=== PATIENT | female | born 1955 | race Caucasian/White ===

== ENCOUNTER 2016-07-14 13:00 | Outpatient (RCR) | payer MEDICARE, OTHER ==
[~2016-07-14 13:00] MED LIST: ALPRAZOLAM; BPR75T PO; BUPR300T PO; CLIN-62 PO; CLON0.25; CLON0.5T3 PO; CLON0.5T60 PO; DOXY100C2 PO; ENAL10TA; HCT25T; OMEP-10 PO; PRX25T PO
== END 2016-07-15 | disposition home or self-care (01) ==
LOC: PULM 13:00
PROVIDERS: ATTEND Internal Medicine Critical Care Medicine
DX: J43.8 Other emphysema (principal); R09.02 Hypoxemia; J84.9 Interstitial pulmonary disease, unspecified; K21.9 Gastro-esophageal reflux disease without esophagitis

== ENCOUNTER 2016-07-23 13:35 | Outpatient (RCR) | payer MEDICARE, OTHER ==
[2016-08-23] MEDS ORDERED: AMOX-358 PO (14:38)
[2016-08-23] MEDS ORDERED: PRD20T PO (14:38)
[2016-08-23] MEDS ORDERED: AZIT250T5 PO (14:38)
== END 2016-10-21 | disposition home or self-care (01) ==
LOC: PULM 13:35
PROVIDERS: ATTEND Internal Medicine Critical Care Medicine
DX: J43.8 Other emphysema (principal); R09.02 Hypoxemia; J84.9 Interstitial pulmonary disease, unspecified; K21.9 Gastro-esophageal reflux disease without esophagitis

== ENCOUNTER 2016-08-23 13:11 | Emergency (ER) | payer MEDICARE, OTHER ==
[~2016-08-23] VITALS: Ht 162.6 cm; Wt 74.8 kg
[2016-08-23] MEDS ORDERED: RT-ALBUTEROL/IPRATROPIUM 3 ML (DUONEB) VIAL ONE (13:21)
[2016-08-23] MEDS ORDERED: RT-ALBUTEROL/IPRATROPIUM 3 ML (DUONEB) VIAL INH ONE (13:30)
[2016-08-23] MEDS ORDERED: methylPREDNISolone 125 MG (Solu-MEDROL) VIAL IVP ONE (13:30)
--- NOTE | 2016-08-23 13:33 | ED Cough/URI ---
General Chief Complaint: Respiratory Problems Stated Complaint: SOB Source: patient Exam Limitations: no limitations History of Present Illness Time seen by provider: 13:30 Initial Comments To ER with shortness of breath and central chest pain. The pain is rated at 2 out of 10 described as heavy and worsens with breathing. She has a history of COPD and wears oxygen at 4 L [id number]. She presented to [facility] but they found her oxygen saturation being 81 percent as she did not wear her portable CO2 with her and they referred her here. She is febrile at 100 on arrival. She has had a cough. Timing/Duration: just prior to arrival Severity/Quality: moderate Prior Episodes/Possible Cause: occasional episodes Associated Symptoms: cough, fever/chills, shortness of breath Allergies and Home Medications Allergies Coded Allergies: No Known Drug Allergies (Verified , 07/15/09) Home Medications Amoxicillin/Potassium Clav 1 Each Tablet #14 1 EACH PO BID Prescribed by: ESTRELLA CHOI on 08/23/16 1438 Azithromycin 250 Mg Tablet #4 250 MG PO DAILY Prescribed by: ESTRELLA CHOI on 08/23/16 1438 Bupropion Hcl 300 Mg Tab.sr.24h 1 TAB PO DAILY (Reported) Clindamycin Hcl 150 Mg Cap 300 MG PO TID (Reported) Clonazepam 0.5 Mg Tablet 0.5 MG PO TID (Reported) Doxycycline Hyclate 100 Mg Capsule 100 MG PO BID (Reported) Omeprazole 20 Mg Capsule.dr 20 MG PO DAILY (Reported) Paroxetine Hcl 25 Mg Tab.sr.24h 25 MG PO DAILY (Reported) Prednisone 20 Mg Tab #8 40 MG PO DAILY Prescribed by: ESTRELLA CHOI on 08/23/16 1438 Constitutional: see HPI chills EENTM: nose congestion see HPI Respiratory: see HPI cough Cardiovascular: see HPI chest pain Genitourinary: no symptoms reported Musculoskeletal: no symptoms reported Skin: no symptoms reported Psychiatric/Neurological: No Symptoms Reported Hematologic/Lymphatic: No Symptoms Reported Past Xwseaur-Qqddja-Cdaifh Hx Patient Social History Recent Foreign Travel: No Contact w/Someone Who Travel: No Immunizations Up To Date Date of Influenza Vaccine: Mar 16, 2012 Respiratory Hx Respiratory Disorders: Yes Cardiovascular Hx Cardiac Disorders: No Neurological Hx Neurological Disorders: No Reproductive System Hx Reproductive Disorders: No Genitourinary Hx Genitourinary Disorders: No Gastrointestinal Hx Gastrointestinal Disorders: No Musculoskeletal Hx Musculoskeletal Disorders: No Endocrine Hx Endocrine Disorders: No HEENT HX ENT Disorders: No Psychosocial Hx Psychiatric Problems: Yes Blood Transfusions Hx Blood Disorders: No Physical Exam Vital Signs Vital Sign - Last 12Hours 08/23/16 08/23/16 13:19 13:37 Temp 100.3 Pulse 103 Resp 18 B/P 150/77 Pulse Ox 99 O2 Delivery Nasal Cannula O2 Flow Rate 2 Capillary Refill : General Appearance: WD/WN no apparent distress other (97 percent on her baseline 4 L) Eyes: Bilateral Eye EOMI, Bilateral Eye Normal Inspection, Bilateral Eye PERRL HEENT: PERRL/EOMI normal ENT inspection Neck: non-tender full range of motion Respiratory: no respiratory distress no accessory muscle use crackles ( throughout) Cardiovascular: regular rate, rhythm no murmur Gastrointestinal: non tender soft Extremities: normal range of motion non-tender Neurologic/Psychiatric: alert normal mood/affect oriented x 3 Skin: normal color warm/dry Progress/Results/Core Measures Results/Orders Lab Results Laboratory Tests Test 08/23/16 13:30 Range/Units Alanine Aminotransferase (ALT/SGPT) 10 0-55 U/L Albumin 3.5 3.2-4.5 G/DL Alkaline Phosphatase 68 40-136 U/L Anion Gap 9 5-14 MMOL/L Aspartate Amino Transf (AST/SGOT) 17 5-34 U/L B-Type Natriuretic Peptide 38.9 <100.0 PG/ML BUN/Creatinine Ratio 15 Basophils # (Auto) 0.1 0.0-0.1 10^3/uL Basophils (%) (Auto) 1 0-10 % Blood Urea Nitrogen 11 7-18 MG/DL Calcium Level 8.9 8.5-10.1 MG/DL Carbon Dioxide Level 28 21-32 MMOL/L Chloride Level 105 98-107 MMOL/L Creatinine 0.72 0.60-1.30 MG/DL Eosinophils # (Auto) 0.2 0.0-0.3 10^3/uL Eosinophils (%) (Auto) 2 0-10 % Estimat Glomerular Filtration Rate > 60 Glucose Level 103 70-105 MG/DL Hematocrit 33 L 35-52 % Hemoglobin 10.4 L 11.5-16.0 G/DL Lymphocytes # (Auto) 1.1 1.0-4.0 X 10^3 Lymphocytes (%) (Auto) 11 L 12-44 % Mean Corpuscular Hemoglobin 25 25-34 PG Mean Corpuscular Hemoglobin Concent 31 L 32-36 G/DL Mean Corpuscular Volume 81 80-99 FL Mean Platelet Volume 11.3 H 7.4-10.4 FL Monocytes # (Auto) 0.6 0.0-1.0 X 10^3 Monocytes (%) (Auto) 6 0-12 % Neutrophils # (Auto) 7.9 H 1.8-7.8 X 10^3 Neutrophils (%) (Auto) 81 H 42-75 % Platelet Count 249 130-400 10^3/uL Potassium Level 3.8 3.6-5.0 MMOL/L Red Blood Count 4.14 L 4.35-5.85 10^6/uL Red Cell Distribution Width 15.5 H 10.0-14.5 % Sodium Level 142 135-145 MMOL/L Total Bilirubin 0.2 0.1-1.0 MG/DL Total Protein 7.1 6.4-8.2 G/DL Troponin I < 0.30 <0.30 NG/ML White Blood Count 9.8 4.3-11.0 10^3/uL Micro Results Microbiology 08/23/16 Influenza Types A,B Antigen ([place]) - Final, Complete My Orders Orders-ESTRELLA CHOI APRN Ekg Tracing (08/23/16 13:23) Troponin I (08/23/16 13:23) Cbc With Automated Diff (08/23/16 13:23) Comprehensive Metabolic Panel (08/23/16 13:23) Chest Pa/Lat (2 View) (08/23/16 13:23) Saline Lock/Iv-Start (08/23/16 13:23) BNP (08/23/16 13:23) Influenza A And B Antigens (08/23/16 13:23) Albuterol/Ipra Inhalation Soln (Duoneb I (08/23/16 13:30) Methylprednisolone Sod Succ (Solu-Medrol (08/23/16 13:30) Svn Sm Volume Nebulizer Rt-Rfs (08/23/16 13:23) Ceftriaxone Injection (Rocephin Injectio (08/23/16 14:30) Amoxicillin/Clavulanate Tablet (Augmenti (08/23/16 14:30) Azithromycin Tablet (Zithromax Tablet) (08/23/16 14:30) Ondansetron Injection (Zofran Injectio (08/23/16 14:30) Ketorolac Injection (Toradol Injection) (08/23/16 14:45) Ketorolac Injection (Toradol Injection) (08/23/16 14:36) Medications Given in ED Current Medications Medications Dose Ordered Sig/Oumar Route Start Time Stop Time Status Last Admin Dose Admin Ketorolac Tromethamine 30 mg STK-MED ONCE .ROUTE 08/23/16 14:36 08/23/16 14:39 DC 08/23/16 14:41 30 MG Methylprednisolone Sodium Succinate 125 mg ONCE ONCE IVP 08/23/16 13:30 08/23/16 13:31 DC 08/23/16 14:23 125 MG Ondansetron HCl 4 mg ONCE ONCE IVP 08/23/16 14:30 08/23/16 14:31 DC 08/23/16 14:40 4 MG Vital Signs/I&O Vital Sign - Last 12Hours 08/23/16 08/23/16 08/23/16 08/23/16 13:19 13:37 14:41 14:42 Temp 100.3 100.3 100.3 Pulse 103 Resp 18 B/P 150/77 Pulse Ox 99 95 O2 Delivery Nasal Cannula O2 Flow Rate 2 Departure Communication Progress Notes 1424-Pt has home O2 and portable O2, nebulizers at home with adequate supply of albuterol. O2 98% on her baseline 4liters of O2. Despite 24 hours of persistent chest pain there are no EKG changes and her troponin remains negative. Her pain is completely gone after Toradol. Impression Impression: Primary Impression: COPD exacerbation Disposition: 01 HOME, SELF-CARE Condition: Stable Departure-Patient Inst. Decision time for Depature: 14:24 Referrals: [facility] (PCP/Family) Primary Care Physician Patient Instructions: Community-Acquired Pneumonia in Adults Add. Discharge Instructions: 1. Return to ER for any concerns 2. Antibiotics as directed 3. All discharge instructions reviewed with patient and/or family. Voiced understanding. Scripts Prednisone 20 Mg Tab40 Mg PO DAILY #8 TAB Prov:ESTRELLA CHOI CONSTRUCTION SECRETARY 08/23/16 Azithromycin 250 Mg [id number] Mg PO DAILY #4 TAB Prov:ESTRELLA CHOI CONSTRUCTION SECRETARY 08/23/16 Amoxicillin/Potassium Clav (Augmentin 875-125 Tablet)1 Each Tablet1 Each PO BID #14 TAB Prov:ESTRELLA CHOI APRN 08/23/16 ESTRELLA CHOI APRN Aug 23, 2016 13:33
[2016-08-23 13:41] LABS: BASOPHILS # (AUTO) 0.1 10^3/uL (0.0-0.1); BASOPHILS % (AUTO) 1 % (0-10); EOSINOPHILS # (AUTO) 0.2 10^3/uL (0.0-0.3); EOSINOPHILS % (AUTO) 2 % (0-10); LYMPHOCYTES # (AUTO) 1.1 X 10^3 (1.0-4.0); LYMPHOCYTES % (AUTO) 11 % (12-44); MEAN CORPUSCULAR HEMOGLOBIN 25 PG (25-34); MEAN CORPUSCULAR HGB CONC 31 G/DL (32-36); MEAN CORPUSCULAR VOLUME 81 FL (80-99); MEAN PLATELET VOLUME 11.3 FL (7.4-10.4); MONOCYTES # (AUTO) 0.6 X 10^3 (0.0-1.0); MONOCYTES % (AUTO) 6 % (0-12); NEUTROPHILS # (AUTO) 7.9 X 10^3 (1.8-7.8); NEUTROPHILS % (AUTO) 81 % (42-75); PLATELET COUNT 249 10^3/uL (130-400); RED BLOOD COUNT 4.14 10^6/uL (4.35-5.85); RED CELL DISTRIBUTION WIDTH 15.5 % (10.0-14.5); WHITE BLOOD COUNT 9.8 10^3/uL (4.3-11.0)
[2016-08-23 13:59] LABS: ALANINE AMINOTRANSFERASE 10 U/L (0-55); ALBUMIN 3.5 G/DL (3.2-4.5); ANION GAP 9 MMOL/L (5-14); ASPARTATE AMINO TRANSFERASE 17 U/L (5-34); BILIRUBIN,TOTAL 0.2 MG/DL (0.1-1.0); BLOOD UREA NITROGEN 11 MG/DL (7-18); BUN/CREATININE RATIO 15; CALCIUM 8.9 MG/DL (8.5-10.1); CARBON DIOXIDE 28 MMOL/L (21-32); CHLORIDE 105 MMOL/L (98-107); CREATININE SERUM 0.72 MG/DL (0.60-1.30); GFR ESTIMATED > 60; GLUCOSE 103 MG/DL (70-105); POTASSIUM 3.8 MMOL/L (3.6-5.0); SODIUM 142 MMOL/L (135-145); TOTAL PROTEIN 7.1 G/DL (6.4-8.2)
[2016-08-23 14:05] LABS: TROPONIN I < 0.30 NG/ML (<0.30)
--- NOTE | 2016-08-23 14:09 | Diagnostic Imaging Report ---
INDICATION: Chest pain and shortness of air. TECHNIQUE: Two view chest 01:54 p.m. CORRELATION STUDY: 06/09/2016. FINDINGS: Heart size stable. Vascular appears increased with presence of bilateral perihilar infiltrates. Patchy infiltrate about the both lungs particularly the upper lobe distributions, right greater than left. Tubing noted over the upper abdomen likely of the gastric band. IMPRESSION: 1. Prominent pulmonary parenchymal markings suspect for scattered patchy areas of infiltrate. Also suspect for superimposed edema. Dictated by: Dictated on workstation # [id number]
[2016-08-23] MEDS ORDERED: cefTRIAXone INJECTION 1,000 MG in NS (IVPB) 50 ML IV ONE (14:30)
[2016-08-23] MEDS ORDERED: AZITHROMYCIN 250 MG TAB (ZITHROMAX) PO SCH (14:30)
[2016-08-23] MEDS ORDERED: ONDANSETRON 4 MG/2 ML (SDV) Z0FRAN IVP ONE (14:30)
[2016-08-23] MEDS ORDERED: AUGMENTIN 875 MG TAB (AMOXICILLIN/CLAVULANATE) PO SCH (14:30)
[2016-08-23] MEDS ORDERED: KETOROLAC 30 MG/ML VIAL ONE (14:36)
[2016-08-23] MEDS ORDERED: AZIT250T5 PO (14:38)
[2016-08-23] MEDS ORDERED: PRD20T PO (14:38)
[2016-08-23] MEDS ORDERED: AMOX-358 PO (14:38)
[2016-08-23] MEDS ORDERED: KETOROLAC 30 MG/ML VIAL IVP ONE (14:45)
[2016-08-23 15:21] VITALS: BP 122/75
== END 2016-08-23 15:21 | disposition home or self-care (01) ==
LOC: EDUNIT# 13:11 → ER 13:13
DX: J44.1 Chronic obstructive pulmonary disease with (acute) exacerbation (principal); R07.89 Other chest pain; Z99.81 Dependence on supplemental oxygen; Z79.899 Other long term (current) drug therapy
CPT/HCPCS: 36415; 71020; 80053; 83880; 84484; 85025; 87804; 93005; 94640; 96374; 96375

== ENCOUNTER 2016-09-15 15:17 | Outpatient (RCR) | payer MEDICARE, OTHER ==
[~2016-09-15 15:17] MED LIST changes: +AMOX-358 PO; +AZIT250T5 PO; +PRD20T PO
[2016-09-15 16:28] LABS: BASOPHILS # (AUTO) 0.1 10^3/uL (0.0-0.1); BASOPHILS % (AUTO) 1 % (0-10); EOSINOPHILS # (AUTO) 0.5 10^3/uL (0.0-0.3); EOSINOPHILS % (AUTO) 6 % (0-10); LYMPHOCYTES % (AUTO) 23 % (12-44); MEAN CORPUSCULAR HEMOGLOBIN 25 PG (25-34); MEAN CORPUSCULAR HGB CONC 31 G/DL (32-36); MEAN CORPUSCULAR VOLUME 80 FL (80-99); MEAN PLATELET VOLUME 10.4 FL (7.4-10.4); MONOCYTES # (AUTO) 0.7 X 10^3 (0.0-1.0); MONOCYTES % (AUTO) 8 % (0-12); NEUTROPHILS # (AUTO) 5.5 X 10^3 (1.8-7.8); NEUTROPHILS % (AUTO) 63 % (42-75); PLATELET COUNT 254 10^3/uL (130-400); RED BLOOD COUNT 4.51 10^6/uL (4.35-5.85); RED CELL DISTRIBUTION WIDTH 15.5 % (10.0-14.5); WHITE BLOOD COUNT 8.7 10^3/uL (4.3-11.0)
[2016-09-15 16:46] LABS: BAND NEUTROPHILS 2 %; BASOPHILS % (MANUAL) 1 %; EOSINOPHILS % (MANUAL) 11 %; LYMPHOCYTES % (MANUAL) 24 %
[2016-09-15 16:47] LABS: NEUTROPHILS % (MANUAL) 56 %
--- NOTE | 2016-09-15 17:48 | Diagnostic Imaging Report ---
EXAMINATION: PA and lateral chest at 4:28 p.m. INDICATION: Cough, shortness of breath. FINDINGS: The heart size is within normal limits and stable when compared to 08/23/2016. The perihilar densities seen on the prior study are again evident and somewhat less conspicuous. There still appears to be some residual density present in each perihilar region. The lung peripheries are clear, and there is no sign of a pleural effusion. The mediastinum is not widened. The osseous structures are intact. IMPRESSION: The appearance of the chest has improved somewhat as the perihilar regions do appear better aerated. There is still some residual abnormal density in each perihilar region, however. If further evaluation is desired, then CT of the chest would be recommended. Dictated by: Dictated on workstation # [id number]
== END 2016-12-14 | disposition home or self-care (01) ==
LOC: RAD 15:17
PROVIDERS: ATTEND Nurse Practitioner Family
DX: J30.9 Allergic rhinitis, unspecified (principal); J45.998 Other asthma; J43.9 Emphysema, unspecified; R06.02 Shortness of breath; J18.9 Pneumonia, unspecified organism
CPT/HCPCS: 36415; 71020; 85007; 85027; 87070; 87077; 87186; 87205

== ENCOUNTER → 2016-09-18 | Outpatient (CLI) | payer MEDICARE, OTHER ==
--- NOTE | 2016-09-18 16:30 | Diagnostic Imaging Report ---
PROCEDURE: CT chest without contrast. TECHNIQUE: Multiple contiguous axial images were obtained through the chest without the use of intravenous contrast. INDICATION: Short of breath, chest pain. Pneumonia followup. FINDINGS: There are patchy groundglass infiltrates in the peripheral right lung. There is some parabronchial thickening in the right hilum with no alveolar infiltrate or mass seen. There is no effusion or pneumothorax. There is no mediastinal or hilar lymphadenopathy. The esophagus is mildly dilated and filled with fluid. There are changes of prior surgery at the GE junction. IMPRESSION: There are minimal infiltrates in the right upper lobe. There are chronic changes on the right which were present on a CT from 11/15/2015. There is no suspicious mass. A mildly dilated esophagus which is filled with fluid is also similar in appearance to the prior CT from 12/05/2015. Message left on doctor's line at 4:29 p.m. 09/18/2016/cb Dictated by: Dictated on workstation # [id number]
== END ==
LOC: RAD 15:33
PROVIDERS: ATTEND Nurse Practitioner Family
DX: J18.9 Pneumonia, unspecified organism (principal)
CPT/HCPCS: 71250

== ENCOUNTER → 2016-12-02 | Outpatient (CLI) | payer MEDICARE, OTHER ==
--- NOTE | 2016-12-02 17:03 | Diagnostic Imaging Report ---
PROCEDURE: CT chest without contrast. TECHNIQUE: Multiple contiguous axial images were obtained through the chest without the use of intravenous contrast. INDICATION: Followup pneumonia. COMPARISON: 09/18/2016 and also CTA chest of 11/15/2015 is reviewed. FINDINGS: There are fibrotic changes seen in the right lung, similar to the prior exams. This is asymmetric with minimal fibrotic changes seen in the left lung suggestive of sequelae of infections or aspiration pneumonitis within the right lung. This does not have the appearance of symmetric interstitial lung disease. There is a left lower lobe subpleural elongated nodule measuring 6 mm in size, similar to November 2015 exam suggestive of scarring. The esophagus is moderately dilated throughout the chest with an air-fluid level. There is debris also seen. Note is made of a gastric band in the proximal stomach. The heart size is normal. There is no pericardial or pleural effusion. Stable minimally prominent right paratracheal lymph node is seen and an infracarinal lymph node of questionable clinical significance. There is no axillary lymphadenopathy. Sections of the upper abdomen demonstrate evidence of gallstones. The osseous structures demonstrate degenerative changes. IMPRESSION: 1. Ugjs-as-oslpufdb interstitial scarring throughout the right lung, similar to prior exams may relate to prior infections or recurrent aspiration pneumonitis. No acute pneumonia seen. 2. There is chronic moderate dilatation of the esophagus along its entire length with air-fluid levels and debris. Note is made of a gastric band. The finding could be secondary to a tight gastric band, functional abnormality in the esophagus, or reflux. 3. Gallstones. Dictated by: Dictated on workstation # [id number]
== END ==
LOC: RAD 12:36
PROVIDERS: ATTEND Nurse Practitioner Family
DX: K80.20 Calculus of gallbladder without cholecystitis without obstruction (principal); J84.9 Interstitial pulmonary disease, unspecified; K22.9 Disease of esophagus, unspecified; J43.9 Emphysema, unspecified; J45.998 Other asthma; J44.9 Chronic obstructive pulmonary disease, unspecified; R09.02 Hypoxemia
CPT/HCPCS: 71250

== ENCOUNTER 2017-01-27 05:35 | Outpatient (CLI) | payer MEDICARE, OTHER ==
[~2017-01-27] VITALS: Ht 162.6 cm; Wt 74.8 kg
[~2017-01-27 05:35] MED LIST changes: +AZIT250T12 PO; -AZIT250T5 PO
[2017-01-27] MEDS ORDERED: OMEP40CA36 PO (11:12)
[2017-01-27] MEDS ORDERED: BUDE10.2 IH (11:13)
[2017-01-27] MEDS ORDERED: RT-ALBUINH IH (11:13)
[2017-01-29] MEDS ORDERED: PANT40TA2 PO (14:13)
[2017-01-29] MEDS ORDERED: SUCR1TAB36 PO (14:14)
== END 2017-01-27 11:22 ==
LOC: PREOP 05:35
PROVIDERS: ATTEND Surgery
DX: Z01.818 Encounter for other preprocedural examination (principal); D64.9 Anemia, unspecified

== ENCOUNTER 2017-01-29 11:17 | Day surgery (SDC) | payer MEDICARE, OTHER ==
[~2017-01-29] VITALS: Ht 162.6 cm; Wt 80.7 kg
[~2017-01-29 11:17] MED LIST changes: +BUDE10.2 IH; +OMEP40CA36 PO; +RT-ALBUINH IH
--- OUTSIDE RECORDS SUMMARY | 2017-01-29 11:21 | XMS REPORT ---
Author Author YESSI FARRIS Organization [employer] Address Unknown Phone Unavailable Care Team Providers Care Industrial Maintenance Millwright Name Role Phone YESSI FARRIS CP Unavailable Allergies No Known Allergies Problems Problem Type Condition ICD-9 Code Onset Dates Condition Status Problem Bariatric surgery status V45.86 Active Problem Acute sinusitis, unspecified 461.9 Active Problem Vomiting alone 787.03 Active Problem Back pain 724.5 Active Problem COPD (chronic obstructive pulmonary disease) 496 Active Problem 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.9 Active Problem Shortness of breath 786.05 Active Problem Extrinsic asthma, with (acute) exacerbation 493.02 Active Problem Anxiety 300.00 Active Problem Asthma, unspecified, unspecified status 493.90 Active Problem Cough 786.2 Active Problem Special screening for osteoporosis V82.81 Active Problem Routine gynecological examination V72.31 Active Problem Unspecified breast screening V76.10 Active Problem Other specified counseling V65.49 Active Problem Screening for malignant neoplasm of the cervix V76.2 Active Problem Special screening for malignant neoplasms, colon V76.51 Active Problem Special screening examination, human papillomavirus [HPV] V73.81 Active Medications No Known Medications Procedures Procedure Coding System Code Date ASSESS LTH/BEHAVE, INIT CPT-4 94358 Feb 19, 2015 Results No Known Results Summary Purpose [employer] Submission
--- OUTSIDE RECORDS SUMMARY | 2017-01-29 11:21 | XMS REPORT ---
Author ANA Renee [facility] [place] [employer] Address Unknown Phone Unavailable Care Team Providers Care Sand Caster Apprentice Name Role Phone ANA TILLMAN CP Unavailable Allergies, Adverse Reactions, Alerts Substance Reaction Event Type N.K.D.A. Info Not Available Non Drug Allergy Problems Problem Type Condition ICD-9 Code Onset [...] Problem Special screening for osteoporosis V82.81 Active Assessment Breast cancer screening V76.10 Active Problem Routine gynecological examination V72.31 Active Problem Unspecified breast screening V76.10 Active Problem Other specified counseling V65.49 Active Problem Screening for malignant neoplasm of the cervix V76.2 Active Problem Special screening for malignant neoplasms, colon V76.51 Active Problem Special screening examination, human papillomavirus [HPV] V73.81 Active Medications Medication Code System Code Instructions Start Date End Date Status Dosage Ultram [facility] [address]-77 50 MG Orally every 6 hrs December 18, 2014 Apr 01, 2015 1 tablet as needed Klonopin [facility] [address]-46 0.5 mg September 05, 2013 take 1 tablet ( 0.5 mg) by oral route 3 times per day Symbicort [facility] [address]-50 160-4.5 mcg/actuation Jul 31, 2014 inhale 2 puffs by inhalation route 2 times per day in the morning and evening Paxil [facility] [address]-14 30 mg September 05, 2013 take 1 tablet (30 mg ) by oral route once daily Oxygen NDC 0 not defined Proventil HFA [facility] [address]-12 108 (90 Base) MCG/ACT Inhalation PRN every 4 hours 2 puffs as needed Flonase [facility] [address]-83 50 MCG/ACT Nasally Once a day 1 spray in each nostril Procedures Procedure Coding System Code Date Office Visit, Est Pt., Level 3 CPT-4 20884 Feb 28, 2015 Vital Signs Date/Time: Feb 28, 2015 Temperature 98.6 F Weight 154.1 lbs Height 64 in BMI 26.45 Index Blood Pressure Diastolic 80 mmHg Blood Pressure Systolic 112 mmHg Cardiac Monitoring Heart Rate 80 bpm Results No Known Results Summary Purpose [employer] Submission
--- OUTSIDE RECORDS SUMMARY | 2017-01-29 11:21 | XMS REPORT ---
Author MARY Tian [facility] e[employer] Address Unknown Phone Unavailable Care Team Providers Care Etl Software Engineer Name Role Phone MARY CARO CP Unavailable Allergies, Adverse Reactions, Alerts Substance Reaction Event Type N.K.D.A. Info Not Available Non Drug Allergy Problems Problem Type Condition Code Onset Dates Condition Status Assessment Hyperlipidemia E78.5 Active Assessment Back pain 724.5 Active Assessment Anxiety 300.00 Active Assessment Headache R51 Active Assessment Iron deficiency anemia D50.9 Active Problem Iron deficiency anemia D50.9 Active Problem 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.9 Active Problem Hyperlipidemia E78.5 Active Problem Anxiety 300.00 Active Assessment COPD (chronic obstructive pulmonary disease) 496 Active Problem Back pain 724.5 Active Problem COPD (chronic obstructive pulmonary disease) 496 Active Medications Medication Code System Code Instructions Start Date End Date Status Dosage Proventil HFA [facility] [address]-03 108 (90 Base) MCG/ACT Inhalation PRN every 4 hours 2 puffs as needed Paxil [facility] [address]-91 30 MG Orally Once a day September 05, 2013 take 1 tablet (30 mg) by oral route once daily Oxygen NDC 0 not defined Symbicort [facility] [address]-99 160-4.5 MCG/ACT INHALE TWO PUFFS BY MOUTH TWICE DAILY Ibuprofen [facility] [address]-59 800 MG Orally Three times a day September 27, 2015 December 26, 2015 1 tablet Klonopin [facility] [address]-86 0.5 MG Twice a day September 05, 2013 take 1 tablet (0.5 mg) by oral route 3 times per day Pravastatin Sodium [facility] [address]-51 20 MG Orally Once a day at bedtime Mar 21, 2015 1 tablet Iron [facility] 37594-97946 90 (18 Fe) MG Orally Once a day 2 tablets Flonase [facility] [address]-09 50 MCG/ACT Nasally Once a day 1 spray in each nostril Tramadol HCl [facility] [address]-81 50 MG Orally every 6 hrs 1 tablet as needed Procedures Procedure Coding System Code Date TORADOL (IM) 60 MG/2ML (UP TO 15 MG) CPT-4 J1885 September 27, 2015 THER/PROPH/DIAG INJ, SC/IM CPT-4 53790 September 27, 2015 Office Visit, Est Pt., Level 4 CPT-4 89811 September 27, 2015 Vital Signs Date/Time: September 27, 2015 BMI 28.49 Index Weight 166 lbs Height 64 in Results No Known Results Summary Purpose eClinicalWorks Submission
--- OUTSIDE RECORDS SUMMARY | 2017-01-29 11:22 | XMS REPORT ---
Author Author ELIE MINAYA [employer] Address Unknown Phone Unavailable Care Team Providers Care [facility] Administrator Name Role Phone ELIE MINAYA CP Unavailable Allergies No Known Allergies Problems Problem Type Condition ICD-9 Code Onset Dates Condition Status Problem Special screening examination, human papillomavirus [HPV] V73.81 Active Problem Vomiting alone 787.03 Active Problem Bariatric surgery status V45.86 Active Problem COPD (chronic obstructive pulmonary disease) 496 Active Problem Anxiety 300.00 Active Problem Back pain 724.5 Active Problem Extrinsic asthma, with (acute) exacerbation 493.02 Active Problem Acute sinusitis, unspecified 461.9 Active Problem Asthma, unspecified, unspecified status 493.90 Active Problem Shortness of breath 786.05 Active Assessment Dental examination V72.2 Active Problem Cough 786.2 Active Problem Special screening for malignant neoplasms, colon V76.51 Active Problem Routine gynecological examination V72.31 Active Problem Special screening for osteoporosis V82.81 Active Problem Unspecified breast screening V76.10 Active Problem Other specified counseling V65.49 Active Problem Screening for malignant neoplasm of the cervix V76.2 Active Medications No Known Medications Procedures Procedure Coding System Code Date SURG REMOVAL ERUPTED TOOTH CPT-4 D7210 December 26, 2014 SURG REMOVAL ERUPTED TOOTH CPT-4 D7210 December 26, 2014 SURG REMOVAL ERUPTED TOOTH CPT-4 D7210 December 26, 2014 SURG REMOVAL ERUPTED TOOTH CPT-4 D7210 December 26, 2014 SURG REMOVAL ERUPTED TOOTH CPT-4 D7210 December 26, 2014 SURG REMOVAL ERUPTED TOOTH CPT-4 D7210 December 26, 2014 SURG REMOVAL ERUPTED TOOTH CPT-4 D7210 December 26, 2014 SURG REMOVAL ERUPTED TOOTH CPT-4 D7210 December 26, 2014 REMOVAL IMPACT TOOTH - SOFT TISSUE CPT-4 D7220 December 26, 2014 SURG REMOVAL ERUPTED TOOTH CPT-4 D7210 December 26, 2014 ALVEOLOPLSTY CONJNC XTRCT 1-3 TEETH CPT-4 D7311 December 26, 2014 ALVEOLOPLSTY CONJNC XTRCT 1-3 TEETH CPT-4 D7311 December 26, 2014 SURG REMOVAL ERUPTED TOOTH CPT-4 D7210 December 26, 2014 ALVEOLOPLSTY CONJNC XTRCT 1-3 TEETH CPT-4 D7311 December 26, 2014 SURG REMOVAL ERUPTED TOOTH CPT-4 D7210 December 26, 2014 Results No Known Results Summary Purpose eClinicalWorks Submission
--- OUTSIDE RECORDS SUMMARY | 2017-01-29 11:22 | XMS REPORT ---
Author Author ANA TILLMAN [facility] eClinical[employer] Address Unknown Phone Unavailable Care Team Providers Care Mill Manager Name Role Phone ANA TILLMAN CP Unavailable Allergies No Known Allergies Problems Problem Type Condition Code Onset Dates Condition Status Problem Acute sinusitis, unspecified 461.9 Active Problem Shortness of breath 786.05 Active Problem Extrinsic asthma, with (acute) exacerbation 493.02 Active Problem Iron deficiency anemia D50.9 Active Assessment Hyperlipidemia E78.5 Active Problem 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.9 Active Assessment Iron deficiency anemia D50.9 Active Problem Hyperlipidemia E78.5 Active Problem Anxiety 300.00 Active Problem Asthma, unspecified, unspecified status 493.90 Active Problem Back pain 724.5 Active Problem COPD (chronic obstructive pulmonary disease) 496 Active Problem Other specified counseling V65.49 Active Problem Special screening for malignant neoplasms, colon V76.51 Active Problem Cough 786.2 Active Problem Special screening for osteoporosis V82.81 Active Problem Screening for malignant neoplasm of the cervix V76.2 Active Problem Special screening examination, human papillomavirus [HPV] V73.81 Active Problem Routine gynecological examination V72.31 Active Problem Bariatric surgery status V45.86 Active Problem Unspecified breast screening V76.10 Active Problem Vomiting alone 787.03 Active Medications Medication Code System Code Instructions Start Date End Date Status Dosage Pravastatin Sodium [facility] [address]-22 20 MG Orally Once a day at bedtime Mar 21, 2015 1 tablet Results No Known Results Summary Purpose [employer]ClinicalWorks Submission
--- OUTSIDE RECORDS SUMMARY | 2017-01-29 11:22 | XMS REPORT ---
Author Author MARY CARO Organization [facility] Address [address] [place] [address] Care Team Providers Care Drawing Frame Tender Name Role Phone MARY CARO Unavailable PROBLEMS Type Condition ICD9-CM Code RIE10-SI Code Onset Dates Condition Status SNOMED Code Problem Chronic obstructive pulmonary disease with acute lower respiratory infection J44.0 Active 704184331 Problem Environmental allergies Z91.09 Active 049426528 Problem Hyperlipidemia E78.5 Active 95871446 Problem Iron deficiency anemia D50.9 Active 24083311 Problem Anxiety F41.9 Active 56367723 Problem Major depressive disorder with single episode, remission status unspecified F32.9 Active [id number] ALLERGIES Unknown Allergies SOCIAL HISTORY No smoking Hx information available PLAN OF CARE VITAL SIGNS MEDICATIONS Medication Instructions Dosage Frequency Start Date End Date Duration Status Proventil HFA 108 (90 Base) MCG/ACT Inhalation PRN every 4 hours 2 puffs as needed Active Symbicort 160-4.5 MCG/ACT Inhalation Twice a day INHALE TWO PUFFS BY MOUTH TWICE DAILY 12h 30 Active RESULTS No Results PROCEDURES No Known procedures IMMUNIZATIONS No Known Immunizations
--- OUTSIDE RECORDS SUMMARY | 2017-01-29 11:22 | XMS REPORT ---
Author MARY Tian [facility] eClinicalWorks Address Unknown Phone Unavailable Care Team Providers Care Environmental Restoration Planner Name Role Phone MARY CARO CP Unavailable Allergies No Known Allergies Problems Problem Type Condition Code Onset Dates Condition Status Assessment Iron deficiency anemia D50.9 Active Problem Iron deficiency anemia D50.9 Active Problem 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.9 Active Problem Hyperlipidemia E78.5 Active Problem Anxiety 300.00 Active Assessment Hyperlipidemia E78.5 Active Problem Back pain 724.5 Active Problem COPD (chronic obstructive pulmonary disease) 496 Active Medications No Known Medications Procedures Procedure Coding System Code Date ASSAY OF IRON CPT-4 38872 October 08, 2015 COMPLETE CBC W/AUTO DIFF WBC CPT-4 05033 October 08, 2015 IRON BINDING TEST CPT-4 34137 October 08, 2015 VENIPUNCT, ROUTINE* CPT-4 38319 October 08, 2015 LIPID PANEL CPT-4 91355 October 08, 2015 Results Name Result Date Reference Range Unit Abnormality Flag CBC ----Lymphs 23 83739950 % ----Neutrophils 58 11200974 % ----Baso (Absolute) 0.1 [id number] 0.0-0.2 x10E3/uL ----Hemoglobin 12.6 42539500 11.1-15.9 g/dL ----Eos (Absolute) 0.7 66049798 0.0-0.4 x10E3/uL H ----Hematocrit 39.2 00756509 34.0-46.6 % ----Monocytes(Absolute) 0.4 11999489 0.1-0.9 x10E3/uL ----MCV 80 41656643 79-97 fL ----Lymphs (Absolute) 1.5 61794314 0.7-3.1 x10E3/uL ----MCH 25.8 20701777 26.6-33.0 pg L ----Neutrophils (Absolute) 3.9 94134718 1.4-7.0 x10E3/uL ----MCHC 32.1 20151008 31.5-35.7 g/dL ----Immature Granulocytes 0 20151008 % ----Basos 1 20151008 % ----RDW 15.9 [id number] 12.3-15.4 % H ----Immature Grans (Abs) 0.0 20151008 0.0-0.1 x10E3/uL ----WBC 6.5 76104641 3.4-10.8 x10E3/uL ----Platelets 285 21344387 150-379 x10E3/uL ----Eos 11 20151008 % ----RBC 4.89 39644142 3.77-5.28 x10E6/uL ----Monocytes 7 98949172 % LIPID PANEL ----LDL Cholesterol Calc 161 20151008 0-99 mg/dL H ----VLDL Cholesterol Dread 14 42299838 5-40 mg/dL ----Cholesterol, Total 233 20151008 100-199 mg/dL H ----HDL Cholesterol 58 13905717 >39 mg/dL ----Triglycerides 72 43318844 0-149 mg/dL ROUTINE VENIPUNCTURE IRON + TIBC ----Iron Saturation 17 18840243 15-55 % ----UIBC 240 20151008 131-425 ug/dL ----Iron, Serum 49 20151008 27-159 ug/dL ----Iron Bind.Cap.(TIBC) 289 47487906 250-450 ug/dL Summary Purpose eClinicalWorks Submission
--- OUTSIDE RECORDS SUMMARY | 2017-01-29 11:22 | XMS REPORT ---
Author Author ANA TILLMAN [facility] eClinicalWorks Address Unknown Phone Unavailable Care Team Providers Care Obstetrics Gyn Physician Name Role Phone ANA TILLMAN CP Unavailable Allergies No Known Allergies Problems Problem Type Condition Code Onset Dates Condition Status Problem Bariatric [...] Special screening for osteoporosis V82.81 Active Assessment Routine adult health maintenance V70.0 Active Problem Routine gynecological examination V72.31 Active Problem Unspecified breast screening V76.10 Active Problem Other specified counseling V65.49 Active Problem Screening for malignant neoplasm of the cervix V76.2 Active Problem Special screening for malignant neoplasms, colon V76.51 Active Problem Special screening examination, human papillomavirus [HPV] V73.81 Active Medications No Known Medications Procedures Procedure Coding System Code Date COMPLETE CBC W/AUTO DIFF WBC CPT-4 29360 Mar 18, 2015 LIPID PANEL CPT-4 88638 Mar 18, 2015 ASSAY THYROID STIM HORMONE CPT-4 66346 Mar 18, 2015 VENIPUNCT, ROUTINE* CPT-4 01128 Mar 18, 2015 COMPREHEN METABOLIC PANEL CPT-4 48322 Mar 18, 2015 Results Name Result Date Reference Range Unit Abnormality Flag ROUTINE VENIPUNCTURE Summary Purpose eClinicalWorks Submission
--- OUTSIDE RECORDS SUMMARY | 2017-01-29 11:22 | XMS REPORT ---
Author ANA Renee [facility] eClinicalWorks Address Unknown Phone Unavailable Care Team Providers Care Paraprofessional Aide Teacher Name Role Phone ANA TILLMAN CP Unavailable Allergies, Adverse Reactions, Alerts Substance Reaction Event Type N.K.D.A. Info Not Available Non Drug Allergy Problems Problem Type Condition ICD-9 Code Onset Dates Condition Status Problem Bariatric surgery status V45.86 Active Problem Acute sinusitis, unspecified 461.9 Active Problem Vomiting alone 787.03 Active Problem Back pain 724.5 Active Assessment Special screening for malignant neoplasms, colon V76.51 Active Problem COPD (chronic obstructive pulmonary disease) 496 Active Assessment 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.9 Active Problem 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.9 Active Problem Shortness of breath 786.05 Active Problem Extrinsic asthma, with (acute) exacerbation 493.02 Active Problem Anxiety 300.00 Active Problem Asthma, unspecified, unspecified status 493.90 Active Problem Cough 786.2 Active Problem Special screening for osteoporosis V82.81 Active Assessment COPD (chronic obstructive pulmonary disease) 496 Active Assessment Routine adult health maintenance V70.0 [...] Start Date End Date Status Dosage Ultram [facility] [address]-99 50 MG Orally every 6 hrs December 18, 2014 Apr 01, 2015 1 tablet as needed Klonopin [facility] [address]-52 0.5 mg September 05, 2013 take 1 tablet ( 0.5 mg) by oral route 3 times per day Paxil [facility] [address]-53 30 mg September 05, 2013 take 1 tablet (30 mg ) by oral route once daily Proventil HFA [facility] [address]-01 108 (90 Base) MCG/ACT Inhalation PRN every 4 hours 2 puffs as needed Oxygen NDC 0 not defined Symbicort [facility] [address]-81 160-4.5 mcg/actuation Jul 31, 2014 inhale 2 puffs by inhalation route 2 times per day in the morning and evening Procedures Procedure Coding System Code Date Office Visit, Est Pt., Level 4 CPT-4 73565 Feb 19, 2015 MEASURE BLOOD OXYGEN LEVEL CPT-4 99221 Feb 19, 2015 Vital Signs Date/Time: Feb 19, 2015 Temperature 98.6 F Weight 152.5 lbs Height 64 in Oximetry 97 % Blood Pressure Diastolic 80 mmHg Blood Pressure Systolic 130 mmHg Cardiac Monitoring Heart Rate 80 bpm BMI 26.17 Index Results No Known Results Summary Purpose eClinicalWorks Submission
--- OUTSIDE RECORDS SUMMARY | 2017-01-29 11:23 | XMS REPORT ---
Author DANYA Jc [facility] eClinicalWorks Address Unknown Phone Unavailable Care Team Providers Care Rock Climbing Instructor Name Role Phone DANYA MAGAÑA CP Unavailable Allergies No Known Allergies Problems [...] Special screening for osteoporosis V82.81 Active Assessment Orbital cellulitis on left H05.012 Active Problem Routine gynecological examination V72.31 Active Problem Unspecified breast screening V76.10 Active Problem Other specified counseling V65.49 Active Problem Screening for malignant neoplasm of the cervix V76.2 Active Problem Special screening for malignant neoplasms, colon V76.51 Active Problem Special screening examination, human papillomavirus [HPV] V73.81 Active Medications Medication Code System Code Instructions Start Date End Date Status Dosage Klonopin [facility] [address]-39 0.5 mg September 05, 2013 take 1 tablet ( 0.5 mg) by oral route 3 times per day Oxygen NDC 0 not defined PredniSONE [facility] [address]-10 20 MG Orally Twice a day Mar 15, 2015Mar 2 tablets Proventil HFA [facility] [address]-83 108 (90 Base) MCG/ACT Inhalation PRN every 4 hours 2 puffs as needed Paxil [facility] [address]-18 30 mg September 05, 2013 take 1 tablet (30 mg ) by oral route once daily Flonase [facility] [address]-48 50 MCG/ACT Nasally Once a day 1 spray in each nostril Cephalexin [facility] [address]-47 500 MG Orally Twice a day Mar 15, 2015Mar 1 capsule Ultram [facility] [address]-15 50 MG Orally every 6 hrs December 18, 2014 Apr 01, 2015 1 tablet as needed Symbicort [facility] [address]-66 160-4.5 mcg/actuation Jul 31, 2014 inhale 2 puffs by inhalation route 2 times per day in the morning and evening Procedures Procedure Coding System Code Date Office Visit, Est Pt., Level 3 CPT-4 07817 Mar 15, 2015 Vital Signs Date/Time: Mar 15, 2015 Temperature 98.0 F Weight 153 lbs Height 64 in BMI 26.26 Index Blood Pressure Diastolic 72 mmHg Blood Pressure Systolic 118 mmHg Cardiac Monitoring Heart Rate 76 bpm Results No Known Results Summary Purpose eClinicalWorks Submission
[2017-01-29 11:25] VITALS: BP 114/81
[2017-01-29] MEDS ORDERED: LIDOCAINE JELLY 2% (XYLOCAINE) 5 ML TUBE MM PRN (11:30)
[2017-01-29] MEDS ORDERED: HURRICAINE EXT TUBE (BENZOCAINE) XX PRN (11:30)
[2017-01-29] MEDS ORDERED: NS IV 500 ML 0 ML ONE (11:32)
[2017-01-29] MEDS ORDERED: NS IV 500 ML 500 ML ONE ×2 (11:33→12:48)
[2017-01-29] MEDS: NS IV 500 ML 500 ML IV PRN ×2 (11:42→13:00)
--- NOTE | 2017-01-29 12:11 | Conscious Sedation/ASA ---
Conscious Sedation Pre-Proced Time Reviewed: 12:00 ASA Class: 2 Airway Mallampati Classification: ([place] appropriate class) I. II. III, IV Lungs Heart ASA score ASA 1: a normal healthy patient ASA 2: a patient with a mild systemic disease (mid diabetes, controlled hypertension, obesity ASA 3: a patient with a severe systemic disease that limits activity (angina , COPD, prior Myocardial infarction) ASA 4: a patient with an incapacitating disease that is a constant threat to life (CHF, renal failure) ASA 5: a moribund patient not expected to survive 24 hrs. (ruptured aneurysm) ASA 6: a declared brain patient whose organs are being harvested. For emergent operations, add the letter E after the classification Grade 2 Sedation Plan: Analgesia, Amnesia, Plan communicated to team members, Discussed options with patient/fam, Discussed risks with patient/fam Note The patient is an appropriate candidate to undergo the planned procedure, sedation, and anesthesia. The patient immediately re-assessed prior to indication. RADHA TRAN MD Jan 29, 2017 12:11 pm
--- NOTE | 2017-01-29 12:12 | Progress Note-Pre Operative ---
Pre-Operative Progress Note H&P Reviewed The H&P was reviewed, patient examined and no changes noted. Date Seen by Provider: Jan 29, 2017 Time Seen by Provider: 12:00 Date H&P Reviewed: Jan 29, 2017 Time H&P Reviewed: 12:00 Pre-Operative Diagnosis: anemia RADHA TRAN MD Jan 29, 2017 12:12 pm
[2017-01-29] MEDS ORDERED: ACETAMINOPHEN 325 MG TABLET/CAPLET (TYLENOL) PO PRN (12:15)
[2017-01-29] MEDS ORDERED: HYDROcodone/APAP 5 MG/325 MG (LORTAB) TAB PO PRN (12:15)
[2017-01-29] MEDS ORDERED: ONDANSETRON 4 MG/2 ML (SDV) Z0FRAN IV PRN (12:15)
[2017-01-29] MEDS ORDERED: morphine INJ 10 MG/ML 1ML (SYR OR VIAL) IV PRN (12:15)
[2017-01-29] MEDS ORDERED: LIDOCAINE JELLY 2% (XYLOCAINE) 5 ML TUBE ONE (12:47)
[2017-01-29] MEDS ORDERED: fentaNYL INJECTION 100 MCG/2 ML AMP ONE ×3 (12:47→13:32)
[2017-01-29] MEDS ORDERED: MIDAZOLAM 2 MG/2 ML (VERSED) VIAL ONE ×8 (12:47→13:32)
[2017-01-29] MEDS ORDERED: HURRICAINE EXT TUBE (BENZOCAINE) ONE (12:48)
[2017-01-29] MEDS: MIDAZOLAM 2 MG/2 ML (VERSED) VIAL IVP PRN ×8 (13:00→13:42)
[2017-01-29] MEDS: fentaNYL INJECTION 100 MCG/2 ML AMP IVP PRN ×6 (13:01→13:38)
--- NOTE | 2017-01-29 14:11 | Progress Note-Post Operative ---
Post-Operative Progess Note Surgeon (s)/Framing Manager (s) Surgeon RADHA TRAN MD Framing Manager: none Pre-Operative Diagnosis anemia Post-Operative Diagnosis distal esophageal linear ulcer(1cm) with overlying fibrin clot, intact gastric pouch and band, mild gastritis. chronic stage 1 ext and int hemorrhoids. Procedure & Operative Findings Date of Procedure 01/29/17 Procedure Performed/Findings EGD with bx. Colonoscopy. Anesthesia Type CS Estimated Blood Loss Estimated blood loss (mL): minimal Specimens/Packing Specimens Removed esophageal ulcer, antrum. RADHA TRAN MD Jan 29, 2017 2:11 pm
[2017-01-29] MEDS ORDERED: PANT40TA2 PO (14:13)
[2017-01-29] MEDS ORDERED: SUCR1TAB36 PO (14:14)
[2017-01-29 14:15] VITALS: BP 107/68
--- NOTE | 2017-01-29 14:15 | Discharge Inst-Surgical ---
D/C Lap Instructions-KIDO New, Converted, or Re-Newed RX: RX on Chart Follow Up PRN Activity as tolerated High Fiber Diet 25g or more per day Avoid Alcohol, Caffeine, Spicy Gratis and Acid foods. Drink 64 fluid oz or more of fluids per day. Symptoms to Report: Fever over 101 degree F, Nausea/Vomiting If any problems/questions: Contact your physician or go to Emergency Room RADHA TRAN MD Jan 29, 2017 2:15 pm
[2017-01-29 14:44] VITALS: BP 110/73
[2017-01-29 14:53] VITALS: BP 110/73
--- NOTE | 2017-01-29 23:48 | OPERATIVE REPORT ---
DATE OF SERVICE: 01/29/2017 ATTENDING PRIMARY CARE PHYSICIAN: Darcy Luu. PREOPERATIVE DIAGNOSIS: Anemia. POSTOPERATIVE DIAGNOSIS: 1. Linear ulcer of the distal esophagus, not actively bleeding. Intact band. No erosion or slippage. 2. Mild gastritis. 3. Chronic stage I external and internal hemorrhoids. The remainder of the rectum and colon were normal. PROCEDURE: EGD with biopsy, colonoscopy. SURGEON: Dr. Tran. ANESTHESIA: Conscious sedation. ESTIMATED BLOOD LOSS: Minimal. FINDINGS: A linear ulcer just above the gastroesophageal junction encompassing the gastroesophageal junction as well approximately 1 cm in length with no active bleeding identified with overlying fibrin clot. The gastric pouch was intact as was the lap band with no band erosion or slippage. There was mild gastritis of the stomach. The remainder of the pylorus and duodenum appeared normal. Chronic stage I external and internal hemorrhoids. The remainder of the rectum and colon were normal. There were no polyps or any neoplasms or any bleeding source identified. DISPOSITION: The patient tolerated the procedure well. The patient is a 61-year-old female with a history of morbid obesity and medical comorbidities including gastroesophageal reflux disease, asthma, hypertension, depression and anxiety. She is status post lap band placement with an AP standard band on 01/16/2010. She has had recent issues with anemia and was seen by an oncologist. After further questioning, she reported that she had not had a colonoscopy up to this point in her life. She does have occasional episodes of reflux and regurgitation which she has had for some amount of time. She is not currently taking any PPI acid reducers. DESCRIPTION OF PROCEDURE: The patient was brought to the endoscopy suite, laid in the left lateral decubitus position. After adequate IV pain and sedative medications and conscious sedation anesthesia, the mouthpiece was applied. The endoscope was placed in the mouth, visualizing the pharynx and hypopharyngeal region. Vocal cords, epiglottis and vallecula identified and appeared to be normal. The endoscope was then gently intubated at the esophageal opening, esophagus insufflated. Endoscope was then advanced to the first, second and third portions of the esophagus at the level of the GE junction. A linear ulcer was identified encompassing the GE junction as well, approximately 1 cm in size. There was overlying fibrin clot, no active bleeding identified. This was biopsied at its edge with forceps and electrocautery with visualization of good hemostasis. The endoscope was then advanced to the gastric pouch where no ulcerations were identified. The band was intact as was the stoma and the endoscope was easily passed through the stoma without any resistance. The endoscope was then retroflexed visualizing an intact band with no erosion or obvious band slippage identified. A mild gastritis was noted at the antrum of the stomach. There were no ulcers in this portion of the stomach or any active bleeding sources. The endoscope was then advanced to the pylorus and to the first and second portions of the duodenum which appeared normal. The endoscope was then slowly withdrawn while taking a second look and suctioning of residual air with no additional findings. The patient tolerated this portion of the procedure well. We feel that the gastroesophageal ulceration is the cause of her anemia. It appears that she does have issues with noncompliance with the spicy, greasy and acidic foods as well as overeating with the lap band in. She also has not taken any PPI acid reducers despite symptoms of reflux. We will start her on Protonix 40 mg daily, as well as Carafate 1 gram q.i.d. for the next two weeks. We will also await the biopsy results for potential H. pylori bacterial contamination. Under the same conscious sedation anesthesia, we then proceeded with the colonoscopy portion of the procedure. A digital rectal examination was performed which revealed chronic stage I external and internal hemorrhoids, not actively edematous or inflamed and no bleeding. Normal sphincter tone was felt and there were no palpable masses. The endoscope was then intubated to the anus and the rectum and gently insufflated. There were no palpable masses identified. The endoscope was then intubated to the anus and rectum and gently insufflated. The endoscope was then advanced to the valves of aguilar in the rectum with no polyps or any neoplasms identified. The endoscope was then advanced to the sigmoid colon where no diverticulosis was identified. The endoscope was then advanced to the remainder of the descending, transverse, and ascending colon to the cecum. These segments were normal. There were no polyps or any neoplasms identified throughout the colon or rectum, as well as no active bleeding sources identified. The endoscope was then slowly withdrawn while taking a second look and suctioning residual air with no additional findings. The patient tolerated the procedure well. We will have her continue with medical management with a high fiber diet with at least 25 to 30 grams of fiber per day as well as at least 64 fluid ounces of water daily to promote soft stools on a daily basis. She does not need another colonoscopy for another 10 years. Job ID: [id number] DocumentID: [id number] Dictated Date: 01/29/2017 14:07:13 Loan Review Analyst Date: 01/29/2017 23:47:24 Dictated By: RDAHA TRAN MD MTDD
== END 2017-01-29 15:05 | disposition home or self-care (01) ==
LOC: ENDO 11:17
PROVIDERS: ATTEND Surgery
DX: Z12.11 Encounter for screening for malignant neoplasm of colon (principal); K22.10 Ulcer of esophagus without bleeding; K29.70 Gastritis, unspecified, without bleeding; K21.9 Gastro-esophageal reflux disease without esophagitis; K64.0 First degree hemorrhoids; D64.9 Anemia, unspecified; I10 Essential (primary) hypertension; F41.9 Anxiety disorder, unspecified; F32.9 Major depressive disorder, single episode, unspecified; J45.909 Unspecified asthma, uncomplicated; J44.9 Chronic obstructive pulmonary disease, unspecified; E78.00 Pure hypercholesterolemia, unspecified; M19.91 Primary osteoarthritis, unspecified site; E66.01 Morbid (severe) obesity due to excess calories; Z68.30 Body mass index [BMI] 30.0-30.9, adult; Z98.84 Bariatric surgery status; Z87.891 Personal history of nicotine dependence
CPT/HCPCS: 43239; G0121; 88305

== ENCOUNTER 2017-03-05 11:06 | Outpatient (RCR) | payer MEDICARE, OTHER ==
[2017-01-21 14:05] LABS: BASOPHILS # (AUTO) 0.1 10^3/uL (0.0-0.1); BASOPHILS % (AUTO) 1 % (0-10); EOSINOPHILS # (AUTO) 0.5 10^3/uL (0.0-0.3); EOSINOPHILS % (AUTO) 8 % (0-10); LYMPHOCYTES # (AUTO) 1.6 X 10^3 (1.0-4.0); LYMPHOCYTES % (AUTO) 25 % (12-44); MEAN CORPUSCULAR HEMOGLOBIN 23 PG (25-34); MEAN CORPUSCULAR HGB CONC 31 G/DL (32-36); MEAN CORPUSCULAR VOLUME 75 FL (80-99); MEAN PLATELET VOLUME 9.7 FL (7.4-10.4); MONOCYTES # (AUTO) 0.5 X 10^3 (0.0-1.0); MONOCYTES % (AUTO) 8 % (0-12); NEUTROPHILS # (AUTO) 3.7 X 10^3 (1.8-7.8); NEUTROPHILS % (AUTO) 59 % (42-75); PLATELET COUNT 281 10^3/uL (130-400); RED BLOOD COUNT 4.72 10^6/uL (4.35-5.85); RED CELL DISTRIBUTION WIDTH 16.6 % (10.0-14.5); WHITE BLOOD COUNT 6.3 10^3/uL (4.3-11.0)
[2017-01-21 14:46] LABS: ALANINE AMINOTRANSFERASE 13 U/L (0-55); ALBUMIN 3.8 GM/DL (3.2-4.5); ANION GAP 9 MMOL/L (5-14); ASPARTATE AMINO TRANSFERASE 20 U/L (5-34); BILIRUBIN,TOTAL 0.4 MG/DL (0.1-1.0); BLOOD UREA NITROGEN 17 MG/DL (7-18); BUN/CREATININE RATIO 21; CALCIUM 9.6 MG/DL (8.5-10.1); CARBON DIOXIDE 28 MMOL/L (21-32); CHLORIDE 103 MMOL/L (98-107); GFR ESTIMATED > 60; GLUCOSE 83 MG/DL (70-105); POTASSIUM 3.9 MMOL/L (3.6-5.0); SODIUM 140 MMOL/L (135-145); TOTAL PROTEIN 7.7 GM/DL (6.4-8.2)
[2017-01-21 14:48] LABS: PEP REPORT SEE PATH REPORT
[2017-01-22 06:43] LABS: LIGHT CHAIN LAMBDA SERUM QUANT 18.07 mg/L (5.71-26.30)
[2017-01-25 15:55] LABS: CLIN PATHOLOGY REPORT FOOTNOTE; SERUM PROTEIN ELEC DETAIL L-17-0010517
[2017-03-01 09:49] LABS: BASOPHILS # (AUTO) 0.1 10^3/uL (0.0-0.1); BASOPHILS % (AUTO) 1 % (0-10); EOSINOPHILS # (AUTO) 0.5 10^3/uL (0.0-0.3); EOSINOPHILS % (AUTO) 6 % (0-10); LYMPHOCYTES # (AUTO) 1.1 X 10^3 (1.0-4.0); LYMPHOCYTES % (AUTO) 14 % (12-44); MEAN CORPUSCULAR HEMOGLOBIN 26 PG (25-34); MEAN CORPUSCULAR HGB CONC 32 G/DL (32-36); MEAN CORPUSCULAR VOLUME 81 FL (80-99); MEAN PLATELET VOLUME 10.6 FL (7.4-10.4); MONOCYTES # (AUTO) 0.6 X 10^3 (0.0-1.0); MONOCYTES % (AUTO) 8 % (0-12); NEUTROPHILS # (AUTO) 5.7 X 10^3 (1.8-7.8); NEUTROPHILS % (AUTO) 72 % (42-75); PLATELET COUNT 218 10^3/uL (130-400); RED BLOOD COUNT 4.94 10^6/uL (4.35-5.85); RED CELL DISTRIBUTION WIDTH 20.9 % (10.0-14.5); RETICULOCYTE % 0.32 % (0.50-2.40); WHITE BLOOD COUNT 7.9 10^3/uL (4.3-11.0)
[2017-03-01 10:52] LABS: ALANINE AMINOTRANSFERASE 14 U/L (0-55); ALBUMIN 4.1 GM/DL (3.2-4.5); ANION GAP 9 MMOL/L (5-14); ASPARTATE AMINO TRANSFERASE 17 U/L (5-34); BILIRUBIN,TOTAL 0.5 MG/DL (0.1-1.0); BLOOD UREA NITROGEN 9 MG/DL (7-18); BUN/CREATININE RATIO 11; CALCIUM 9.5 MG/DL (8.5-10.1); CARBON DIOXIDE 31 MMOL/L (21-32); CHLORIDE 102 MMOL/L (98-107); CREATININE SERUM 0.82 MG/DL (0.60-1.30); GFR ESTIMATED > 60; GLUCOSE 91 MG/DL (70-105); POTASSIUM 3.3 MMOL/L (3.6-5.0); SODIUM 142 MMOL/L (135-145); TOTAL PROTEIN 7.8 GM/DL (6.4-8.2)
[~2017-03-05 11:06] MED LIST changes: -AZIT250T12 PO; +AZIT250T5 PO; +FERRIC CARBOXYMALTOSE (CANCER) 750 MG in NS (IVPB) CANCER CENTER 250 ML IV SCH; +PANT40TA2 PO; +SUCR1TAB36 PO
== END 2017-03-13 | disposition home or self-care (01) ==
LOC: ONC 11:06
PROVIDERS: ATTEND Internal Medicine Hematology & Oncology
DX: D50.0 Iron deficiency anemia secondary to blood loss (chronic); I10 Essential (primary) hypertension; Z79.899 Other long term (current) drug therapy; K29.51 Unspecified chronic gastritis with bleeding; J84.9 Interstitial pulmonary disease, unspecified; J44.9 Chronic obstructive pulmonary disease, unspecified; K22.11 Ulcer of esophagus with bleeding
CPT/HCPCS: 36415; 80053; 82728; 83540; 83883; 84155; 84165; 85025; 85045; 96365; 99213; 99214

== ENCOUNTER → 2017-07-01 | Outpatient (CLI) | payer MEDICARE, OTHER ==
[~2017-07-01] MED LIST changes: +AZIT250T12 PO; -AZIT250T5 PO; +CATHETER FLUSH 10 ML SYR IV PRN; -FERRIC CARBOXYMALTOSE (CANCER) 750 MG in NS (IVPB) CANCER CENTER 250 ML IV SCH; +IOHEXOL 350 MG/ML 150 ML (OMNIPAQUE 350) VIAL IV ONE; +NS 100 ML (IVPB) BAG IV ONE
[2017-07-01 12:37] LABS: BUN/CREATININE RATIO 11; CREATININE SERUM 0.72 MG/DL (0.60-1.30); GFR ESTIMATED > 60
--- NOTE | 2017-07-01 13:29 | Diagnostic Imaging Report ---
PROCEDURE: CT angiography of the chest with contrast. TECHNIQUE: Multiple contiguous axial images were obtained through the chest after uneventful bolus administration of intravenous contrast. Reconstructed CTA MIP acquisitions were also performed. INDICATION: COPD and interstitial lung disease and hypoxia. COMPARISON: Comparison is made with prior CT from 12/02/2016. FINDINGS: No axillary lymphadenopathy is detected. Prevascular node appears to be similar in size. There are small lymph nodes in the right hilum. There is diffuse fluid and debris-filled distention of the esophagus. No pericardial or pleural effusion is identified. The thoracic aorta is normal in caliber. No dissection is identified. Central, lobar, and segmental pulmonary arterial branches are without evidence of filling defect to suggest pulmonary emboli. Volume loss and interstitial fibrotic changes in the right lung are again noted. There is some bronchiectasis in the right upper lobe and right lower lobe. There is some increasing subpleural parenchymal density in the posterior aspect of the right lower lobe superior segment, perhaps some developing infiltrate. Left lung remains clear. There has been development of a fracture involving the right posterolateral eighth rib. Upper abdomen demonstrates postop changes of LAP-BAND surgery to the stomach. IMPRESSION: Continued chronic interstitial changes throughout the right lung with upper and lower lobe bronchiectasis. There appears to be some superimposed infiltrate in the superior segment of the right lower lobe posteriorly. The left lung is clear. There continues to be diffuse distention of the esophagus. Dictated by: Dictated on workstation # [id number]
== END ==
LOC: RAD 12:04
PROVIDERS: ATTEND Nurse Practitioner Family
DX: J47.9 Bronchiectasis, uncomplicated (principal); J43.9 Emphysema, unspecified; J84.9 Interstitial pulmonary disease, unspecified; K22.8 Other specified diseases of esophagus
CPT/HCPCS: 36415; 71275; 82565; 84520

== ENCOUNTER → 2017-07-07 | Outpatient (CLI) | payer MEDICARE, OTHER ==
[~2017-07-07] MED LIST changes: -CATHETER FLUSH 10 ML SYR IV PRN; -IOHEXOL 350 MG/ML 150 ML (OMNIPAQUE 350) VIAL IV ONE; -NS 100 ML (IVPB) BAG IV ONE; +RT-ALBUTEROL SULF 2.5 MG/3 ML PRE-MIX VIAL INH ONE
== END ==
LOC: RT 09:37
PROVIDERS: ATTEND Nurse Practitioner Family
DX: J84.9 Interstitial pulmonary disease, unspecified (principal); J43.9 Emphysema, unspecified; J45.998 Other asthma; J30.9 Allergic rhinitis, unspecified; K21.9 Gastro-esophageal reflux disease without esophagitis
CPT/HCPCS: 94060; 94726; 94729

== ENCOUNTER 2017-09-09 11:26 | Outpatient (RCR) | payer MEDICARE, OTHER ==
[2017-09-02 15:47] LABS: ABSOLUTE RETIC # 28 10e9/L (24-90); BASOPHILS # (AUTO) 0.1 10^3/uL (0.0-0.1); BASOPHILS % (AUTO) 1 % (0-10); EOSINOPHILS # (AUTO) 0.5 10^3/uL (0.0-0.3); EOSINOPHILS % (AUTO) 8 % (0-10); HEMATOCRIT 38 % (35-52); HEMOGLOBIN 12.2 G/DL (11.5-16.0); LYMPHOCYTES # (AUTO) 1.3 X 10^3 (1.0-4.0); LYMPHOCYTES % (AUTO) 20 % (12-44); MEAN CORPUSCULAR HEMOGLOBIN 28 PG (25-34); MEAN CORPUSCULAR HGB CONC 32 G/DL (32-36); MEAN CORPUSCULAR VOLUME 86 FL (80-99); MEAN PLATELET VOLUME 10.5 FL (7.4-10.4); MONOCYTES # (AUTO) 0.7 X 10^3 (0.0-1.0); MONOCYTES % (AUTO) 10 % (0-12); NEUTROPHILS # (AUTO) 4.1 X 10^3 (1.8-7.8); NEUTROPHILS % (AUTO) 61 % (42-75); PLATELET COUNT 300 10^3/uL (130-400); RED BLOOD COUNT 4.42 10^6/uL (4.35-5.85); RED CELL DISTRIBUTION WIDTH 14.1 % (10.0-14.5); RETICULOCYTE % 0.63 % (0.50-2.40); WHITE BLOOD COUNT 6.7 10^3/uL (4.3-11.0)
[2017-09-02 16:09] LABS: ALANINE AMINOTRANSFERASE 10 U/L (0-55); ALBUMIN 3.9 GM/DL (3.2-4.5); ALKALINE PHOSPHATASE 84 U/L (40-136); BILIRUBIN,TOTAL 0.4 MG/DL (0.1-1.0); BUN/CREATININE RATIO 12; CALCIUM 9.4 MG/DL (8.5-10.1); CARBON DIOXIDE 33 MMOL/L (21-32); CHLORIDE 99 MMOL/L (98-107); CREATININE SERUM 0.76 MG/DL (0.60-1.30); GFR ESTIMATED > 60; GLUCOSE 82 MG/DL (70-105); POTASSIUM 3.6 MMOL/L (3.6-5.0); SODIUM 139 MMOL/L (135-145); TOTAL PROTEIN 7.5 GM/DL (6.4-8.2)
[~2017-09-09 11:26] MED LIST changes: -RT-ALBUTEROL SULF 2.5 MG/3 ML PRE-MIX VIAL INH ONE
== END 2017-12-01 | disposition home or self-care (01) ==
LOC: ONC 11:26
PROVIDERS: ATTEND Internal Medicine Hematology & Oncology
DX: D64.9 Anemia, unspecified (principal); J43.9 Emphysema, unspecified; J45.909 Unspecified asthma, uncomplicated; J84.9 Interstitial pulmonary disease, unspecified; I10 Essential (primary) hypertension; K21.9 Gastro-esophageal reflux disease without esophagitis; Z79.899 Other long term (current) drug therapy
CPT/HCPCS: 36415; 80053; 82728; 83883; 84155; 84165; 85025; 85045; 99213

== ENCOUNTER 2017-10-25 08:00 | Outpatient (RCR) | payer MEDICARE, OTHER ==
[2017-10-28 14:10] VITALS: BP 136/78
[2017-10-28 15:10] VITALS: BP 100/70
== END 2018-01-23 | disposition home or self-care (01) ==
LOC: PULM 08:00
PROVIDERS: ATTEND Nurse Practitioner Family
DX: J44.9 Chronic obstructive pulmonary disease, unspecified (principal); R09.02 Hypoxemia; J84.9 Interstitial pulmonary disease, unspecified; J45.998 Other asthma

== ENCOUNTER 2018-02-28 12:33 | Outpatient (RCR) | payer MEDICARE, OTHER ==
[2018-02-28 13:23] LABS: BASOPHILS # (AUTO) 0.1 10^3/uL (0.0-0.1); BASOPHILS % (AUTO) 1 % (0-10); EOSINOPHILS # (AUTO) 0.4 10^3/uL (0.0-0.3); EOSINOPHILS % (AUTO) 4 % (0-10); HEMATOCRIT 38 % (35-52); HEMOGLOBIN 12.1 G/DL (11.5-16.0); LYMPHOCYTES # (AUTO) 1.3 X 10^3 (1.0-4.0); LYMPHOCYTES % (AUTO) 13 % (12-44); MEAN CORPUSCULAR HEMOGLOBIN 27 PG (25-34); MEAN CORPUSCULAR HGB CONC 32 G/DL (32-36); MEAN CORPUSCULAR VOLUME 86 FL (80-99); MEAN PLATELET VOLUME 10.6 FL (7.4-10.4); MONOCYTES # (AUTO) 0.6 X 10^3 (0.0-1.0); MONOCYTES % (AUTO) 6 % (0-12); NEUTROPHILS # (AUTO) 7.3 X 10^3 (1.8-7.8); NEUTROPHILS % (AUTO) 76 % (42-75); PLATELET COUNT 241 10^3/uL (130-400); RED BLOOD COUNT 4.43 10^6/uL (4.35-5.85); RED CELL DISTRIBUTION WIDTH 13.6 % (10.0-14.5); WHITE BLOOD COUNT 9.6 10^3/uL (4.3-11.0)
[2018-02-28 13:49] LABS: ALANINE AMINOTRANSFERASE 10 U/L (0-55); ALBUMIN 3.9 GM/DL (3.2-4.5); ALKALINE PHOSPHATASE 78 U/L (40-136); BILIRUBIN,TOTAL 0.4 MG/DL (0.1-1.0); BUN/CREATININE RATIO 20; CALCIUM 9.2 MG/DL (8.5-10.1); CARBON DIOXIDE 29 MMOL/L (21-32); CHLORIDE 102 MMOL/L (98-107); CREATININE SERUM 0.76 MG/DL (0.60-1.30); GFR ESTIMATED > 60; GLUCOSE 98 MG/DL (70-105); POTASSIUM 4.2 MMOL/L (3.6-5.0); SODIUM 138 MMOL/L (135-145)
== END 2018-03-04 10:29 | disposition home or self-care (01) ==
LOC: ONC 12:33
PROVIDERS: ATTEND Internal Medicine Hematology & Oncology
DX: D64.9 Anemia, unspecified (principal); J43.9 Emphysema, unspecified; J45.909 Unspecified asthma, uncomplicated; J84.9 Interstitial pulmonary disease, unspecified; I10 Essential (primary) hypertension; K21.9 Gastro-esophageal reflux disease without esophagitis; Z79.899 Other long term (current) drug therapy
CPT/HCPCS: 36415; 80053; 82728; 85025

== ENCOUNTER 2018-03-04 10:31 | Outpatient (RCR) | payer MEDICARE, OTHER | END 2018-03-13 | disposition home or self-care (01) | LOC: ONC 10:31 | PROVIDERS: ATTEND Internal Medicine Hematology & Oncology | DX: D64.9 Anemia, unspecified (principal); J43.9 Emphysema, unspecified; J45.909 Unspecified asthma, uncomplicated; J84.9 Interstitial pulmonary disease, unspecified; I10 Essential (primary) hypertension; K21.9 Gastro-esophageal reflux disease without esophagitis; Z79.899 Other long term (current) drug therapy | CPT/HCPCS: 99213 ==

== ENCOUNTER → 2018-03-04 | Outpatient (CLI) | payer MEDICARE, OTHER ==
--- NOTE | 2018-03-04 12:54 | Diagnostic Imaging Report ---
INDICATION: Shortness of breath. TECHNIQUE: Two-view chest at 11:55 a.m. CORRELATION STUDY: 09/15/2016. FINDINGS: Heart size is stable. Distortion of the right suprahilar region appears stable. Prominent interstitial markings throughout the lung roberts which are also hyperinflated. Question of increased density in the right suprahilar region. Scattered peribronchial thickening particularly in the perihilar region and also most pronounced in the right upper lobe present. No significant effusion. IMPRESSION: 1. Chronic change about the lung parenchyma with right lung volume loss. There is suggestion of increased density in the right suprahilar region. This could be reflective of an area of infiltrate. However, follow-up evaluation is recommended. Dictated by: Dictated on workstation # [id number]
== END ==
LOC: RAD 11:12
PROVIDERS: ATTEND Internal Medicine Hematology & Oncology
DX: R06.02 Shortness of breath (principal); R91.8 Other nonspecific abnormal finding of lung field
CPT/HCPCS: 71046

== ENCOUNTER 2018-05-03 10:44 | Emergency (ER) | payer MEDICARE, OTHER ==
[~2018-05-03] VITALS: Ht 162.6 cm; Wt 68.0 kg
--- OUTSIDE RECORDS SUMMARY | 2018-05-03 10:49 | XMS REPORT ---
Author Author DELISA PEREZ Organization [facility] Address [address] [place] [address] Care Team Providers Care Surgical Endoscopist Name Role Phone DELISA PEREZ Unavailable PROBLEMS Type Condition ICD9-CM Code NYX24-UP Code Onset Dates Condition Status SNOMED Code Problem Chronic obstructive pulmonary disease with (acute) exacerbation J44.1 Active 708289972 Problem Depressive disorder, not elsewhere classified F32.9 Active 45699127 Problem Anxiety state, unspecified F41.1 Active 310492202 Problem Chronic obstructive pulmonary disease, unspecified J44.9 Active 20316355 Problem Anxiety F41.9 Active 23537993 Problem Mixed hyperlipidemia E78.2 Active 600357325 Problem Hyperlipidemia E78.5 Active 89477470 Problem Iron deficiency anemia D50.9 Active 88836940 Problem Dysthymic disorder F34.1 Active 59263547 Problem COPD exacerbation J44.1 Active [id number] Problem Severe persistent asthma without complication J45.50 Active 007835744 Problem COPD with acute exacerbation J44.1 Active 652460380 Problem Major depressive disorder with single episode, remission status unspecified F32.9 Active 79554259 Problem 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.0 Active 87590015 Problem Environmental allergies Z91.09 Active 926846408 Problem Chronic obstructive pulmonary disease with acute lower respiratory infection J44.0 Active 110934709 Problem Other chronic pain G89.29 Active 68643880 Problem COPD (chronic obstructive pulmonary disease) with chronic bronchitis J44.9 Active 447363051 Problem Dependence on continuous supplemental oxygen Z99.81 Active 40906844752942 Problem Acute exacerbation of chronic obstructive pulmonary disease (COPD) J44.1 Active 891342238 Problem Chronic pain syndrome G89.4 Active 785877819 Problem Acute seasonal allergic rhinitis, unspecified trigger J30.2 Active 040212936 ALLERGIES No Information ENCOUNTERS Encounter Location Date Diagnosis [facility] [address] [facility] [id number] [place] [address] 49482- 8849 Apr, [facility] [id number] [place] [address] 82240- 8574 Apr, Chronic obstructive pulmonary disease with acute lower respiratory infection J44.0 ; Chronic pain syndrome G89.4 and 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.0 [facility] [id number] [place] [address] 55258- 3252 Apr, 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.0 and Chronic obstructive pulmonary disease with acute lower respiratory infection J44.0 [facility] [id number] [place] [address] 20513 -1064 Mar, Decreased breath sounds R06.89 ; COPD exacerbation J44.1 and Encounter for immunization Z23 [facility] [id number] [place] [address] 49694- 0169 Mar, 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.0 and Anxiety state, unspecified F41.1 [facility] [id number] [place] [address] 50818- 2179 Mar, Chronic obstructive pulmonary disease with acute lower respiratory infection J44.0 and Chronic obstructive pulmonary disease, unspecified J44.9 [facility] [id number] [place] [address] 01396- 7128 Feb, 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.0 and Anxiety state, unspecified F41.1 [facility] [id number] [place] [address] 28885- 5125 Feb, [facility] [id number] [place] [address] 13757- 1729 Feb, Mixed hyperlipidemia E78.2 [facility] [id number] [place] [address] 07638- 3987 Feb, Chronic obstructive pulmonary disease with acute lower respiratory infection J44.0 [facility] [id number] [place] [address] 70374- 1988 Feb, [place] [address] [address] 3932 Feb, Chronic obstructive pulmonary disease with acute lower respiratory infection J44.0 [place] [id number] [place] [address] 87944- 6684 Dec, Chronic obstructive pulmonary disease with acute lower respiratory infection J44.0 [place] [id number] [place] [address] 25923- 0154 Dec, Chronic obstructive pulmonary disease, unspecified J44.9 [place] [id number] [place] [address] 63990- 5987 Nov, [place] [id number] [place] [address] 53934- 1567 Nov, Mixed hyperlipidemia E78.2 [facility] [place] [id number] [place] [address] 21987 -0581 Nov, Environmental allergies Z91.09 [place] [id number] [place] [address] 26568- 6967 Nov, Iron deficiency anemia D50.9 and Hyperlipidemia E78.5 [place] [id number] [place] [address] 18331- 1705 October, Severe persistent asthma without complication J45.50 ; Hyperlipidemia E78.5 ; Iron deficiency anemia D50.9 ; Pain in thoracic spine M54.6 and Other chronic pain G89.29 [place] [id number] [place] [address] 74175- 7405 October, Chronic pain syndrome G89.4 [place] [id number] [place] [address] 81190- 0041 October, 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.0 and Anxiety state, unspecified F41.1 [facility] [id number] [place] [address] 18465 -9204 Aug, COPD with acute exacerbation J44.1 [place] [id number] [place] [address]- 3819 Aug, Chronic obstructive pulmonary disease with acute lower respiratory infection J44.0 [place] [address] 26871- 0914 Aug, 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.0 [place] [id number] [place] [address] 54431- 2947 Jul, 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.0 and Anxiety state, unspecified F41.1 [place] [id number] [place] [address] 29145- 9404 Jul, Anxiety F41.9 and Chronic pain syndrome G89.4 [place] [id number] [place] [address] 63115- 6439 Jun, Dysthymic disorder F34.1 and Anxiety state, unspecified F41.1 [place] [id number] [place] [address] 50131- 2433 Jun, Anxiety state, unspecified F41.1 and 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.0 [place] [id number] [place] [address] 39709- 1925 Jun, [facility] [id number] [place] [address] 19945 -2687 May, COPD exacerbation J44.1 [place] [id number] [place] [address] 53522- 7600 May, Depressive disorder, not elsewhere classified F32.9 and Anxiety state, unspecified F41.1 [place] [id number] [place] [address] 58422- 0459 May, Chronic obstructive pulmonary disease with acute lower respiratory infection J44.0 and Acute seasonal allergic rhinitis, unspecified trigger J30.2 [facility] [id number] [place] [address] 01901 -4040 May, Acute exacerbation of chronic obstructive pulmonary disease (COPD) J44.1 [facility] [id number] [place] [address] 48276- 4813 17 Apr, 2017 Encounter for immunization Z23 [facility] [address] 83688- 8352 Apr, [facility] [address] 12209- 3994 Apr, Back pain 724.5 [facility] [address] 02367 -0238 Mar, Acute seasonal allergic rhinitis, unspecified trigger J30.2 and Sore throat J02.9 [facility] [address] 66075 -5638 Mar, Acute exacerbation of chronic obstructive pulmonary disease (COPD) J44.1 [place] [address] 46582- 0754 Feb, COPD (chronic obstructive pulmonary disease) with chronic bronchitis J44.9 ; Low back pain M54.5 and Other chronic pain G89.29 [facility] [address] [place] [address] 75990 -6795 Feb, Decreased breath sounds R06.89 and Acute exacerbation of chronic obstructive pulmonary disease (COPD) J44.1 [place] [id number] [place] [address] 28444- 0107 15 Feb, 2017 [facility] [address] 90893- 8442 Feb, [place] [address] 44338- 1279 Jan, Major depressive disorder with single episode, remission status unspecified F32.9 [facility] [id number] [place] [address] 47898 -7243 Dec, Allergic contact dermatitis, unspecified trigger L23.9 [facility] [address] [place] [address]69 13 Dec, 2016 Allergic reaction, initial encounter T78.40XA [place] [address] 37207- 4152 14 Nov, 2016 Hyperlipidemia E78.5 ; Chronic obstructive pulmonary disease with acute lower respiratory infection J44.0 and Iron deficiency anemia D50.9 [place] [address] 56220- 0910 02 Nov, 2016 Hyperlipidemia E78.5 ; Iron deficiency anemia D50.9 ; Chronic obstructive pulmonary disease with acute lower respiratory infection J44.0 ; Environmental allergies Z91.09 and Major depressive disorder with single episode, remission status unspecified F32.9 [facility] [id number] [place] [address] 39664 -9547 06 Sep, 2016 Shortness of breath R06.02 and COPD exacerbation J44.1 [place] [address] 49552- 7895 Sep, Chronic obstructive pulmonary disease with acute lower respiratory infection J44.0 [facility] [id number] [place] [address] 60083- 8943 Jun, Anxiety F41.9 [place] [id number] [place] [address] 63201- 3125 Jun, Chronic obstructive pulmonary disease with acute lower respiratory infection J44.0 ; Dependence on continuous supplemental oxygen Z99.81 ; Iron deficiency anemia D50.9 ; Anxiety F41.9 ; 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.0 ; Hypercholesterolemia E78.00 and Chronic pain syndrome G89.4 [place] [id number] [place] [address] 16811- 1704 May, Anxiety F41.9 [place] [address] 30446- 3037 May, [facility] [id number] [place] [address] 39004- 8228 Feb, [place] [address] [address]- 2170 Jan, Chronic obstructive pulmonary disease with acute lower respiratory infection J44.0 ; Major depressive disorder with single episode, remission status unspecified F32.9 ; Environmental allergies Z91.09 ; Anxiety F41.9 ; Hyperlipidemia E78.5 ; Iron deficiency anemia, unspecified iron deficiency anemia type D50.9 ; Other chronic pain G89.29 and Lumbago with sciatica, unspecified side M54.40 [place] [id number] [place] [address] 77942- 3591 Sep, Hyperlipidemia E78.5 and Iron deficiency anemia D50.9 [place] [id number] [place] [address] 65956- 7760 Sep, COPD (chronic obstructive pulmonary disease) 496 ; Back pain 724.5 ; Anxiety 300.00 ; Hyperlipidemia E78.5 ; Iron deficiency anemia D50.9 and Headache R51 [place] [id number] [place] [address] 73344- 3506 Aug, [place] [id number] [place] [address] 87747- 3738 Mar, Hyperlipidemia E78.5 and Iron deficiency anemia D50.9 [place] [id number] [place] [address] 13452- 1809 Mar, Routine adult health maintenance V70.0 [place] [id number] [place] [address] 96686- 5024 Mar, Orbital cellulitis on left H05.012 [place] [id number] [place] [address] 03135- 9395 Mar, [place] [id number] [place] [address] 71030- 2485 Feb, Breast cancer screening V76.10 [place] [id number] [place] [address] 07646- 0426 Feb, Routine adult health maintenance V70.0 ; COPD (chronic obstructive pulmonary disease) 496 ; Special screening for malignant neoplasms, colon V76.51 and 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.9 [facility] [id number] [place] [address] 72393- 3426 Feb, [facility] [id number] [place] [address] 15807- 2966 Dec, Asthma, unspecified, unspecified status 493.90 ; Back pain 724.5 ; COPD (chronic obstructive pulmonary disease) 496 and Anxiety 300.00 [facility] [id number] [place] [address] [id number] Dec, Dental examination V72.2 [facility] [id number] [place] [address] 68166 2546 Dec, Back pain 724.5 ; COPD (chronic obstructive pulmonary disease) 496 and Anxiety 300.00 [facility] [id number] [place] [address] [id number] Dec, Dental examination V72.2 [facility] [id number] [place] [address] [id number] Nov, Dental examination V72.2 [facility] [id number] [place] [address] [id number] October, Dental examination V72.2 [facility] [address] [address] 3166 Sep, [facility] [id number] [place] [address] [id number]- 9163 Sep, [facility] [id number] [place] [address] 713274- 6732 Aug, [facility] [id number] [place] [address] 629044- 0006 Aug, [facility] [address] 2778 Aug, [facility] [id number] [place] [address] 58383- 9016 Aug, [facility] [address] [id number] [place] [address]- 8416 Aug, [facility] [place] [facility] [address] [id number] [place] [address]- 1188 Aug, [facility] [place] [facility] [address] [id number] [place] [address]- 2646 Jul, [facility] [place] [facility] [address] [id number] [place] 5030 Jul, [facility] [place] [facility] [address] [id number] [place] [address]- 7708 Jul, [facility] [place] [facility] [address] [id number] [place] [address]- 1297 Jul, [facility] [place] [facility] [address] [id number] [place] [address]- 1393 Jun, [facility] [place] [facility] [address] [id number] [place] [address]- 9206 Jun, [facility] [place] [facility] [address] [id number] [place] [address]- 7126 Nov, [facility] [place] [facility] [address] [id number] [place] [address]- 8667 Nov, [facility] [place] [facility] [address] [id number] [place] [address]- 9998 October, [facility] [place] [facility] [address] [id number] [place] [address]- 1604 October, [facility] [place] [facility] [address] [id number] [place] [address]- 4754 October, [facility] [place] [facility] [address] [id number] [place] [address]- 4467 October, [facility] [place] [facility] [address] [id number] [place] 8152 October, [facility] [place] [facility] [address] [id number] [place] [address]- 9298 October, [facility] [place] [facility] [address] [id number] [place] [address]- 6287 October, [facility] [place] [facility] [address] [id number] [place] [address]- 9393 October, [facility] [place] [facility] [address] [id number] [place] [address]- 6834 Sep, [facility] [place] [facility] [address] [id number] [place] [address]- 1684 Sep, [facility] [place] [facility] [address] [id number] [place] [address]- 4201 Sep, [facility] [place] [facility] [address] [id number] [place] [address]- 3448 Sep, [facility] [place] [facility] [address] [id number] [place] [address]- 7608 Sep, [facility] [place] [facility] [address] [id number] [place] [address]- 6185 Sep, [facility] [place] [facility] [address] [id number] [place] [address]- 7991 Sep, [facility] [place] [facility] [address] [id number] [place] [address]- 4131 Sep, [facility] [place] [facility] [address] [id number] [place] [address]- 7616 Sep, [facility] [place] [facility] [address] [id number] [place] [address]- 7143 Sep, [facility] [place] [facility] [address] [id number] [place] [address]- 0167 Sep, [facility] [place] [facility] [address] [id number] [place] [address]- 1456 Sep, [facility] [place] [facility] [address] [id number] [address]- 5226 Sep, [facility] [address] [facility] [id number] [place] [address]- 2546 Sep, [facility] [address] [facility] [id number] [address]- 2546 Aug, [facility] [address] [facility] [id number] [address]- 2546 Aug, [facility] [address] [facility] [id number] [address]- 1446 Aug, IMMUNIZATIONS No Known Immunizations SOCIAL HISTORY Never Assessed REASON FOR VISIT New Refill Request PLAN OF CARE VITAL SIGNS MEDICATIONS Medication Instructions Dosage Frequency Start Date End Date Duration Status Tramadol HCl 50 mg Orally every 6 hrs 1 tablet as needed 6h 28 days Active Incruse Ellipta 62.5 MCG/INH Inhalation Once a day 1 puff 24h 30 days Active Ibuprofen 800 mg TAKE ONE TABLET BY MOUTH THREE TIMES DAILY 30 Active Klonopin 0.5 MG Orally Twice a day 1 tablet 12h 30 days Active RESULTS No Results PROCEDURES No Known procedures INSTRUCTIONS MEDICATIONS ADMINISTERED No Known Medications MEDICAL (GENERAL) HISTORY Type Description Date Medical History Asthma Medical History Anxiety Medical History Depression Medical History Headaches Medical History COPD/emphysema Medical History Bone density 11/01/13 heel US WNL Surgical History Breast reduction Surgical History lap band Surgical History Tubal ligation Surgical History section Hospitalization History Sepsis 2010
--- OUTSIDE RECORDS SUMMARY | 2018-05-03 10:50 | XMS REPORT ---
Author Author TAY RAUL Organization [facility] Address [address] [place] [address] Care Team Providers Care Ripsaw Grader Name Role Phone ELEAZARRAUL LOCKETT Unavailable PROBLEMS Type Condition ICD9-CM Code KVC92-OD Code Onset Dates Condition Status SNOMED Code Problem Chronic obstructive pulmonary disease with (acute) exacerbation J44.1 Active 558757951 Problem Depressive disorder, not elsewhere classified F32.9 Active 79594428 Problem Anxiety state, unspecified F41.1 Active 514251417 Problem Chronic obstructive pulmonary disease, unspecified J44.9 Active 61144067 Problem Anxiety F41.9 Active 13934869 Problem Mixed hyperlipidemia E78.2 Active 072835698 Problem Hyperlipidemia E78.5 Active 02311154 Problem Iron deficiency anemia D50.9 Active 92496592 Problem Dysthymic disorder F34.1 Active 09823162 Problem COPD exacerbation J44.1 Active [id number] Problem Severe persistent asthma without complication J45.50 Active 108844457 Problem COPD with acute exacerbation J44.1 Active 625315065 Problem Major depressive disorder with single episode, remission status unspecified F32.9 Active 72470965 Problem 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.0 Active 89647788 Problem Environmental allergies Z91.09 Active 766296040 Problem Chronic obstructive pulmonary disease with acute lower respiratory infection J44.0 Active 994335783 Problem Other chronic pain G89.29 Active 22108903 Problem COPD (chronic obstructive pulmonary disease) with chronic bronchitis J44.9 Active 413268731 Problem Dependence on continuous supplemental oxygen Z99.81 Active 18766424920519 Problem Acute exacerbation of chronic obstructive pulmonary disease (COPD) J44.1 Active 107010614 Problem Chronic pain syndrome G89.4 Active 282278578 Problem Acute seasonal allergic rhinitis, unspecified trigger J30.2 Active 225629476 ALLERGIES No Information ENCOUNTERS Encounter Location Date Diagnosis [facility] [address] [facility] [id number] [address] Apr, [facility] [address] [address] Mar, Decreased breath sounds R06.89 ; COPD exacerbation J44.1 and Encounter for immunization Z23 [facility] [id number] [place] [address] Mar, 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.0 and Anxiety state, unspecified F41.1 [facility] [address] [place] [address] 06140[address] 8856 Mar, Chronic obstructive pulmonary disease with acute lower respiratory infection J44.0 and Chronic obstructive pulmonary disease, unspecified J44.9 [facility] [address] [place] [address] 27246- 9383 Feb, 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.0 and Anxiety state, unspecified F41.1 [facility] [address] [place] [address] 74812- 6651 Feb, [facility] [address] [place] [id number] [place] [address] 65749- 3486 Feb, Mixed hyperlipidemia E78.2 [facility] [address] [place] [address] 10592- 3204 Feb, Chronic obstructive pulmonary disease with acute lower respiratory infection J44.0 [facility] [address] [address] Feb, [facility] [address] [place] [address] 50801- 7899 Feb, Chronic obstructive pulmonary disease with acute lower respiratory infection J44.0 [facility] [address] [place] [address] 66543- 2722 Dec, Chronic obstructive pulmonary disease with acute lower respiratory infection J44.0 [facility] [address] [place] [address] 39634- 2164 Dec, Chronic obstructive pulmonary disease, unspecified J44.9 [place] [address] [place] [address] [id number] [place] [address] 09569- 0341 Nov, [place] [address] [place] [address] [id number] [place] [address] 26632- 8609 Nov, Mixed hyperlipidemia E78.[address] [facility] [address] [place] [address] [id number] [place] [address]75 [address] Nov, Environmental allergies Z91.09 [place] [address] [address]- [address] Nov, Iron deficiency anemia D50.9 and Hyperlipidemia E78.5 [place] [address] [address]31- [address]268 October, Severe persistent asthma without complication J45.50 ; Hyperlipidemia E78.5 ; Iron deficiency anemia D50.9 ; Pain in thoracic spine M54.6 and Other chronic pain G89.29 [place] [address] [id number] [place] [address] 60730- 3279 October, Chronic pain syndrome G89.4 [place] [address] [place] [address] [id number] [place] [address] 74151- 6674 October, 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.0 and Anxiety state, unspecified F41.[address] [facility] [place] [address] [id number] [place] [address] 68316 -6904 Aug, COPD with acute exacerbation J44.1 [place] [address] [id number] [place] [address] 48666- 9781 Aug, Chronic obstructive pulmonary disease with acute lower respiratory infection J44.0 [place] [address] [place] [address] [id number] [place] [address] 58198- 5500 Aug, 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.0 [place] [address] [id number] [place] [address] 96096- 4478 Jul, 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.0 and Anxiety state, unspecified F41.1 [place] [address] 97608- 4512 Jul, Anxiety F41.9 and Chronic pain syndrome G89.4 [place] [address] 97019- 2839 Jun, Dysthymic disorder F34.1 and Anxiety state, unspecified F41.1 [place] [address] 88945- 1577 Jun, Anxiety state, unspecified F41.1 and 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.0 [place] [address] 53936- 3995 Jun, [facility] [place] [address] [address] May, COPD exacerbation J44.1 [place] [address] 35347- 4087 May, Depressive disorder, not elsewhere classified F32.9 and Anxiety state, unspecified F41.1 [place] [address] 14617- 5056 May, Chronic obstructive pulmonary disease with acute lower respiratory infection J44.0 and Acute seasonal allergic rhinitis, unspecified trigger J30.2 [facility] [place] [address] 7[address]80 May, Acute exacerbation of chronic obstructive pulmonary disease (COPD) J44.1 [place] [address] 77991- 7929 Apr, Encounter for immunization Z23 [place] [address] 34460- [address]99 Apr, [place] [address] 71344- 1419 Apr, Back pain 724.5 [facility] [address] [place] [id number] [place] [address]36 [address]6730 Mar, Acute seasonal allergic rhinitis, unspecified trigger J30.2 and Sore throat J02.9 [facility] [address] [address]80 13 Mar, 2017 Acute exacerbation of chronic obstructive pulmonary disease (COPD) J44.[address] 27944- [address]284 28 Feb, 2017 COPD (chronic obstructive pulmonary disease) with chronic bronchitis J44.9 ; Low back pain M54.5 and Other chronic pain G89.29 [facility] [address] [address] Feb, Decreased breath sounds R06.89 and Acute exacerbation of chronic obstructive pulmonary disease (COPD) J44.[address] 94552- 0463 15 Feb, [address] 80785- 5588 Feb, [address] 27933- [address] Jan, Major depressive disorder with single episode, remission status unspecified F32.9 [facility] [address] [address] 16 Dec, 2016 Allergic contact dermatitis, unspecified trigger L23.9 [facility] [address] [address] 13 Dec, 2016 Allergic reaction, initial encounter T78.40XA [address] 83490- 0071 14 Nov, 2016 Hyperlipidemia E78.5 ; Chronic obstructive pulmonary disease with acute lower respiratory infection J44.0 and Iron deficiency anemia D50.[address] 30019- 5794 Nov, Hyperlipidemia E78.5 ; Iron deficiency anemia D50.9 ; Chronic obstructive pulmonary disease with acute lower respiratory infection J44.0 ; Environmental allergies Z91.09 and Major depressive disorder with single episode, remission status unspecified F32.[address] [facility] [address] [address] Sep, Shortness of breath R06.02 and COPD exacerbation J44.1 [facility] [address] [place] [id number] [place] [address] 52098- 9253 Sep, Chronic obstructive pulmonary disease with acute lower respiratory infection J44.0 [facility] [address] [place] [address] [id number] [place] [address] 59002- 4298 Jun, Anxiety F41.9 [place] [address] [address] [id number] [place] [address] 90753- 6602 Jun, Chronic obstructive pulmonary disease with acute lower respiratory infection J44.0 ; Dependence on continuous supplemental oxygen Z99.81 ; Iron deficiency anemia D50.9 ; Anxiety F41.9 ; 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.0 ; Hypercholesterolemia E78.00 and Chronic pain syndrome G89.4 [place] [address] [place] [address] [id number] [place] [address] 52589- 9969 May, Anxiety F41.9 [facility] [address] [place] [address] [id number] [place] [address] 37207- 3221 May, [facility] [address] [address] [id number] [place] [address] 92396- 6519 Feb, [facility] [address] [address] [id number] [place] [address] 24221- 4158 Jan, Chronic obstructive pulmonary disease with acute lower respiratory infection J44.0 ; Major depressive disorder with single episode, remission status unspecified F32.9 ; Environmental allergies Z91.09 ; Anxiety F41.9 ; Hyperlipidemia E78.5 ; Iron deficiency anemia, unspecified iron deficiency anemia type D50.9 ; Other chronic pain G89.29 and Lumbago with sciatica, unspecified side M54.40 [place] [address] [place] [address] [id number] [place] [address] 55484- 4937 Sep, Hyperlipidemia E78.5 and Iron deficiency anemia D50.9 [place] [address] 40828- 5232 Sep, COPD (chronic obstructive pulmonary disease) 496 ; Back pain 724.5 ; Anxiety 300.00 ; Hyperlipidemia E78.5 ; Iron deficiency anemia D50.9 and Headache R51 [place] [address] 72275- 8541 Aug, [address] 47741- 3996 Mar, Hyperlipidemia E78.5 and Iron deficiency anemia D50.[address] 26380- 8335 Mar, Routine adult health maintenance V70.[address] 30835- 3947 Mar, Orbital cellulitis on left H05.[address] 04648- 4484 Mar, [address] 99560- 8030 Feb, Breast cancer screening V76.[address] 95824- 0799 Feb, Routine adult health maintenance V70.0 ; COPD (chronic obstructive pulmonary disease) 496 ; Special screening for malignant neoplasms, colon V76.51 and 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.[address] 76858- 8589 Feb, [address] 30031- 0247 Dec, Asthma, unspecified, unspecified status 493.90 ; Back pain 724.5 ; COPD (chronic obstructive pulmonary disease) 496 and Anxiety 300.00 [facility] [address] [id number] [id number] Dec, Dental examination V72.2 [facility] [address] [id number], [place] [address] Dec, Back pain 724.5 ; COPD (chronic obstructive pulmonary disease) 496 and Anxiety 300.00 [facility] [id number] [place] [id number] Dec, Dental examination V72.2 [facility] [address] [id number] [id number] Nov, Dental examination V72.2 [facility] [address] [place] [address] [id number] [place] [address] [id number] October, Dental examination V72.2 [facility] [address] [id number], [place] [address]- [address]46 Sep, [facility] [address] [id number], [place] [address]- 2546 Sep, [facility] [address] [id number], [place] [address]- 2546 Aug, [facility] [address] [id number], [place] [address]- 2546 Aug, [facility] [address] [id number], [place] [address]- 2546 Aug, [facility] [address] [id number], [place] [address]- 2546 Aug, [facility] [place] [facility] [address] [id number], [place] [address]- 2546 Aug, [facility] [place] [facility] [address] [facility] [id number], [place] [address]- 2546 Aug, [facility] [place] [facility] [address] [id number], [place] [address]- 2546 Jul, [facility] [address] [id number] [place] [address]- 4383 Jul, [facility] [address] [id number] [place] [address]- 7[address] Jul, [facility] [place] [facility] [address] [id number] [place] [address]- 7606 Jul, [facility] [place] [facility] [address] [id number] [place] [address]- 9113 Jun, [facility] [place] [facility] [address] [id number] [place] [address]- 1842 Jun, [facility] [place] [facility] [address] [id number] [place] [address] Nov, [facility] [place] [facility] [address] [id number] [place] [address]- 1388 Nov, [facility] [place] [facility] [address] [id number] [place] [address]- 0985 October, [facility] [address] [id number] [place] [address]- 6017 October, [facility] [place] [facility] [address] [id number] [place] [address]- 1591 October, [facility] [place] [facility] [address] [id number] [place] [address]- 7825 October, [facility] [place] [facility] [address] [id number] [place] [address]- 5710 October, [facility] [place] [facility] [address] [id number] [place] [address]- 0948 October, [facility] [place] [facility] [address] [id number] [place] [address]- 9659 October, [facility] [place] [facility] [address] [id number] [place] [address]- 1534 October, [facility] [place] [facility] [address] [id number] [place] [address]- 4713 Sep, [facility] [place] [facility] [address] [id number] [place] [address]- 7633 Sep, [facility] [place] [facility] [address] [id number] [place] [address]- 5028 Sep, [facility] [place] [facility] [address] [id number] [place] [address]- 2646 Sep, [facility] [place] [facility] [address] [id number] [place] [address]- 1787 Sep, [facility] [place] [facility] [address] [id number] [place] [address]- 1742 Sep, [facility] [place] [facility] [address] [id number] [place] [address]- 0094 Sep, [facility] [place] [facility] [address] [id number] [place] [address]- 7725 Sep, [facility] [place] [facility] [address] [id number] [place] [address]- 9687 Sep, [facility] [place] [facility] [address] [id number] [place] [address]- 3217 Sep, [facility] [place] [facility] [address] [id number] [place] [address]- 6532 Sep, [facility] [place] [facility] [address] [id number] [place] [address]- 8938 Sep, [facility] [place] [facility] [address] [id number] [place] [address]- 0756 Sep, [facility] [place] [facility] [address] [id number] [place] [address]- 7389 Sep, [facility] [place] [facility] [address] [id number] [place] [address]- 9413 Aug, [facility] [place] [facility] [address] [id number] [place] [address]- 3545 Aug, [facility] [place] [facility] [address] [facility] [id number] [place] [address] Aug, IMMUNIZATIONS No Known Immunizations SOCIAL HISTORY Never Assessed REASON FOR VISIT f/u Rashmi PLAN OF CARE Activity Details Follow Up 4 Weeks Reason: VITAL SIGNS Height 64 in 2018-03-21 Weight 154.7 lbs 2018-03-21 Heart Rate 88 bpm 2018-03-21 Respiratory Rate 20 2018-03-21 BMI 26.55 kg/m2 2018-03-21 Blood pressure systolic 144 mmHg 2018-03-21 Blood pressure diastolic 92 mmHg 2018-03-21 MEDICATIONS Medication Instructions Dosage Frequency Start Date End Date Duration Status Pantoprazole Sodium 40 MG Orally Once a day 1 tablet 24h Active Albuterol Sulfate (2.5 MG/3ML) 0.083% Inhalation Three times a day 3 ml as needed 8h Active Cetirizine HCl 10 MG Orally Once a day 1 tablet 24h Active Singulair 10 mg Orally Once a day 1 tablet in the evening 24h Active Lovastatin 40 mg Orally Once a day 1 tab 24h Nov, 90 days Active Wellbutrin XL 150 MG Orally Once a day 1 tablet (take with 300mg tab) 24h Mar, 30 day(s) Active ProAir HFA 108 (90 Base) MCG/ACT Inhalation every 6 hrs 2 puffs as needed 6h Dec, Active Incruse Ellipta 62.5 MCG/INH Inhalation Once a day 1 puff 24h Active Tramadol HCl 50 mg Orally every 6 hrs 1 tablet as needed 6h 28 days Active Ibuprofen 800 MG TAKE ONE TABLET BY MOUTH THREE TIMES DAILY 30 Active Klonopin 0.5 MG Orally Twice a day 1 tablet 12h Active Carafate 1 GM Orally PRN 1 tablet at bedtime on an empty stomach before meals Active Flonase 50 MCG/ACT Nasally Once a day 1 spray in each nostril 24h Active Wellbutrin XL 300 MG Orally Once a day 1 tablet in the morning 24h Active Oxygen Active Symbicort 160-4.5 MCG/ACT Inhalation Twice a day INHALE TWO PUFFS BY MOUTH TWICE DAILY 12h 30 days Active RESULTS No Results PROCEDURES Procedure Date Ordered Result Body Site [facility] VISIT ESTABLISHED PATIENT Mar 21, 2018 INSTRUCTIONS MEDICATIONS ADMINISTERED No Known Medications MEDICAL (GENERAL) HISTORY Type Description Date Medical History Asthma Medical History Anxiety Medical History Depression Medical History Headaches Medical History COPD/emphysema Medical History Bone density 11/01/13 heel US WNL Surgical History Breast reduction Surgical History lap band Surgical History Tubal ligation Surgical History section Hospitalization History Sepsis 2011
--- OUTSIDE RECORDS SUMMARY | 2018-05-03 10:50 | XMS REPORT ---
Author Author DELISA PEREZ Organization [facility] Address [address] [place] [address] Care Team Providers Care Employment Law Specialist Name Role Phone DELISA PEREZ Unavailable PROBLEMS Type Condition ICD9-CM Code PBR00-IW Code Onset Dates Condition Status SNOMED Code Problem Chronic obstructive pulmonary disease with (acute) exacerbation J44.1 Active 575878061 Problem Depressive disorder, not elsewhere classified F32.9 Active 06793682 Problem Anxiety state, unspecified F41.1 Active 929482961 Problem Chronic obstructive pulmonary disease, unspecified J44.9 Active 75985229 Problem Anxiety F41.9 Active 05305541 Problem Mixed hyperlipidemia E78.2 Active 144505595 Problem Hyperlipidemia E78.5 Active 09356488 Problem Iron deficiency anemia D50.9 Active 61689225 Problem Dysthymic disorder F34.1 Active 61507137 Problem COPD exacerbation J44.1 Active 480160523946565 Problem Severe persistent asthma without complication J45.50 Active 032527900 Problem COPD with acute exacerbation J44.1 Active 082929482 Problem Major depressive disorder with single episode, remission status unspecified F32.9 Active 20772613 Problem 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.0 Active 47298375 Problem Environmental allergies Z91.09 Active 657005109 Problem Chronic obstructive pulmonary disease with acute lower respiratory infection J44.0 Active 303167182 Problem Other chronic pain G89.29 Active 82398265 Problem COPD (chronic obstructive pulmonary disease) with chronic bronchitis J44.9 Active 086059829 Problem Dependence on continuous supplemental oxygen Z99.81 Active 61221613960802 Problem Acute exacerbation of chronic obstructive pulmonary disease (COPD) J44.1 Active 497112112 Problem Chronic pain syndrome G89.4 Active 174224504 Problem Acute seasonal allergic rhinitis, unspecified trigger J30.2 Active 283074148 ALLERGIES No Information ENCOUNTERS Encounter Location Date Diagnosis [facility] [address] [facility] [id number] [place] [address] 46957- 6695 Apr, [facility] [id number] [place] [address] 84382- 9378 Apr, Chronic obstructive pulmonary disease with acute lower respiratory infection J44.0 ; Chronic pain syndrome G89.4 and 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.0 [facility] [id number] [place] [address] 85375- 9613 Apr, 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.0 and Chronic obstructive pulmonary disease with acute lower respiratory infection J44.0 [facility] [id number] [place] [address] 53677 -0516 Mar, Decreased breath sounds R06.89 ; COPD exacerbation J44.1 and Encounter for immunization Z23 [facility] [id number] [place] [address] 78233- 1030 Mar, 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.0 and Anxiety state, unspecified F41.1 [facility] [id number] [place] [address] 62864- 8791 Mar, Chronic obstructive pulmonary disease with acute lower respiratory infection J44.0 and Chronic obstructive pulmonary disease, unspecified J44.9 [facility] [id number] [place] [address] 66307- 2572 Feb, 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.0 and Anxiety state, unspecified F41.1 [facility] [address] [place] [address] 81368- 4818 Feb, [facility] [id number] [place] [address] 63373- 0902 Feb, Mixed hyperlipidemia E78.2 [facility] [id number] [place] [address] 98305- 4026 Feb, Chronic obstructive pulmonary disease with acute lower respiratory infection J44.0 [facility] [id number] [place] [address] 20229- 7558 Feb, [place] [address], [place] [address] Feb, Chronic obstructive pulmonary disease with acute lower respiratory infection J44.0 [place] [id number] [place] [address] 03928- 4595 Dec, Chronic obstructive pulmonary disease with acute lower respiratory infection J44.0 [place] [id number] [place] [address] 21399- 7329 Dec, Chronic obstructive pulmonary disease, unspecified J44.9 [place] [id number] [place] [address] 64834- 4821 Nov, [place] [id number] [place] [address] 01043- 2934 Nov, Mixed hyperlipidemia E78.2 [facility] [place] [id number] [place] [address] 83172 -7958 Nov, Environmental allergies Z91.09 [place] [id number] [place] [address] 73233- 1823 Nov, Iron deficiency anemia D50.9 and Hyperlipidemia E78.5 [place] [id number] [place] [address] 67622- 7647 October, Severe persistent asthma without complication J45.50 ; Hyperlipidemia E78.5 ; Iron deficiency anemia D50.9 ; Pain in thoracic spine M54.6 and Other chronic pain G89.29 [place] [id number] [place] [address] 59556- 8967 October, Chronic pain syndrome G89.4 [place] [id number] [place] [address] 26791- 3058 October, 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.0 and Anxiety state, unspecified F41.1 [facility] [id number] [place] [address] 40027 -6665 Aug, COPD with acute exacerbation J44.1 [place] [address] [place] [id number] [place] [address]- 6582 Aug, Chronic obstructive pulmonary disease with acute lower respiratory infection J44.0 [place] [address] 32844- 9666 Aug, 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.0 [place] [id number] [place] [address] 94021- 1116 Jul, 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.0 and Anxiety state, unspecified F41.1 [place] [id number] [place] [address] 99191- 1527 Jul, Anxiety F41.9 and Chronic pain syndrome G89.4 [place] [id number] [place] [address] 42782- 9903 Jun, Dysthymic disorder F34.1 and Anxiety state, unspecified F41.1 [place] [id number] [place] [address] 03354- 2412 Jun, Anxiety state, unspecified F41.1 and 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.0 [place] [id number] [place] [address] 30750- 6627 Jun, [facility] [id number] [place] [address] 62472 -8043 May, COPD exacerbation J44.1 [place] [id number] [place] [address] 32015- 7886 May, Depressive disorder, not elsewhere classified F32.9 and Anxiety state, unspecified F41.1 [place] [id number] [place] [address] 49812- 1354 May, Chronic obstructive pulmonary disease with acute lower respiratory infection J44.0 and Acute seasonal allergic rhinitis, unspecified trigger J30.2 [facility] [id number] [place] [address] 66732 -4098 May, Acute exacerbation of chronic obstructive pulmonary disease (COPD) J44.1 [facility] [id number] [place] [address] 29344- 5413 17 Apr, 2017 Encounter for immunization Z23 [facility] [address] 73551- 2937 Apr, [facility] [address] 31694- 1614 Apr, Back pain 724.5 [facility] [address] 82539 -2331 Mar, Acute seasonal allergic rhinitis, unspecified trigger J30.2 and Sore throat J02.9 [facility] [address] 87091 -7323 Mar, Acute exacerbation of chronic obstructive pulmonary disease (COPD) J44.1 [place] [address] 03486- 2720 Feb, COPD (chronic obstructive pulmonary disease) with chronic bronchitis J44.9 ; Low back pain M54.5 and Other chronic pain G89.29 [facility] [address] [place] [address] 09968 -0294 Feb, Decreased breath sounds R06.89 and Acute exacerbation of chronic obstructive pulmonary disease (COPD) J44.1 [place] [id number] [place] [address] 04909- 9214 15 Feb, 2017 [facility] [address] 91564- 3425 Feb, [place] [address] 92183- 4999 Jan, Major depressive disorder with single episode, remission status unspecified F32.9 [facility] [id number] [place] [address] 35832 -5732 Dec, Allergic contact dermatitis, unspecified trigger L23.9 [facility] [address] [place] [address] 13 Dec, 2016 Allergic reaction, initial encounter T78.40XA [place] [address] 79242- 2042 14 Nov, 2016 Hyperlipidemia E78.5 ; Chronic obstructive pulmonary disease with acute lower respiratory infection J44.0 and Iron deficiency anemia D50.9 [place] [address] 13784- 4779 02 Nov, 2016 Hyperlipidemia E78.5 ; Iron deficiency anemia D50.9 ; Chronic obstructive pulmonary disease with acute lower respiratory infection J44.0 ; Environmental allergies Z91.09 and Major depressive disorder with single episode, remission status unspecified F32.9 [facility] [id number] [place] [address] 80418 -7413 06 Sep, 2016 Shortness of breath R06.02 and COPD exacerbation J44.1 [place] [address] 67962- 0345 Sep, Chronic obstructive pulmonary disease with acute lower respiratory infection J44.0 [facility] [id number] [place] [address] 35862- 2186 Jun, Anxiety F41.9 [place] [id number] [place] [address] 50925- 7396 Jun, Chronic obstructive pulmonary disease with acute lower respiratory infection J44.0 ; Dependence on continuous supplemental oxygen Z99.81 ; Iron deficiency anemia D50.9 ; Anxiety F41.9 ; 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.0 ; Hypercholesterolemia E78.00 and Chronic pain syndrome G89.4 [place] [id number] [place] [address] 37263- 6898 May, Anxiety F41.9 [place] [address] 64722- 4158 May, [facility] [id number] [place] [address] 17447- 6967 Feb, [place] [address] [address]- 2976 Jan, Chronic obstructive pulmonary disease with acute lower respiratory infection J44.0 ; Major depressive disorder with single episode, remission status unspecified F32.9 ; Environmental allergies Z91.09 ; Anxiety F41.9 ; Hyperlipidemia E78.5 ; Iron deficiency anemia, unspecified iron deficiency anemia type D50.9 ; Other chronic pain G89.29 and Lumbago with sciatica, unspecified side M54.40 [place] [id number] [place] [address] 86982- 3865 Sep, Hyperlipidemia E78.5 and Iron deficiency anemia D50.9 [place] [id number] [place] [address] 22820- 7975 Sep, COPD (chronic obstructive pulmonary disease) 496 ; Back pain 724.5 ; Anxiety 300.00 ; Hyperlipidemia E78.5 ; Iron deficiency anemia D50.9 and Headache R51 [place] [id number] [place] [address] 84584- 4947 Aug, [place] [id number] [place] [address] 00136- 6424 Mar, Hyperlipidemia E78.5 and Iron deficiency anemia D50.9 [place] [id number] [place] [address] 74092- 4399 Mar, Routine adult health maintenance V70.0 [place] [id number] [place] [address] 23724- 6630 Mar, Orbital cellulitis on left H05.012 [place] [id number] [place] [address] 98317- 3077 Mar, [place] [id number] [place] [address] 49589- 3796 Feb, Breast cancer screening V76.10 [place] [id number] [place] [address] 06926- 7435 Feb, Routine adult health maintenance V70.0 ; COPD (chronic obstructive pulmonary disease) 496 ; Special screening for malignant neoplasms, colon V76.51 and 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.9 [facility] [id number] [place] [address] 75924- 5136 Feb, [facility] [id number] [place] [address] 25550- 3536 Dec, Asthma, unspecified, unspecified status 493.90 ; Back pain 724.5 ; COPD (chronic obstructive pulmonary disease) 496 and Anxiety 300.00 [facility] [id number] [place] [address] [id number] Dec, Dental examination V72.2 [facility] [id number] [place] [address] 38916 2546 Dec, Back pain 724.5 ; COPD (chronic obstructive pulmonary disease) 496 and Anxiety 300.00 [facility] [id number] [place] [address] [id number] Dec, Dental examination V72.2 [facility] [id number] [place] [address] [id number] Nov, Dental examination V72.2 [facility] [id number] [place] [address] [id number] October, Dental examination V72.2 [facility] [address] 1726 Sep, [facility] [id number] [place] [address] 83326191- 0461 Sep, [facility] [address] [place] [address] 319468- 4300 Aug, [facility] [id number] [place] [address] 387360- 1986 Aug, [facility] [address] [address]01 Aug, [facility] [id number] [place] [address] 10567- 1127 Aug, [facility] [address] [id number] [place] [address]- 5739 Aug, [facility] [place] [facility] [address] [id number] [place] [address]- 0201 Aug, [facility] [place] [facility] [address] [id number] [place] [address]- 9786 Jul, [facility] [place] [facility] [address] [id number] [place] 6644 Jul, [facility] [place] [facility] [address] [id number] [place] [address]- 4865 Jul, [facility] [place] [facility] [address] [id number] [place] [address]- 3551 Jul, [facility] [place] [facility] [address] [id number] [place] [address]- 6189 Jun, [facility] [place] [facility] [address] [id number] [place] [address]- 1656 Jun, [facility] [place] [facility] [address] [id number] [place] [address]- 6931 Nov, [facility] [place] [facility] [address] [id number] [place] [address]- 0080 Nov, [facility] [place] [facility] [address] [id number] [place] [address]- 1568 October, [facility] [place] [facility] [address] [id number] [place] [address]- 3818 October, [facility] [place] [facility] [address] [id number] [place] [address]- 2025 October, [facility] [place] [facility] [address] [id number] [place] [address]- 4493 October, [facility] [place] [facility] [address] [id number] [place] 3942 October, [facility] [place] [facility] [address] [id number] [place] [address]- 7156 October, [facility] [place] [facility] [address] [id number] [place] [address]- 0898 October, [facility] [place] [facility] [address] [id number] [place] [address]- 6315 October, [facility] [place] [facility] [address] [id number] [place] [address]- 2732 Sep, [facility] [place] [facility] [address] [id number] [place] [address]- 1725 Sep, [facility] [place] [facility] [address] [id number] [place] [address]- 1490 Sep, [facility] [place] [facility] [address] [id number] [place] [address]- 4264 Sep, [facility] [place] [facility] [address] [id number] [place] [address]- 1565 Sep, [facility] [place] [facility] [address] [id number] [place] [address]- 7641 Sep, [facility] [place] [facility] [address] [id number] [place] [address]- 9748 Sep, [facility] [place] [facility] [address] [id number] [place] [address]- 8539 Sep, [facility] [place] [facility] [address] [id number] [place] [address]- 7422 Sep, [facility] [place] [facility] [address] [id number] [place] [address]- 0048 Sep, [facility] [place] [facility] [address] [id number] [place] [address]- 4827 Sep, [facility] [place] [facility] [address] [id number] [place] [address]- 4750 Sep, [facility] [place] [facility] [address] [id number] [address]- 6266 Sep, [facility] [address] [id number] [place] [address]- 2546 Sep, [facility] [address] [id number] [address]- 2546 Aug, [facility] [address] [id number] [address]- 2546 Aug, [facility] [address] [id number], [place] [address]- 2546 Aug, IMMUNIZATIONS No Known Immunizations SOCIAL HISTORY Never Assessed REASON FOR VISIT New Refill Request PLAN OF CARE VITAL SIGNS MEDICATIONS Medication Instructions Dosage Frequency Start Date End Date Duration Status Symbicort 160-4.5 MCG/ACT Inhalation Twice a day INHALE TWO PUFFS BY MOUTH TWICE DAILY 12h 30 days Active Wellbutrin XL 300 MG Orally Once a day 1 tablet in the morning 24h 30 days Active Wellbutrin XL 150 MG Orally Once a day 1 tablet (take with 300mg tab) 24h Mar, 30 day(s) Active RESULTS No Results PROCEDURES No Known [...]
--- OUTSIDE RECORDS SUMMARY | 2018-05-03 10:50 | XMS REPORT ---
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 Name Role Phone EDDIE MARTINEZ Unavailable PROBLEMS Type Condition ICD9-CM Code AWR07-WL Code Onset Dates Condition Status SNOMED Code Problem Chronic obstructive pulmonary disease with (acute) exacerbation J44.1 Active 393731505 Problem Depressive disorder, not elsewhere classified F32.9 Active 50510951 Problem Anxiety state, unspecified F41.1 Active 886998496 Problem Chronic obstructive pulmonary disease, unspecified J44.9 Active 57178589 Problem Anxiety F41.9 Active 38802004 Problem Mixed hyperlipidemia E78.2 Active 892115765 Problem Hyperlipidemia E78.5 Active 88329598 Problem Iron deficiency anemia D50.9 Active 27983130 Problem Dysthymic disorder F34.1 Active 25132765 Problem COPD exacerbation J44.1 Active [id number] Problem Severe persistent asthma without complication J45.50 Active 580416078 Problem COPD with acute exacerbation J44.1 Active 186466186 Problem Major depressive disorder with single episode, remission status unspecified F32.9 Active 07508484 Problem 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.0 Active 39239159 Problem Environmental allergies Z91.09 Active 734622705 Problem Chronic obstructive pulmonary disease with acute lower respiratory infection J44.0 Active 436204704 Problem Other chronic pain G89.29 Active 91716438 Problem COPD (chronic obstructive pulmonary disease) with chronic bronchitis J44.9 Active 471735727 Problem Dependence on continuous supplemental oxygen Z99.81 Active 14498952068741 Problem Acute exacerbation of chronic obstructive pulmonary disease (COPD) J44.1 Active 265305446 Problem Chronic pain syndrome G89.4 Active 971300719 Problem Acute seasonal allergic rhinitis, unspecified trigger J30.2 Active 600073592 ALLERGIES No Known Allergies ENCOUNTERS Encounter Location Date Diagnosis [facility] [id number] [address] Apr, [facility] [id number] [place] [address] Mar, Decreased breath sounds R06.89 ; COPD exacerbation J44.1 and Encounter for immunization Z23 [facility] [id number] [place] [address]29[address] 2833 Mar, 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.0 and Anxiety state, unspecified F41.1 [facility] [id number] [place] [address] 11670- 9991 Mar, Chronic obstructive pulmonary disease with acute lower respiratory infection J44.0 and Chronic obstructive pulmonary disease, unspecified J44.9 [facility] [id number] [place] [address] 93595- 3544 Feb, 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.0 and Anxiety state, unspecified F41.1 [facility] [id number] [place] [address] 21005- 6591 Feb, [facility] [id number] [place] [address] 45681- 0480 Feb, Mixed hyperlipidemia E78.2 [facility] [address] [place] [address] 88331- 1594 Feb, Chronic obstructive pulmonary disease with acute lower respiratory infection J44.0 [facility] [id number] [place] [address] 54856- 0806 Feb, [facility] [id number] [place] [address] 74151- 7880 Feb, Chronic obstructive pulmonary disease with acute lower respiratory infection J44.0 [facility] [address] [place] [address] 37833- 9812 Dec, Chronic obstructive pulmonary disease with acute lower respiratory infection J44.0 [facility] [address] [place] [address] 72657- 1239 Dec, Chronic obstructive pulmonary disease, unspecified J44.9 [place] [id number] [place] [address] 80448- 5568 Nov, [place] [id number] [place] [address] 92137- 2107 Nov, Mixed hyperlipidemia E78.2 [facility] [address] [address] Nov, Environmental allergies Z91.09 [place] [address] [address]44- 6642 Nov, Iron deficiency anemia D50.9 and Hyperlipidemia E78.5 [place] [id number] [place] [address] 04173- 9689 October, Severe persistent asthma without complication J45.50 ; Hyperlipidemia E78.5 ; Iron deficiency anemia D50.9 ; Pain in thoracic spine M54.6 and Other chronic pain G89.29 [place] [id number] [place] [address] 42800- 4461 October, Chronic pain syndrome G89.4 [place] [id number] [place] [address] 84133- 7489 October, 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.0 and Anxiety state, unspecified F41.1 [facility] [id number] [place] [address] 13830 -7082 Aug, COPD with acute exacerbation J44.1 [place] [id number] [place] [address] 44826- 2856 Aug, Chronic obstructive pulmonary disease with acute lower respiratory infection J44.0 [place] [id number] [place] [address] 31058- 8329 Aug, 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.0 [place] [id number] [place] [address] 39511- 9680 Jul, 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.0 and Anxiety state, unspecified F41.1 [place] [id number] [place] [address] 56300- 5501 Jul, Anxiety F41.9 and Chronic pain syndrome G89.4 [place] [address] 83709- 0064 Jun, Dysthymic disorder F34.1 and Anxiety state, unspecified F41.1 [place] [address] 86385- 7856 Jun, Anxiety state, unspecified F41.1 and 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.0 [place] [address] 85140- 9713 Jun, [facility] [place] [address] [address] May, COPD exacerbation J44.1 [place] [address] 16345- 3400 May, Depressive disorder, not elsewhere classified F32.9 and Anxiety state, unspecified F41.1 [place] [address] 21479- 7300 May, Chronic obstructive pulmonary disease with acute lower respiratory infection J44.0 and Acute seasonal allergic rhinitis, unspecified trigger J30.2 [facility] [place] [id number] [place] [address] 20866 -3073 May, Acute exacerbation of chronic obstructive pulmonary disease (COPD) J44.1 [place] [address] 37053- 9819 Apr, Encounter for immunization Z23 [place] [address] 61451- 9265 Apr, [place] [address] 26130[address] 3927 Apr, Back pain 724.5 [facility] [id number] [place] [address] 37518 -9568 26 Mar, 2017 Acute seasonal allergic rhinitis, unspecified trigger J30.2 and Sore throat J02.9 [facility] [address] [place] [address] 57455 -6562 13 Mar, 2017 Acute exacerbation of chronic obstructive pulmonary disease (COPD) J44.[address] [address]- [address] 28 Feb, 2017 COPD (chronic obstructive pulmonary disease) with chronic bronchitis J44.9 ; Low back pain M54.5 and Other chronic pain G89.29 [facility] [address] [address] Feb, Decreased breath sounds R06.89 and Acute exacerbation of chronic obstructive pulmonary disease (COPD) J44.[address] 86788- 5807 15 Feb, [address] 46648- 5762 Feb, [address] 04832- 9230 Jan, Major depressive disorder with single episode, remission status unspecified F32.9 [facility] [address] 34[address] 16 Dec, 2016 Allergic contact dermatitis, unspecified trigger L23.9 [facility] [address] 64430 [address]2207 13 Dec, 2016 Allergic reaction, initial encounter T78.40XA [address] 38716- 5145 14 Nov, 2016 Hyperlipidemia E78.5 ; Chronic obstructive pulmonary disease with acute lower respiratory infection J44.0 and Iron deficiency anemia D50.[address] 25961- 3612 Nov, Hyperlipidemia E78.5 ; Iron deficiency anemia D50.9 ; Chronic obstructive pulmonary disease with acute lower respiratory infection J44.0 ; Environmental allergies Z91.09 and Major depressive disorder with single episode, remission status unspecified F32.9 [facility] [address] [address] Sep, Shortness of breath R06.02 and COPD exacerbation J44.1 [facility] [id number] [place] [address] 59180- 1835 Sep, Chronic obstructive pulmonary disease with acute lower respiratory infection J44.0 [place] [address] 78693- 3249 Jun, Anxiety F41.9 [place] [id number] [place] [address] 31969- 0910 Jun, Chronic obstructive pulmonary disease with acute lower respiratory infection J44.0 ; Dependence on continuous supplemental oxygen Z99.81 ; Iron deficiency anemia D50.9 ; Anxiety F41.9 ; 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.0 ; Hypercholesterolemia E78.00 and Chronic pain syndrome G89.4 [place] [id number] [place] [address] 77970- 2853 May, Anxiety F41.9 [facility] [id number] [place] [address] 89992- 7784 May, [place] [id number] [place] [address] 67841- 8688 Feb, [place] [id number] [place] [address] 46030- 8845 Jan, Chronic obstructive pulmonary disease with acute lower respiratory infection J44.0 ; Major depressive disorder with single episode, remission status unspecified F32.9 ; Environmental allergies Z91.09 ; Anxiety F41.9 ; Hyperlipidemia E78.5 ; Iron deficiency anemia, unspecified iron deficiency anemia type D50.9 ; Other chronic pain G89.29 and Lumbago with sciatica, unspecified side M54.40 [place] [id number] [place] [address] 32251- 2159 Sep, Hyperlipidemia E78.5 and Iron deficiency anemia D50.9 [place] [address] 12323- 7645 Sep, COPD (chronic obstructive pulmonary disease) 496 ; Back pain 724.5 ; Anxiety 300.00 ; Hyperlipidemia E78.5 ; Iron deficiency anemia D50.9 and Headache R51 [place] [address] 93198- 4543 Aug, [address] 79293- 2300 Mar, Hyperlipidemia E78.5 and Iron deficiency anemia D50.[address] 93606- 0750 Mar, Routine adult health maintenance V70.[address] 25663- 0388 Mar, Orbital cellulitis on left H05.[address] 72026- 0924 Mar, [address] 59417- 5924 Feb, Breast cancer screening V76.[address] 51002- 7889 Feb, Routine adult health maintenance V70.0 ; COPD (chronic obstructive pulmonary disease) 496 ; Special screening for malignant neoplasms, colon V76.51 and 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.[address] 72717- 6372 Feb, [address] 69695- 5056 Dec, Asthma, unspecified, unspecified status 493.90 ; Back pain 724.5 ; COPD (chronic obstructive pulmonary disease) 496 and Anxiety 300.00 [facility] [address] [id number] Dec, Dental examination V72.2 [facility] [address] [address] 2546 Dec, Back pain 724.5 ; COPD (chronic obstructive pulmonary disease) 496 and Anxiety 300.00 [facility] [id number] [place] [address] [id number] Dec, Dental examination V72.2 [facility] [id number] [place] [address] [id number] Nov, Dental examination V72.2 [facility] [id number] [place] [address] [id number] October, Dental examination V72.2 [facility] [address] [address]- 2546 Sep, [facility] [address] [address]- 2546 Sep, [facility] [address] [address] 2546 Aug, [facility] [id number] [address]- 2546 Aug, [facility] [address] [address]- 2546 Aug, [facility] [address] [facility] [id number] [address] Aug, [facility] [id number] [address]- 2546 Aug, [facility] [id number] [address]- 2546 Aug, [facility] [address] [address]- [address] Jul, [facility] [place] [facility] [address] [id number] [place] [address]- [address]26 Jul, [facility] [place] [facility] [address] [id number] [place] [address]- 3046 Jul, [facility] [place] [facility] [address] [id number] [place] [address]- 3508 Jul, [facility] [place] [facility] [address] [id number] [place] [address]- 1409 Jun, [facility] [place] [facility] [address] [id number] [place] [address]- 8035 Jun, [facility] [place] [facility] [address] [id number] [place] [address]- 9866 Nov, [facility] [place] [facility] [address] [id number] [place] [address]- 0144 Nov, [facility] [address] [id number] [place] [address]- 2085 October, [facility] [place] [facility] [address] [id number] [place] [address]- 1944 October, [facility] [place] [facility] [address] [id number] [place] [address]- 8523 October, [facility] [place] [facility] [address] [id number] [place] [address]- 6688 October, [facility] [place] [facility] [address] [id number] [place] [address]- 6187 October, [facility] [place] [facility] [address] [id number] [place] [address]- 0560 October, [facility] [place] [facility] [address] [id number] [place] [address]- 4694 October, [facility] [place] [facility] [address] [id number] [place] [address]- 8357 October, [facility] [place] [facility] [address] [id number] [place] [address]- 5553 Sep, [facility] [place] [facility] [address] [id number] [place] [address]- 3454 24 Sep, 2013 [facility] [place] [facility] [address] [id number] [place] [address]- 6376 Sep, [facility] [place] [facility] [address] [id number] [place] [address]- 5212 Sep, [facility] [place] [facility] [address] [id number] [place] [address]- 5548 Sep, [facility] [place] [facility] [address] [id number] [place] [address]- 2611 Sep, [facility] [place] [facility] [address] [id number] [place] [address]- 4628 Sep, [facility] [place] [facility] [address] [id number] [place] [address]- 7052 Sep, [facility] [place] [facility] [address] [id number] [place] [address]- 1431 Sep, [facility] [place] [facility] [address] [id number] [place] [address]- 2668 Sep, [facility] [place] [facility] [address] [id number] [place] [address]- 0357 Sep, [facility] [place] [facility] [address] [id number] [place] [address]- 7347 Sep, [facility] [place] [facility] [address] [id number] [place] [address]- 3478 Sep, [facility] [place] [facility] [address] [id number] [place] [address]- 8663 Sep, [facility] [place] [facility] [address] [id number] [place] [id number] Aug, [facility] [place] [facility] [address] [id number] [place] [address]- 3669 Aug, [facility] [place] [facility] [address] [id number] [place] [address] Aug, IMMUNIZATIONS Vaccine Route Administration Date Status FLULAVAL QUAD 0.5ML (6 MO & UP) 2018 IM Intramuscular Mar 21, 2018 Administered SOCIAL HISTORY Never Assessed REASON FOR VISIT Shortness of breath and chest tightness started about 1 week ago JStrasserRN PLAN OF CARE Activity Details Follow Up prn Reason: VITAL SIGNS Height 64 in 2018-03-21 Weight 153.8 lbs 2018-03-21 Temperature 98.1 degrees Fahrenheit 2018-03-21 Heart Rate 91 bpm 2018-03-21 Respiratory Rate 22 2018-03-21 Oximetry 96 % 2018-03-21 BMI 26.40 kg/m2 2018-03-21 Blood pressure systolic 144 mmHg 2018-03-21 Blood pressure diastolic 100 mmHg 2018-03-21 MEDICATIONS Medication Instructions Dosage Frequency Start Date End Date Duration Status Albuterol Sulfate (2.5 MG/3ML) 0.083% Inhalation Three times a day 3 ml as needed 8h Active Oxygen Active Lovastatin 40 mg Orally Once a day 1 tab 24h Nov, 90 days Active Tramadol HCl 50 mg Orally every 6 hrs 1 tablet as needed 6h 28 days Active Klonopin 0.5 MG Orally Twice a day 1 tablet 12h Active Flonase 50 MCG/ACT Nasally Once a day 1 spray in each nostril 24h Active Carafate 1 GM Orally PRN 1 tablet at bedtime on an empty stomach before meals Active ProAir HFA 108 (90 Base) MCG/ACT Inhalation every 6 hrs 2 puffs as needed 6h Dec, Active Wellbutrin XL 150 MG Orally Once a day 1 tablet (take with 300mg tab) 24h Mar, 30 day(s) Active Wellbutrin XL 300 MG Orally Once a day 1 tablet in the morning 24h Active Ibuprofen 800 MG TAKE ONE TABLET BY MOUTH THREE TIMES DAILY 30 Active Azithromycin 250 MG Orally Once a day 2 tablets on the first day, then 1 tablet daily for 4 days 24h Mar, Mar, 5 day(s) Active Incruse Ellipta 62.5 MCG/INH Inhalation Once a day 1 puff 24h Active Symbicort 160-4.5 MCG/ACT Inhalation Twice a day INHALE TWO PUFFS BY MOUTH TWICE DAILY 12h 30 days Active Singulair 10 mg Orally Once a day 1 tablet in the evening 24h Active Cetirizine HCl 10 MG Orally Once a day 1 tablet 24h Active Pantoprazole Sodium 40 MG Orally Once a day 1 tablet 24h Active RESULTS Name Result Date Reference Range Xray : Chest 2 View (IN HOUSE) 2018-03-21 PROCEDURES Procedure Date Ordered Result Body Site X-RAY EXAM CHEST 2 VIEWS Mar 21, 2018 [facility] VISIT ESTABLISHED PATIENT Mar 21, 2018 FLULAVAL QUAD 0.5ML (6 MO AND UP) 2017Mar 21, 2018 SINGLE IMMUNIZATION ADMIN Mar 21, 2018 INSTRUCTIONS MEDICATIONS ADMINISTERED No [...]
--- OUTSIDE RECORDS SUMMARY | 2018-05-03 10:51 | XMS REPORT ---
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 Name Role Phone DELISA PEREZ Unavailable PROBLEMS Type Condition ICD9-CM Code RPD09-LZ Code Onset Dates Condition Status SNOMED Code Problem Chronic obstructive pulmonary disease with (acute) exacerbation J44.1 Active 424719997 Problem Depressive disorder, not elsewhere classified F32.9 Active 49844855 Problem Anxiety state, unspecified F41.1 Active 563353451 Problem Chronic obstructive pulmonary disease, unspecified J44.9 Active 73584206 Problem Anxiety F41.9 Active 02152872 Problem Mixed hyperlipidemia E78.2 Active 355228083 Problem Hyperlipidemia E78.5 Active 38557791 Problem Iron deficiency anemia D50.9 Active 95609628 Problem Dysthymic disorder F34.1 Active 08800582 Problem COPD exacerbation J44.1 Active [id number] Problem Severe persistent asthma without complication J45.50 Active 922303068 Problem COPD with acute exacerbation J44.1 Active 333433043 Problem Major depressive disorder with single episode, remission status unspecified F32.9 Active 84053806 Problem 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.0 Active 61554567 Problem Environmental allergies Z91.09 Active 326033210 Problem Chronic obstructive pulmonary disease with acute lower respiratory infection J44.0 Active 426135424 Problem Other chronic pain G89.29 Active 10980058 Problem COPD (chronic obstructive pulmonary disease) with chronic bronchitis J44.9 Active 777399064 Problem Dependence on continuous supplemental oxygen Z99.81 Active 66964467996403 Problem Acute exacerbation of chronic obstructive pulmonary disease (COPD) J44.1 Active 575179466 Problem Chronic pain syndrome G89.4 Active 272727733 Problem Acute seasonal allergic rhinitis, unspecified trigger J30.2 Active 424620014 ALLERGIES No Information ENCOUNTERS Encounter Location Date Diagnosis [facility] [address] [facility] [id number] [place] [address]103[address] Apr, [facility] [address] [address] Mar, Decreased breath sounds R06.89 ; COPD exacerbation J44.1 and Encounter for immunization Z23 [facility] [id number] [address] 87818- 6553 Mar, 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.0 and Anxiety state, unspecified F41.1 [facility] [id number] [address] 33163- 4185 Mar, Chronic obstructive pulmonary disease with acute lower respiratory infection J44.0 and Chronic obstructive pulmonary disease, unspecified J44.9 [facility] [id number] [address] 42257- 0385 Feb, 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.0 and Anxiety state, unspecified F41.1 [facility] [id number] [address] 66868- 0157 Feb, [facility] [id number] [place] [address] 47609- 8841 Feb, Mixed hyperlipidemia E78.2 [facility] [id number] [address] 26786- 9374 Feb, Chronic obstructive pulmonary disease with acute lower respiratory infection J44.0 [facility] [id number] [address] 04945- 2039 Feb, [facility] [id number] [address] 37610- 0481 Feb, Chronic obstructive pulmonary disease with acute lower respiratory infection J44.0 [facility] [id number] [address] 26378- 2532 Dec, Chronic obstructive pulmonary disease with acute lower respiratory infection J44.0 [facility] [id number] [address] 06247- 1247 Dec, Chronic obstructive pulmonary disease, unspecified J44.9 [place] [id number] [place] [address] 30397- 4896 Nov, [place] [id number] [address] 08533- 7225 Nov, Mixed hyperlipidemia E78.2 [facility] [id number] [address] 03832 -2877 Nov, Environmental allergies Z91.09 [place] [id number] [place] [address] 97133- 0114 Nov, Iron deficiency anemia D50.9 and Hyperlipidemia E78.5 [place] [id number] [place] [address] 73109- 0667 October, Severe persistent asthma without complication J45.50 ; Hyperlipidemia E78.5 ; Iron deficiency anemia D50.9 ; Pain in thoracic spine M54.6 and Other chronic pain G89.29 [place] [id number] [address] 53482- 9149 October, Chronic pain syndrome G89.4 [place] [id number] [address] 92659- 8711 October, 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.0 and Anxiety state, unspecified F41.1 [facility] [id number] [place] [address] 46552 -5182 Aug, COPD with acute exacerbation J44.1 [place] [id number] [place] [address] 45390- 6970 Aug, Chronic obstructive pulmonary disease with acute lower respiratory infection J44.0 [place] [id number] [address] 76119- 8203 Aug, 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.0 [place] [id number] [place] [address] 88465- 9674 Jul, 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.0 and Anxiety state, unspecified F41.1 [place] [address] 38868- 9600 Jul, Anxiety F41.9 and Chronic pain syndrome G89.4 [place] [address] 81575- 3617 Jun, Dysthymic disorder F34.1 and Anxiety state, unspecified F41.1 [place] [address] 22116- 8787 Jun, Anxiety state, unspecified F41.1 and 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.[address] 04712- 2086 Jun, [facility] [address] [address] May, COPD exacerbation J44.1 [place] [address] 90432- 3635 May, Depressive disorder, not elsewhere classified F32.9 and Anxiety state, unspecified F41.[address] 05789- 3666 May, Chronic obstructive pulmonary disease with acute lower respiratory infection J44.0 and Acute seasonal allergic rhinitis, unspecified trigger J30.2 [facility] [address] [place] [address]73 -2292 May, Acute exacerbation of chronic obstructive pulmonary disease (COPD) J44.1 [place] [address] 43102- 4658 Apr, Encounter for immunization Z23 [place] [address] 07848- 3658 Apr, [place] [address] 94178- 8814 Apr, Back pain 724.5 [facility] [address] [place] [id number] [place] [address] 01017 -0881 Mar, Acute seasonal allergic rhinitis, unspecified trigger J30.2 and Sore throat J02.9 [facility] [address] [address]8245 13 Mar, 2017 Acute exacerbation of chronic obstructive pulmonary disease (COPD) J44.[address] [address]474- 1988 28 Feb, 2017 COPD (chronic obstructive pulmonary disease) with chronic bronchitis J44.9 ; Low back pain M54.5 and Other chronic pain G89.29 [facility] [address] [address]63 Feb, Decreased breath sounds R06.89 and Acute exacerbation of chronic obstructive pulmonary disease (COPD) J44.[address] 79538- 3287 15 Feb, [address] 84348- 6648 Feb, [address] 61989- 0401 Jan, Major depressive disorder with single episode, remission status unspecified F32.9 [facility] [address] [address] 16 Dec, 2016 Allergic contact dermatitis, unspecified trigger L23.9 [facility] [address] 42317 -6699 13 Dec, 2016 Allergic reaction, initial encounter T78.40XA [address] 56178- 7094 14 Nov, 2016 Hyperlipidemia E78.5 ; Chronic obstructive pulmonary disease with acute lower respiratory infection J44.0 and Iron deficiency anemia D50.[address] 23409- 6009 02 Nov, 2016 Hyperlipidemia E78.5 ; Iron deficiency anemia D50.9 ; Chronic obstructive pulmonary disease with acute lower respiratory infection J44.0 ; Environmental allergies Z91.09 and Major depressive disorder with single episode, remission status unspecified F32.9 [facility] [address] [address] 06 Sep, 2016 Shortness of breath R06.02 and COPD exacerbation J44.1 [facility] [id number] [place] [address] 85507- 3906 04 Sep, 2016 Chronic obstructive pulmonary disease with acute lower respiratory infection J44.0 [facility] [id number] [place] [address] 39101- 0388 Jun, Anxiety F41.9 [facility] [id number] [place] [address] 96564- 7197 Jun, Chronic obstructive pulmonary disease with acute lower respiratory infection J44.0 ; Dependence on continuous supplemental oxygen Z99.81 ; Iron deficiency anemia D50.9 ; Anxiety F41.9 ; 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.0 ; Hypercholesterolemia E78.00 and Chronic pain syndrome G89.4 [facility] [id number] [place] [address] 31650- 5149 May, Anxiety F41.9 [facility] [id number] [place] [address] 54492- 6882 May, [facility] [id number] [address] 14197- 0523 Feb, [facility] [id number] [place] [address] 70291- 7039 Jan, Chronic obstructive pulmonary disease with acute lower respiratory infection J44.0 ; Major depressive disorder with single episode, remission status unspecified F32.9 ; Environmental allergies Z91.09 ; Anxiety F41.9 ; Hyperlipidemia E78.5 ; Iron deficiency anemia, unspecified iron deficiency anemia type D50.9 ; Other chronic pain G89.29 and Lumbago with sciatica, unspecified side M54.40 [facility] [id number] [place] [address] 61578- 5396 Sep, Hyperlipidemia E78.5 and Iron deficiency anemia D50.9 [place] [id number] [place] [address] 71608- 1416 Sep, COPD (chronic obstructive pulmonary disease) 496 ; Back pain 724.5 ; Anxiety 300.00 ; Hyperlipidemia E78.5 ; Iron deficiency anemia D50.9 and Headache R51 [place] [id number] [place] [address] 82972- 7723 Aug, [place] [id number] [address] 68202- 9470 Mar, Hyperlipidemia E78.5 and Iron deficiency anemia D50.9 [place] [id number] [place] [address] 06419- 1260 Mar, Routine adult health maintenance V70.0 [place] [id number] [place] [address] 78838- 2306 Mar, Orbital cellulitis on left H05.012 [place] [id number] [place] [address] 15514- 9029 Mar, [place] [id number] [place] [address] 75831- 0232 Feb, Breast cancer screening V76.[address] 50977- 5170 Feb, Routine adult health maintenance V70.0 ; COPD (chronic obstructive pulmonary disease) 496 ; Special screening for malignant neoplasms, colon V76.51 and 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.[address] 54651- 3991 Feb, [address] 19976- 9927 Dec, Asthma, unspecified, unspecified status 493.90 ; Back pain 724.5 ; COPD (chronic obstructive pulmonary disease) 496 and Anxiety 300.00 [facility] [address] [id number] [id number] Dec, Dental examination V72.2 [facility] [address] [id number] [address]- 2546 Dec, Back pain 724.5 ; COPD (chronic obstructive pulmonary disease) 496 and Anxiety 300.00 [facility] [address] [id number] [place] [id number] Dec, Dental examination V72.2 [facility] [address] [id number] [id number] Nov, Dental examination V72.2 [facility] [id number] [place] [address] [id number] October, Dental examination V72.2 [facility] [id number] [address]- 2546 Sep, [facility] [address] [id number] [place] [address]- 2546 Sep, [facility] [address] [id number] [place] [address]- 2546 Aug, [facility] [id number] [address]- 2546 Aug, [facility] [address] [id number] [place] [address]- 2546 Aug, [facility] [address] [id number] [place] [address]- 2546 Aug, [facility] [address] [facility] [id number] [place] [address]- 2546 Aug, [facility] [address] [facility] [id number] [place] [address]- 2546 Aug, [facility] [address] [facility] [id number] [place] [address]- 2546 Jul, [facility] [address] [id number] [place] [address]- 8184 Jul, [facility] [address] [id number] [place] [address] Jul, [facility] [address] [id number] [place] [address]- 6296 Jul, [facility] [address] [id number] [place] [address]- 6354 Jun, [facility] [address] [id number] [place] [address]- 9212 Jun, [facility] [address] [id number] [place] [address]- 8217 Nov, [facility] [address] [id number] [place] [address]- 7206 Nov, [facility] [address] [id number] [place] [address]- 4975 October, [facility] [address] [id number] [place] [address]- 3471 October, [facility] [address] [id number] [place] [address]- 5587 October, [facility] [address] [id number] [place] [address]- 4330 October, [facility] [address] [id number] [place] [address]- 7691 October, [facility] [address] [id number] [place] [address]- 3421 October, [facility] [place] [facility] [address] [id number] [place] [address]- 8293 October, [facility] [address] [id number] [place] [address]- 7794 October, [facility] [address] [id number] [place] [address]- 3476 Sep, [facility] [place] [facility] [address] [id number] [place] [address]- 0274 Sep, [facility] [place] [facility] [address] [id number] [place] [address]- 6593 Sep, [facility] [place] [facility] [address] [id number] [place] [address]- 5377 Sep, [facility] [place] [facility] [address] [id number] [place] [address]- 7220 Sep, [facility] [place] [facility] [address] [id number] [place] [address]- 2420 Sep, [facility] [place] [facility] [address] [id number] [place] [address]- 7260 Sep, [facility] [place] [facility] [address] [id number] [place] [address]- 9073 Sep, [facility] [place] [facility] [address] [id number] [place] [address]- 7774 Sep, [facility] [place] [facility] [address] [id number] [place] [address]- 7179 Sep, [facility] [place] [facility] [address] [id number] [place] [address]- 6542 Sep, [facility] [place] [facility] [address] [id number] [place] [address]- 8055 Sep, [facility] [place] [facility] [address] [id number] [place] [address]- 5289 Sep, [facility] [place] [facility] [address] [id number] [place] [address]- 3458 Sep, [facility] [place] [facility] [address] [id number] [place] [address]- 7893 Aug, [facility] [place] [facility] [address] [id number] [place] [address]- 6479 Aug, [facility] [place] [facility] [address] [id number] [place] [address] Aug, IMMUNIZATIONS No Known Immunizations SOCIAL HISTORY Never Assessed REASON FOR VISIT New Refill Request PLAN OF CARE VITAL SIGNS MEDICATIONS Medication Instructions Dosage Frequency Start Date End Date Duration Status Incruse Ellipta 62.5 MCG/INH Inhalation Once a day 1 puff 24h Active ProAir HFA 108 (90 Base) MCG/ACT Inhalation every 6 hrs 2 puffs as needed 6h Dec, Active Symbicort 160-4.5 MCG/ACT Inhalation Twice a [...]
--- OUTSIDE RECORDS SUMMARY | 2018-05-03 10:51 | XMS REPORT ---
Author Author TAY RAUL Organization [facility] Address [address] [place] [address] Care Team Providers Care Ear Flap Binder Name Role Phone ELEAZARRAUL LOCKETT Unavailable PROBLEMS Type Condition ICD9-CM Code WOR71-XO Code Onset Dates Condition Status SNOMED Code Problem Chronic obstructive pulmonary disease with (acute) exacerbation J44.1 Active 272556911 Problem Depressive disorder, not elsewhere classified F32.9 Active 89460258 Problem Anxiety state, unspecified F41.1 Active 267530002 Problem Chronic obstructive pulmonary disease, unspecified J44.9 Active 56129529 Problem Anxiety F41.9 Active 38840422 Problem Mixed hyperlipidemia E78.2 Active 632184594 Problem Hyperlipidemia E78.5 Active 32021331 Problem Iron deficiency anemia D50.9 Active 66479607 Problem Dysthymic disorder F34.1 Active 02514635 Problem COPD exacerbation J44.1 Active [id number] Problem Severe persistent asthma without complication J45.50 Active 176904353 Problem COPD with acute exacerbation J44.1 Active 204477365 Problem Major depressive disorder with single episode, remission status unspecified F32.9 Active 31604367 Problem 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.0 Active 77651444 Problem Environmental allergies Z91.09 Active 675568556 Problem Chronic obstructive pulmonary disease with acute lower respiratory infection J44.0 Active 654983621 Problem Other chronic pain G89.29 Active 55079046 Problem COPD (chronic obstructive pulmonary disease) with chronic bronchitis J44.9 Active 416231342 Problem Dependence on continuous supplemental oxygen Z99.81 Active 58477017139849 Problem Acute exacerbation of chronic obstructive pulmonary disease (COPD) J44.1 Active 957042221 Problem Chronic pain syndrome G89.4 Active 012561186 Problem Acute seasonal allergic rhinitis, unspecified trigger J30.2 Active 757822215 ALLERGIES No Information ENCOUNTERS Encounter Location Date Diagnosis [facility] [address] [facility] [id number] [address] Mar, [facility] [address] [address] 10 Feb, 2018 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.0 and Anxiety state, unspecified F41.1 [facility] [address], [place] [address] 10 Feb, 2018 [facility] [id number] [place] [address] 51299- 2042 Feb, Mixed hyperlipidemia E78.2 [facility] [address] [place] [address] 45683- 7030 08 Feb, 2018 Chronic obstructive pulmonary disease with acute lower respiratory infection J44.0 [facility] [address] [address] Feb, [facility] [id number] [place] [address] 66281- 1777 Feb, Chronic obstructive pulmonary disease with acute lower respiratory infection J44.0 [facility] [address] [place] [address] 86019- 6591 Dec, Chronic obstructive pulmonary disease with acute lower respiratory infection J44.0 [facility] [address], [place] [address] Dec, Chronic obstructive pulmonary disease, unspecified J44.9 [facility] [address], [place] [address] Nov, [facility] [address], [place] [address] Nov, Mixed hyperlipidemia E78.2 [facility] [address], [place] [address] Nov, Environmental allergies Z91.09 [facility] [address], [place] [address] Nov, Iron deficiency anemia D50.9 and Hyperlipidemia E78.5 [facility] [address] [place] [address] 77981- 4571 October, Severe persistent asthma without complication J45.50 ; Hyperlipidemia E78.5 ; Iron deficiency anemia D50.9 ; Pain in thoracic spine M54.6 and Other chronic pain G89.29 [facility] [id number] [place] [address] 50593- 2681 October, Chronic pain syndrome G89.4 [facility] [id number] [place] [address] 83570- 2942 October, 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.0 and Anxiety state, unspecified F41.1 [facility] [id number] [place] [address] 15259 -9276 Aug, COPD with acute exacerbation J44.1 [place] [id number] [place] [address] 31955- 6511 Aug, Chronic obstructive pulmonary disease with acute lower respiratory infection J44.0 [facility] [id number] [place] [address] 11978- 9290 Aug, 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.0 [facility] [id number] [place] [address] 21090- 6317 08 Jul, 2017 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.0 and Anxiety state, unspecified F41.1 [place] [id number] [place] [address] 91267- 1131 Jul, Anxiety F41.9 and Chronic pain syndrome G89.4 [place] [id number] [place] [address] 82412- 1895 Jun, Dysthymic disorder F34.1 and Anxiety state, unspecified F41.1 [place] [id number] [place] [address] 37637- 4998 Jun, Anxiety state, unspecified F41.1 and 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.0 [place] [id number] [place] [address] 28866- 5528 Jun, [facility] [id number] [place] [address] 79073 -0687 May, COPD exacerbation J44.1 [facility] [id number] [place] [address] 98323- 7006 May, Depressive disorder, not elsewhere classified F32.9 and Anxiety state, unspecified F41.1 [facility] [id number] [place] [address] 71078- 4079 May, Chronic obstructive pulmonary disease with acute lower respiratory infection J44.0 and Acute seasonal allergic rhinitis, unspecified trigger J30.2 [id number] [place] [address] 15922 -2604 May, Acute exacerbation of chronic obstructive pulmonary disease (COPD) J44.1 [place] [id number] [place] [address] 39144- 3296 Apr, Encounter for immunization Z23 [place] [id number] [place] [address] 92112- 1296 Apr, [place] [id number] [place] [address] 07426- 8586 Apr, Back pain 724.5 [facility] [id number] [place] [address] 62946 -7591 Mar, Acute seasonal allergic rhinitis, unspecified trigger J30.2 and Sore throat J02.9 [facility] [id number] [place] [address] 76084 -1526 Mar, Acute exacerbation of chronic obstructive pulmonary disease (COPD) J44.1 [facility] [id number] [place] [address] 33566- 3924 Feb, COPD (chronic obstructive pulmonary disease) with chronic bronchitis J44.9 ; Low back pain M54.5 and Other chronic pain G89.29 [facility] [address], [place] [address] 21 Feb, 2017 Decreased breath sounds R06.89 and Acute exacerbation of chronic obstructive pulmonary disease (COPD) J44.1 [facility] [address] [place] [address] 33163- 8352 15 Feb, 2017 [facility] [id number] [place] [address] 33965- 0888 Feb, [place] [id number] [place] [address] 21331- 7209 Jan, Major depressive disorder with single episode, remission status unspecified F32.9 [facility] [address] [place] [id number] [place] [address] 80498 -6086 16 Dec, 2016 Allergic contact dermatitis, unspecified trigger L23.9 [facility] [place] [id number] [place] [address] 65135 -2399 13 Dec, 2016 Allergic reaction, initial encounter T78.40XA [place] [id number] [place] [address] 51670- 5388 14 Nov, 2016 Hyperlipidemia E78.5 ; Chronic obstructive pulmonary disease with acute lower respiratory infection J44.0 and Iron deficiency anemia D50.9 [place] [address] [place] [address] 41869- 3492 02 Nov, 2016 Hyperlipidemia E78.5 ; Iron deficiency anemia D50.9 ; Chronic obstructive pulmonary disease with acute lower respiratory infection J44.0 ; Environmental allergies Z91.09 and Major depressive disorder with single episode, remission status unspecified F32.9 [facility] [address] [place] [address] 98916 -0199 Sep, Shortness of breath R06.02 and COPD exacerbation J44.1 [place] [id number] [place] [address] 87016- 0472 04 Sep, 2016 Chronic obstructive pulmonary disease with acute lower respiratory infection J44.0 [facility] [id number] [place] [address] 31205- 0728 Jun, Anxiety F41.9 [facility] [place] [id number] [place] [address] 56522- 2717 Jun, Chronic obstructive pulmonary disease with acute lower respiratory infection J44.0 ; Dependence on continuous supplemental oxygen Z99.81 ; Iron deficiency anemia D50.9 ; Anxiety F41.9 ; 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.0 ; Hypercholesterolemia E78.00 and Chronic pain syndrome G89.4 [place] [id number] [place] [address] 95467- 7656 May, Anxiety F41.9 [place] [address] 64079- 8943 May, [place] [id number] [place] [address] 55330- 6783 Feb, [place] [address] 49602- 6459 Jan, Chronic obstructive pulmonary disease with acute lower respiratory infection J44.0 ; Major depressive disorder with single episode, remission status unspecified F32.9 ; Environmental allergies Z91.09 ; Anxiety F41.9 ; Hyperlipidemia E78.5 ; Iron deficiency anemia, unspecified iron deficiency anemia type D50.9 ; Other chronic pain G89.29 and Lumbago with sciatica, unspecified side M54.40 [place] [place] [id number] [place] [address] 90780- 9663 Sep, Hyperlipidemia E78.5 and Iron deficiency anemia D50.9 [facility] [id number] [place] [address] 03525- 5196 Sep, COPD (chronic obstructive pulmonary disease) 496 ; Back pain 724.5 ; Anxiety 300.00 ; Hyperlipidemia E78.5 ; Iron deficiency anemia D50.9 and Headache R51 [place] [id number] [place] [address] 37824- 1065 Aug, [place] [address] 46141- 8803 Mar, Hyperlipidemia E78.5 and Iron deficiency anemia D50.9 [place] [id number] [place] [address] 30323- 0613 Mar, Routine adult health maintenance V70.0 [facility] [id number] [place] [address] 73443- 7385 Mar, Orbital cellulitis on left H05.012 [place] [id number] [place] [address] 61705- 9682 Mar, [facility] [id number] [place] [address] 59862- 4125 Feb, Breast cancer screening V76.10 [facility] [id number] [place] [address] 71165- 5313 08 Feb, 2015 Routine adult health maintenance V70.0 ; COPD (chronic obstructive pulmonary disease) 496 ; Special screening for malignant neoplasms, colon V76.51 and 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.9 [place] [id number] [place] [address] 26080- 9394 Feb, [place] [id number] [place] [address] 17391- 9363 Dec, Asthma, unspecified, unspecified status 493.90 ; Back pain 724.5 ; COPD (chronic obstructive pulmonary disease) 496 and Anxiety 300.00 [facility] [address] [place] [address] [id number] Dec, Dental examination V72.2 [facility] [address] [place] [address] 43104- 3421 Dec, Back pain 724.5 ; COPD (chronic obstructive pulmonary disease) 496 and Anxiety 300.00 [facility] [id number] [place] [address] [id number] Dec, Dental examination V72.2 [facility] [id number] [place] [address] [id number] Nov, Dental examination V72.2 [facility] [address] [id number] [id number] October, Dental examination V72.2 [facility] [address] [id number] [place] [address]- 5168 14 Sep, 2014 [facility] [address] [id number] [place] [address]- 6151 Sep, [facility] [address] [id number] [address]- 3862 Aug, [facility] [address] [id number] [place] [address] Aug, [facility] [address] [id number] [place] [address]- 9625 Aug, [facility] [address] [id number] [place] [address]- 3246 Aug, [facility] [address] [id number], [place] [address]- 1741 Aug, [facility] [address] [id number] [place] 3[address] Aug, [facility] [address] [id number] 0885 Jul, [facility] [address] [id number], [place] [address]- 6767 Jul, [facility] [place] [facility] [address] [id number], [place] [address]- 9742 Jul, [facility] [place] [facility] [address] [id number] [place] [address]- 3726 Jul, [facility] [place] [facility] [address] [id number], [place] [address]- 8306 Jun, [facility] [place] [facility] [address] [id number] [place] [address] 2546 Jun, [facility] [place] [facility] [address] [id number] [place] [address]- 9240 Nov, [facility] [address] [id number] [place] [address]- 7711 Nov, [facility] [address] [id number] [place] [address]- 6242 October, [facility] [address] [id number] [place] [address]- 4778 October, [facility] [address] [id number] [place] [address]- 1792 October, [facility] [address] [id number] [place] [address]- 5894 October, [facility] [address] [id number] [place] [address]- 0161 October, [facility] [address] [id number] [place] [address]- 1057 October, [facility] [address] [id number] [place] [address]- 9867 October, [facility] [address] [id number] [place] [address]- 3181 October, [facility] [address] [id number] [place] [address]- 7216 Sep, [facility] [place] [facility] [address] [id number] [place] [address]- 8030 Sep, [facility] [address] [id number] [place] [address]- 2701 Sep, [facility] [place] [facility] [address] [id number] [place] [address]- 4883 Sep, [facility] [place] [facility] [address] [id number] [place] [address]- 0599 Sep, [facility] [place] [facility] [address] [id number] [place] [address]- 8715 Sep, [facility] [id number] [address]- 1755 Sep, [facility] [address] [id number], [place] [address]- 6924 Sep, [facility] [address] [id number], [place] [address]- 8731 Sep, [facility] [address] [id number], [place] [address]- 9674 Sep, [facility] [address] [id number], [place] [address]- 5222 Sep, [facility] [address] [id number], [place] [address]- 3912 Sep, [facility] [address], [place] [address]- 6366 Sep, [facility] [address], [place] [address]- 3055 Sep, [facility] [address], [place] [address]- 4768 Aug, [facility] [address], [place] [address]- 2588 Aug, [facility] [id number] [address]- 6087 Aug, IMMUNIZATIONS No Known Immunizations SOCIAL HISTORY Never Assessed REASON FOR VISIT f/kayli Aleman RN PLAN OF CARE Activity Details Follow Up 3 Weeks Reason: VITAL SIGNS Height 64 in 2018-02-21 Weight 151 lbs 2018-02-21 Heart Rate 90 bpm 2018-02-21 Respiratory Rate 22 2018-02-21 BMI 25.92 kg/m2 2018-02-21 Blood pressure systolic 138 mmHg 2018-02-21 Blood pressure diastolic 80 mmHg 2018-02-21 MEDICATIONS Medication Instructions Dosage Frequency Start Date End Date Duration Status Cetirizine HCl 10 MG Orally Once a day 1 tablet 24h Active Ibuprofen 800 MG TAKE ONE TABLET BY MOUTH THREE TIMES DAILY 30 Active Pantoprazole Sodium 40 MG Orally Once a day 1 tablet 24h Active Carafate 1 GM Orally PRN 1 tablet at bedtime on an empty stomach before meals Active Albuterol Sulfate (2.5 MG/3ML) 0.083% Inhalation Three times a day 3 ml as needed 8h Active Wellbutrin XL 300 MG Orally Once a day 1 tablet in the morning 24h 30 days Active Klonopin 0.5 MG Orally Twice a day 1 tablet 12h 30 days Active Flonase 50 MCG/ACT Nasally Once a day 1 spray in each nostril 24h Active Tramadol HCl 50 mg Orally every 6 hrs 1 tablet as needed 6h 28 days Active ProAir HFA 108 (90 Base) MCG/ACT Inhalation every 6 hrs 2 puffs as needed 6h Dec, Active Lovastatin 40 mg Orally Once a day 1 tab 24h Nov, 90 days Active Singulair 10 mg Orally Once a day 1 tablet in the evening 24h Active Oxygen Active Symbicort 160-4.5 MCG/ACT Inhalation Twice a day INHALE TWO PUFFS BY MOUTH TWICE DAILY 12h 30 days Active Incruse Ellipta 62.5 MCG/INH Inhalation Once a day 1 puff 24h Active RESULTS No Results PROCEDURES Procedure Date Ordered Result Body Site [facility] VISIT ESTABLISHED PATIENT Feb 21, 2018 INSTRUCTIONS MEDICATIONS ADMINISTERED No Known Medications MEDICAL (GENERAL) HISTORY Type Description Date Medical History Asthma Medical History Anxiety Medical History Depression Medical History Headaches Medical History COPD/emphysema Medical History Bone density 11/01/13 heel US WNL Surgical History Breast reduction Surgical History lap band Surgical History Tubal ligation Surgical History section Hospitalization History Sepsis 2010
--- OUTSIDE RECORDS SUMMARY | 2018-05-03 10:52 | XMS REPORT ---
Author Author TAY RAUL Organization [facility] Address [address] [place] [address] Care Team Providers Care Rock Loader Name Role Phone ELEAZARRAUL LOCKETT Unavailable PROBLEMS Type Condition ICD9-CM Code SCN74-OK Code Onset Dates Condition Status SNOMED Code Problem Chronic obstructive pulmonary disease with (acute) exacerbation J44.1 Active 642954833 Problem Depressive disorder, not elsewhere classified F32.9 Active 83263428 Problem Anxiety state, unspecified F41.1 Active 295551246 Problem Chronic obstructive pulmonary disease, unspecified J44.9 Active 40747924 Problem Anxiety F41.9 Active 91863413 Problem Mixed hyperlipidemia E78.2 Active 190643559 Problem Hyperlipidemia E78.5 Active 27247301 Problem Iron deficiency anemia D50.9 Active 28632410 Problem Dysthymic disorder F34.1 Active 57507124 Problem COPD exacerbation J44.1 Active 072007822968046 Problem Severe persistent asthma without complication J45.50 Active 129178758 Problem COPD with acute exacerbation J44.1 Active 930099158 Problem Major depressive disorder with single episode, remission status unspecified F32.9 Active 46784924 Problem 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.0 Active 03150081 Problem Environmental allergies Z91.09 Active 455360976 Problem Chronic obstructive pulmonary disease with acute lower respiratory infection J44.0 Active 380480335 Problem Other chronic pain G89.29 Active 75303785 Problem COPD (chronic obstructive pulmonary disease) with chronic bronchitis J44.9 Active 873555428 Problem Dependence on continuous supplemental oxygen Z99.81 Active 27787658762758 Problem Acute exacerbation of chronic obstructive pulmonary disease (COPD) J44.1 Active 019068542 Problem Chronic pain syndrome G89.4 Active 814109658 Problem Acute seasonal allergic rhinitis, unspecified trigger J30.2 Active 706404427 ALLERGIES No Information ENCOUNTERS Encounter Location Date Diagnosis [facility] [address] [facility] [id number] [address] Mar, [facility] [address] [address] 10 Feb, 2018 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.0 and Anxiety state, unspecified F41.1 [facility] [address] [address] 10 Feb, 2018 [facility] [id number] [place] [address] 94399- 8506 Feb, Mixed hyperlipidemia E78.2 [facility] [address] [place] [address] 12822- 2644 08 Feb, 2018 Chronic obstructive pulmonary disease with acute lower respiratory infection J44.0 [facility] [address] [address] Feb, [facility] [id number] [place] [address] 32453- 6102 Feb, Chronic obstructive pulmonary disease with acute lower respiratory infection J44.0 [facility] [address] [place] [address] 52844- 5699 Dec, Chronic obstructive pulmonary disease with acute lower respiratory infection J44.0 [facility] [address] [address] Dec, Chronic obstructive pulmonary disease, unspecified J44.9 [facility] [address] [address] Nov, [facility] [address] [address] 7915 Nov, Mixed hyperlipidemia E78.2 [facility] [address] [address] Nov, Environmental allergies Z91.09 [facility] [address] [address] Nov, Iron deficiency anemia D50.9 and Hyperlipidemia E78.5 [facility] [address] [place] [address] 37747- 2486 October, Severe persistent asthma without complication J45.50 ; Hyperlipidemia E78.5 ; Iron deficiency anemia D50.9 ; Pain in thoracic spine M54.6 and Other chronic pain G89.29 [facility] [id number] [place] [address] 66571- 5911 October, Chronic pain syndrome G89.4 [place] [id number] [place] [address] 45973- 1698 October, 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.0 and Anxiety state, unspecified F41.1 [facility] [id number] [place] [address] 76585 -7614 Aug, COPD with acute exacerbation J44.1 [place] [address] [place] [id number] [place] [address] 03378- 8929 Aug, Chronic obstructive pulmonary disease with acute lower respiratory infection J44.0 [place] [address] [id number] [place] [address] 51890- 4420 Aug, 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.0 [place] [id number] [place] [address] 08301- 4906 08 Jul, 2017 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.0 and Anxiety state, unspecified F41.1 [place] [id number] [place] [address] 66148- 4354 Jul, Anxiety F41.9 and Chronic pain syndrome G89.4 [place] [address] [id number] [place] [address] 37808- 1891 Jun, Dysthymic disorder F34.1 and Anxiety state, unspecified F41.1 [place] [id number] [place] [address] 48003- 0991 Jun, Anxiety state, unspecified F41.1 and 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.0 [place] [id number] [place] [address] 49587- 5530 Jun, [facility] [id number] [place] [address] 61286 -8737 May, COPD exacerbation J44.1 [facility] [id number] [place] [address] 73607- 0992 May, Depressive disorder, not elsewhere classified F32.9 and Anxiety state, unspecified F41.1 [facility] [id number] [place] [address] 72056- 3567 May, Chronic obstructive pulmonary disease with acute lower respiratory infection J44.0 and Acute seasonal allergic rhinitis, unspecified trigger J30.2 [id number] [place] [address] 69339 -5082 May, Acute exacerbation of chronic obstructive pulmonary disease (COPD) J44.1 [place] [address] [address] [id number] [place] [address] 11483- 8688 Apr, Encounter for immunization Z23 [place] [address] [place] [id number] [place] [address] 92482- 7233 Apr, [place] [address] [address] [id number] [place] [address] 47529- 6189 Apr, Back pain 724.5 [facility] [place]note 2[place] [address] [place] [address] [id number] [place] [address] 54642 -7064 Mar, Acute seasonal allergic rhinitis, unspecified trigger J30.2 and Sore throat J02.9 [facility] [id number] [place] [address] 14630 -6954 Mar, Acute exacerbation of chronic obstructive pulmonary disease (COPD) J44.1 [facility] [id number] [place] [address] 20043- 4270 Feb, COPD (chronic obstructive pulmonary disease) with chronic bronchitis J44.9 ; Low back pain M54.5 and Other chronic pain G89.29 [facility] [address] [address] 21 Feb, 2017 Decreased breath sounds R06.89 and Acute exacerbation of chronic obstructive pulmonary disease (COPD) J44.1 [facility] [address] [place] [address] 55543- 0892 15 Feb, 2017 [facility] [id number] [place] [address] 15423- 5602 Feb, [place] [id number] [place] [address] 07880- 1436 Jan, Major depressive disorder with single episode, remission status unspecified F32.9 [facility] [address] [place] [id number] [place] [address] 54157 -[address] 16 Dec, 2016 Allergic contact dermatitis, unspecified trigger L23.9 [facility] [place] [id number] [place] [address] 01105 -4781 13 Dec, 2016 Allergic reaction, initial encounter T78.40XA [place] [id number] [place] [address] 38483- 3179 14 Nov, 2016 Hyperlipidemia E78.5 ; Chronic obstructive pulmonary disease with acute lower respiratory infection J44.0 and Iron deficiency anemia D50.9 [place] [address] [place] [address] 74352- 9848 02 Nov, 2016 Hyperlipidemia E78.5 ; Iron deficiency anemia D50.9 ; Chronic obstructive pulmonary disease with acute lower respiratory infection J44.0 ; Environmental allergies Z91.09 and Major depressive disorder with single episode, remission status unspecified F32.9 [facility] [address] [place] [address] 64059 -0367 Sep, Shortness of breath R06.02 and COPD exacerbation J44.1 [place] [id number] [place] [address] 77424- 8159 04 Sep, 2016 Chronic obstructive pulmonary disease with acute lower respiratory infection J44.0 [place] [id number] [place] [address] 27049- 2347 Jun, Anxiety F41.9 [place] [id number] [place] [address] 21406- 2068 Jun, Chronic obstructive pulmonary disease with acute lower respiratory infection J44.0 ; Dependence on continuous supplemental oxygen Z99.81 ; Iron deficiency anemia D50.9 ; Anxiety F41.9 ; 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.0 ; Hypercholesterolemia E78.00 and Chronic pain syndrome G89.4 [place] [id number] [place] [address] 97853- 7053 May, Anxiety F41.9 [place] [address] 69744- 8339 May, [place] [address] [address] [id number] [place] [address] 60678- 4556 Feb, [place] [address] 58632- 0498 Jan, Chronic obstructive pulmonary disease with acute lower respiratory infection J44.0 ; Major depressive disorder with single episode, remission status unspecified F32.9 ; Environmental allergies Z91.09 ; Anxiety F41.9 ; Hyperlipidemia E78.5 ; Iron deficiency anemia, unspecified iron deficiency anemia type D50.9 ; Other chronic pain G89.29 and Lumbago with sciatica, unspecified side M54.40 [place] [address] [id number] [place] [address] 65689- 8052 Sep, Hyperlipidemia E78.5 and Iron deficiency anemia D50.9 [place] [address] [id number] [place] [address] 02898- 5625 Sep, COPD (chronic obstructive pulmonary disease) 496 ; Back pain 724.5 ; Anxiety 300.00 ; Hyperlipidemia E78.5 ; Iron deficiency anemia D50.9 and Headache R51 [place] [id number] [place] [address] 37376- 1142 Aug, [place] [address] 44650- 7601 Mar, Hyperlipidemia E78.5 and Iron deficiency anemia D50.9 [place] [address] [place] [address] 12604- 7970 Mar, Routine adult health maintenance V70.0 [facility] [id number] [place] [address] 92209- 7990 Mar, Orbital cellulitis on left H05.012 [place] [address] [address] [id number] [place] [address] 14722- 3178 Mar, [facility] [id number] [place] [address] 15188- 0128 Feb, Breast cancer screening V76.10 [place] [address] [id number] [place] [address] 17181- 7806 08 Feb, 2015 Routine adult health maintenance V70.0 ; COPD (chronic obstructive pulmonary disease) 496 ; Special screening for malignant neoplasms, colon V76.51 and 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.9 [place] [address] [address] [id number] [place] [address] 94644- 3455 Feb, [place] [address] [place] [address] [id number] [place] [address] 03314- 2402 Dec, Asthma, unspecified, unspecified status 493.90 ; Back pain 724.5 ; COPD (chronic obstructive pulmonary disease) 496 and Anxiety 300.00 [facility] [address] [place] [address] [id number] Dec, Dental examination V72.2 [facility] [address] [place] [address] 94776- 4724 Dec, Back pain 724.5 ; COPD (chronic obstructive pulmonary disease) 496 and Anxiety 300.00 [facility] [address] [place] [id number] [place] [address] [id number] Dec, Dental examination V72.2 [facility] [id number] [place] [address] [id number] Nov, Dental examination V72.2 [facility] [address] [id number] [address] October, Dental examination V72.2 [facility] [address] [id number] [place] [address]- 6304 14 Sep, 2014 [facility] [address] [id number] [place] [address]- 3609 Sep, [facility] [address] [id number] [address]- 9535 Aug, [facility] [address] [id number] [place] 3175 Aug, [facility] [address] [id number] [place] [address]- 4868 Aug, [facility] [address] [id number] [place] [address]- 2798 Aug, [facility] [address] [id number] [address]- 3543 Aug, [facility] [address] [id number] [place] 1796 Aug, [facility] [address] [id number] 4556 Jul, [facility] [address] [id number] [address]- 9709 Jul, [facility] [place] [facility] [address] [id number][place] [address]- 5069 Jul, [facility] [place] [facility] [address] [id number] [place] [address]- 7986 Jul, [facility] [place] [facility] [address] [id number] [address]- 0976 Jun, [facility] [place] [facility] [address] [id number] [place] [address] 2546 Jun, [facility] [place] [facility] [address] [id number] [place] [address]- 5870 Nov, [facility] [address] [id number] [place] [address]- 1126 Nov, [facility] [address] [id number] [place] [address]- 8970 October, [facility] [address] [id number] [place] [address]- 1006 October, [facility] [address] [id number] [place] [address]- 5004 October, [facility] [address] [id number] [place] [address]- 2409 October, [facility] [address] [id number] [place] [address]- 0972 October, [facility] [address] [id number] [place] [address]- 7636 October, [facility] [address] [id number] [place] [address]- 0595 October, [facility] [address] [id number] [place] [address]- 8738 October, [facility] [address] [id number] [place] [address]- 3553 Sep, [facility] [place] [facility] [address] [id number] [place] [address]- 4463 Sep, [facility] [address] [id number] [place] [address]- 6094 Sep, [facility] [place] [facility] [address] [id number] [place] [address]- 3635 Sep, [facility] [place] [facility] [address] [id number] [place] [address]- 2709 Sep, [facility] [place] [facility] [address] [id number] [place] [address]- 2285 Sep, [facility] [address] [facility] [id number] [address]- 0425 Sep, [facility] [address] [facility] [id number] [address]- 2795 Sep, [facility] [address] [facility] [id number] [address]- 5083 Sep, [facility] [address] [facility] [id number] [address]- 2842 Sep, [facility] [address] [facility] [id number][place] [address]- 4969 Sep, [facility] [address] [facility] [id number][place] [address]- 7175 Sep, [facility] [address] [facility] [id number][place] [address]- 2144 Sep, [facility] [address] [address]- 6454 Sep, [facility] [address] [facility] [id number] [address]- 7802 Aug, [facility] [address] [id number] [address]- 6027 Aug, [facility] [address] [id number] [address]- 1809 Aug, IMMUNIZATIONS No Known Immunizations SOCIAL HISTORY Never Assessed REASON FOR VISIT New Refill Request PLAN OF CARE VITAL SIGNS MEDICATIONS Unknown Medications RESULTS No Results PROCEDURES No Known procedures [...]
--- OUTSIDE RECORDS SUMMARY | 2018-05-03 10:52 | XMS REPORT ---
Author Author DELISA PEREZ Organization [facility] Address [address] [place] [address] Care Team Providers Care Agricultural Aircraft Pilot Name Role Phone DELISA PEREZ Unavailable PROBLEMS Type Condition ICD9-CM Code MCG05-CK Code Onset Dates Condition Status SNOMED Code Problem Chronic obstructive pulmonary disease with (acute) exacerbation J44.1 Active 800485214 Problem Depressive disorder, not elsewhere classified F32.9 Active 77262141 Problem Anxiety state, unspecified F41.1 Active 905344990 Problem Chronic obstructive pulmonary disease, unspecified J44.9 Active 08593332 Problem Anxiety F41.9 Active 36094104 Problem Mixed hyperlipidemia E78.2 Active 154424162 Problem Hyperlipidemia E78.5 Active 41423656 Problem Iron deficiency anemia D50.9 Active 74387532 Problem Dysthymic disorder F34.1 Active 85016221 Problem COPD exacerbation J44.1 Active [id number] Problem Severe persistent asthma without complication J45.50 Active 898966044 Problem COPD with acute exacerbation J44.1 Active 717848917 Problem Major depressive disorder with single episode, remission status unspecified F32.9 Active 43195086 Problem 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.0 Active 12041699 Problem Environmental allergies Z91.09 Active 366813271 Problem Chronic obstructive pulmonary disease with acute lower respiratory infection J44.0 Active 314701323 Problem Other chronic pain G89.29 Active 01731139 Problem COPD (chronic obstructive pulmonary disease) with chronic bronchitis J44.9 Active 755649786 Problem Dependence on continuous supplemental oxygen Z99.81 Active 63724593577701 Problem Acute exacerbation of chronic obstructive pulmonary disease (COPD) J44.1 Active 940653280 Problem Chronic pain syndrome G89.4 Active 092332604 Problem Acute seasonal allergic rhinitis, unspecified trigger J30.2 Active 613054356 ALLERGIES No Information ENCOUNTERS Encounter Location Date Diagnosis [facility] [address] [facility] [id number] [place] [address]80- 1969 Mar, [facility] [id number] [place] [address] 45750- 2783 10 Feb, 2018 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.0 and Anxiety state, unspecified F41.1 [facility] [address] [address] 10 Feb, 2018 [facility] [id number] [place] [address] 81889- 8855 Feb, Mixed hyperlipidemia E78.2 [facility] [id number] [place] [address] 12828- 2030 08 Feb, 2018 Chronic obstructive pulmonary disease with acute lower respiratory infection J44.0 [facility] [id number] [place] [address] 97004- 1606 Feb, [facility] [id number] [place] [address] 79972- 1991 Feb, Chronic obstructive pulmonary disease with acute lower respiratory infection J44.0 [facility] [id number] [place] [address] 14217- 0270 Dec, Chronic obstructive pulmonary disease with acute lower respiratory infection J44.0 [facility] [address] [place] [address] 83710- 8109 Dec, Chronic obstructive pulmonary disease, unspecified J44.9 [facility] [address] [place] [address] 50390- 6399 Nov, [facility] [address] [place] [address] 74778- 6344 Nov, Mixed hyperlipidemia E78.2 [facility] [address] [place] [address] 50587 -5233 Nov, Environmental allergies Z91.09 [facility] [address] [place] [address] 11763- 3019 Nov, Iron deficiency anemia D50.9 and Hyperlipidemia E78.5 [place] [id number] [place] [address] 01290- 2726 October, Severe persistent asthma without complication J45.50 ; Hyperlipidemia E78.5 ; Iron deficiency anemia D50.9 ; Pain in thoracic spine M54.6 and Other chronic pain G89.29 [place] [id number] [place] [address] 72541- 4043 October, Chronic pain syndrome G89.4 [facility] [id number] [place] [address] 63191- 3324 October, 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.0 and Anxiety state, unspecified F41.1 [facility] WALK IN [facility] [id number] [place] [address] 03714 -0214 Aug, COPD with acute exacerbation J44.1 [facility] [id number] [place] [address] 85902- 1667 Aug, Chronic obstructive pulmonary disease with acute lower respiratory infection J44.0 [facility] [id number] [place] [address] 68560- 9660 Aug, 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.0 [facility] [id number] [place] [address] 08437- 5173 Jul, 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.0 and Anxiety state, unspecified F41.1 [facility] [place] [id number] [place] [address] 44188- 9727 Jul, Anxiety F41.9 and Chronic pain syndrome G89.4 [facility] [place] [id number] [place] [address] 08539- 9251 Jun, Dysthymic disorder F34.1 and Anxiety state, unspecified F41.1 [facility] [place] [id number] [place] [address] 07338- 4755 Jun, Anxiety state, unspecified F41.1 and 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.0 [facility] [id number] [place] [address] 14776- 8527 Jun, [facility] [id number] [place] [address] 79763 -5015 May, COPD exacerbation J44.1 [facility] [id number] [place] [address] 52189- 7882 May, Depressive disorder, not elsewhere classified F32.9 and Anxiety state, unspecified F41.1 [facility] [id number] [place] [address] 61927- 4642 May, Chronic obstructive pulmonary disease with acute lower respiratory infection J44.0 and Acute seasonal allergic rhinitis, unspecified trigger J30.2 [facility] [id number] [place] [address] 43041 -7667 May, Acute exacerbation of chronic obstructive pulmonary disease (COPD) J44.1 [facility] [place] [id number] [place] [address] 75360- 7286 Apr, Encounter for immunization Z23 [place] [address] 68007- 9952 Apr, [facility] [id number] [place] [address] 27441- 9587 Apr, Back pain 724.5 [facility] [id number] [place] [address] 14582 -1691 Mar, Acute seasonal allergic rhinitis, unspecified trigger J30.2 and Sore throat J02.9 [facility] [id number] [place] [address] 39391 -1421 Mar, Acute exacerbation of chronic obstructive pulmonary disease (COPD) J44.1 [facility] [id number] [place] [address] 61937- 3780 Feb, COPD (chronic obstructive pulmonary disease) with chronic bronchitis J44.9 ; Low back pain M54.5 and Other chronic pain G89.29 [facility] [address] [place] [address] 19869 -2765 21 Feb, 2017 Decreased breath sounds R06.89 and Acute exacerbation of chronic obstructive pulmonary disease (COPD) J44.1 [facility] [place] [id number] [place] [address] 32679- 3113 15 Feb, 2017 [place] [id number] [place] [address] 09398- 5349 Feb, [facility] [id number] [place] [address] 76889- 5896 Jan, Major depressive disorder with single episode, remission status unspecified F32.9 [facility] [place] [id number] [place] [address] 66467 -5951 16 Dec, 2016 Allergic contact dermatitis, unspecified trigger L23.9 [facility] [place] [id number] [place] [address] 89717 -9309 13 Dec, 2016 Allergic reaction, initial encounter T78.40XA [place] [id number] [place] [address] 06948- 4645 14 Nov, 2016 Hyperlipidemia E78.5 ; Chronic obstructive pulmonary disease with acute lower respiratory infection J44.0 and Iron deficiency anemia D50.9 [facility] [place] [id number] [place] [address] 04846- 4597 02 Nov, 2016 Hyperlipidemia E78.5 ; Iron deficiency anemia D50.9 ; Chronic obstructive pulmonary disease with acute lower respiratory infection J44.0 ; Environmental allergies Z91.09 and Major depressive disorder with single episode, remission status unspecified F32.9 [facility] [id number] [place] [address] 26684 -1703 Sep, Shortness of breath R06.02 and COPD exacerbation J44.1 [facility] [id number] [place] [address] 26935- 4715 04 Sep, 2016 Chronic obstructive pulmonary disease with acute lower respiratory infection J44.0 [place] [address] 71286- 7215 Jun, Anxiety F41.9 [facility] [place] [id number] [place] [address] 44740- 4339 Jun, Chronic obstructive pulmonary disease with acute lower respiratory infection J44.0 ; Dependence on continuous supplemental oxygen Z99.81 ; Iron deficiency anemia D50.9 ; Anxiety F41.9 ; 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.0 ; Hypercholesterolemia E78.00 and Chronic pain syndrome G89.4 [place] [address] 81520- 2004 May, Anxiety F41.9 [place] [address] 48899- 7879 May, [place] [id number] [place] [address] 43488- 5115 Feb, [place] [address] 20055- 0486 Jan, Chronic obstructive pulmonary disease with acute lower respiratory infection J44.0 ; Major depressive disorder with single episode, remission status unspecified F32.9 ; Environmental allergies Z91.09 ; Anxiety F41.9 ; Hyperlipidemia E78.5 ; Iron deficiency anemia, unspecified iron deficiency anemia type D50.9 ; Other chronic pain G89.29 and Lumbago with sciatica, unspecified side M54.40 [place] [id number] [place] [address] 91703- 2850 Sep, Hyperlipidemia E78.5 and Iron deficiency anemia D50.9 [place] [id number] [place] [address] 22552- 4360 Sep, COPD (chronic obstructive pulmonary disease) 496 ; Back pain 724.5 ; Anxiety 300.00 ; Hyperlipidemia E78.5 ; Iron deficiency anemia D50.9 and Headache R51 [place] [id number] [place] [address] 51548- 3176 Aug, [place] [address] 77027- 4052 Mar, Hyperlipidemia E78.5 and Iron deficiency anemia D50.9 [facility] [address] [place] [address] 51603- 5090 Mar, Routine adult health maintenance V70.0 [facility] [id number] [place] [address] 89999- 0859 Mar, Orbital cellulitis on left H05.012 [place] [id number] [place] [address] 48925- 0252 Mar, [facility] [id number] [place] [address] 06360- 7375 Feb, Breast cancer screening V76.10 [place] [id number] [place] [address] 83399- 4356 Feb, Routine adult health maintenance V70.0 ; COPD (chronic obstructive pulmonary disease) 496 ; Special screening for malignant neoplasms, colon V76.51 and 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.9 [facility] [address] [place] [address] 61832- 7147 Feb, [place] [id number] [place] [address] 72565- 3713 Dec, Asthma, unspecified, unspecified status 493.90 ; Back pain 724.5 ; COPD (chronic obstructive pulmonary disease) 496 and Anxiety 300.00 [facility] [address] [place] [address] [id number] Dec, Dental examination V72.2 [facility] [address] [place] [address] 24501- 4053 Dec, Back pain 724.5 ; COPD (chronic obstructive pulmonary disease) 496 and Anxiety 300.00 [facility] [id number] [place] [address] [phone] Dec, Dental examination V72.2 [facility] [address] [place] [address] [id number] Nov, Dental examination V72.2 [facility] [address] [id number] [address] 14 Oct, 2014 Dental examination V72.2 [facility] [address] [id number] [place] [address]- 8555 14 Sep, 2014 [facility] [address] [id number] [place] [address]- 3244 Sep, [facility] [address] [id number] [address]- 6517 Aug, [facility] [address] [id number] [place] [address]856 Aug, [facility] [address] [id number] [address]- 4453 Aug, [facility] [address] [id number] [place] [address]- 6448 Aug, [facility] [address] [id number] [place] 6429 Aug, [facility] [address] [id number] [place] 0950 Aug, [facility] [address] [id number]- 0895 Jul, [facility] [address] [id number] [address]- 7339 Jul, [facility] [place] [facility] [address] [id number] [address]- 5984 Jul, [facility] [place] [facility] [address] [id number] [place] [address]- 7699 Jul, [facility] [place] [facility] [address] [id number] [address]- 2828 Jun, [facility] [place] [facility] [address] [id number] [address]- 6261 Jun, [facility] [address] [id number] [place] [address]- 2068 Nov, [facility] [address] [id number] [place] [address]- 9561 Nov, [facility] [address] [id number] [place] [address]- 1858 October, [facility] [address] [id number] [place] [address]- 2464 October, [facility] [address] [id number] [place] [address]- 9247 October, [facility] [address] [id number] [place] [address]- 5639 October, [facility] [address] [id number] [place] [address]- 9015 October, [facility] [address] [id number] [place] [address]- 9711 October, [facility] [address] [id number] [place] [address]- 2456 October, [facility] [address] [id number] [place] [address]- 3480 October, [facility] [address] [id number] [place] [address]- 6479 Sep, [facility] [address] [id number] [place] [address]- 5493 Sep, [facility] [address] [id number] [place] [address]- 1322 Sep, [facility] [place] [facility] [address] [id number] [place] [address]- 5341 Sep, [facility] [place] [facility] [address] [id number] [place] [address]- 1182 Sep, [facility] [address] [id number] [place] [address]- 2018 Sep, [facility] [address] [facility] [id number] [address]- 1782 Sep, [facility] [address] [facility] [id number] [address]- 2118 Sep, [facility] [address] [facility] [id number] [address]- 5678 Sep, [facility] [address] [facility] [id number] [address]- 9770 Sep, [facility] [address] [facility] [id number] [address]- 1622 Sep, [facility] [address] [facility] [id number] [place] [address]- 1638 Sep, [facility] [address] [facility] [id number] [place] [address]- 4551 Sep, [facility] [address] [id number] [address]- 8327 Sep, [facility] [address] [facility] [id number] [place] [address]- 7023 Aug, [facility] [address] [facility] [id number] [place] [address]- 3517 Aug, [facility] [address] [facility] [id number] [place] [address]- 0432 Aug, IMMUNIZATIONS No Known Immunizations SOCIAL HISTORY Never Assessed REASON FOR VISIT New Refill Request PLAN OF CARE VITAL SIGNS MEDICATIONS Medication Instructions Dosage Frequency Start Date End Date Duration Status Lovastatin 40 mg Orally Once a day 1 tab 24h Nov, 90 days Active RESULTS No Results PROCEDURES No [...]
--- OUTSIDE RECORDS SUMMARY | 2018-05-03 10:52 | XMS REPORT ---
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 Name Role Phone ELEAZARRAUL LOCKETT Unavailable PROBLEMS Type Condition ICD9-CM Code CCX86-BO Code Onset Dates Condition Status SNOMED Code Problem Chronic obstructive pulmonary disease with (acute) exacerbation J44.1 Active 558573625 Problem Depressive disorder, not elsewhere classified F32.9 Active 12795876 Problem Anxiety state, unspecified F41.1 Active 947508527 Problem Chronic obstructive pulmonary disease, unspecified J44.9 Active 99859094 Problem Anxiety F41.9 Active 38144836 Problem Mixed hyperlipidemia E78.2 Active 226662301 Problem Hyperlipidemia E78.5 Active 26650589 Problem Iron deficiency anemia D50.9 Active 21316043 Problem Dysthymic disorder F34.1 Active 59850723 Problem COPD exacerbation J44.1 Active 641962007104565 Problem Severe persistent asthma without complication J45.50 Active 855842563 Problem COPD with acute exacerbation J44.1 Active 230351438 Problem Major depressive disorder with single episode, remission status unspecified F32.9 Active 33571614 Problem 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.0 Active 94665096 Problem Environmental allergies Z91.09 Active 348232933 Problem Chronic obstructive pulmonary disease with acute lower respiratory infection J44.0 Active 862167492 Problem Other chronic pain G89.29 Active 42346519 Problem COPD (chronic obstructive pulmonary disease) with chronic bronchitis J44.9 Active 242331517 Problem Dependence on continuous supplemental oxygen Z99.81 Active 87816869149455 Problem Acute exacerbation of chronic obstructive pulmonary disease (COPD) J44.1 Active 797544499 Problem Chronic pain syndrome G89.4 Active 415562380 Problem Acute seasonal allergic rhinitis, unspecified trigger J30.2 Active 865893568 ALLERGIES No Information ENCOUNTERS Encounter Location Date Diagnosis [facility] [address] [facility] [id number] [address] Mar, [facility] [address], [place] [address] 10 Feb, 2018 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.0 and Anxiety state, unspecified F41.1 [facility] [address], [place] [address] 10 Feb, 2018 [facility] [id number] [place] [address] 70599- 8288 Feb, Mixed hyperlipidemia E78.2 [facility] [address] [place] [address] 67106- 4120 08 Feb, 2018 Chronic obstructive pulmonary disease with acute lower respiratory infection J44.0 [facility] [address], [place] [address] Feb, [facility] [id number] [place] [address] 29693- 2030 Feb, Chronic obstructive pulmonary disease with acute lower respiratory infection J44.0 [facility] [address] [place] [address] 56997- 3637 Dec, Chronic obstructive pulmonary disease with acute lower respiratory infection J44.0 [facility] [address], [place] [address] Dec, Chronic obstructive pulmonary disease, unspecified J44.9 [facility] [address], [place] [address] Nov, [facility] [address], [place] [address] 70[address] Nov, Mixed hyperlipidemia E78.2 [facility] [address], [place] [address] Nov, Environmental allergies Z91.09 [facility] [address], [place] [address] 9[address] Nov, Iron deficiency anemia D50.9 and Hyperlipidemia E78.5 [facility] [address] [place] [address] 39805- 5079 October, Severe persistent asthma without complication J45.50 ; Hyperlipidemia E78.5 ; Iron deficiency anemia D50.9 ; Pain in thoracic spine M54.6 and Other chronic pain G89.29 [facility] [id number] [place] [address] 14803- 8619 October, Chronic pain syndrome G89.4 [place] [facility] [id number] [place] [address] 36197- 2671 October, 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.0 and Anxiety state, unspecified F41.1 [facility] [id number] [place] [address] 40531 -1273 Aug, COPD with acute exacerbation J44.1 [facility] [id number] [place] [address] 24115- 1548 Aug, Chronic obstructive pulmonary disease with acute lower respiratory infection J44.0 [facility] [id number] [place] [address] 82538- 2510 Aug, 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.0 [facility] [id number] [place] [address] 07247- 3484 08 Jul, 2017 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.0 and Anxiety state, unspecified F41.1 [facility] [id number] [place] [address] 18723- 3971 Jul, Anxiety F41.9 and Chronic pain syndrome G89.4 [facility] [id number] [place] [address] 55817- 2834 Jun, Dysthymic disorder F34.1 and Anxiety state, unspecified F41.1 [facility] [id number] [place] [address] 52801- 8387 Jun, Anxiety state, unspecified F41.1 and 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.0 [facility] [id number] [place] [address] 75297- 8260 Jun, [facility] [id number] [place] [address] 22561 -6805 May, COPD exacerbation J44.1 [facility] [id number] [place] [address] 20518- 6376 May, Depressive disorder, not elsewhere classified F32.9 and Anxiety state, unspecified F41.1 [facility] [id number] [place] [address] 50167- 0777 May, Chronic obstructive pulmonary disease with acute lower respiratory infection J44.0 and Acute seasonal allergic rhinitis, unspecified trigger J30.2 [id number] [place] [address] 57579 -1075 May, Acute exacerbation of chronic obstructive pulmonary disease (COPD) J44.1 [facility] [id number] [place] [address] 54158- 6685 Apr, Encounter for immunization Z23 [facility] [id number] [place] [address] 96312- 9083 Apr, [place] [id number] [place] [address] 44858- 1261 Apr, Back pain 724.5 [facility] [id number] [place] [address] 21879 -6060 Mar, Acute seasonal allergic rhinitis, unspecified trigger J30.2 and Sore throat J02.9 [facility] [id number] [place] [address] 72706 -0303 Mar, Acute exacerbation of chronic obstructive pulmonary disease (COPD) J44.1 [facility] [id number] [place] [address] 52062- 9624 Feb, COPD (chronic obstructive pulmonary disease) with chronic bronchitis J44.9 ; Low back pain M54.5 and Other chronic pain G89.29 [facility] [address], [place] [address] 21 Feb, 2017 Decreased breath sounds R06.89 and Acute exacerbation of chronic obstructive pulmonary disease (COPD) J44.1 [facility] [address] [place] [address] 84965- 0466 15 Feb, 2017 [facility] [id number] [place] [address] 40728- 8955 Feb, [place] [facility] [id number] [place] [address] 24237- 0083 Jan, Major depressive disorder with single episode, remission status unspecified F32.9 [facility] [address] [place] [id number] [place] [address] 50335 -9171 16 Dec, 2016 Allergic contact dermatitis, unspecified trigger L23.9 [facility] [place] [id number] [place] [address] 68494 -4375 13 Dec, 2016 Allergic reaction, initial encounter T78.40XA [facility] [facility] [id number] [place] [address] 46020- 5713 14 Nov, 2016 Hyperlipidemia E78.5 ; Chronic obstructive pulmonary disease with acute lower respiratory infection J44.0 and Iron deficiency anemia D50.9 [place] [address] [place] [address] 86679- 1300 02 Nov, 2016 Hyperlipidemia E78.5 ; Iron deficiency anemia D50.9 ; Chronic obstructive pulmonary disease with acute lower respiratory infection J44.0 ; Environmental allergies Z91.09 and Major depressive disorder with single episode, remission status unspecified F32.9 [facility] [address] [place] [address] 09191 -0217 Sep, Shortness of breath R06.02 and COPD exacerbation J44.1 [facility] [facility] [id number] [place] [address] 78230- 7163 04 Sep, 2016 Chronic obstructive pulmonary disease with acute lower respiratory infection J44.0 [facility] [id number] [place] [address] 41651- 1461 Jun, Anxiety F41.9 [facility] [id number] [place] [address] 05753- 4817 Jun, Chronic obstructive pulmonary disease with acute lower respiratory infection J44.0 ; Dependence on continuous supplemental oxygen Z99.81 ; Iron deficiency anemia D50.9 ; Anxiety F41.9 ; 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.0 ; Hypercholesterolemia E78.00 and Chronic pain syndrome G89.4 [place] [id number] [place] [address] 84174- 8831 May, Anxiety F41.9 [place] [address] 39601- 6567 May, [facility] [id number] [place] [address] 42368- 7807 Feb, [place] [address] 95784- 9678 Jan, Chronic obstructive pulmonary disease with acute lower respiratory infection J44.0 ; Major depressive disorder with single episode, remission status unspecified F32.9 ; Environmental allergies Z91.09 ; Anxiety F41.9 ; Hyperlipidemia E78.5 ; Iron deficiency anemia, unspecified iron deficiency anemia type D50.9 ; Other chronic pain G89.29 and Lumbago with sciatica, unspecified side M54.40 [place] [facility] [id number] [place] [address] 32076- 3804 Sep, Hyperlipidemia E78.5 and Iron deficiency anemia D50.9 [place] [id number] [place] [address] 77400- 0078 Sep, COPD (chronic obstructive pulmonary disease) 496 ; Back pain 724.5 ; Anxiety 300.00 ; Hyperlipidemia E78.5 ; Iron deficiency anemia D50.9 and Headache R51 [place] [id number] [place] [address] 82748- 6804 Aug, [place] [address] 48191- 4948 Mar, Hyperlipidemia E78.5 and Iron deficiency anemia D50.9 [place] [address] [place] [address] 73586- 9361 Mar, Routine adult health maintenance V70.0 [facility] [id number] [place] [address] 08898- 1163 Mar, Orbital cellulitis on left H05.012 [place] [id number] [place] [address] 68587- 6031 Mar, [facility] [id number] [place] [address] 38348- 7422 Feb, Breast cancer screening V76.10 [place] [facility] [id number] [place] [address] 25009- 2709 08 Feb, 2015 Routine adult health maintenance V70.0 ; COPD (chronic obstructive pulmonary disease) 496 ; Special screening for malignant neoplasms, colon V76.51 and 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.9 [place] [id number] [place] [address] 97931- 5507 Feb, [place] [facility] [id number] [place] [address] 89745- 2904 Dec, Asthma, unspecified, unspecified status 493.90 ; Back pain 724.5 ; COPD (chronic obstructive pulmonary disease) 496 and Anxiety 300.00 [facility] [address] [place] [address] [id number] Dec, Dental examination V72.2 [facility] [address] [place] [address] 52574- 3761 Dec, Back pain 724.5 ; COPD (chronic obstructive pulmonary disease) 496 and Anxiety 300.00 [facility] [id number] [place] [address] [id number] Dec, Dental examination V72.2 [facility] [id number] [place] [address] [id number] Nov, Dental examination V72.2 [facility] [address] [id number] [id number] October, Dental examination V72.2 [facility] [address] [id number] [place] [address]- 3640 14 Sep, 2014 [facility] [address] [id number] [place] [address]- 4364 Sep, [facility] [address] [id number], [place] [address]- 2564 Aug, [facility] [address] [id number] [place] [address] Aug, [facility] [address] [id number] [place] [address]- 4957 Aug, [facility] [address] [id number] [place] [address]- 7453 Aug, [facility] [address] [id number], [place] [address]- 8599 Aug, [facility] [address] [id number] [place] 4099 Aug, [facility] [address] [id number] [address] Jul, [facility] [address] [id number], [place] [address]- 3749 Jul, [facility] [place] [facility] [address] [id number], [place] [address]- 7758 Jul, [facility] [place] [facility] [address] [id number] [place] [address]- 3526 Jul, [facility] [place] [facility] [address] [id number], [place] [address]- 7396 Jun, [facility] [place] [facility] [address] [id number] [place] [address] 2546 Jun, [facility] [place] [facility] [address] [id number] [place] [address]- 2546 Nov, [facility] [address] [id number] [place] [address]- 0423 Nov, [facility] [address] [id number] [place] [address]- 9618 October, [facility] [address] [id number] [place] [address]- 3816 October, [facility] [address] [id number] [place] [address]- 0692 October, [facility] [address] [id number] [place] [address]- 7294 October, [facility] [address] [id number] [place] [address]- 5937 October, [facility] [address] [id number] [place] [address]- 1728 October, [facility] [address] [id number] [place] [address]- 9678 October, [facility] [address] [id number] [place] [address]- 6238 October, [facility] [address] [id number] [place] [address]- 6165 Sep, [facility] [place] [facility] [address] [id number] [place] [address]- 0687 Sep, [facility] [address] [id number] [place] [address]- 5501 Sep, [facility] [place] [facility] [address] [id number] [place] [address]- 5066 Sep, [facility] [place] [facility] [address] [id number] [place] [address]- 9236 Sep, [facility] [place] [facility] [address] [id number] [place] [address]- 7593 Sep, [facility] [address] [facility] [id number], [place] [address]- 4871 Sep, [facility] [address] [facility] [id number], [place] [address]- 0558 Sep, [facility] [address] [facility] [id number], [place] [address]- 9557 Sep, [facility] [address] [facility] [id number], [place] [address]- 1989 Sep, [facility] [address] [facility] [id number], [place] [address]- 1407 Sep, [facility] [address] [facility] [id number], [place] [address]- 7702 Sep, [facility] [address] [facility] [id number], [place] [address]- 6737 Sep, [facility] [address], [place] [address]- 0857 Sep, [facility] [id number] [address] 1925 Aug, [facility] [id number], [place] [address]- 8665 Aug, [facility] [id number], [place] [address]- 9473 Aug, IMMUNIZATIONS No Known Immunizations SOCIAL HISTORY Never Assessed REASON FOR VISIT Update Demographics - Personal Info PLAN OF CARE VITAL SIGNS MEDICATIONS Unknown [...]
--- OUTSIDE RECORDS SUMMARY | 2018-05-03 10:53 | XMS REPORT ---
Author Author DELISA PEREZ Organization [facility] Address [address] [place] [address] Care Team Providers Care Continuous Improvement Coordinator Name Role Phone DELISA PEREZ Unavailable PROBLEMS Type Condition ICD9-CM Code OIF50-ZX Code Onset Dates Condition Status SNOMED Code Problem Chronic obstructive pulmonary disease with (acute) exacerbation J44.1 Active 596107460 Problem Depressive disorder, not elsewhere classified F32.9 Active 06005895 Problem Anxiety state, unspecified F41.1 Active 062214952 Problem Chronic obstructive pulmonary disease, unspecified J44.9 Active 25517865 Problem Anxiety F41.9 Active 76074357 Problem Mixed hyperlipidemia E78.2 Active 687122672 Problem Hyperlipidemia E78.5 Active 65747797 Problem Iron deficiency anemia D50.9 Active 40919895 Problem Dysthymic disorder F34.1 Active 04914973 Problem COPD exacerbation J44.1 Active 872926020208509 Problem Severe persistent asthma without complication J45.50 Active 178634739 Problem COPD with acute exacerbation J44.1 Active 420926288 Problem Major depressive disorder with single episode, remission status unspecified F32.9 Active 51140340 Problem 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.0 Active 47260251 Problem Environmental allergies Z91.09 Active 832184909 Problem Chronic obstructive pulmonary disease with acute lower respiratory infection J44.0 Active 072907086 Problem Other chronic pain G89.29 Active 52954522 Problem COPD (chronic obstructive pulmonary disease) with chronic bronchitis J44.9 Active 502284714 Problem Dependence on continuous supplemental oxygen Z99.81 Active 27214686654889 Problem Acute exacerbation of chronic obstructive pulmonary disease (COPD) J44.1 Active 762720545 Problem Chronic pain syndrome G89.4 Active 274603127 Problem Acute seasonal allergic rhinitis, unspecified trigger J30.2 Active 582367125 ALLERGIES No Information ENCOUNTERS Encounter Location Date Diagnosis [facility] [address] [facility] [id number] [place] [address] 86858- 5715 Mar, [facility] [id number] [place] [address] 54644- 6772 10 Feb, 2018 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.0 and Anxiety state, unspecified F41.1 [facility] [address] [address] 10 Feb, 2018 [facility] [address] [place] [id number] [place] [address] 90921- 8941 Feb, Mixed hyperlipidemia E78.2 [facility] [id number] [place] [address] 15799- 0965 08 Feb, 2018 Chronic obstructive pulmonary disease with acute lower respiratory infection J44.0 [facility] [id number] [place] [address] 56567- 3731 Feb, [facility] [id number] [place] [address] 97063- 2412 Feb, Chronic obstructive pulmonary disease with acute lower respiratory infection J44.0 [facility] [id number] [place] [address] 75430- 5438 Dec, Chronic obstructive pulmonary disease with acute lower respiratory infection J44.0 [facility] [id number] [place] [address] 75728- 2727 Dec, Chronic obstructive pulmonary disease, unspecified J44.9 [facility] [id number] [place] [address] 47310- 1331 Nov, [facility] [id number] [place] [address] 45090- 9058 Nov, Mixed hyperlipidemia E78.2 [facility] [id number] [place] [address] 43680 -7073 Nov, Environmental allergies Z91.09 [facility] [id number] [place] [address] 44921- 0724 Nov, Iron deficiency anemia D50.9 and Hyperlipidemia E78.5 [place] [id number] [place] [address] 24212- 3166 October, Severe persistent asthma without complication J45.50 ; Hyperlipidemia E78.5 ; Iron deficiency anemia D50.9 ; Pain in thoracic spine M54.6 and Other chronic pain G89.29 [place] [id number] [place] [address] 31298- 3253 October, Chronic pain syndrome G89.4 [place] [id number] [place] [address] 60600- 0898 October, 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.0 and Anxiety state, unspecified F41.1 [facility] [id number] [place] [address] 69511 -1892 Aug, COPD with acute exacerbation J44.1 [place] [id number] [place] [address] 24548- 4359 Aug, Chronic obstructive pulmonary disease with acute lower respiratory infection J44.0 [place] [id number] [place] [address] 84185- 1849 Aug, 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.0 [place] [id number] [place] [address] 59478- 9608 Jul, 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.0 and Anxiety state, unspecified F41.1 [place] [id number] [place] [address] 77037- 6488 Jul, Anxiety F41.9 and Chronic pain syndrome G89.4 [place] [id number] [place] [address] 28707- 9393 Jun, Dysthymic disorder F34.1 and Anxiety state, unspecified F41.1 [place] [id number] [place] [address] 76955- 8309 Jun, Anxiety state, unspecified F41.1 and 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.0 [place] [id number] [place] [address] 50487- 0435 Jun, [facility] [id number] [place] [address] 19894 -4762 May, COPD exacerbation J44.1 [facility] [id number] [place] [address] 18472- 5412 May, Depressive disorder, not elsewhere classified F32.9 and Anxiety state, unspecified F41.1 [facility] [id number] [place] [address] 85228- 8823 May, Chronic obstructive pulmonary disease with acute lower respiratory infection J44.0 and Acute seasonal allergic rhinitis, unspecified trigger J30.2 [facility] [id number] [place] [address] 27579 -1090 May, Acute exacerbation of chronic obstructive pulmonary disease (COPD) J44.1 [place] [id number] [place] [address] 20188- 4907 Apr, Encounter for immunization Z23 [place] [address] 42891- 7937 Apr, [place] [address] [id number] [place] [address] 92231- 3874 Apr, Back pain 724.5 [facility] [id number] [place] [address] 08853 -8418 Mar, Acute seasonal allergic rhinitis, unspecified trigger J30.2 and Sore throat J02.9 [facility] [id number] [place] [address] 88667 -9650 Mar, Acute exacerbation of chronic obstructive pulmonary disease (COPD) J44.1 [facility] [id number] [place] [address] 21461- 8267 Feb, COPD (chronic obstructive pulmonary disease) with chronic bronchitis J44.9 ; Low back pain M54.5 and Other chronic pain G89.29 [facility] [id number] [place] [address] 08565 -6071 21 Feb, 2017 Decreased breath sounds R06.89 and Acute exacerbation of chronic obstructive pulmonary disease (COPD) J44.1 [place] [id number] [place] [address] 13956- 9459 15 Feb, 2017 [place] [id number] [place] [address] 83288- 7379 Feb, [place] [id number] [place] [address] 41338- 4548 Jan, Major depressive disorder with single episode, remission status unspecified F32.9 [facility] [place] [id number] [place] [address] 05109 -9080 16 Dec, 2016 Allergic contact dermatitis, unspecified trigger L23.9 [facility] [place] [id number] [place] [address] 24380 -3918 13 Dec, 2016 Allergic reaction, initial encounter T78.40XA [place] [id number] [place] [address] 83702- 5624 14 Nov, 2016 Hyperlipidemia E78.5 ; Chronic obstructive pulmonary disease with acute lower respiratory infection J44.0 and Iron deficiency anemia D50.9 [place] [id number] [place] [address] 94320- 8891 02 Nov, 2016 Hyperlipidemia E78.5 ; Iron deficiency anemia D50.9 ; Chronic obstructive pulmonary disease with acute lower respiratory infection J44.0 ; Environmental allergies Z91.09 and Major depressive disorder with single episode, remission status unspecified F32.9 [facility] [address] [address] [id number] [place] [address] 36705 -0792 Sep, Shortness of breath R06.02 and COPD exacerbation J44.1 [place] [id number] [place] [address] 82708- 3245 04 Sep, 2016 Chronic obstructive pulmonary disease with acute lower respiratory infection J44.0 [place] [address] 36840- 5461 Jun, Anxiety F41.9 [place] [id number] [place] [address] 10059- 4974 Jun, Chronic obstructive pulmonary disease with acute lower respiratory infection J44.0 ; Dependence on continuous supplemental oxygen Z99.81 ; Iron deficiency anemia D50.9 ; Anxiety F41.9 ; 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.0 ; Hypercholesterolemia E78.00 and Chronic pain syndrome G89.4 [place] [address] 17246- 1757 May, Anxiety F41.9 [place] [address] 43126- 0696 May, [place] [id number] [place] [address] 54396- 9044 Feb, [place] [address] 39525- 4121 Jan, Chronic obstructive pulmonary disease with acute lower respiratory infection J44.0 ; Major depressive disorder with single episode, remission status unspecified F32.9 ; Environmental allergies Z91.09 ; Anxiety F41.9 ; Hyperlipidemia E78.5 ; Iron deficiency anemia, unspecified iron deficiency anemia type D50.9 ; Other chronic pain G89.29 and Lumbago with sciatica, unspecified side M54.40 [place] [id number] [place] [address] 50486- 2853 Sep, Hyperlipidemia E78.5 and Iron deficiency anemia D50.9 [place] [id number] [place] [address] 90161- 1131 Sep, COPD (chronic obstructive pulmonary disease) 496 ; Back pain 724.5 ; Anxiety 300.00 ; Hyperlipidemia E78.5 ; Iron deficiency anemia D50.9 and Headache R51 [place] [id number] [place] [address] 26675- 3445 Aug, [place] [address] 26760- 2563 Mar, Hyperlipidemia E78.5 and Iron deficiency anemia D50.9 [facility] [id number] [place] [address] 12121- 7216 Mar, Routine adult health maintenance V70.0 [facility] [id number] [place] [address] 34485- 7593 Mar, Orbital cellulitis on left H05.012 [place] [id number] [place] [address] 55336- 0191 Mar, [facility] [id number] [place] [address] 17425- 3049 Feb, Breast cancer screening V76.10 [place] [id number] [place] [address] 38941- 7426 Feb, Routine adult health maintenance V70.0 ; COPD (chronic obstructive pulmonary disease) 496 ; Special screening for malignant neoplasms, colon V76.51 and 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.9 [facility] [address] [place] [address] 37233- 3808 Feb, [place] [address] [id number] [place] [address] 55707- 7619 Dec, Asthma, unspecified, unspecified status 493.90 ; Back pain 724.5 ; COPD (chronic obstructive pulmonary disease) 496 and Anxiety 300.00 [facility] [id number] [place] [address] [id number] Dec, Dental examination V72.2 [facility] [id number] [place] [address] 29324- 2720 Dec, Back pain 724.5 ; COPD (chronic obstructive pulmonary disease) 496 and Anxiety 300.00 [facility] [address] [id number] [place] [address] [id number] Dec, Dental examination V72.2 [facility] [address] [place] [address] [id number] Nov, Dental examination V72.2 [facility] [address] [id number] [id number] 14 Oct, [address] [facility] [address] [id number] [place] [address]- 2847 14 Sep, 2014 [facility] [address] [id number] [place] [address]- 2126 Sep, [facility] [address] [id number] [address]- 7337 Aug, [facility] [address] [id number] [place] 9967 Aug, [facility] [address] [id number] [address]- 7001 Aug, [facility] [address] [id number] [place] [address]- 9224 Aug, [facility] [address] [id number] 6998 Aug, [facility] [address] [id number] [place] 8300 Aug, [facility] [address] [id number] [address]145 Jul, [facility] [address] [id number] [place] [address]- 1512 Jul, [facility] [place] [facility] [address] [id number] [place] [address]- 3418 Jul, [facility] [place] [facility] [address] [id number] [address]- 4745 Jul, [facility] [place] [facility] [address] [id number] [place] [address]- 1050 Jun, [facility] [place] [facility] [address] [id number] [address]- 9222 Jun, [facility] [address] [id number] [place] [address]- 1610 Nov, [facility] [address] [id number] [place] [address]- 2585 Nov, [facility] [address] [id number] [place] [address]- 0653 October, [facility] [address] [id number] [place] [address]- 8048 October, [facility] [address] [id number] [place] [address]- 9946 October, [facility] [address] [id number] [place] [address]- 6938 October, [facility] [address] [id number] [place] [address]- 0741 October, [facility] [address] [id number] [place] [address]- 1767 October, [facility] [address] [id number] [place] [address]- 3457 October, [facility] [address] [id number] [place] [address]- 4098 October, [facility] [address] [id number] [place] [address]- 7815 Sep, [facility] [address] [id number] [place] [address]- 9415 Sep, [facility] [address] [id number] [place] [address]- 6602 Sep, [facility] [place] [facility] [address] [id number] [place] [address]- 2904 Sep, [facility] [place] [facility] [address] [id number] [place] [address]- 0892 Sep, [facility] [address] [id number] [place] [address]- 5917 Sep, [facility] [address] [facility] [id number] [address]- 1805 Sep, [facility] [address] [facility] [id number] [place] [address]- 0869 Sep, [facility] [address] [facility] [id number] [address]- 1449 Sep, [facility] [address] [facility] [id number] [place] [address]- 4889 Sep, [facility] [address] [facility] [id number] [place] [address]- 3905 Sep, [facility] [address] [facility] [id number] [place] [address]- 1022 Sep, [facility] [address] [facility] [id number] [place] [address]- 6717 Sep, [facility] [address] [place] [address] [id number] [address]- 3953 Sep, [facility] [address] [facility] [id number] [place] [address]- 5601 Aug, [facility] [address] [facility] [id number] [place] [address]- 5164 Aug, [facility] [address] [facility] [id number] [place] [address]- 7860 Aug, IMMUNIZATIONS No Known Immunizations SOCIAL HISTORY [...]
--- OUTSIDE RECORDS SUMMARY | 2018-05-03 10:53 | XMS REPORT ---
Author Author DELISA PEREZ Organization [facility] Address [address] [place] [address] Care Team Providers Care Management Lecturer Name Role Phone DELISA PEREZ Unavailable PROBLEMS Type Condition ICD9-CM Code TNM73-PH Code Onset Dates Condition Status SNOMED Code Problem Chronic obstructive pulmonary disease with (acute) exacerbation J44.1 Active 614831362 Problem Depressive disorder, not elsewhere classified F32.9 Active 91503848 Problem Anxiety state, unspecified F41.1 Active 148419219 Problem Chronic obstructive pulmonary disease, unspecified J44.9 Active 83583212 Problem Anxiety F41.9 Active 71035451 Problem Mixed hyperlipidemia E78.2 Active 667833285 Problem Hyperlipidemia E78.5 Active 00425529 Problem Iron deficiency anemia D50.9 Active 14147117 Problem Dysthymic disorder F34.1 Active 85531273 Problem COPD exacerbation J44.1 Active 534602394032104 Problem Severe persistent asthma without complication J45.50 Active 025222955 Problem COPD with acute exacerbation J44.1 Active 356557861 Problem Major depressive disorder with single episode, remission status unspecified F32.9 Active 74628343 Problem 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.0 Active 76377789 Problem Environmental allergies Z91.09 Active 796699772 Problem Chronic obstructive pulmonary disease with acute lower respiratory infection J44.0 Active 475897187 Problem Other chronic pain G89.29 Active 05587591 Problem COPD (chronic obstructive pulmonary disease) with chronic bronchitis J44.9 Active 761691086 Problem Dependence on continuous supplemental oxygen Z99.81 Active 15894156589670 Problem Acute exacerbation of chronic obstructive pulmonary disease (COPD) J44.1 Active 234767695 Problem Chronic pain syndrome G89.4 Active 829388515 Problem Acute seasonal allergic rhinitis, unspecified trigger J30.2 Active 379837320 ALLERGIES No Information ENCOUNTERS Encounter Location Date Diagnosis [facility] [address] [facility] [id number] [place] [address] 32406- 1720 10 Feb, 2018 [facility] [address] [address] Feb, [facility] [id number] [place] [address] 60050- 9149 Feb, [facility] [id number] [place] [address] 50445- 6748 Feb, [facility] [id number] [place] [address] 50475- 4019 Feb, Chronic obstructive pulmonary disease with acute lower respiratory infection J44.0 [facility] [id number] [place] [address] 20428- 4395 Dec, Chronic obstructive pulmonary disease with acute lower respiratory infection J44.0 [place] [id number] [place] [address] 62498- 6378 Dec, Chronic obstructive pulmonary disease, unspecified J44.9 [facility] [id number] [place] [address] 98142- 3895 Nov, [facility] [id number] [place] [address] 76212- 4346 Nov, Mixed hyperlipidemia E78.[address] [facility] [id number] [place] [address] 80960 -5622 Nov, Environmental allergies Z91.09 [facility] [id number] [place] [address] 45484- 3690 Nov, Iron deficiency anemia D50.9 and Hyperlipidemia E78.5 [facility] [id number] [place] [address] 59547- 4089 October, Severe persistent asthma without complication J45.50 ; Hyperlipidemia E78.5 ; Iron deficiency anemia D50.9 ; Pain in thoracic spine M54.6 and Other chronic pain G89.29 [facility] [id number] [place] [address] 95161- 5888 October, Chronic pain syndrome G89.4 [facility] [address], [place] [address] October, 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.0 and Anxiety state, unspecified F41.1 [facility] [address] [address] Aug, COPD with acute exacerbation J44.1 [place] [id number] [place] [address] 72288- 2951 Aug, Chronic obstructive pulmonary disease with acute lower respiratory infection J44.0 [place] [id number] [place] [address] 54094- 7682 Aug, 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.0 [place] [id number] [place] [address] 31446- 2629 Jul, 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.0 and Anxiety state, unspecified F41.1 [facility] [id number] [place] [address] 00523- 3039 Jul, Anxiety F41.9 and Chronic pain syndrome G89.4 [facility] [id number] [place] [address] 13718- 6520 Jun, Dysthymic disorder F34.1 and Anxiety state, unspecified F41.1 [facility] [place] [id number] [place] [address] 74062- 1853 Jun, Anxiety state, unspecified F41.1 and 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.0 [facility] [address], [place] [address] 5[address] Jun, [facility] [id number] [place] [address] 13560 -8025 May, COPD exacerbation J44.1 [facility] [address], [place] [address] 7[address] May, Depressive disorder, not elsewhere classified F32.9 and Anxiety state, unspecified F41.1 [facility] [address] 03431- 1298 May, Chronic obstructive pulmonary disease with acute lower respiratory infection J44.0 and Acute seasonal allergic rhinitis, unspecified trigger J30.2 [facility] [address] 59[address]89 May, Acute exacerbation of chronic obstructive pulmonary disease (COPD) J44.1 [facility] [address] 57839- 8359 17 Apr, 2017 Encounter for immunization Z23 [address] [address]- [address]1 Apr, [place] [address] 94910- 9089 Apr, Back pain 724.5 [facility] [address] [address] Mar, Acute seasonal allergic rhinitis, unspecified trigger J30.2 and Sore throat J02.9 [facility] [address] [place] [address] 02076 -7699 Mar, Acute exacerbation of chronic obstructive pulmonary disease (COPD) J44.1 [place] [address] 35508- 1221 28 Feb, 2017 COPD (chronic obstructive pulmonary disease) with chronic bronchitis J44.9 ; Low back pain M54.5 and Other chronic pain G89.29 [facility] [address] 41971 -4634 21 Feb, 2017 Decreased breath sounds R06.89 and Acute exacerbation of chronic obstructive pulmonary disease (COPD) J44.1 [facility] [address] 14258- 0788 15 Feb, 2017 [place] [address] 00125- 6827 Feb, [facility] [address] [place] [address] 78549- 8709 Jan, Major depressive disorder with single episode, remission status unspecified F32.9 [facility] [id number] [place] [address] 67942 -0797 16 Dec, 2016 Allergic contact dermatitis, unspecified trigger L23.9 [facility] [id number] [place] [address] 22298 -1909 13 Dec, 2016 Allergic reaction, initial encounter T78.40XA [facility] [id number] [place] [address] 48152- 6843 14 Nov, 2016 Hyperlipidemia E78.5 ; Chronic obstructive pulmonary disease with acute lower respiratory infection J44.0 and Iron deficiency anemia D50.9 [place] [id number] [place] [address] 86340- 0415 Nov, Hyperlipidemia E78.5 ; Iron deficiency anemia D50.9 ; Chronic obstructive pulmonary disease with acute lower respiratory infection J44.0 ; Environmental allergies Z91.09 and Major depressive disorder with single episode, remission status unspecified F32.9 [facility] [id number] [place] [address] 19498 -3237 Sep, Shortness of breath R06.02 and COPD exacerbation J44.1 [address] [place] [address] 31760- 4471 Sep, Chronic obstructive pulmonary disease with acute lower respiratory infection J44.0 [place] [id number] [place] [address] 84587- 3306 Jun, Anxiety F41.9 [place] [id number] [place] [address] 41424- 4461 Jun, Chronic obstructive pulmonary disease with acute lower respiratory infection J44.0 ; Dependence on continuous supplemental oxygen Z99.81 ; Iron deficiency anemia D50.9 ; Anxiety F41.9 ; 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.0 ; Hypercholesterolemia E78.00 and Chronic pain syndrome G89.4 [facility] [id number] [place] [address] 18870- 3148 May, Anxiety F41.9 [place] [id number] [place] [address] 52718- 9982 May, [facility] [id number] [place] [address] 33848- 4508 Feb, [place] [id number] [place] [address] 01354- 3390 Jan, Chronic obstructive pulmonary disease with acute lower respiratory infection J44.0 ; Major depressive disorder with single episode, remission status unspecified F32.9 ; Environmental allergies Z91.09 ; Anxiety F41.9 ; Hyperlipidemia E78.5 ; Iron deficiency anemia, unspecified iron deficiency anemia type D50.9 ; Other chronic pain G89.29 and Lumbago with sciatica, unspecified side M54.40 [place] [id number] [place] [address] 22063- 7403 Sep, Hyperlipidemia E78.5 and Iron deficiency anemia D50.9 [place] [address] 76396- 5132 Sep, COPD (chronic obstructive pulmonary disease) 496 ; Back pain 724.5 ; Anxiety 300.00 ; Hyperlipidemia E78.5 ; Iron deficiency anemia D50.9 and Headache R51 [facility] [place] [id number] [place] [address] 64776- 9022 Aug, [place] [id number] [place] [address] 75059- 4196 Mar, Hyperlipidemia E78.5 and Iron deficiency anemia D50.9 [place] [id number] [place] [address] 52819- 1789 Mar, Routine adult health maintenance V70.0 [place] [id number] [place] [address] 12913- 9350 Mar, Orbital cellulitis on left H05.012 [facility] [address], [place] [address]- 9211 Mar, [facility] [id number] [place] [address] 32226- 6204 17 Feb, 2015 Breast cancer screening V76.10 [facility] [address], [place] [address]- 9353 08 Feb, 2015 Routine adult health maintenance V70.0 ; COPD (chronic obstructive pulmonary disease) 496 ; Special screening for malignant neoplasms, colon V76.51 and 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.9 [facility] [id number] [place] [address] 50289- 3417 08 Feb, 2015 [facility] [id number] [place] [address] 94690- 7391 Dec, Asthma, unspecified, unspecified status 493.90 ; Back pain 724.5 ; COPD (chronic obstructive pulmonary disease) 496 and Anxiety 300.00 [facility] [id number] [place] [address] [id number] Dec, Dental examination V72.2 [facility] [id number] [place] [address] 28299- 4878 Dec, Back pain 724.5 ; COPD (chronic obstructive pulmonary disease) 496 and Anxiety 300.00 [facility] [address] [place] [address] [id number] Dec, Dental examination V72.2 [facility] [id number] [place] [address] [id number] Nov, Dental examination V72.2 [facility] [id number] [place] [address] [id number] October, Dental examination V72.2 [facility] [address] [address] Sep, [facility] [id number] [place] [address] 83376- 8434 Sep, [facility] [place] [facility] [address] [id number] [place] [address]- 0191 Aug, [facility] [place] [facility] [address] [id number] [place] [address]- 8559 Aug, [facility] [place] [facility] [address] [id number] [place] [address]- 8302 Aug, [facility] [place] [facility] [address] [id number] [place] [address]- 0466 Aug, [facility] [place] [facility] [address] [id number] [place] [address]- 4140 Aug, [facility] [place] [facility] [address] [id number] [place] [address]- 6071 Aug, [facility] [place] [facility] [address] [id number] [place] [address]- 4357 Jul, [facility] [place] [facility] [address] [id number] [place] [address]- 4789 Jul, [facility] [place] [facility] [address] [id number] [place] [address]- 6783 Jul, [facility] [place] [facility] [address] [id number] [place] [address]- 6390 Jul, [facility] [place] [facility] [address] [id number] [place] [address]- 7569 Jun, [facility] [place] [facility] [address] [id number] [place] [address]- 0726 Jun, [facility] [place] [facility] [address] [id number] [place] [address]- 0384 Nov, [facility] [place] [facility] [address] [id number] [place] [address]- 4876 Nov, [facility] [place] [facility] [address] [id number] [place] [address]- 8940 October, [facility] [place] [facility] [address] [id number] [place] [address]- 5291 October, [facility] [address] [id number] [place] [address]- 8524 October, [facility] [place] [facility] [address] [id number] [place] [address]- 1481 October, [facility] [place] [facility] [address] [id number] [place] [address]- 5369 October, [facility] [place] [facility] [address] [id number] [place] [address]- 9904 October, [facility] [place] [facility] [address] [id number] [place] [address]- 6941 October, [facility] [place] [facility] [address] [id number] [place] [address]- 0919 October, [facility] [place] [facility] [address] [id number] [place] [address]- 7329 Sep, [facility] [place] [facility] [address] [id number] [place] [address]- 9435 24 Sep, 2013 [facility] [place] [facility] [address] [id number] [place] [address]- 4541 15 Sep, 2013 [facility] [place] [facility] [address] [id number] [place] [address]- 5618 15 Sep, 2013 [facility] [place] [facility] [address] [id number] [place] [address]- 2310 14 Sep, 2013 [facility] [place] [facility] [address] [id number] [place] [address]- 4988 14 Sep, 2013 [facility] [place] [facility] [address] [id number] [place] [address]- 6544 10 Sep, 2013 [facility] [place] [facility] [address] [id number] [place] [address]- 7556 10 Sep, 2013 [facility] [place] [facility] [address] [id number] [place] [address]- 7421 08 Sep, 2013 [facility] [place] [facility] [address] [id number] [address]- 6539 Sep, [facility] [id number] [address]- 9668 Sep, [facility] [address], [place] [address]- 1528 Sep, [facility] [id number] 8197 Sep, [facility] [address], [place] [address]- 6097 Sep, [facility] [address], [place] [address]- 1261 Aug, [facility] [address], [place] [address]- 8596 Aug, [facility] [address], [place] [address]- 5438 Aug, IMMUNIZATIONS No Known Immunizations SOCIAL HISTORY Never Assessed REASON FOR VISIT Refill request PLAN OF CARE VITAL SIGNS MEDICATIONS Medication Instructions Dosage Frequency Start Date End Date Duration Status Incruse Ellipta 62.5 MCG/INH Inhalation Once a day 1 puff 24h Active RESULTS No Results PROCEDURES No Known [...]
--- OUTSIDE RECORDS SUMMARY | 2018-05-03 10:53 | XMS REPORT ---
Author Author DELISA PEREZ Organization [facility] Address [address] [place] [address] Care Team Providers Care Ic Design Engineer Name Role Phone DELISA PEREZ Unavailable PROBLEMS Type Condition ICD9-CM Code WJE41-DB Code Onset Dates Condition Status SNOMED Code Problem Chronic obstructive pulmonary disease with (acute) exacerbation J44.1 Active 516342614 Problem Depressive disorder, not elsewhere classified F32.9 Active 14966437 Problem Anxiety state, unspecified F41.1 Active 530661209 Problem Chronic obstructive pulmonary disease, unspecified J44.9 Active 41533077 Problem Anxiety F41.9 Active 88510414 Problem Mixed hyperlipidemia E78.2 Active 675496576 Problem Hyperlipidemia E78.5 Active 30799710 Problem Iron deficiency anemia D50.9 Active 12404620 Problem Dysthymic disorder F34.1 Active 20754222 Problem COPD exacerbation J44.1 Active 328781042441034 Problem Severe persistent asthma without complication J45.50 Active 382817852 Problem COPD with acute exacerbation J44.1 Active 444814561 Problem Major depressive disorder with single episode, remission status unspecified F32.9 Active 32674977 Problem 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.0 Active 40656162 Problem Environmental allergies Z91.09 Active 663964843 Problem Chronic obstructive pulmonary disease with acute lower respiratory infection J44.0 Active 044854042 Problem Other chronic pain G89.29 Active 79825570 Problem COPD (chronic obstructive pulmonary disease) with chronic bronchitis J44.9 Active 789021844 Problem Dependence on continuous supplemental oxygen Z99.81 Active 44487702727066 Problem Acute exacerbation of chronic obstructive pulmonary disease (COPD) J44.1 Active 088169958 Problem Chronic pain syndrome G89.4 Active 686821584 Problem Acute seasonal allergic rhinitis, unspecified trigger J30.2 Active 210359500 ALLERGIES No Information ENCOUNTERS Encounter Location Date Diagnosis [facility] [address] [facility] [id number] [place] [address] 12120- 2031 Mar, [facility] [id number] [place] [address] 43745- 2215 10 Feb, 2018 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.0 and Anxiety state, unspecified F41.1 [facility] [address] [address] 10 Feb, 2018 [facility] [address] [place] [id number] [place] [address] 61851- 8698 Feb, Mixed hyperlipidemia E78.2 [facility] [id number] [place] [address] 57288- 5300 08 Feb, 2018 Chronic obstructive pulmonary disease with acute lower respiratory infection J44.0 [facility] [id number] [place] [address] 56068- 0854 Feb, [facility] [id number] [place] [address] 12261- 7868 Feb, Chronic obstructive pulmonary disease with acute lower respiratory infection J44.0 [facility] [id number] [place] [address] 15656- 0054 Dec, Chronic obstructive pulmonary disease with acute lower respiratory infection J44.0 [facility] [id number] [place] [address] 99094- 5665 Dec, Chronic obstructive pulmonary disease, unspecified J44.9 [facility] [id number] [place] [address] 99547- 0206 Nov, [facility] [id number] [place] [address] 60719- 1585 Nov, Mixed hyperlipidemia E78.2 [facility] [id number] [place] [address] 91802 -8931 Nov, Environmental allergies Z91.09 [facility] [id number] [place] [address] 64550- 5911 Nov, Iron deficiency anemia D50.9 and Hyperlipidemia E78.5 [place] [id number] [place] [address] 22027- 0199 October, Severe persistent asthma without complication J45.50 ; Hyperlipidemia E78.5 ; Iron deficiency anemia D50.9 ; Pain in thoracic spine M54.6 and Other chronic pain G89.29 [place] [address] [address] [id number] [place] [address] 42586- 5811 October, Chronic pain syndrome G89.4 [place] [facility] [address] [place] [id number] [place] [address] 81076- 9270 October, 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.0 and Anxiety state, unspecified F41.1 [facility] [id number] [place] [address] 89949 -4899 Aug, COPD with acute exacerbation J44.1 [place] [address] [address] [id number] [place] [address] 65047- 3834 Aug, Chronic obstructive pulmonary disease with acute lower respiratory infection J44.0 [place] [address] [address] [id number] [place] [address] 16054- 5900 Aug, 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.0 [facility] [facility] [address] [address] [id number] [place] [address] 72561- 4347 Jul, 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.0 and Anxiety state, unspecified F41.1 [place] [address] [address] [id number] [place] [address] 24707- 9887 Jul, Anxiety F41.9 and Chronic pain syndrome G89.4 [place] [address] [address] [id number] [place] [address] 16093- 3140 Jun, Dysthymic disorder F34.1 and Anxiety state, unspecified F41.1 [place] [id number] [place] [address] 03890- 6074 Jun, Anxiety state, unspecified F41.1 and 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.0 [place] [address] [place] [id number] [place] [address] 46534- 1056 Jun, [facility] [id number] [place] [address] 36909 -2219 May, COPD exacerbation J44.1 [facility] [id number] [place] [address] 40941- 2377 May, Depressive disorder, not elsewhere classified F32.9 and Anxiety state, unspecified F41.1 [facility] [id number] [place] [address] 24794- 3690 May, Chronic obstructive pulmonary disease with acute lower respiratory infection J44.0 and Acute seasonal allergic rhinitis, unspecified trigger J30.2 [facility] [id number] [place] [address] 57950 -5320 May, Acute exacerbation of chronic obstructive pulmonary disease (COPD) J44.1 [place] [address] [address] [id number] [place] [address] 60294- 9651 Apr, Encounter for immunization Z23 [place] [address] 25444- 9637 Apr, [place] [address] [place] [id number] [place] [address] 17612- 2882 Apr, Back pain 724.5 [facility] [address] [place] [id number] [place] [address] 63069 -1003 Mar, Acute seasonal allergic rhinitis, unspecified trigger J30.2 and Sore throat J02.9 [facility] [id number] [place] [address] 18346 -8720 Mar, Acute exacerbation of chronic obstructive pulmonary disease (COPD) J44.1 [facility] [id number] [place] [address] 03745- 0579 Feb, COPD (chronic obstructive pulmonary disease) with chronic bronchitis J44.9 ; Low back pain M54.5 and Other chronic pain G89.29 [facility] [id number] [place] [address] 95744 -4107 21 Feb, 2017 Decreased breath sounds R06.89 and Acute exacerbation of chronic obstructive pulmonary disease (COPD) J44.1 [place] [address] [address] [id number] [place] [address] 34312- 7630 15 Feb, 2017 [place] [address] [place] [address] [id number] [place] [address] 69159- 3653 Feb, [facility] [facility] [address] [address] [id number] [place] [address] 84114- 8821 Jan, Major depressive disorder with single episode, remission status unspecified F32.9 [facility] [place] [address] [id number] [place] [address] 34683 -3829 16 Dec, 2016 Allergic contact dermatitis, unspecified trigger L23.9 [facility] [place] [id number] [place] [address] 14639 -7508 13 Dec, 2016 Allergic reaction, initial encounter T78.40XA [place] [id number] [place] [address] 82179- 0358 14 Nov, 2016 Hyperlipidemia E78.5 ; Chronic obstructive pulmonary disease with acute lower respiratory infection J44.0 and Iron deficiency anemia D50.9 [place] [address] [address] [id number] [place] [address] 70525- 9961 02 Nov, 2016 Hyperlipidemia E78.5 ; Iron deficiency anemia D50.9 ; Chronic obstructive pulmonary disease with acute lower respiratory infection J44.0 ; Environmental allergies Z91.09 and Major depressive disorder with single episode, remission status unspecified F32.9 [facility] [address] [place] [id number] [place] [address] 10745 -0239 Sep, Shortness of breath R06.02 and COPD exacerbation J44.1 [place] [address] [place] [address] [id number] [place] [address] 86242- 1498 04 Sep, 2016 Chronic obstructive pulmonary disease with acute lower respiratory infection J44.0 [place] [address] 78857- 1739 Jun, Anxiety F41.9 [place] [address] [address] [id number] [place] [address] 91206- 8581 Jun, Chronic obstructive pulmonary disease with acute lower respiratory infection J44.0 ; Dependence on continuous supplemental oxygen Z99.81 ; Iron deficiency anemia D50.9 ; Anxiety F41.9 ; 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.0 ; Hypercholesterolemia E78.00 and Chronic pain syndrome G89.4 [place] [address] 72160- 0369 May, Anxiety F41.9 [place] [address] 10412- 6512 May, [place] [address] [place] [id number] [place] [address] 81298- 7827 Feb, [place] [address] 91346- 7736 Jan, Chronic obstructive pulmonary disease with acute lower respiratory infection J44.0 ; Major depressive disorder with single episode, remission status unspecified F32.9 ; Environmental allergies Z91.09 ; Anxiety F41.9 ; Hyperlipidemia E78.5 ; Iron deficiency anemia, unspecified iron deficiency anemia type D50.9 ; Other chronic pain G89.29 and Lumbago with sciatica, unspecified side M54.40 [place] [address] [address] [id number] [place] [address] 96172- 4956 Sep, Hyperlipidemia E78.5 and Iron deficiency anemia D50.9 [place] [address] [place] [id number] [place] [address] 93425- 7566 Sep, COPD (chronic obstructive pulmonary disease) 496 ; Back pain 724.5 ; Anxiety 300.00 ; Hyperlipidemia E78.5 ; Iron deficiency anemia D50.9 and Headache R51 [place] [address] [address] [id number] [place] [address] 97826- 6924 Aug, [place] [address] 57127- 3379 Mar, Hyperlipidemia E78.5 and Iron deficiency anemia D50.9 [facility] [address] [place] [address] 98944- 6509 Mar, Routine adult health maintenance V70.0 [facility] [address] [place] [id number] [place] [address] 41531- 0972 Mar, Orbital cellulitis on left H05.012 [place] [address] [place] [id number] [place] [address] 06601- 5240 Mar, [facility] [address] [place] [id number] [place] [address] 71597- 6019 Feb, Breast cancer screening V76.10 [place] [address] [place] [address] [id number] [place] [address] 14994- 5304 Feb, Routine adult health maintenance V70.0 ; COPD (chronic obstructive pulmonary disease) 496 ; Special screening for malignant neoplasms, colon V76.51 and 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.9 [facility] [address] [place] [address] 68476- 4158 Feb, [place] [address] [place] [id number] [place] [address] 57188- 7788 Dec, Asthma, unspecified, unspecified status 493.90 ; Back pain 724.5 ; COPD (chronic obstructive pulmonary disease) 496 and Anxiety 300.00 [facility] [address] [place] [address] [id number] Dec, Dental examination V72.2 [facility] [address] [place] [address] 29531- 9651 Dec, Back pain 724.5 ; COPD (chronic obstructive pulmonary disease) 496 and Anxiety 300.00 [facility] [address] [place] [id number] [place] [address] [id number] Dec, Dental examination V72.2 [facility] [address] [place] [address] [id number] Nov, Dental examination V72.2 [facility] [address] [id number] [id number] 14 Oct, 2014 [facility] examination V72.2 [facility] [address] [id number] [place] [address]- 5043 14 Sep, 2014 [facility] [address] [id number] [place] [address]- 5153 Sep, [facility] [address] [id number], [place] [address]- 7161 Aug, [facility] [address] [id number] [place] 7249 Aug, [facility] [address] [id number], [place] [address]- 2661 Aug, [facility] [address] [id number] [place] [address]- 6419 Aug, [facility] [address] [id number]- 1792 Aug, [facility] [address] [id number] [place] 0086 Aug, [facility] [address] [id number] 8003 Jul, [facility] [address] [id number], [place] [address]- 8432 Jul, [facility] [place] [facility] [address] [id number], [place] [address]- 4965 Jul, [facility] [place] [facility] [address] [id number], [place] [address]- 9273 Jul, [facility] [place] [facility] [address] [id number], [place] [address]- 5298 Jun, [facility] [place] [facility] [address] [id number], [place] [address]- 5269 Jun, [facility] [address] [id number] [place] [address]- 9340 Nov, [facility] [address] [id number] [place] [address]- 0428 Nov, [facility] [address] [id number] [place] [address]- 6957 October, [facility] [address] [id number] [place] [address]- 8956 October, [facility] [address] [id number] [place] [address]- 9830 October, [facility] [address] [id number] [place] [address]- 1336 October, [facility] [address] [id number] [place] [address]- 2708 October, [facility] [address] [id number] [place] [address]- 9512 October, [facility] [address] [id number] [place] [address]- 4127 October, [facility] [address] [id number] [place] [address]- 1684 October, [facility] [address] [id number] [place] [address]- 5922 Sep, [facility] [address] [id number] [place] [address]- 8312 Sep, [facility] [address] [id number] [place] [address]- 0166 Sep, [facility] [place] [facility] [address] [id number] [place] [address]- 3586 Sep, [facility] [place] [facility] [address] [id number] [place] [address]- 4195 Sep, [facility] [address] [id number] [place] [address]- 6792 Sep, [facility] [address] [facility] [id number], [place] [address]- 8349 Sep, [facility] [address] [facility] [id number], [place] [address]- 8551 Sep, [facility] [address] [facility] [id number], [place] [address]- 7802 Sep, [facility] [address] [facility] [id number], [place] [address]- 3428 Sep, [facility] [address] [facility] [id number], [place] [address]- 0169 Sep, [facility] [address] [facility] [id number], [place] [address]- 1010 Sep, [facility] [address] [facility] [id number], [place] [address]- 0035 Sep, [facility] [address], [place] [address]- 6304 Sep, [facility] [address] [facility] [id number], [place] [address]- 7150 Aug, [facility] [address] [place] [address] [id number], [place] [address]- 6890 Aug, [facility] [address] [facility] [id number], [place] [address]- 7695 Aug, IMMUNIZATIONS No Known Immunizations SOCIAL HISTORY [...]
--- OUTSIDE RECORDS SUMMARY | 2018-05-03 10:54 | XMS REPORT ---
Author Author DELISA PEREZ Organization [facility] Address [address] [place] [address] Care Team Providers Care Publications Sales Representative Name Role Phone DELISA PEREZ Unavailable PROBLEMS Type Condition ICD9-CM Code UQW69-SE Code Onset Dates Condition Status SNOMED Code Problem Chronic obstructive pulmonary disease with (acute) exacerbation J44.1 Active 233259678 Problem Depressive disorder, not elsewhere classified F32.9 Active 19557863 Problem Anxiety state, unspecified F41.1 Active 287847985 Problem Chronic obstructive pulmonary disease, unspecified J44.9 Active 88319580 Problem Anxiety F41.9 Active 35283077 Problem Mixed hyperlipidemia E78.2 Active 201975712 Problem Hyperlipidemia E78.5 Active 22121813 Problem Iron deficiency anemia D50.9 Active 74307164 Problem Dysthymic disorder F34.1 Active 76211896 Problem COPD exacerbation J44.1 Active 638815024047299 Problem Severe persistent asthma without complication J45.50 Active 156675143 Problem COPD with acute exacerbation J44.1 Active 557624551 Problem Major depressive disorder with single episode, remission status unspecified F32.9 Active 10406650 Problem 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.0 Active 48362226 Problem Environmental allergies Z91.09 Active 541309846 Problem Chronic obstructive pulmonary disease with acute lower respiratory infection J44.0 Active 316171906 Problem Other chronic pain G89.29 Active 17634896 Problem COPD (chronic obstructive pulmonary disease) with chronic bronchitis J44.9 Active 732264790 Problem Dependence on continuous supplemental oxygen Z99.81 Active 92972770805749 Problem Acute exacerbation of chronic obstructive pulmonary disease (COPD) J44.1 Active 120138334 Problem Chronic pain syndrome G89.4 Active 387686456 Problem Acute seasonal allergic rhinitis, unspecified trigger J30.2 Active [id number] ALLERGIES No Information ENCOUNTERS Encounter Location Date Diagnosis [facility] [address] [facility] [id number] [place] [address] 59968- 5404 Feb, [place] [address] [id number] [place] [address] 62538- 9760 Dec, Chronic obstructive pulmonary disease with acute lower respiratory infection J44.0 [place] [address] [place] [id number] [place] [address] 88955- 8391 Dec, Chronic obstructive pulmonary disease, unspecified J44.9 [place] [address] [place] [id number] [place] [address] 44153- 7997 Nov, [place] [address] [place] [id number] [place] [address] 10431- 1079 Nov, Mixed hyperlipidemia E78.2 [facility] [place] [address] [place] [id number] [place] [address] 97494 -5201 Nov, Environmental allergies Z91.09 [place] [address] [place] [id number] [place] [address] 26824- 6739 Nov, Iron deficiency anemia D50.9 and Hyperlipidemia E78.5 [place] [address] [place] [id number] [place] [address] 22153- 8091 October, Severe persistent asthma without complication J45.50 ; Hyperlipidemia E78.5 ; Iron deficiency anemia D50.9 ; Pain in thoracic spine M54.6 and Other chronic pain G89.29 [place] [address] [place] [id number] [place] [address] 94141- 2555 October, Chronic pain syndrome G89.4 [place] [address] [place] [id number] [place] [address] 84446- 4049 October, 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.0 and Anxiety state, unspecified F41.1 [facility] [place] [address] [place] [id number] [place] [address] 46998 -8107 Aug, COPD with acute exacerbation J44.1 [place] [id number] [place] [address] 50720- 2563 Aug, Chronic obstructive pulmonary disease with acute lower respiratory infection J44.0 [place] [address] [place] [id number] [place] [address] 93861- 8064 Aug, 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.0 [place] [address] [place] [id number] [place] [address] 87173- 4638 Jul, 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.0 and Anxiety state, unspecified F41.1 [place] [address] [place] [id number] [place] [address] 42568- 4059 Jul, Anxiety F41.9 and Chronic pain syndrome G89.4 [place] [address] 44798- 0066 Jun, Dysthymic disorder F34.1 and Anxiety state, unspecified F41.1 [place] [address] [place] [id number] [place] [address] 20074- 0457 Jun, Anxiety state, unspecified F41.1 and 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.0 [place] [address] [place] [id number] [place] [address] 96670- 7129 Jun, [facility] [address] [place] [id number] [place] [address] 29524 -2294 May, COPD exacerbation J44.1 [place] [address] [place] [id number] [place] [address] 41067- 8163 May, Depressive disorder, not elsewhere classified F32.9 and Anxiety state, unspecified F41.1 [place] [address] [place] [id number] [place] [address] 36848- 6501 May, Chronic obstructive pulmonary disease with acute lower respiratory infection J44.0 and Acute seasonal allergic rhinitis, unspecified trigger J30.2 [facility] [address] [place] [id number] [place] [address] 05981 -7766 May, Acute exacerbation of chronic obstructive pulmonary disease (COPD) J44.1 [place] [address] 49236- 2067 17 Apr, 2017 Encounter for immunization Z23 [facility] [address] [place] [id number] [place] [address] 11681- 8669 Apr, [place] [address] [place] [id number] [place] [address] 36700- 8530 Apr, Back pain 724.5 [facility] [address] 34730 -7976 Mar, Acute seasonal allergic rhinitis, unspecified trigger J30.2 and Sore throat J02.9 [facility] [place] [address] [place] [id number] [place] [address] 03792 -3117 Mar, Acute exacerbation of chronic obstructive pulmonary disease (COPD) J44.1 [place] [address] [place] [id number] [place] [address] 22073- 7560 28 Feb, 2017 COPD (chronic obstructive pulmonary disease) with chronic bronchitis J44.9 ; Low back pain M54.5 and Other chronic pain G89.29 [facility] [place] [address] [place] [id number] [place] [address] 82217 -7185 21 Feb, 2017 Decreased breath sounds R06.89 and Acute exacerbation of chronic obstructive pulmonary disease (COPD) J44.1 [facility] [address] [place] [id number] [place] [address] 16858- 5557 15 Feb, 2017 [place] [address] [place] [id number] [place] [address] 97528- 1148 Feb, [place] [address] [place] [id number] [place] [address] 29857- 0605 Jan, Major depressive disorder with single episode, remission status unspecified F32.9 [facility] [address] [place] [id number] [place] [address] 24932 -8528 16 Dec, 2016 Allergic contact dermatitis, unspecified trigger L23.9 [facility] [address] [place] [id number] [place] [address] 83230 -5616 Dec, Allergic reaction, initial encounter T78.40XA [facility] [id number] [place] [address] 06041- 2964 14 Nov, 2016 Hyperlipidemia E78.5 ; Chronic obstructive pulmonary disease with acute lower respiratory infection J44.0 and Iron deficiency anemia D50.9 [facility] [address] [place] [id number] [place] [address] 01388- 0691 02 Nov, 2016 Hyperlipidemia E78.5 ; Iron deficiency anemia D50.9 ; Chronic obstructive pulmonary disease with acute lower respiratory infection J44.0 ; Environmental allergies Z91.09 and Major depressive disorder with single episode, remission status unspecified F32.9 [facility] [id number] [place] [address] 51799 -2520 Sep, Shortness of breath R06.02 and COPD exacerbation J44.1 [place] [address] [place] [id number] [place] [address] 46177- 3701 Sep, Chronic obstructive pulmonary disease with acute lower respiratory infection J44.0 [facility] [address] [place] [id number] [place] [address] 58183- 8799 Jun, Anxiety F41.9 [place] [address] [place] [id number] [place] [address] 31980- 2705 Jun, Chronic obstructive pulmonary disease with acute lower respiratory infection J44.0 ; Dependence on continuous supplemental oxygen Z99.81 ; Iron deficiency anemia D50.9 ; Anxiety F41.9 ; 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.0 ; Hypercholesterolemia E78.00 and Chronic pain syndrome G89.4 [facility] [id number] [place] [address] 99154- 5433 May, Anxiety F41.9 [place] [address] [place] [id number] [place] [address] 25412- 5508 May, [facility] [address] [place] [id number] [place] [address] 21329- 1107 Feb, [place] [address] [place] [id number] [place] [address] 46947- 3138 Jan, Chronic obstructive pulmonary disease with acute lower respiratory infection J44.0 ; Major depressive disorder with single episode, remission status unspecified F32.9 ; Environmental allergies Z91.09 ; Anxiety F41.9 ; Hyperlipidemia E78.5 ; Iron deficiency anemia, unspecified iron deficiency anemia type D50.9 ; Other chronic pain G89.29 and Lumbago with sciatica, unspecified side M54.40 [place] [address] [place] [id number] [place] [address] 35778- 5351 Sep, Hyperlipidemia E78.5 and Iron deficiency anemia D50.9 [place] [address] 09157- 3102 Sep, COPD (chronic obstructive pulmonary disease) 496 ; Back pain 724.5 ; Anxiety 300.00 ; Hyperlipidemia E78.5 ; Iron deficiency anemia D50.9 and Headache R51 [place] [address] [place] [id number] [place] [address] 05000- 4127 Aug, [place] [address] [place] [id number] [place] [address] 94929- 1540 Mar, Hyperlipidemia E78.5 and Iron deficiency anemia D50.9 [place] [address] 88610- 9491 Mar, Routine adult health maintenance V70.0 [place] [address] [place] [id number] [place] [address] 71291- 7779 Mar, Orbital cellulitis on left H05.012 [place] [address] [place] [id number] [place] [address] 66778- 2557 Mar, [place] [address] [place] [id number] [place] [address] 10164- 7485 Feb, Breast cancer screening V76.10 [place] [address] [place] [id number] [place] [address] 50639- 2021 08 Feb, 2015 Routine adult health maintenance V70.0 ; COPD (chronic obstructive pulmonary disease) 496 ; Special screening for malignant neoplasms, colon V76.51 and 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.9 [facility] [address] [place] [id number] [address] 2546 Feb, [facility] [address] [place] [id number] [place] [address] 12188- 1246 Dec, Asthma, unspecified, unspecified status 493.90 ; Back pain 724.5 ; COPD (chronic obstructive pulmonary disease) 496 and Anxiety 300.00 [facility] [address] [place] [id number] [place] [address] [id number] Dec, Dental examination V72.2 [facility] [address] [address] 2546 Dec, Back pain 724.5 ; COPD (chronic obstructive pulmonary disease) 496 and Anxiety 300.00 [facility] [address] [place] [id number] [place] [address] [id number] Dec, Dental examination V72.2 [facility] [address] [place] [id number] [place] [address] [id number] Nov, Dental examination V72.2 [facility] [address] [place] [id number] [place] [address] [id number] October, Dental examination V72.2 [facility] [address] [address] 2546 Sep, [facility] [address] [address] 2546 Sep, [facility] [address] [address] 2546 Aug, [facility] [address] [place] [id number] [address]- 0976 Aug, [facility] [address] [address] 2546 Aug, [facility] [address] [place] [id number] [address] 2546 Aug, [facility] [id number] [place] [address] [place] [address]- 8160 Aug, [facility] [place] [facility] [address] [id number] [place] [address]- 7950 Aug, [facility] [place] [facility] [address] [id number] [place] 6686 Jul, [facility] [place] [facility] [address] [id number] [place] [address]- 4036 Jul, [facility] [place] [facility] [address] [id number] [place] [address]- 5085 Jul, [facility] [place] [facility] [address] [id number] [place] [address]- 0081 Jul, [facility] [place] [facility] [address] [id number] [place] [address]- 8929 Jun, [facility] [place] [facility] [address] [id number] [place] [address]- 9347 Jun, [facility] [place] [facility] [address] [id number] [place] [address]- 9249 Nov, [facility] [place] [facility] [address] [id number] [place] [address]- 6430 Nov, [facility] [place] [facility] [address] [id number] [place] [address]- 8034 October, [facility] [place] [facility] [address] [id number] [place] [address]- 5425 October, [facility] [place] [facility] [address] [id number] [place] [address]- 3208 October, [facility] [place] [facility] [address] [id number] [place] [address]- 2329 October, [facility] [place] [facility] [address] [id number] [place] [address]- 5288 October, [facility] [place] [facility] [address] [id number] [place] [address]85 October, [facility] [place] [facility] [address] [id number] [place] [address]- 6729 October, [facility] [place] [facility] [address] [id number] [place] [address]- 0472 October, [facility] [place] [facility] [address] [id number] [place] [address]- 1992 Sep, [facility] [place] [facility] [address] [id number] [place] [address]- 0751 Sep, [facility] [address] [id number] [place] [address]- 1326 Sep, [facility] [place] [facility] [address] [id number] [place] [address]- 3649 Sep, [facility] [address] [id number] [place] [address]- 5570 Sep, [facility] [place] [facility] [address] [id number] [place] [address]- 8934 Sep, [facility] [place] [facility] [address] [id number] [place] [address]- 1808 Sep, [facility] [place] [facility] [address] [id number] [place] [address]- 2965 Sep, [facility] [place] [facility] [address] [id number] [place] [address]- 9893 Sep, [facility] [place] [facility] [address] [id number] [place] [address]- 6711 Sep, [facility] [place] [facility] [address] [id number] [place] [address]- 8395 Sep, [facility] [place] [facility] [address] [id number] [place] [address]- 2156 Sep, [facility] [place] [facility] [address] [id number] [place] [address]- 2568 Sep, [facility] [place] [facility] [address] [id number] [place] [address]- 3176 Sep, [facility] [address] [facility] [id number] [place] [address]- 3846 Aug, [facility] [address] [facility] [id number] [address]- 8176 Aug, [facility] [address] [facility] [id number] [place] [address]- 4546 Aug, IMMUNIZATIONS No Known Immunizations SOCIAL HISTORY Never Assessed REASON FOR VISIT PLAN OF CARE VITAL SIGNS MEDICATIONS Medication Instructions Dosage Frequency Start Date End Date Duration Status Proventil HFA 108 (90 Base) MCG/ACT INHALE TWO PUFFS BY MOUTH EVERY 4 HOURS NEEDED 30 Active RESULTS No Results PROCEDURES No [...]
--- OUTSIDE RECORDS SUMMARY | 2018-05-03 10:54 | XMS REPORT ---
Author Author DELISA PEREZ Organization [facility] Address [address] [place] [address] Care Team Providers [employer] Vice President Name Role Phone DELISA PEREZ Unavailable PROBLEMS Type Condition ICD9-CM Code LCV80-ZX Code Onset Dates Condition Status SNOMED Code Problem Chronic obstructive pulmonary disease with (acute) exacerbation J44.1 Active 957351534 Problem Depressive disorder, not elsewhere classified F32.9 Active 31241560 Problem Anxiety state, unspecified F41.1 Active 476563901 Problem Chronic obstructive pulmonary disease, unspecified J44.9 Active 57824644 Problem Anxiety F41.9 Active 80633884 Problem Mixed hyperlipidemia E78.2 Active 029455172 Problem Hyperlipidemia E78.5 Active 45399376 Problem Iron deficiency anemia D50.9 Active 67478535 Problem Dysthymic disorder F34.1 Active 24453009 Problem COPD exacerbation J44.1 Active 820134587332424 Problem Severe persistent asthma without complication J45.50 Active 218831831 Problem COPD with acute exacerbation J44.1 Active 372266674 Problem Major depressive disorder with single episode, remission status unspecified F32.9 Active 53305146 Problem 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.0 Active 32378001 Problem Environmental allergies Z91.09 Active 287537168 Problem Chronic obstructive pulmonary disease with acute lower respiratory infection J44.0 Active 206208502 Problem Other chronic pain G89.29 Active 10752878 Problem COPD (chronic obstructive pulmonary disease) with chronic bronchitis J44.9 Active 530619504 Problem Dependence on continuous supplemental oxygen Z99.81 Active 68718417429521 Problem Acute exacerbation of chronic obstructive pulmonary disease (COPD) J44.1 Active 970799193 Problem Chronic pain syndrome G89.4 Active 633265497 Problem Acute seasonal allergic rhinitis, unspecified trigger J30.2 Active 505709519 ALLERGIES No Information ENCOUNTERS Encounter Location Date Diagnosis [facility] [address] [facility] [id number] [place] [address] 48917- 6457 Feb, [place] [address] [id number] [place] [address] 57008- 9843 Dec, Chronic obstructive pulmonary disease with acute lower respiratory infection J44.0 [place] [address] [place] [id number] [place] [address] 56248- 7131 Dec, Chronic obstructive pulmonary disease, unspecified J44.9 [place] [address] [place] [id number] [place] [address] 43996- 6201 Nov, [place] [address] [place] [id number] [place] [address] 01739- 0505 Nov, Mixed hyperlipidemia E78.2 [facility] WALK IN [place] [address] [place] [id number] [place] [address] 11484 -6952 Nov, Environmental allergies Z91.09 [place] [address] [place] [id number] [place] [address] 42815- 6976 Nov, Iron deficiency anemia D50.9 and Hyperlipidemia E78.5 [place] [address] [place] [id number] [place] [address] 49400- 2571 October, Severe persistent asthma without complication J45.50 ; Hyperlipidemia E78.5 ; Iron deficiency anemia D50.9 ; Pain in thoracic spine M54.6 and Other chronic pain G89.29 [place] [address] [place] [id number] [place] [address] 97154- 5591 October, Chronic pain syndrome G89.4 [place] [address] [place] [id number] [place] [address] 81851- 9897 October, 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.0 and Anxiety state, unspecified F41.1 [facility] WALK IN [place] [address] [place] [id number] [place] [address] 36215 -2793 Aug, COPD with acute exacerbation J44.1 [place] [id number] [place] [address] 34502- 3027 Aug, Chronic obstructive pulmonary disease with acute lower respiratory infection J44.0 [place] [address] [place] [id number] [place] [address] 80207- 1920 Aug, 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.0 [place] [address] [place] [id number] [place] [address] 43039- 7259 Jul, 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.0 and Anxiety state, unspecified F41.1 [place] [address] [place] [id number] [place] [address] 28050- 2473 Jul, Anxiety F41.9 and Chronic pain syndrome G89.4 [place] [address] 11676- 7193 Jun, Dysthymic disorder F34.1 and Anxiety state, unspecified F41.1 [place] [address] [place] [id number] [place] [address] 86789- 1170 Jun, Anxiety state, unspecified F41.1 and 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.0 [place] [address] [place] [id number] [place] [address] 25725- 7732 Jun, [facility] WALK IN [facility] [address] [place] [id number] [place] [address] 03927 -6487 May, COPD exacerbation J44.1 [place] [address] [place] [id number] [place] [address] 74236- 1760 May, Depressive disorder, not elsewhere classified F32.9 and Anxiety state, unspecified F41.1 [place] [address] [place] [id number] [place] [address] 89903- 7987 May, Chronic obstructive pulmonary disease with acute lower respiratory infection J44.0 and Acute seasonal allergic rhinitis, unspecified trigger J30.2 [facility] WALK IN [facility] [address] [place] [id number] [place] [address] 24877 -9781 May, Acute exacerbation of chronic obstructive pulmonary disease (COPD) J44.1 [place] [address] 39469- 0336 17 Apr, 2017 Encounter for immunization Z23 [facility] [address] [place] [id number] [place] [address] 52711- 9080 Apr, [place] [address] [place] [id number] [place] [address] 86456- 3520 Apr, Back pain 724.5 [facility] WALK IN CARE [facility] [address] 93506 -2762 Mar, Acute seasonal allergic rhinitis, unspecified trigger J30.2 and Sore throat J02.9 [facility] WALK IN [place] [address] [place] [id number] [place] [address] 89762 -0945 Mar, Acute exacerbation of chronic obstructive pulmonary disease (COPD) J44.1 [place] [address] [place] [id number] [place] [address] 31303- 0968 28 Feb, 2017 COPD (chronic obstructive pulmonary disease) with chronic bronchitis J44.9 ; Low back pain M54.5 and Other chronic pain G89.29 [facility] WALK IN [place] [address] [place] [id number] [place] [address] 51810 -2800 21 Feb, 2017 Decreased breath sounds R06.89 and Acute exacerbation of chronic obstructive pulmonary disease (COPD) J44.1 [facility] [address] [place] [id number] [place] [address] 38479- 0626 15 Feb, 2017 [place] [address] [place] [id number] [place] [address] 88819- 7677 Feb, [place] [address] [place] [id number] [place] [address] 95070- 3449 Jan, Major depressive disorder with single episode, remission status unspecified F32.9 [facility] WALK IN CARE [address] [place] [id number] [place] [address] 91025 -3163 16 Dec, 2016 Allergic contact dermatitis, unspecified trigger L23.9 [facility] WALK IN CARE [address] [place] [id number] [place] [address] 42869 -8600 Dec, Allergic reaction, initial encounter T78.40XA [facility] [address] [place] [address] 81759- 2654 14 Nov, 2016 Hyperlipidemia E78.5 ; Chronic obstructive pulmonary disease with acute lower respiratory infection J44.0 and Iron deficiency anemia D50.9 [facility] [address] [place] [id number] [place] [address] 65641- 2237 02 Nov, 2016 Hyperlipidemia E78.5 ; Iron deficiency anemia D50.9 ; Chronic obstructive pulmonary disease with acute lower respiratory infection J44.0 ; Environmental allergies Z91.09 and Major depressive disorder with single episode, remission status unspecified F32.9 [facility] [address] [place] [address] 76693 -7171 Sep, Shortness of breath R06.02 and COPD exacerbation J44.1 [place] [address] [place] [id number] [place] [address] 59973- 3313 Sep, Chronic obstructive pulmonary disease with acute lower respiratory infection J44.0 [facility] [address] [place] [id number] [place] [address] 08128- 2852 Jun, Anxiety F41.9 [place] [address] [place] [id number] [place] [address] 13545- 6227 Jun, Chronic obstructive pulmonary disease with acute lower respiratory infection J44.0 ; Dependence on continuous supplemental oxygen Z99.81 ; Iron deficiency anemia D50.9 ; Anxiety F41.9 ; 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.0 ; Hypercholesterolemia E78.00 and Chronic pain syndrome G89.4 [facility] [address] [place] [address] 90147- 9712 May, Anxiety F41.9 [place] [address] [place] [id number] [place] [address] 17436- 7684 May, [facility] [address] [place] [id number] [place] [address] 87017- 7508 Feb, [place] [address] [place] [id number] [place] [address] 03736- 5743 Jan, Chronic obstructive pulmonary disease with acute lower respiratory infection J44.0 ; Major depressive disorder with single episode, remission status unspecified F32.9 ; Environmental allergies Z91.09 ; Anxiety F41.9 ; Hyperlipidemia E78.5 ; Iron deficiency anemia, unspecified iron deficiency anemia type D50.9 ; Other chronic pain G89.29 and Lumbago with sciatica, unspecified side M54.40 [place] [address] [place] [id number] [place] [address] 13344- 1652 Sep, Hyperlipidemia E78.5 and Iron deficiency anemia D50.9 [place] [address] 94522- 7127 Sep, COPD (chronic obstructive pulmonary disease) 496 ; Back pain 724.5 ; Anxiety 300.00 ; Hyperlipidemia E78.5 ; Iron deficiency anemia D50.9 and Headache R51 [place] [address] [place] [id number] [place] [address] 28969- 9711 Aug, [place] [address] [place] [id number] [place] [address] 88017- 5419 Mar, Hyperlipidemia E78.5 and Iron deficiency anemia D50.9 [place] [address] 11056- 7056 Mar, Routine adult health maintenance V70.0 [place] [address] [place] [id number] [place] [address] 06771- 7451 Mar, Orbital cellulitis on left H05.012 [place] [address] [place] [id number] [place] [address] 37005- 3523 Mar, [place] [address] [place] [id number] [place] [address] 92388- 8717 Feb, Breast cancer screening V76.10 [place] [address] [place] [id number] [place] [address] 02967- 5744 08 Feb, 2015 Routine adult health maintenance V70.0 ; COPD (chronic obstructive pulmonary disease) 496 ; Special screening for malignant neoplasms, colon V76.51 and 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.9 [facility] [address] [place] [id number] [address] 2546 Feb, [facility] [address] [place] [id number] [place] [address] 67841- 3446 Dec, Asthma, unspecified, unspecified status 493.90 ; Back pain 724.5 ; COPD (chronic obstructive pulmonary disease) 496 and Anxiety 300.00 [facility] [address] [place] [id number] [place] [address] [id number] Dec, Dental examination V72.2 [facility] [address] [address] 2546 Dec, Back pain 724.5 ; COPD (chronic obstructive pulmonary disease) 496 and Anxiety 300.00 [facility] [address] [place] [id number] [place] [address] [id number] Dec, Dental examination V72.2 [facility] [address] [place] [id number] [place] [address] [id number] Nov, Dental examination V72.2 [facility] [address] [place] [id number] [place] [address] [id number] October, Dental examination V72.2 [facility] [address] [address] 2546 Sep, [facility] [address] [address] 2546 Sep, [facility] [address] [address] 2546 Aug, [facility] [address] [place] [id number] [address]- 0376 Aug, [facility] [address] [address] 2546 Aug, [facility] [address] [place] [id number] [address] 2546 Aug, [facility] [id number] [place] [address] [place] [address]- 5171 Aug, [facility] [place] [facility] [address] [id number] [place] [address]- 3892 Aug, [facility] [place] [facility] [address] [id number] [place] 3[address] Jul, [facility] [place] [facility] [address] [id number] [place] [address]- 3176 Jul, [facility] [place] [facility] [address] [id number] [place] [address]- 7014 Jul, [facility] [place] [facility] [address] [id number] [place] [address]- 2937 Jul, [facility] [place] [facility] [address] [id number] [place] [address]- 0821 Jun, [facility] [place] [facility] [address] [id number] [place] [address]- 8541 Jun, [facility] [place] [facility] [address] [id number] [place] [address]- 1206 Nov, [facility] [place] [facility] [address] [id number] [place] [address]- 1172 Nov, [facility] [place] [facility] [address] [id number] [place] [address]- 8461 October, [facility] [place] [facility] [address] [id number] [place] [address]- 4275 October, [facility] [place] [facility] [address] [id number] [place] [address]- 0530 October, [facility] [place] [facility] [address] [id number] [place] [address]- 7294 October, [facility] [place] [facility] [address] [id number] [place] [address]- 1993 October, [facility] [place] [facility] [address] [id number] [place] 2200 October, [facility] [place] [facility] [address] [id number] [place] [address]- 5529 October, [facility] [place] [facility] [address] [id number] [place] [address]- 6486 October, [facility] [place] [facility] [address] [id number] [place] [address]- 7191 Sep, [facility] [place] [facility] [address] [id number] [place] [address]- 8030 Sep, [facility] [address] [id number] [place] [address]- 2243 Sep, [facility] [place] [facility] [address] [id number] [place] [address]- 2268 Sep, [facility] [address] [id number] [place] [address]- 2008 Sep, [facility] [place] [facility] [address] [id number] [place] [address]- 2710 Sep, [facility] [place] [facility] [address] [id number] [place] [address]- 1311 Sep, [facility] [place] [facility] [address] [id number] [place] [address]- 5710 Sep, [facility] [place] [facility] [address] [id number] [place] [address]- 0573 Sep, [facility] [place] [facility] [address] [id number] [place] [address]- 9304 Sep, [facility] [place] [facility] [address] [id number] [place] [address]- 8809 Sep, [facility] [place] [facility] [address] [id number] [place] [address]- 4087 Sep, [facility] [place] [facility] [address] [id number] [place] [address]- 4341 Sep, [facility] [place] [facility] [address] [id number] [place] [address]- 4106 Sep, [facility] [address] [facility] [id number] [place] [address]- 8746 Aug, [facility] [address] [facility] [id number] [address]- 5026 Aug, [facility] [address] [facility] [id number] [place] [address]- 9536 Aug, IMMUNIZATIONS No Known Immunizations SOCIAL HISTORY Never Assessed REASON FOR VISIT PA PLAN OF CARE VITAL SIGNS MEDICATIONS Medication Instructions Dosage Frequency Start Date End Date Duration Status ProAir HFA 108 (90 Base) MCG/ACT Inhalation every 6 hrs 2 puffs as needed 6h Dec, Active RESULTS No Results PROCEDURES No Known [...]
--- OUTSIDE RECORDS SUMMARY | 2018-05-03 10:55 | XMS REPORT ---
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 Name Role Phone DELISA PEREZ Unavailable PROBLEMS Type Condition ICD9-CM Code DBY85-TH Code Onset Dates Condition Status SNOMED Code Problem Chronic obstructive pulmonary disease with (acute) exacerbation J44.1 Active 217835578 Problem Depressive disorder, not elsewhere classified F32.9 Active 08770296 Problem Anxiety state, unspecified F41.1 Active 479634504 Problem Chronic obstructive pulmonary disease, unspecified J44.9 Active 71294781 Problem Anxiety F41.9 Active 33124792 Problem Mixed hyperlipidemia E78.2 Active 175327640 Problem Hyperlipidemia E78.5 Active 46845424 Problem Iron deficiency anemia D50.9 Active 81544442 Problem Dysthymic disorder F34.1 Active 64624740 Problem COPD exacerbation J44.1 Active 245961394027968 Problem Severe persistent asthma without complication J45.50 Active 825256567 Problem COPD with acute exacerbation J44.1 Active 608015738 Problem Major depressive disorder with single episode, remission status unspecified F32.9 Active 54868513 Problem 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.0 Active 10945502 Problem Environmental allergies Z91.09 Active 723622129 Problem Chronic obstructive pulmonary disease with acute lower respiratory infection J44.0 Active 963614225 Problem Other chronic pain G89.29 Active 26562920 Problem COPD (chronic obstructive pulmonary disease) with chronic bronchitis J44.9 Active 311957118 Problem Dependence on continuous supplemental oxygen Z99.81 Active 00272728057427 Problem Acute exacerbation of chronic obstructive pulmonary disease (COPD) J44.1 Active 226467188 Problem Chronic pain syndrome G89.4 Active 463885989 Problem Acute seasonal allergic rhinitis, unspecified trigger J30.2 Active 692528056 ALLERGIES No Information ENCOUNTERS Encounter Location Date Diagnosis [facility] [address] [facility] [id number] [place] [address] 71856- 5564 Feb, [place] [id number] [place] [address] 58403- 0523 Dec, Chronic obstructive pulmonary disease with acute lower respiratory infection J44.0 [place] [address] [place] [id number] [place] [address] 16096- 0230 Dec, Chronic obstructive pulmonary disease, unspecified J44.9 [place] [address] [place] [id number] [place] [address] 74307- 6480 Nov, [place] [address] [place] [id number] [place] [address] 51959- 3385 Nov, Mixed hyperlipidemia E78.2 [facility] [place] [address] [place] [id number] [place] [address] 03223 -2842 Nov, Environmental allergies Z91.09 [place] [address] [place] [id number] [place] [address] 90484- 5286 Nov, Iron deficiency anemia D50.9 and Hyperlipidemia E78.5 [place] [address] [place] [id number] [place] [address] 64165- 9515 October, Severe persistent asthma without complication J45.50 ; Hyperlipidemia E78.5 ; Iron deficiency anemia D50.9 ; Pain in thoracic spine M54.6 and Other chronic pain G89.29 [place] [address] [place] [id number] [place] [address] 33892- 0018 October, Chronic pain syndrome G89.4 [place] [address] [place] [id number] [place] [address] 77448- 2290 October, 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.0 and Anxiety state, unspecified F41.1 [facility] [place] [address] [place] [id number] [place] [address] 03355 -9331 Aug, COPD with acute exacerbation J44.1 [place] [id number] [place] [address] 98271- 1398 Aug, Chronic obstructive pulmonary disease with acute lower respiratory infection J44.0 [place] [address] [place] [id number] [place] [address] 40259- 8473 Aug, 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.0 [place] [address] [place] [id number] [place] [address] 42665- 2780 Jul, 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.0 and Anxiety state, unspecified F41.1 [place] [address] [place] [id number] [place] [address] 61696- 4086 Jul, Anxiety F41.9 and Chronic pain syndrome G89.4 [place] [address] 37393- 7493 Jun, Dysthymic disorder F34.1 and Anxiety state, unspecified F41.1 [place] [address] [place] [id number] [place] [address] 05590- 7504 Jun, Anxiety state, unspecified F41.1 and 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.0 [place] [address] [place] [id number] [place] [address] 59377- 2179 Jun, [facility] [address] [place] [id number] [place] [address] 64441 -1884 May, COPD exacerbation J44.1 [place] [address] [place] [id number] [place] [address] 45156- 3340 May, Depressive disorder, not elsewhere classified F32.9 and Anxiety state, unspecified F41.1 [place] [address] [place] [id number] [place] [address] 82620- 3262 May, Chronic obstructive pulmonary disease with acute lower respiratory infection J44.0 and Acute seasonal allergic rhinitis, unspecified trigger J30.2 [facility] [address] [place] [id number] [place] [address] 75190 -4435 May, Acute exacerbation of chronic obstructive pulmonary disease (COPD) J44.1 [place] [address] 32769- 3044 17 Apr, 2017 Encounter for immunization Z23 [facility] [address] [place] [id number] [place] [address] 25995- 0483 Apr, [place] [address] [place] [id number] [place] [address] 16562- 4731 Apr, Back pain 724.5 [facility] [address] 16547 -4559 Mar, Acute seasonal allergic rhinitis, unspecified trigger J30.2 and Sore throat J02.9 [facility] [place] [address] [place] [id number] [place] [address] 14345 -8447 Mar, Acute exacerbation of chronic obstructive pulmonary disease (COPD) J44.1 [place] [address] [place] [id number] [place] [address] 79266- 7033 28 Feb, 2017 COPD (chronic obstructive pulmonary disease) with chronic bronchitis J44.9 ; Low back pain M54.5 and Other chronic pain G89.29 [facility] [place] [address] [place] [id number] [place] [address] 33059 -3777 21 Feb, 2017 Decreased breath sounds R06.89 and Acute exacerbation of chronic obstructive pulmonary disease (COPD) J44.1 [facility] [address] [place] [id number] [place] [address] 33510- 2778 15 Feb, 2017 [place] [address] [place] [id number] [place] [address] 56479- 7699 Feb, [place] [address] [place] [id number] [place] [address] 99830- 1334 Jan, Major depressive disorder with single episode, remission status unspecified F32.9 [facility] [address] [place] [id number] [place] [address] 95039 -4002 16 Dec, 2016 Allergic contact dermatitis, unspecified trigger L23.9 [facility] [address] [place] [id number] [place] [address] 94521 -2476 Dec, Allergic reaction, initial encounter T78.40XA [facility] [address] [place] [address] 99532- 5740 14 Nov, 2016 Hyperlipidemia E78.5 ; Chronic obstructive pulmonary disease with acute lower respiratory infection J44.0 and Iron deficiency anemia D50.9 [facility] [address] [place] [id number] [place] [address] 90858- 0521 02 Nov, 2016 Hyperlipidemia E78.5 ; Iron deficiency anemia D50.9 ; Chronic obstructive pulmonary disease with acute lower respiratory infection J44.0 ; Environmental allergies Z91.09 and Major depressive disorder with single episode, remission status unspecified F32.9 [facility] [address] [place] [address] 67858 -6419 Sep, Shortness of breath R06.02 and COPD exacerbation J44.1 [place] [address] [place] [id number] [place] [address] 50963- 7725 Sep, Chronic obstructive pulmonary disease with acute lower respiratory infection J44.0 [facility] [address] [place] [id number] [place] [address] 34439- 5601 Jun, Anxiety F41.9 [place] [address] [place] [id number] [place] [address] 86661- 7494 Jun, Chronic obstructive pulmonary disease with acute lower respiratory infection J44.0 ; Dependence on continuous supplemental oxygen Z99.81 ; Iron deficiency anemia D50.9 ; Anxiety F41.9 ; 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.0 ; Hypercholesterolemia E78.00 and Chronic pain syndrome G89.4 [facility] [address] [place] [address] 86483- 9984 May, Anxiety F41.9 [place] [address] [place] [id number] [place] [address] 18346- 8210 May, [facility] [address] [place] [id number] [place] [address] 62408- 8619 Feb, [place] [address] [place] [id number] [place] [address] 80462- 9531 Jan, Chronic obstructive pulmonary disease with acute lower respiratory infection J44.0 ; Major depressive disorder with single episode, remission status unspecified F32.9 ; Environmental allergies Z91.09 ; Anxiety F41.9 ; Hyperlipidemia E78.5 ; Iron deficiency anemia, unspecified iron deficiency anemia type D50.9 ; Other chronic pain G89.29 and Lumbago with sciatica, unspecified side M54.40 [place] [address] [place] [id number] [place] [address] 99604- 7845 Sep, Hyperlipidemia E78.5 and Iron deficiency anemia D50.9 [place] [address] 24722- 5898 Sep, COPD (chronic obstructive pulmonary disease) 496 ; Back pain 724.5 ; Anxiety 300.00 ; Hyperlipidemia E78.5 ; Iron deficiency anemia D50.9 and Headache R51 [place] [address] [place] [id number] [place] [address] 65298- 0786 Aug, [place] [address] [place] [id number] [place] [address] 76644- 8433 Mar, Hyperlipidemia E78.5 and Iron deficiency anemia D50.9 [place] [address] 84767- 7507 Mar, Routine adult health maintenance V70.0 [place] [address] [place] [id number] [place] [address] 88428- 0404 Mar, Orbital cellulitis on left H05.012 [place] [address] [place] [id number] [place] [address] 78630- 5363 Mar, [place] [address] [place] [id number] [place] [address] 73322- 7955 Feb, Breast cancer screening V76.10 [place] [address] [place] [id number] [place] [address] 72247- 0371 08 Feb, 2015 Routine adult health maintenance V70.0 ; COPD (chronic obstructive pulmonary disease) 496 ; Special screening for malignant neoplasms, colon V76.51 and 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.9 [facility] [address] [place] [id number] [address] 2546 Feb, [facility] [address] [place] [id number] [place] [address] 82710- 6296 Dec, Asthma, unspecified, unspecified status 493.90 ; Back pain 724.5 ; COPD (chronic obstructive pulmonary disease) 496 and Anxiety 300.00 [facility] [address] [place] [id number] [place] [address] [phone] Dec, Dental examination V72.2 [facility] [address] [address] 2546 Dec, Back pain 724.5 ; COPD (chronic obstructive pulmonary disease) 496 and Anxiety 300.00 [facility] [address] [place] [id number] [place] [address] [id number] Dec, Dental examination V72.2 [facility] [address] [place] [id number] [place] [address] [id number] Nov, Dental examination V72.2 [facility] [address] [place] [id number] [place] [address] [phone] October, Dental examination V72.2 [facility] [address] [address] 2546 Sep, [facility] [address] [address] 2546 Sep, [facility] [address] [address] 2546 Aug, [facility] [address] [place] [id number] [address]- 4376 Aug, [facility] [address] [address] 2546 Aug, [facility] [address] [place] [id number] [address] 2546 Aug, [facility] [address] [place] [address] [place] [address]- 8211 Aug, [facility] [place] [facility] [address] [id number] [place] [address]- 0410 Aug, [facility] [place] [facility] [address] [id number] [place] 3396 Jul, [facility] [place] [facility] [address] [id number] [place] [address]- 9096 Jul, [facility] [place] [facility] [address] [id number] [place] [address]- 1817 Jul, [facility] [place] [facility] [address] [id number] [place] [address]- 5105 Jul, [facility] [place] [facility] [address] [id number] [place] [address]- 2862 Jun, [facility] [place] [facility] [address] [id number] [place] [address]- 7985 Jun, [facility] [place] [facility] [address] [id number] [place] [address]- 6038 Nov, [facility] [place] [facility] [address] [id number] [place] [address]- 7145 Nov, [facility] [place] [facility] [address] [id number] [place] [address]- 0369 October, [facility] [place] [facility] [address] [id number] [place] [address]- 1028 October, [facility] [place] [facility] [address] [id number] [place] [address]- 0896 October, [facility] [place] [facility] [address] [id number] [place] [address]- 8399 October, [facility] [place] [facility] [address] [id number] [place] [address]- 8239 October, [facility] [place] [facility] [address] [id number] [place] 7711 October, [facility] [place] [facility] [address] [id number] [place] [address]- 4553 October, [facility] [place] [facility] [address] [id number] [place] [address]- 4406 October, [facility] [place] [facility] [address] [id number] [place] [address]- 3818 Sep, [facility] [place] [facility] [address] [id number] [place] [address]- 0803 Sep, [facility] [place] [facility] [address] [id number] [place] [address]- 4667 Sep, [facility] [place] [facility] [address] [id number] [place] [address]- 8187 Sep, [facility] [place] [facility] [address] [id number] [place] [address]- 5242 Sep, [facility] [place] [facility] [address] [id number] [place] [address]- 0021 Sep, [facility] [place] [facility] [address] [id number] [place] [address]- 5612 Sep, [facility] [place] [facility] [address] [id number] [place] [address]- 3780 Sep, [facility] [place] [facility] [address] [id number] [place] [address]- 8887 Sep, [facility] [place] [facility] [address] [id number] [place] [address]- 9073 Sep, [facility] [place] [facility] [address] [id number] [place] [address]- 0543 Sep, [facility] [place] [facility] [address] [id number] [place] [address]- 3815 Sep, [facility] [place] [facility] [address] [id number] [place] [address]- 2345 Sep, [facility] [place] [facility] [address] [id number] [place] [address]- 2546 Sep, [facility] [address] [facility] [id number] [place] [address]- 7356 Aug, [facility] [address] [facility] [id number] [place] [address]- 7856 Aug, [facility] [address] [facility] [id number] [place] [address]- 6336 Aug, IMMUNIZATIONS No Known Immunizations SOCIAL HISTORY Never Assessed REASON FOR VISIT Lab (walk-in) PLAN OF CARE VITAL SIGNS MEDICATIONS Unknown Medications RESULTS No Results PROCEDURES Procedure Date Ordered Result Body Site LAB NOT BILLED BY [facility] November 17, 2017 VENIPUNCT, ROUTINE* November 17, 2017 INSTRUCTIONS MEDICATIONS ADMINISTERED No Known Medications MEDICAL (GENERAL) HISTORY Type Description Date Medical History Asthma Medical History Anxiety Medical History Depression Medical History Headaches Medical History COPD/emphysema Medical History Bone density 11/01/13 heel US WNL Surgical History Breast reduction Surgical History lap band Surgical History Tubal ligation Surgical History section Hospitalization History Sepsis 2010
--- OUTSIDE RECORDS SUMMARY | 2018-05-03 10:55 | XMS REPORT ---
Author Author JESENIA VEAL [facility] IN [facility] Address [address] [place] [address] Care Team Providers Care Wildlife Enforcement Major Name Role Phone JESENIA VELA Unavailable PROBLEMS Type Condition ICD9-CM Code VXY42-QA Code Onset Dates Condition Status SNOMED Code Problem Chronic obstructive pulmonary disease with (acute) exacerbation J44.1 Active 649817813 Problem Depressive disorder, not elsewhere classified F32.9 Active 80839803 Problem Anxiety state, unspecified F41.1 Active 092830529 Problem Chronic obstructive pulmonary disease, unspecified J44.9 Active 77021495 Problem Anxiety F41.9 Active 50551534 Problem Mixed hyperlipidemia E78.2 Active 924771793 Problem Hyperlipidemia E78.5 Active 62286120 Problem Iron deficiency anemia D50.9 Active 55289391 Problem Dysthymic disorder F34.1 Active 71396116 Problem COPD exacerbation J44.1 Active 843846602183366 Problem Severe persistent asthma without complication J45.50 Active 413273659 Problem COPD with acute exacerbation J44.1 Active 561241326 Problem Major depressive disorder with single episode, remission status unspecified F32.9 Active 69882039 Problem 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.0 Active 26594983 Problem Environmental allergies Z91.09 Active 930395248 Problem Chronic obstructive pulmonary disease with acute lower respiratory infection J44.0 Active 387706968 Problem Other chronic pain G89.29 Active 59759733 Problem COPD (chronic obstructive pulmonary disease) with chronic bronchitis J44.9 Active 877864865 Problem Dependence on continuous supplemental oxygen Z99.81 Active 09342896006951 Problem Acute exacerbation of chronic obstructive pulmonary disease (COPD) J44.1 Active 561653425 Problem Chronic pain syndrome G89.4 Active 399607733 Problem Acute seasonal allergic rhinitis, unspecified trigger J30.2 Active 713222783 ALLERGIES No Known Allergies ENCOUNTERS Encounter Location Date Diagnosis [facility] [address] [facility] [id number] [place] [address] 66761- 1913 Feb, [place] [id number] [place] [address] 91338- 2317 Dec, Chronic obstructive pulmonary disease with acute lower respiratory infection J44.0 [place] [address] [place] [id number] [place] [address] 86149- 9002 Dec, Chronic obstructive pulmonary disease, unspecified J44.9 [place] [address] [place] [id number] [place] [address] 81257- 0293 Nov, [place] [address] [place] [id number] [place] [address] 08685- 3190 Nov, Mixed hyperlipidemia E78.2 [facility] [place] [address] [place] [id number] [place] [address] 48703 -5948 Nov, Environmental allergies Z91.09 [place] [id number] [place] [address] 09476- 0353 Nov, Iron deficiency anemia D50.9 and Hyperlipidemia E78.5 [place] [id number] [place] [address] 55947- 8058 October, Severe persistent asthma without complication J45.50 ; Hyperlipidemia E78.5 ; Iron deficiency anemia D50.9 ; Pain in thoracic spine M54.6 and Other chronic pain G89.29 [place] [id number] [place] [address] 94508- 0480 October, Chronic pain syndrome G89.4 [place] [address] [place] [id number] [place] [address] 63017- 4416 October, 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.0 and Anxiety state, unspecified F41.1 [facility] [place] [id number] [place] [address] 00047 -3194 Aug, COPD with acute exacerbation J44.1 [place] [address] [place] [id number] [place] [address] 28134- 9604 Aug, Chronic obstructive pulmonary disease with acute lower respiratory infection J44.0 [facility] [address] [place] [address] 36329- 2972 Aug, 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.0 [facility] [address] [place] [id number] [place] [address] 37301- 8164 Jul, 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.0 and Anxiety state, unspecified F41.1 [place] [address] [place] [id number] [place] [address] 06766- 6078 Jul, Anxiety F41.9 and Chronic pain syndrome G89.4 [place] [address] 47100- 5265 Jun, Dysthymic disorder F34.1 and Anxiety state, unspecified F41.1 [place] [address] [place] [id number] [place] [address] 89602- 0321 Jun, Anxiety state, unspecified F41.1 and 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.0 [place] [address] [place] [id number] [place] [address] 72958- 8527 Jun, [facility] [address] [place] [id number] [place] [address] 64298 -6128 May, COPD exacerbation J44.1 [place] [address] [place] [id number] [place] [address] 90487- 5818 May, Depressive disorder, not elsewhere classified F32.9 and Anxiety state, unspecified F41.1 [place] [address] [place] [id number] [place] [address] 55838- 5979 May, Chronic obstructive pulmonary disease with acute lower respiratory infection J44.0 and Acute seasonal allergic rhinitis, unspecified trigger J30.2 [facility] [address] [place] [id number] [place] [address] 16950 -9267 May, Acute exacerbation of chronic obstructive pulmonary disease (COPD) J44.1 [place] [address] [place] [id number] [place] [address] 38446- 0780 Apr, Encounter for immunization Z23 [facility] [address] [place] [id number] [place] [address] 30032- 4120 Apr, [facility] [address] 93283- 8917 Apr, Back pain 724.5 [facility] [place] [address] 82020 -4606 Mar, Acute seasonal allergic rhinitis, unspecified trigger J30.2 and Sore throat J02.9 [facility] [place] [address] 26510 -4729 Mar, Acute exacerbation of chronic obstructive pulmonary disease (COPD) J44.1 [place] [address] 88107- 8098 28 Feb, 2017 COPD (chronic obstructive pulmonary disease) with chronic bronchitis J44.9 ; Low back pain M54.5 and Other chronic pain G89.29 [facility] [place] [address] [place] [id number] [place] [address] 15451 -7969 Feb, Decreased breath sounds R06.89 and Acute exacerbation of chronic obstructive pulmonary disease (COPD) J44.1 [place] [address] [place] [id number] [place] [address] 05049- 4056 15 Feb, 2017 [place] [address] [place] [id number] [place] [address] 76329- 8719 Feb, [place] [address] [place] [id number] [place] [address] 13482- 7772 Jan, Major depressive disorder with single episode, remission status unspecified F32.9 [facility] [address] [place] [id number] [place] [address] 02440 -6365 Dec, Allergic contact dermatitis, unspecified trigger L23.9 [facility] [address] [place] [id number] [place] [address] 46733 -1194 Dec, Allergic reaction, initial encounter T78.40XA [facility] [address] [place] [id number] [place] [address] 91157- 2548 14 Nov, 2016 Hyperlipidemia E78.5 ; Chronic obstructive pulmonary disease with acute lower respiratory infection J44.0 and Iron deficiency anemia D50.9 [facility] [address] [place] [id number] [place] [address] 16359- 3044 02 Nov, 2016 Hyperlipidemia E78.5 ; Iron deficiency anemia D50.9 ; Chronic obstructive pulmonary disease with acute lower respiratory infection J44.0 ; Environmental allergies Z91.09 and Major depressive disorder with single episode, remission status unspecified F32.9 [facility] [address] [place] [id number] [place] [address] 08362 -9734 Sep, Shortness of breath R06.02 and COPD exacerbation J44.1 [facility] [address] [place] [id number] [place] [address] 82037- 9525 Sep, Chronic obstructive pulmonary disease with acute lower respiratory infection J44.0 [facility] [address] [place] [id number] [place] [address] 38166- 1264 Jun, Anxiety F41.9 [place] [address] [place] [id number] [place] [address] 85304- 6631 Jun, Chronic obstructive pulmonary disease with acute lower respiratory infection J44.0 ; Dependence on continuous supplemental oxygen Z99.81 ; Iron deficiency anemia D50.9 ; Anxiety F41.9 ; 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.0 ; Hypercholesterolemia E78.00 and Chronic pain syndrome G89.4 [facility] [address] [place] [address] 77824- 4385 May, Anxiety F41.9 [facility] [address] [place] [id number] [place] [address] 76215- 2105 May, [facility] [address] [place] [id number] [place] [address] 71916- 1419 Feb, [place] [address] [place] [id number] [place] [address] 60833- 2907 Jan, Chronic obstructive pulmonary disease with acute lower respiratory infection J44.0 ; Major depressive disorder with single episode, remission status unspecified F32.9 ; Environmental allergies Z91.09 ; Anxiety F41.9 ; Hyperlipidemia E78.5 ; Iron deficiency anemia, unspecified iron deficiency anemia type D50.9 ; Other chronic pain G89.29 and Lumbago with sciatica, unspecified side M54.40 [place] [address] 82394- 3307 Sep, Hyperlipidemia E78.5 and Iron deficiency anemia D50.9 [place] [address] 11454- 6098 Sep, COPD (chronic obstructive pulmonary disease) 496 ; Back pain 724.5 ; Anxiety 300.00 ; Hyperlipidemia E78.5 ; Iron deficiency anemia D50.9 and Headache R51 [place] [address] 84007- 5089 Aug, [place] [address] 30331- 5658 Mar, Hyperlipidemia E78.5 and Iron deficiency anemia D50.9 [place] [address] 13997- 6803 Mar, Routine adult health maintenance V70.0 [place] [address] 00213- 8467 Mar, Orbital cellulitis on left H05.012 [place] [address] 59542- 1117 Mar, [place] [address] 74070- 7064 Feb, Breast cancer screening V76.10 [place] [address] 87158- 9647 08 Feb, 2015 Routine adult health maintenance V70.0 ; COPD (chronic obstructive pulmonary disease) 496 ; Special screening for malignant neoplasms, colon V76.51 and 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.9 [facility] [address] [place] [id number] [address] Feb, [facility] [address] [place] [id number] [place] [address] 05758- 8326 Dec, Asthma, unspecified, unspecified status 493.90 ; Back pain 724.5 ; COPD (chronic obstructive pulmonary disease) 496 and Anxiety 300.00 [facility] [address] [place] [id number] [place] [address] [id number] Dec, Dental examination V72.2 [facility] [address] [place] [id number] [place] [address] 79366 2546 Dec, Back pain 724.5 ; COPD (chronic obstructive pulmonary disease) 496 and Anxiety 300.00 [facility] [address] [place] [id number] [place] [address] [id number] Dec, Dental examination V72.2 [facility] [address] [place] [id number] [place] [address] [id number] Nov, Dental examination V72.2 [facility] [address] [place] [id number] [place] [address] [id number] October, Dental examination V72.2 [facility] [address] [place] [id number] [place] [address] 73971- 9446 Sep, [facility] [address] [address]- 7596 Sep, [facility] [address] [place] [address] 17029- 3716 Aug, [facility] [address] [place] [id number] 1129 Aug, [facility] [address] [place] [id number] [place] [address] 53910- 5201 Aug, [facility] [address] 6862 Aug, [facility] [address] [place] [id number] [place] [address]- 0308 Aug, [facility] [address] [id number] [place] [address]- 9484 Aug, [facility] [place] [facility] [address] [id number] [place] [address]- 9376 Jul, [facility] [place] [facility] [address] [id number] [place] [address]- 5596 Jul, [facility] [place] [facility] [address] [id number] [place] [address]- 6157 Jul, [facility] [place] [facility] [address] [id number] [place] [address]- 1997 Jul, [facility] [address] [id number] [place] [address]- 4583 Jun, [facility] [address] [id number] [place] [address]- 9703 Jun, [facility] [address] [id number] [place] [address]- 8969 Nov, [facility] [place] [facility] [address] [id number] [place] [address]- 2197 Nov, [facility] [address] [id number] [place] [address]- 2667 October, [facility] [place] [facility] [address] [id number] [place] [address]- 7081 October, [facility] [place] [facility] [address] [id number] [place] [address]- 8615 October, [facility] [place] [facility] [address] [id number] [place] 4870 October, [facility] [place] [facility] [address] [id number] [place] 2153 October, [facility] [place] [facility] [address] [id number] [place] 8827 October, [facility] [place] [facility] [address] [id number] [place] [address]- 6285 October, [facility] [place] [facility] [address] [id number] [place] [address]- 5281 October, [facility] [place] [facility] [address] [id number] [place] [address]- 9003 Sep, [facility] [place] [facility] [address] [id number] [place] [address]- 8704 Sep, [facility] [place] [facility] [address] [id number] [place] [address]- 2804 Sep, [facility] [place] [facility] [address] [id number] [place] [address]- 5173 Sep, [facility] [place] [facility] [address] [id number] [place] [address]- 0574 Sep, [facility] [place] [facility] [address] [id number] [place] [address]- 7692 Sep, [facility] [place] [facility] [address] [id number] [place] [address]- 8439 Sep, [facility] [place] [facility] [address] [id number] [place] [address]- 4208 Sep, [facility] [place] [facility] [address] [id number] [place] [address]- 5647 Sep, [facility] [place] [facility] [address] [id number] [place] [address]- 6997 Sep, [facility] [place] [facility] [address] [id number] [place] [address]- 6397 Sep, [facility] [place] [facility] [address] [id number] [place] [address]- 6905 Sep, [facility] [place] [facility] [address] [id number] [place] [address]- 3060 Sep, [facility] [place] [facility] [address] [id number], [place] [address]- 2546 Sep, [facility] [address] [facility] [id number] [address] 2546 Aug, [facility] [address] [facility] [id number], [place] [address] 2546 Aug, [facility] [address] [facility] [id number], [place] [address] 2546 Aug, IMMUNIZATIONS Vaccine Route Administration Date Status SOLUMEDROL (UP TO 125 MG) IM Intramuscular November 17, 2017 Administered SOCIAL HISTORY Never Assessed REASON FOR VISIT Allergic reaction, possible Pt c/o bilateral eye puffiness and swelling, states for several days they have been swollen shut in the morning MINDA Duenas PLAN OF CARE Activity Details Follow Up 2 - 3 Days, prn Reason:if symptoms worsen or not improving VITAL SIGNS Height 64 in 2017-11-17 Weight 146 lbs 2017-11-17 Temperature 99.3 degrees Fahrenheit 2017-11-17 Heart Rate 96 bpm 2017-11-17 Respiratory Rate 20 2017-11-17 BMI 25.06 kg/m2 2017-11-17 Blood pressure systolic 142 mmHg 2017-11-17 Blood pressure diastolic 76 mmHg 2017-11-17 MEDICATIONS Medication Instructions Dosage Frequency Start Date End Date Duration Status Tramadol HCl 50 mg Orally every 6 hrs 1 tablet as needed 6h 28 days Active Flonase 50 MCG/ACT Nasally Once a day 1 spray in each nostril 24h Active Oxygen Active Symbicort 160-4.5 MCG/ACT Inhalation Twice a day INHALE TWO PUFFS BY MOUTH TWICE DAILY 12h 30 days Active Pantoprazole Sodium 40 MG Orally Once a day 1 tablet 24h Active Albuterol Sulfate (2.5 MG/3ML) 0.083% Inhalation Three times a day 3 ml as needed 8h Active Wellbutrin XL 300 MG Orally Once a day 1 tablet in the morning 24h 30 days Active Singulair 10 mg Orally Once a day 1 tablet in the evening 24h Active Cetirizine HCl 10 MG Orally Once a day 1 tablet 24h Active Carafate 1 GM Orally PRN 1 tablet at bedtime on an empty stomach before meals Active Ibuprofen 800 MG TAKE ONE TABLET BY MOUTH THREE TIMES DAILY 30 Active Incruse Ellipta 62.5 MCG/INH Inhalation Once a day 1 puff 24h Active Proventil HFA 108 (90 Base) MCG/ACT INHALE TWO PUFFS BY MOUTH EVERY 4 HOURS NEEDED 30 Active Klonopin 0.5 MG Orally Twice a day 1 tablet 12h 30 days Active RESULTS No Results PROCEDURES Procedure Date Ordered Result Body Site [facility] VISIT ESTABLISHED PATIENT November 17, 2017 THER/PROPH/DIAG INJ, SC/IM November 17, 2017 SOLUMEDROL (UP TO 125 MG) November 17, 2017 INSTRUCTIONS MEDICATIONS ADMINISTERED No [...]
--- OUTSIDE RECORDS SUMMARY | 2018-05-03 10:55 | XMS REPORT ---
Author Author DELISA PEREZ Organization [facility] Address [address] [place] [address] Care Team Providers Care Office Manager Name Role Phone DELISA PEREZ Unavailable PROBLEMS Type Condition ICD9-CM Code KXI19-DU Code Onset Dates Condition Status SNOMED Code Problem Chronic obstructive pulmonary disease with (acute) exacerbation J44.1 Active 438683493 Problem Depressive disorder, not elsewhere classified F32.9 Active 36489688 Problem Anxiety state, unspecified F41.1 Active 791172247 Problem Chronic obstructive pulmonary disease, unspecified J44.9 Active 44953678 Problem Anxiety F41.9 Active 60977415 Problem Mixed hyperlipidemia E78.2 Active 772183799 Problem Hyperlipidemia E78.5 Active 38779273 Problem Iron deficiency anemia D50.9 Active 37845508 Problem Dysthymic disorder F34.1 Active 32295370 Problem COPD exacerbation J44.1 Active 339609005538101 Problem Severe persistent asthma without complication J45.50 Active 538099666 Problem COPD with acute exacerbation J44.1 Active 686122993 Problem Major depressive disorder with single episode, remission status unspecified F32.9 Active 27011945 Problem 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.0 Active 12638924 Problem Environmental allergies Z91.09 Active 277471964 Problem Chronic obstructive pulmonary disease with acute lower respiratory infection J44.0 Active 425710531 Problem Other chronic pain G89.29 Active 45427111 Problem COPD (chronic obstructive pulmonary disease) with chronic bronchitis J44.9 Active 970190653 Problem Dependence on continuous supplemental oxygen Z99.81 Active 64590562079191 Problem Acute exacerbation of chronic obstructive pulmonary disease (COPD) J44.1 Active 380735908 Problem Chronic pain syndrome G89.4 Active 539657162 Problem Acute seasonal allergic rhinitis, unspecified trigger J30.2 Active 826295356 ALLERGIES No Information ENCOUNTERS Encounter Location Date Diagnosis [facility] [address] [facility] [id number] [place] [address] 01921- 7018 Feb, [place] [address] [id number] [place] [address] 22031- 7428 Dec, Chronic obstructive pulmonary disease with acute lower respiratory infection J44.0 [place] [address] [place] [id number] [place] [address] 80527- 9799 Dec, Chronic obstructive pulmonary disease, unspecified J44.9 [place] [address] [place] [id number] [place] [address] 40512- 5838 Nov, [place] [address] [place] [id number] [place] [address] 01826- 2155 Nov, Mixed hyperlipidemia E78.2 [facility] [place] [address] [place] [id number] [place] [address] 73410 -2143 Nov, Environmental allergies Z91.09 [place] [address] [place] [id number] [place] [address] 99725- 6963 Nov, Iron deficiency anemia D50.9 and Hyperlipidemia E78.5 [place] [address] [place] [id number] [place] [address] 64563- 0507 October, Severe persistent asthma without complication J45.50 ; Hyperlipidemia E78.5 ; Iron deficiency anemia D50.9 ; Pain in thoracic spine M54.6 and Other chronic pain G89.29 [place] [address] [place] [id number] [place] [address] 72915- 6766 October, Chronic pain syndrome G89.4 [place] [address] [place] [id number] [place] [address] 11685- 8411 October, 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.0 and Anxiety state, unspecified F41.1 [facility] [place] [address] [place] [id number] [place] [address] 02243 -5335 Aug, COPD with acute exacerbation J44.1 [place] [id number] [place] [address] 51654- 0943 Aug, Chronic obstructive pulmonary disease with acute lower respiratory infection J44.0 [place] [address] [place] [id number] [place] [address] 87156- 1726 Aug, 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.0 [place] [address] [place] [id number] [place] [address] 24527- 8087 Jul, 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.0 and Anxiety state, unspecified F41.1 [place] [address] [place] [id number] [place] [address] 28429- 0141 Jul, Anxiety F41.9 and Chronic pain syndrome G89.4 [place] [address] 70276- 3123 Jun, Dysthymic disorder F34.1 and Anxiety state, unspecified F41.1 [place] [address] [place] [id number] [place] [address] 03188- 5679 Jun, Anxiety state, unspecified F41.1 and 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.0 [place] [address] [place] [id number] [place] [address] 99281- 7721 Jun, [facility] [address] [place] [id number] [place] [address] 55850 -3401 May, COPD exacerbation J44.1 [place] [address] [place] [id number] [place] [address] 74538- 7819 May, Depressive disorder, not elsewhere classified F32.9 and Anxiety state, unspecified F41.1 [place] [address] [place] [id number] [place] [address] 49013- 0065 May, Chronic obstructive pulmonary disease with acute lower respiratory infection J44.0 and Acute seasonal allergic rhinitis, unspecified trigger J30.2 [facility] [address] [place] [id number] [place] [address] 46498 -3458 May, Acute exacerbation of chronic obstructive pulmonary disease (COPD) J44.1 [place] [address] 36965- 8005 17 Apr, 2017 Encounter for immunization Z23 [facility] [address] [place] [id number] [place] [address] 19449- 6352 Apr, [place] [address] [place] [id number] [place] [address] 34394- 5479 Apr, Back pain 724.5 [facility]ARE [facility] [address] 29586 -2052 Mar, Acute seasonal allergic rhinitis, unspecified trigger J30.2 and Sore throat J02.9 [facility] [place] [address] [place] [id number] [place] [address] 41073 -3602 Mar, Acute exacerbation of chronic obstructive pulmonary disease (COPD) J44.1 [place] [address] [place] [id number] [place] [address] 37015- 3589 28 Feb, 2017 COPD (chronic obstructive pulmonary disease) with chronic bronchitis J44.9 ; Low back pain M54.5 and Other chronic pain G89.29 [facility] [place] [address] [place] [id number] [place] [address] 69612 -3954 21 Feb, 2017 Decreased breath sounds R06.89 and Acute exacerbation of chronic obstructive pulmonary disease (COPD) J44.1 [facility] [address] [place] [id number] [place] [address] 08764- 7504 15 Feb, 2017 [place] [address] [place] [id number] [place] [address] 09878- 9732 Feb, [place] [address] [place] [id number] [place] [address] 61396- 9202 Jan, Major depressive disorder with single episode, remission status unspecified F32.9 [facility] [address] [place] [id number] [place] [address] 75527 -0641 16 Dec, 2016 Allergic contact dermatitis, unspecified trigger L23.9 [facility] [address] [place] [id number] [place] [address] 32213 -4748 Dec, Allergic reaction, initial encounter T78.40XA [facility] [address] [place] [address] 23145- 2621 14 Nov, 2016 Hyperlipidemia E78.5 ; Chronic obstructive pulmonary disease with acute lower respiratory infection J44.0 and Iron deficiency anemia D50.9 [facility] [address] [place] [id number] [place] [address] 56200- 1934 02 Nov, 2016 Hyperlipidemia E78.5 ; Iron deficiency anemia D50.9 ; Chronic obstructive pulmonary disease with acute lower respiratory infection J44.0 ; Environmental allergies Z91.09 and Major depressive disorder with single episode, remission status unspecified F32.9 [facility] [address] [place] [address] 64583 -5723 Sep, Shortness of breath R06.02 and COPD exacerbation J44.1 [place] [address] [place] [id number] [place] [address] 37774- 2568 Sep, Chronic obstructive pulmonary disease with acute lower respiratory infection J44.0 [facility] [address] [place] [id number] [place] [address] 83692- 7990 Jun, Anxiety F41.9 [place] [address] [place] [id number] [place] [address] 79703- 9041 Jun, Chronic obstructive pulmonary disease with acute lower respiratory infection J44.0 ; Dependence on continuous supplemental oxygen Z99.81 ; Iron deficiency anemia D50.9 ; Anxiety F41.9 ; 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.0 ; Hypercholesterolemia E78.00 and Chronic pain syndrome G89.4 [facility] [address] [place] [address] 98688- 6807 May, Anxiety F41.9 [place] [address] [place] [id number] [place] [address] 50891- 0302 May, [facility] [address] [place] [id number] [place] [address] 77942- 4736 Feb, [place] [address] [place] [id number] [place] [address] 95919- 7918 Jan, Chronic obstructive pulmonary disease with acute lower respiratory infection J44.0 ; Major depressive disorder with single episode, remission status unspecified F32.9 ; Environmental allergies Z91.09 ; Anxiety F41.9 ; Hyperlipidemia E78.5 ; Iron deficiency anemia, unspecified iron deficiency anemia type D50.9 ; Other chronic pain G89.29 and Lumbago with sciatica, unspecified side M54.40 [place] [address] [place] [id number] [place] [address] 15834- 2197 Sep, Hyperlipidemia E78.5 and Iron deficiency anemia D50.9 [place] [address] 97243- 6400 Sep, COPD (chronic obstructive pulmonary disease) 496 ; Back pain 724.5 ; Anxiety 300.00 ; Hyperlipidemia E78.5 ; Iron deficiency anemia D50.9 and Headache R51 [place] [address] [place] [id number] [place] [address] 59645- 3273 Aug, [place] [address] [place] [id number] [place] [address] 24920- 3647 Mar, Hyperlipidemia E78.5 and Iron deficiency anemia D50.9 [place] [address] 66127- 9136 Mar, Routine adult health maintenance V70.0 [place] [address] [place] [id number] [place] [address] 57876- 9320 Mar, Orbital cellulitis on left H05.012 [place] [address] [place] [id number] [place] [address] 09637- 1067 Mar, [place] [address] [place] [id number] [place] [address] 59607- 2855 Feb, Breast cancer screening V76.10 [place] [address] [place] [id number] [place] [address] 25762- 5527 08 Feb, 2015 Routine adult health maintenance V70.0 ; COPD (chronic obstructive pulmonary disease) 496 ; Special screening for malignant neoplasms, colon V76.51 and 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.9 [facility] [address] [place] [id number] [address] 2546 Feb, [facility] [address] [place] [id number] [place] [address] 16713- 2166 Dec, Asthma, unspecified, unspecified status 493.90 ; Back pain 724.5 ; COPD (chronic obstructive pulmonary disease) 496 and Anxiety 300.00 [facility] [address] [place] [id number] [place] [address] [id number] Dec, Dental examination V72.2 [facility] [address] [address] 2546 Dec, Back pain 724.5 ; COPD (chronic obstructive pulmonary disease) 496 and Anxiety 300.00 [facility] [address] [place] [id number] [place] [address] [id number] Dec, Dental examination V72.2 [facility] [address] [place] [id number] [place] [address] [id number] Nov, Dental examination V72.2 [facility] [address] [place] [id number] [place] [address] [id number] October, Dental examination V72.2 [facility] [address] [address] 2546 Sep, [facility] [address] [address] 2546 Sep, [facility] [address] [address] 2546 Aug, [facility] [address] [place] [id number] [address]- 6686 Aug, [facility] [address] [address] 2546 Aug, [facility] [address] [place] [id number] [address] 2546 Aug, [facility] [address] [place] [address] [place] [address]- 4015 Aug, [facility] [place] [facility] [address] [id number] [place] [address]- 4848 Aug, [facility] [place] [facility] [address] [id number] [place] 7266 Jul, [facility] [place] [facility] [address] [id number] [place] [address]- 3376 Jul, [facility] [place] [facility] [address] [id number] [place] [address]- 6478 Jul, [facility] [place] [facility] [address] [id number] [place] [address]- 9544 Jul, [facility] [place] [facility] [address] [id number] [place] [address]- 7313 Jun, [facility] [place] [facility] [address] [id number] [place] [address]- 5640 Jun, [facility] [place] [facility] [address] [id number] [place] [address]- 8351 Nov, [facility] [place] [facility] [address] [id number] [place] [address]- 5739 Nov, [facility] [place] [facility] [address] [id number] [place] [address]- 4413 October, [facility] [place] [facility] [address] [id number] [place] [address]- 7764 October, [facility] [place] [facility] [address] [id number] [place] [address]- 1454 October, [facility] [place] [facility] [address] [id number] [place] [address]- 9146 October, [facility] [place] [facility] [address] [id number] [place] [address]- 2665 October, [facility] [place] [facility] [address] [id number] [place] 4508 October, [facility] [place] [facility] [address] [id number] [place] [address]- 0345 October, [facility] [place] [facility] [address] [id number] [place] [address]- 8740 October, [facility] [place] [facility] [address] [id number] [place] [address]- 3478 Sep, [facility] [place] [facility] [address] [id number] [place] [address]- 1201 Sep, [facility] [address] [id number] [place] [address]- 9637 Sep, [facility] [place] [facility] [address] [id number] [place] [address]- 3999 Sep, [facility] [address] [id number] [place] [address]- 4294 Sep, [facility] [place] [facility] [address] [id number] [place] [address]- 8802 Sep, [facility] [place] [facility] [address] [id number] [place] [address]- 6788 Sep, [facility] [place] [facility] [address] [id number] [place] [address]- 6399 Sep, [facility] [place] [facility] [address] [id number] [place] [address]- 1570 Sep, [facility] [place] [facility] [address] [id number] [place] [address]- 2862 Sep, [facility] [place] [facility] [address] [id number] [place] [address]- 8839 Sep, [facility] [place] [facility] [address] [id number] [place] [address]- 2195 Sep, [facility] [place] [facility] [address] [id number] [place] [address]- 8581 Sep, [facility] [place] [facility] [address] [id number] [place] [address]- 2546 Sep, [facility] [address] [facility] [id number] [place] [address]- 2546 Aug, [facility] [address] [facility] [id number] [address]- 2546 Aug, [facility] [address] [facility] [id number] [place] [address]- 2546 Aug, IMMUNIZATIONS No Known Immunizations SOCIAL HISTORY Never Assessed REASON FOR VISIT PLAN OF CARE VITAL SIGNS MEDICATIONS Medication Instructions Dosage Frequency Start Date End Date Duration Status Lovastatin 40 mg Orally Once a day 1 tab 24h Nov, 30 day(s) Active RESULTS No Results PROCEDURES [...]
--- OUTSIDE RECORDS SUMMARY | 2018-05-03 10:56 | XMS REPORT ---
Author Author DELISA PEREZ Organization [facility] Address [address] [place] [address] Care Team Providers [employer] Name Role Phone DELISA PEREZ Unavailable PROBLEMS Type Condition ICD9-CM Code AWB84-VG Code Onset Dates Condition Status SNOMED Code Problem Chronic obstructive pulmonary disease with (acute) exacerbation J44.1 Active 092020888 Problem Depressive disorder, not elsewhere classified F32.9 Active 16415757 Problem Anxiety state, unspecified F41.1 Active 317729331 Problem Chronic obstructive pulmonary disease, unspecified J44.9 Active 94843785 Problem Anxiety F41.9 Active 95088142 Problem Mixed hyperlipidemia E78.2 Active 990594566 Problem Hyperlipidemia E78.5 Active 62383998 Problem Iron deficiency anemia D50.9 Active 12990541 Problem Dysthymic disorder F34.1 Active 25878326 Problem COPD exacerbation J44.1 Active 655587111889375 Problem Severe persistent asthma without complication J45.50 Active 593657262 Problem COPD with acute exacerbation J44.1 Active 264932614 Problem Major depressive disorder with single episode, remission status unspecified F32.9 Active 72847544 Problem 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.0 Active 06476731 Problem Environmental allergies Z91.09 Active 866624196 Problem Chronic obstructive pulmonary disease with acute lower respiratory infection J44.0 Active 372719517 Problem Other chronic pain G89.29 Active 24757388 Problem COPD (chronic obstructive pulmonary disease) with chronic bronchitis J44.9 Active 016056286 Problem Dependence on continuous supplemental oxygen Z99.81 Active 20405687097510 Problem Acute exacerbation of chronic obstructive pulmonary disease (COPD) J44.1 Active 344726735 Problem Chronic pain syndrome G89.4 Active 275719899 Problem Acute seasonal allergic rhinitis, unspecified trigger J30.2 Active 509569511 ALLERGIES No Known Allergies ENCOUNTERS Encounter Location Date Diagnosis [facility] [id number] [address] Feb, [place] [address] [address] [place] [address]002- 9751 Dec, Chronic obstructive pulmonary disease with acute lower respiratory infection J44.0 [place] [address] [place] [id number] [place] [address] 34098- 3609 Dec, Chronic obstructive pulmonary disease, unspecified J44.9 [place] [address] [place] [id number] [place] [address] 04302- 4805 Nov, [place] [address] [place] [id number] [place] [address] 39449- 5214 Nov, Mixed hyperlipidemia E78.2 [facility]ALK [facility] [place] [address] [address] [place] [id number] [place] [address] 39320 -1490 Nov, Environmental allergies Z91.09 [place] [address] [place] [id number] [place] [address] 87367- 3312 Nov, Iron deficiency anemia D50.9 and Hyperlipidemia E78.5 [place] [address] [place] [id number] [place] [address] 42868- 6375 October, Severe persistent asthma without complication J45.50 ; Hyperlipidemia E78.5 ; Iron deficiency anemia D50.9 ; Pain in thoracic spine M54.6 and Other chronic pain G89.29 [place] [address] [place] [address] 17301- 9225 October, Chronic pain syndrome G89.4 [place] [address] [place] [id number] [place] [address] 66734- 1745 October, 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.0 and Anxiety state, unspecified F41.1 [facility]ALK [facility] [place] [address] [place] [address] 02239 -8854 Aug, COPD with acute exacerbation J44.1 [place] [address] [place] [address] 24755- 0279 Aug, Chronic obstructive pulmonary disease with acute lower respiratory infection J44.0 [facility] [address] [place] [id number] [place] [address] 27292- 3329 Aug, 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.0 [place] [address] [place] [id number] [place] [address] 51492- 4924 Jul, 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.0 and Anxiety state, unspecified F41.1 [place] [address] 61970- 0956 Jul, Anxiety F41.9 and Chronic pain syndrome G89.4 [place] [address] 54012- 8446 Jun, Dysthymic disorder F34.1 and Anxiety state, unspecified F41.1 [place] [address] [place] [id number] [place] [address] 46938- 6507 Jun, Anxiety state, unspecified F41.1 and 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.0 [place] [address] [place] [id number] [place] [address] 73519- 1601 Jun, [facility] WALK IN [facility] [address] [place] [id number] [place] [address] 57027 -3855 May, COPD exacerbation J44.1 [place] [address] [place] [id number] [place] [address] 96278- 0655 May, Depressive disorder, not elsewhere classified F32.9 and Anxiety state, unspecified F41.1 [place] [address] [place] [id number] [place] [address] 88100- 4647 May, Chronic obstructive pulmonary disease with acute lower respiratory infection J44.0 and Acute seasonal allergic rhinitis, unspecified trigger J30.2 [facility] WALK IN [facility] [address] [place] [id number] [place] [address] 75545 -2717 May, Acute exacerbation of chronic obstructive pulmonary disease (COPD) J44.1 [place] [address] 39618- 1427 17 Apr, 2017 Encounter for immunization Z23 [facility] [address] [place] [id number] [place] [address] 63820- 1748 Apr, [place] [address] 02266- 7316 Apr, Back pain 724.5 [facility] [place] [address] 17395 -5020 Mar, Acute seasonal allergic rhinitis, unspecified trigger J30.2 and Sore throat J02.9 [facility] WALK IN [place] [address] 74239 -8987 Mar, Acute exacerbation of chronic obstructive pulmonary disease (COPD) J44.1 [place] [address] 74660- 0319 28 Feb, 2017 COPD (chronic obstructive pulmonary disease) with chronic bronchitis J44.9 ; Low back pain M54.5 and Other chronic pain G89.29 [facility] WALK IN [place] [address] 73548 -3611 21 Feb, 2017 Decreased breath sounds R06.89 and Acute exacerbation of chronic obstructive pulmonary disease (COPD) J44.1 [place] [address] [place] [id number] [place] [address] 06897- 8852 15 Feb, 2017 [place] [address] [place] [id number] [place] [address] 20370- 6363 Feb, [place] [address] [place] [id number] [place] [address] 12270- 1977 Jan, Major depressive disorder with single episode, remission status unspecified F32.9 [facility] [address] 37[address] -[address]80 16 Dec, 2016 Allergic contact dermatitis, unspecified trigger L23.9 [facility] [address] [place] [id number] [place] [address] 65893 -7701 Dec, Allergic reaction, initial encounter T78.40XA [facility] [address] [place] [address] 13895- 8180 14 Nov, 2016 Hyperlipidemia E78.5 ; Chronic obstructive pulmonary disease with acute lower respiratory infection J44.0 and Iron deficiency anemia D50.9 [facility] [address] [place] [id number] [place] [address] 80816- 3275 02 Nov, 2016 Hyperlipidemia E78.5 ; Iron deficiency anemia D50.9 ; Chronic obstructive pulmonary disease with acute lower respiratory infection J44.0 ; Environmental allergies Z91.09 and Major depressive disorder with single episode, remission status unspecified F32.9 [facility] IN [facility] [address] [place] [id number] [place] [address] 29110 -4573 Sep, Shortness of breath R06.02 and COPD exacerbation J44.1 [place] [address] [place] [id number] [place] [address] 58256- 7918 Sep, Chronic obstructive pulmonary disease with acute lower respiratory infection J44.0 [facility] [address] [place] [id number] [place] [address] 10364- 4102 Jun, Anxiety F41.9 [place] [address] [place] [id number] [place] [address] 19514- 7824 Jun, Chronic obstructive pulmonary disease with acute lower respiratory infection J44.0 ; Dependence on continuous supplemental oxygen Z99.81 ; Iron deficiency anemia D50.9 ; Anxiety F41.9 ; 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.0 ; Hypercholesterolemia E78.00 and Chronic pain syndrome G89.4 [facility] [address] [place] [address] 30906- 9956 May, Anxiety F41.9 [place] [address] [place] [id number] [place] [address] 42915- 2056 May, [facility] [address] [place] [id number] [place] [address] 58357- 7934 Feb, [place] [address] [place] [id number] [place] [address] 39635- 4418 Jan, Chronic obstructive pulmonary disease with acute lower respiratory infection J44.0 ; Major depressive disorder with single episode, remission status unspecified F32.9 ; Environmental allergies Z91.09 ; Anxiety F41.9 ; Hyperlipidemia E78.5 ; Iron deficiency anemia, unspecified iron deficiency anemia type D50.9 ; Other chronic pain G89.29 and Lumbago with sciatica, unspecified side M54.40 [place] [address] [place] [id number] [place] [address] 09275- 8488 Sep, Hyperlipidemia E78.5 and Iron deficiency anemia D50.9 [place] [address] 63602- 8121 Sep, COPD (chronic obstructive pulmonary disease) 496 ; Back pain 724.5 ; Anxiety 300.00 ; Hyperlipidemia E78.5 ; Iron deficiency anemia D50.9 and Headache R51 [place] [address] [place] [id number] [place] [address] 03493- 5657 Aug, [place] [address] 81066- 1921 Mar, Hyperlipidemia E78.5 and Iron deficiency anemia D50.9 [place] [address] 97814- 5595 Mar, Routine adult health maintenance V70.0 [place] [address] [place] [id number] [place] [address] 70318- 8352 Mar, Orbital cellulitis on left H05.012 [place] [address] [place] [id number] [place] [address] 81532- 8281 Mar, [place] [address] [place] [id number] [place] [address] 65032- 5320 Feb, Breast cancer screening V76.10 [place] [address] 70082- 3420 08 Feb, 2015 Routine adult health maintenance V70.0 ; COPD (chronic obstructive pulmonary disease) 496 ; Special screening for malignant neoplasms, colon V76.51 and 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 [address] [facility] [id number] [address] Feb, [facility] [address] [place] [id number] [place] [address] 86000- 7368 Dec, Asthma, unspecified, unspecified status 493.90 ; Back pain 724.5 ; COPD (chronic obstructive pulmonary disease) 496 and Anxiety 300.00 [facility] [address] [place] [id number] [place] [address] [id number] Dec, Dental examination V72.2 [facility] [address] [place] [id number] [place] [address] 21975 2546 Dec, Back pain 724.5 ; COPD (chronic obstructive pulmonary disease) 496 and Anxiety 300.00 [facility] [address] [place] [id number] [place] [address] [id number] Dec, Dental examination V72.2 [facility] [address] [place] [id number] [place] [address] [id number] Nov, Dental examination V72.2 [facility] [address] [place] [id number] [place] [address] [id number] October, Dental examination V72.2 [facility] [address] [place] [address] 78632- 5536 Sep, [facility] [address] [address] 7006 Sep, [facility] [address] [address] 8[address] Aug, [facility] [address] Aug, [facility] [address] [place] [address] 34900- 2106 Aug, [facility] [address] [address]- 6694 Aug, [facility] [address] [place] [id number] [place] [address], [place] [address]- 4368 Aug, [facility] [address] [id number] [place] [address]- 4980 Aug, [facility] [place] [facility] [address] [id number] [place] [address]- 8236 Jul, [facility] [place] [facility] [address] [id number] [place] [address]- 4466 Jul, [facility] [place] [facility] [address] [id number] [place] [address]- 1214 Jul, [facility] [place] [facility] [address] [id number] [place] [address]- 3170 Jul, [facility] [place] [facility] [address] [id number] [place] [address]- 6534 Jun, [facility] [place] [facility] [address] [id number] [place] [address]- 9139 Jun, [facility] [place] [facility] [address] [id number] [place] [address]- 3471 Nov, [facility] [place] [facility] [address] [id number] [place] [address]- 0049 Nov, [facility] [place] [facility] [address] [id number] [place] [address]- 8597 October, [facility] [place] [facility] [address] [id number] [place] [address]- 9334 October, [facility] [place] [facility] [address] [id number] [place] [address]- 1760 October, [facility] [place] [facility] [address] [id number] [place] [address] October, [facility] [place] [facility] [address] [id number] [place] [address]- 8627 October, [facility] [place] [facility] [address] [id number] [place] [address]- 9787 October, [facility] [place] [facility] [address] [id number] [place] [address]- 1077 October, [facility] [place] [facility] [address] [id number] [place] [address]- 1780 October, [facility] [place] [facility] [address] [id number] [place] [address]- 5394 Sep, [facility] [place] [facility] [address] [id number] [place] [address]- 2287 Sep, [facility] [place] [facility] [address] [id number] [place] [address]- 6651 Sep, [facility] [place] [facility] [address] [id number] [place] [address]- 1507 Sep, [facility] [place] [facility] [address] [id number] [place] [address]- 6098 Sep, [facility] [place] [facility] [address] [id number] [place] [address]- 6158 Sep, [facility] [place] [facility] [address] [id number] [place] [address]- 3993 Sep, [facility] [place] [facility] [address] [id number] [place] [address]- 3663 Sep, [facility] [place] [facility] [address] [id number] [place] [address]- 0396 Sep, [facility] [place] [facility] [address] [id number] [place] [address]- 6748 Sep, [facility] [place] [facility] [address] [id number] [place] [address]- 2253 Sep, [facility] [place] [facility] [address] [id number] [place] [address]- 6198 Sep, [facility] [place] [facility] [address] [id number] [place] [address]- 1654 Sep, [facility] [place] [facility] [address] [id number] [address]- 2546 Sep, [facility] [address] [facility] [id number] [address]- 2546 Aug, [facility] [address] [facility] [id number] [address] 2546 Aug, [facility] [address] [facility] [id number] [address] 2546 Aug, IMMUNIZATIONS No Known Immunizations SOCIAL HISTORY Never Assessed REASON FOR VISIT COPD WB-MA, PT is requesting blood work PLAN OF CARE Activity Details Follow Up 6 Months Reason: VITAL SIGNS Height 64 in 2017-11-11 Weight 141 lbs 2017-11-11 Temperature 98.4 degrees Fahrenheit 2017-11-11 Heart Rate 94 bpm 2017-11-11 Respiratory Rate 20 2017-11-11 Oximetry w/ oxygen:98 % 2017-11-11 BMI 24.20 kg/m2 2017-11-11 Blood pressure systolic 140 mmHg 2017-11-11 Blood pressure diastolic 84 mmHg 2017-11-11 MEDICATIONS Medication Instructions Dosage Frequency Start Date End Date Duration Status Oxygen Active Carafate 1 GM Orally PRN 1 tablet at bedtime on an empty stomach before meals Active Symbicort 160-4.5 MCG/ACT Inhalation Twice a day INHALE TWO PUFFS BY MOUTH TWICE DAILY 12h 30 days Active Incruse Ellipta 62.5 MCG/INH Inhalation Once a day 1 puff 24h Active Pantoprazole Sodium 40 MG Orally Once a day 1 tablet 24h Active Tramadol HCl 50 mg Orally every 6 hrs 1 tablet as needed 6h 28 days Active Wellbutrin XL 300 MG Orally Once a day 1 tablet in the morning 24h 30 days Active Singulair 10 mg Orally Once a day 1 tablet in the evening 24h Active Ibuprofen 800 MG TAKE ONE TABLET BY MOUTH THREE TIMES DAILY 30 Active Cetirizine HCl 10 MG Orally Once a day 1 tablet 24h Active Proventil HFA 108 (90 Base) MCG/ACT INHALE TWO PUFFS BY MOUTH EVERY 4 HOURS NEEDED 30 Active Flonase 50 MCG/ACT Nasally Once a day 1 spray in each nostril 24h Active Albuterol Sulfate (2.5 MG/3ML) 0.083% Inhalation Three times a day 3 ml as needed 8h Active Klonopin 0.5 MG Orally Twice a day 1 tablet 12h 30 days Active RESULTS No Results PROCEDURES Procedure Date Ordered Result Body Site [facility] VISIT ESTABLISHED PATIENT November 11, 2017 INSTRUCTIONS MEDICATIONS ADMINISTERED No Known Medications MEDICAL (GENERAL) HISTORY Type Description Date Medical History Asthma Medical History Anxiety Medical History Depression Medical History Headaches Medical History COPD/emphysema Medical History Bone density 11/01/13 heel US WNL Surgical History Breast reduction Surgical History lap band Surgical History Tubal ligation Surgical History section Hospitalization History Sepsis 2010
--- OUTSIDE RECORDS SUMMARY | 2018-05-03 10:56 | XMS REPORT ---
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 Name Role Phone DELISA PEREZ Unavailable PROBLEMS Type Condition ICD9-CM Code FQD25-ZG Code Onset Dates Condition Status SNOMED Code Problem Chronic obstructive pulmonary disease with (acute) exacerbation J44.1 Active 773609283 Problem Depressive disorder, not elsewhere classified F32.9 Active 74690414 Problem Anxiety state, unspecified F41.1 Active 294155045 Problem Chronic obstructive pulmonary disease, unspecified J44.9 Active 10707719 Problem Anxiety F41.9 Active 44693842 Problem Mixed hyperlipidemia E78.2 Active 741870113 Problem Hyperlipidemia E78.5 Active 49378727 Problem Iron deficiency anemia D50.9 Active 21435737 Problem Dysthymic disorder F34.1 Active 32616647 Problem COPD exacerbation J44.1 Active [id number] Problem Severe persistent asthma without complication J45.50 Active 839287439 Problem COPD with acute exacerbation J44.1 Active 357791303 Problem Major depressive disorder with single episode, remission status unspecified F32.9 Active 09660086 Problem 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.0 Active 89187996 Problem Environmental allergies Z91.09 Active 793941499 Problem Chronic obstructive pulmonary disease with acute lower respiratory infection J44.0 Active 378160276 Problem Other chronic pain G89.29 Active 31044568 Problem COPD (chronic obstructive pulmonary disease) with chronic bronchitis J44.9 Active 922652620 Problem Dependence on continuous supplemental oxygen Z99.81 Active 69690359171223 Problem Acute exacerbation of chronic obstructive pulmonary disease (COPD) J44.1 Active 963073844 Problem Chronic pain syndrome G89.4 Active 019417343 Problem Acute seasonal allergic rhinitis, unspecified trigger J30.2 Active 428846537 ALLERGIES No Information ENCOUNTERS Encounter Location Date Diagnosis [facility] [address] [facility] [id number] [place] [address] 96534- 9200 Feb, [place] [address] [id number] [place] [address] 56371- 5761 Dec, Chronic obstructive pulmonary disease with acute lower respiratory infection J44.0 [place] [address] [address] [place] [id number] [place] [address] 05835- 5785 Dec, Chronic obstructive pulmonary disease, unspecified J44.9 [place] [address] [place] [id number] [place] [address] 11589- 1412 Nov, [place] [address] [place] [id number] [place] [address] 93572- 9558 Nov, Mixed hyperlipidemia E78.2 [facility] [place] [address] [place] [id number] [place] [address] 69707 -5572 Nov, Environmental allergies Z91.09 [place] [address] [place] [id number] [place] [address] 86954- 8465 Nov, Iron deficiency anemia D50.9 and Hyperlipidemia E78.5 [place] [address] [place] [id number] [place] [address] 13634- 7837 October, Severe persistent asthma without complication J45.50 ; Hyperlipidemia E78.5 ; Iron deficiency anemia D50.9 ; Pain in thoracic spine M54.6 and Other chronic pain G89.29 [place] [address] [place] [id number] [place] [address] 39177- 2252 October, Chronic pain syndrome G89.4 [place] [address] [place] [id number] [place] [address] 08146- 3021 October, 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.0 and Anxiety state, unspecified F41.1 [facility] [place] [address] [place] [id number] [place] [address] 69231 -4294 Aug, COPD with acute exacerbation J44.1 [place] [id number] [place] [address] 74439- 7506 Aug, Chronic obstructive pulmonary disease with acute lower respiratory infection J44.0 [place] [id number] [place] [id number] [place] [address] 66429- 4298 Aug, 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.0 [place] [address] [place] [id number] [place] [address] 94619- 1105 Jul, 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.0 and Anxiety state, unspecified F41.1 [place] [address] [place] [id number] [place] [address] 85828- 8056 Jul, Anxiety F41.9 and Chronic pain syndrome G89.4 [place] [address] 48499- 7777 Jun, Dysthymic disorder F34.1 and Anxiety state, unspecified F41.1 [place] [address] [place] [id number] [place] [address] 10658- 0091 Jun, Anxiety state, unspecified F41.1 and 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.0 [place] [address] [place] [id number] [place] [address] 03971- 3737 Jun, [facility] [address] [place] [id number] [place] [address] 74243 -7137 May, COPD exacerbation J44.1 [place] [address] [place] [id number] [place] [address] 58017- 4145 May, Depressive disorder, not elsewhere classified F32.9 and Anxiety state, unspecified F41.1 [place] [address] [place] [id number] [place] [address] 81090- 9090 May, Chronic obstructive pulmonary disease with acute lower respiratory infection J44.0 and Acute seasonal allergic rhinitis, unspecified trigger J30.2 [facility] [address] [place] [id number] [place] [address] 78987 -6802 May, Acute exacerbation of chronic obstructive pulmonary disease (COPD) J44.1 [place] [id number] 83064- 6400 17 Apr, 2017 Encounter for immunization Z23 [facility] [address] [place] [id number] [place] [address] 11431- 3349 Apr, [place] [address] [place] [id number] [place] [address] 95808- 4313 Apr, Back pain 724.5 [facility] [address] 80088 -3755 Mar, Acute seasonal allergic rhinitis, unspecified trigger J30.2 and Sore throat J02.9 [facility] [place] [address] [place] [id number] [place] [address] 60453 -7908 Mar, Acute exacerbation of chronic obstructive pulmonary disease (COPD) J44.1 [place] [address] [place] [id number] [place] [address] 19035- 1548 28 Feb, 2017 COPD (chronic obstructive pulmonary disease) with chronic bronchitis J44.9 ; Low back pain M54.5 and Other chronic pain G89.29 [facility] [place] [address] [place] [id number] [place] [address] 00045 -0909 21 Feb, 2017 Decreased breath sounds R06.89 and Acute exacerbation of chronic obstructive pulmonary disease (COPD) J44.1 [facility] [address] [place] [id number] [place] [address] 98098- 8235 15 Feb, 2017 [place] [address] [place] [id number] [place] [address] 89301- 3203 Feb, [place] [address] [place] [id number] [place] [address] 25822- 6425 Jan, Major depressive disorder with single episode, remission status unspecified F32.9 [facility] [address] [place] [id number] [place] [address] 16856 -6006 16 Dec, 2016 Allergic contact dermatitis, unspecified trigger L23.9 [facility] [address] [place] [id number] [place] [address] 24556 -2574 Dec, Allergic reaction, initial encounter T78.40XA [facility] [address] [place] [address] 69529- 1418 14 Nov, 2016 Hyperlipidemia E78.5 ; Chronic obstructive pulmonary disease with acute lower respiratory infection J44.0 and Iron deficiency anemia D50.9 [facility] [address] [place] [id number] [place] [address] 92491- 6656 02 Nov, 2016 Hyperlipidemia E78.5 ; Iron deficiency anemia D50.9 ; Chronic obstructive pulmonary disease with acute lower respiratory infection J44.0 ; Environmental allergies Z91.09 and Major depressive disorder with single episode, remission status unspecified F32.9 [facility] [id number] [place] [address] 08136 -1139 Sep, Shortness of breath R06.02 and COPD exacerbation J44.1 [place] [address] [place] [id number] [place] [address] 07415- 4841 Sep, Chronic obstructive pulmonary disease with acute lower respiratory infection J44.0 [facility] [address] [place] [id number] [place] [address] 82464- 6240 Jun, Anxiety F41.9 [place] [address] [place] [id number] [place] [address] 83844- 0137 Jun, Chronic obstructive pulmonary disease with acute lower respiratory infection J44.0 ; Dependence on continuous supplemental oxygen Z99.81 ; Iron deficiency anemia D50.9 ; Anxiety F41.9 ; 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.0 ; Hypercholesterolemia E78.00 and Chronic pain syndrome G89.4 [facility] [id number] [place] [address] 71716- 6201 May, Anxiety F41.9 [place] [address] [place] [id number] [place] [address] 23260- 2479 May, [facility] [address] [place] [id number] [place] [address] 70404- 4704 Feb, [place] [address] [place] [id number] [place] [address] 13027- 4110 Jan, Chronic obstructive pulmonary disease with acute lower respiratory infection J44.0 ; Major depressive disorder with single episode, remission status unspecified F32.9 ; Environmental allergies Z91.09 ; Anxiety F41.9 ; Hyperlipidemia E78.5 ; Iron deficiency anemia, unspecified iron deficiency anemia type D50.9 ; Other chronic pain G89.29 and Lumbago with sciatica, unspecified side M54.40 [place] [address] [place] [id number] [place] [address] 62586- 3892 Sep, Hyperlipidemia E78.5 and Iron deficiency anemia D50.9 [place] [address] 99332- 4265 Sep, COPD (chronic obstructive pulmonary disease) 496 ; Back pain 724.5 ; Anxiety 300.00 ; Hyperlipidemia E78.5 ; Iron deficiency anemia D50.9 and Headache R51 [place] [address] [place] [id number] [place] [address] 13046- 0523 Aug, [place] [address] [place] [id number] [place] [address] 13864- 9167 Mar, Hyperlipidemia E78.5 and Iron deficiency anemia D50.9 [place] [address] 06221- 5142 Mar, Routine adult health maintenance V70.0 [place] [address] [place] [id number] [place] [address] 37135- 8310 Mar, Orbital cellulitis on left H05.012 [place] [address] [place] [id number] [place] [address] 04394- 1674 Mar, [place] [address] [place] [id number] [place] [address] 62201- 1204 Feb, Breast cancer screening V76.10 [place] [address] [place] [id number] [place] [address] 76271- 7552 08 Feb, 2015 Routine adult health maintenance V70.0 ; COPD (chronic obstructive pulmonary disease) 496 ; Special screening for malignant neoplasms, colon V76.51 and 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.9 [facility] [address] [place] [id number] [address] 2546 Feb, [facility] [address] [place] [id number] [place] [address] 47313- 7346 Dec, Asthma, unspecified, unspecified status 493.90 ; Back pain 724.5 ; COPD (chronic obstructive pulmonary disease) 496 and Anxiety 300.00 [facility] [address] [place] [id number] [place] [address] [id number] Dec, Dental examination V72.2 [facility] [address] [address] 2546 Dec, Back pain 724.5 ; COPD (chronic obstructive pulmonary disease) 496 and Anxiety 300.00 [facility] [address] [place] [id number] [place] [address] [id number] Dec, Dental examination V72.2 [facility] [address] [place] [id number] [place] [address] [id number] Nov, Dental examination V72.2 [facility] [address] [place] [id number] [place] [address] [id number] October, Dental examination V72.2 [facility] [address] [address] 2546 Sep, [facility] [address] [address] 2546 Sep, [facility] [address] [address] 2546 Aug, [facility] [address] [place] [id number] [address]- 5996 Aug, [facility] [address] [address] 2546 Aug, [facility] [address] [place] [id number] [address] 2546 Aug, [facility] [id number] [place] [address] [place] [address]- 3883 Aug, [facility] [place] [facility] [address] [id number] [place] [address]- 6236 Aug, [facility] [place] [facility] [address] [id number] [place] 6156 Jul, [facility] [place] [facility] [address] [id number] [place] [address]- 8246 Jul, [facility] [place] [facility] [address] [id number] [place] [address]- 1040 Jul, [facility] [place] [facility] [address] [id number] [place] [address]- 1722 Jul, [facility] [place] [facility] [address] [id number] [place] [address]- 2675 Jun, [facility] [place] [facility] [address] [id number] [place] [address]- 5263 Jun, [facility] [place] [facility] [address] [id number] [place] [address]- 5810 Nov, [facility] [place] [facility] [address] [id number] [place] [address]- 1315 Nov, [facility] [place] [facility] [address] [id number] [place] [address]- 2260 October, [facility] [place] [facility] [address] [id number] [place] [address]- 9654 October, [facility] [place] [facility] [address] [id number] [place] [address]- 6562 October, [facility] [place] [facility] [address] [id number] [place] [address]- 9406 October, [facility] [place] [facility] [address] [id number] [place] [address]- 8915 October, [facility] [place] [facility] [address] [id number] [place] 2434 October, [facility] [place] [facility] [address] [id number] [place] [address]- 7326 October, [facility] [place] [facility] [address] [id number] [place] [address]- 2257 October, [facility] [place] [facility] [address] [id number] [place] [address]- 9228 Sep, [facility] [place] [facility] [address] [id number] [place] [address]- 6582 Sep, [facility] [address] [id number] [place] [address]- 8111 Sep, [facility] [place] [facility] [address] [id number] [place] [address]- 6064 Sep, [facility] [address] [id number] [place] [address]- 7324 Sep, [facility] [place] [facility] [address] [id number] [place] [address]- 0990 Sep, [facility] [place] [facility] [address] [id number] [place] [address]- 2873 Sep, [facility] [place] [facility] [address] [id number] [place] [address]- 7206 Sep, [facility] [place] [facility] [address] [id number] [place] [address]- 2984 Sep, [facility] [place] [facility] [address] [id number] [place] [address]- 2119 Sep, [facility] [place] [facility] [address] [id number] [place] [address]- 0022 Sep, [facility] [place] [facility] [address] [id number] [place] [address]- 3658 Sep, [facility] [place] [facility] [address] [id number] [place] [address]- 0926 Sep, [facility] [place] [facility] [address] [id number] [place] [address]- 7136 Sep, [facility] [address] [facility] [id number] [place] [address]- 8746 Aug, [facility] [address] [facility] [id number] [address]- 5346 Aug, [facility] [address] [facility] [id number] [place] [address]- 8426 Aug, IMMUNIZATIONS No Known Immunizations SOCIAL HISTORY Never Assessed REASON FOR VISIT Tramadol PLAN OF CARE VITAL SIGNS MEDICATIONS Medication Instructions Dosage Frequency Start Date End Date Duration Status Tramadol HCl 50 mg Orally every 6 hrs 1 tablet as needed 6h 28 days Active RESULTS No Results PROCEDURES No [...]
--- OUTSIDE RECORDS SUMMARY | 2018-05-03 10:57 | XMS REPORT ---
Author Author DELISA PEREZ Organization [facility] Address [address] [place] [address] Care Team Providers Care Binder Stripper Machine Name Role Phone DELISA PEREZ Unavailable PROBLEMS Type Condition ICD9-CM Code [id number] Code Onset Dates Condition Status SNOMED Code Problem Chronic obstructive pulmonary disease with (acute) exacerbation J44.1 Active 210104964 Problem Depressive disorder, not elsewhere classified F32.9 Active 29813511 Problem Anxiety state, unspecified F41.1 Active 088826517 Problem Chronic obstructive pulmonary disease, unspecified J44.9 Active 76395635 Problem Anxiety F41.9 Active 84163553 Problem Mixed hyperlipidemia E78.2 Active 130307345 Problem Hyperlipidemia E78.5 Active 91554743 Problem Iron deficiency anemia D50.9 Active 60056546 Problem Dysthymic disorder F34.1 Active 74741926 Problem COPD exacerbation J44.1 Active 435168687595045 Problem Severe persistent asthma without complication J45.50 Active 216738205 Problem COPD with acute exacerbation J44.1 Active 499499825 Problem Major depressive disorder with single episode, remission status unspecified F32.9 Active 07168098 Problem 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.0 Active 49501670 Problem Environmental allergies Z91.09 Active 677390860 Problem Chronic obstructive pulmonary disease with acute lower respiratory infection J44.0 Active 453907957 Problem Other chronic pain G89.29 Active 76159758 Problem COPD (chronic obstructive pulmonary disease) with chronic bronchitis J44.9 Active 927459329 Problem Dependence on continuous supplemental oxygen Z99.81 Active 69313934425699 Problem Acute exacerbation of chronic obstructive pulmonary disease (COPD) J44.1 Active 299248466 Problem Chronic pain syndrome G89.4 Active 923583813 Problem Acute seasonal allergic rhinitis, unspecified trigger J30.2 Active 285480087 ALLERGIES No Information ENCOUNTERS Encounter Location Date Diagnosis [facility] [address] [facility] [id number] [place] [address] 36973- 0492 Feb, [place] [address] [place] [id number] [place] [address] 40841- 6648 Dec, Chronic obstructive pulmonary disease, unspecified J44.9 [facility] [address] [place] [id number] [place] [address] 03601- 4714 Nov, [place] [address] [place] [id number] [place] [address] 34216- 6930 Nov, Mixed hyperlipidemia E78.2 [facility] [address] [place] [id number] [place] [address] 11186 -3837 Nov, Environmental allergies Z91.09 [place] [address] [place] [id number] [place] [address] 16034- 9578 Nov, Iron deficiency anemia D50.9 and Hyperlipidemia E78.5 [place] [address] [place] [id number] [place] [address] 31175- 6166 October, Severe persistent asthma without complication J45.50 ; Hyperlipidemia E78.5 ; Iron deficiency anemia D50.9 ; Pain in thoracic spine M54.6 and Other chronic pain G89.29 [place] [address] [place] [id number] [place] [address] 90415- 0347 October, Chronic pain syndrome G89.4 [place] [address] [place] [id number] [place] [address] 60496- 4577 October, 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.0 and Anxiety state, unspecified F41.1 [facility] [id number] [place] [address] 93648 -1052 Aug, COPD with acute exacerbation J44.1 [place] [address] [place] [id number] [place] [address] 35330- 3482 Aug, Chronic obstructive pulmonary disease with acute lower respiratory infection J44.0 [place] [address] [place] [id number] [place] [address] 86609- 9020 Aug, 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.0 [place] [address] [place] [id number] [place] [address] 98927- 9590 Jul, 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.0 and Anxiety state, unspecified F41.1 [facility] [address] [place] [id number] [place] [address] 44036- 7204 Jul, Anxiety F41.9 and Chronic pain syndrome G89.4 [place] [address] 69307- 6467 Jun, Dysthymic disorder F34.1 and Anxiety state, unspecified F41.1 [place] [address] 07128- 3031 Jun, Anxiety state, unspecified F41.1 and 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.0 [place] [address] 35422- 7656 Jun, [facility] [address] 87899 -4224 May, COPD exacerbation J44.1 [place] [address] 86826- 4228 May, Depressive disorder, not elsewhere classified F32.9 and Anxiety state, unspecified F41.1 [place] [address] [place] [id number] [place] [address] 01158- 0057 May, Chronic obstructive pulmonary disease with acute lower respiratory infection J44.0 and Acute seasonal allergic rhinitis, unspecified trigger J30.2 [facility] [address] [place] [id number] [place] [address] 89977 -2264 May, Acute exacerbation of chronic obstructive pulmonary disease (COPD) J44.1 [facility] [address] 98473- 7497 Apr, Encounter for immunization Z23 [place] [address] 01628- 2420 Apr, [facility] [address] [place] [id number] [place] [address] 84597- 9025 Apr, Back pain 724.5 [facility] [place] [address] 36897 -5130 Mar, Acute seasonal allergic rhinitis, unspecified trigger J30.2 and Sore throat J02.9 [facility] [place] [address] 60985 -5876 Mar, Acute exacerbation of chronic obstructive pulmonary disease (COPD) J44.1 [place] [address] 29541- 5382 28 Feb, 2017 COPD (chronic obstructive pulmonary disease) with chronic bronchitis J44.9 ; Low back pain M54.5 and Other chronic pain G89.29 [facility] [address] 29[address] -8866 Feb, Decreased breath sounds R06.89 and Acute exacerbation of chronic obstructive pulmonary disease (COPD) J44.1 [place] [address] 17754- 1085 15 Feb, 2017 [place] [address] 08132- 5946 Feb, [place] [address] [place] [id number] [place] [address] 40717- 4987 Jan, Major depressive disorder with single episode, remission status unspecified F32.9 [facility] [address] [place] [id number] [place] [address] 41537 -5930 16 Dec, 2016 Allergic contact dermatitis, unspecified trigger L23.9 [facility] [address] 89905 -0348 13 Dec, 2016 Allergic reaction, initial encounter T78.40XA [address] 22719- 9833 14 Nov, 2016 Hyperlipidemia E78.5 ; Chronic obstructive pulmonary disease with acute lower respiratory infection J44.0 and Iron deficiency anemia D50.9 [facility] [address] [address] 9059 Nov, Hyperlipidemia E78.5 ; Iron deficiency anemia D50.9 ; Chronic obstructive pulmonary disease with acute lower respiratory infection J44.0 ; Environmental allergies Z91.09 and Major depressive disorder with single episode, remission status unspecified F32.9 [facility] [address] [place] [address] 39819 -4165 Sep, Shortness of breath R06.02 and COPD exacerbation J44.1 [facility] [address] [place] [id number] [place] [address] 85415- 3124 Sep, Chronic obstructive pulmonary disease with acute lower respiratory infection J44.0 [facility] [address] [place] [id number] [place] [address] 44107- 9454 Jun, Anxiety F41.9 [place] [address] [place] [id number] [place] [address] 74789- 3164 Jun, Chronic obstructive pulmonary disease with acute lower respiratory infection J44.0 ; Dependence on continuous supplemental oxygen Z99.81 ; Iron deficiency anemia D50.9 ; Anxiety F41.9 ; 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.0 ; Hypercholesterolemia E78.00 and Chronic pain syndrome G89.4 [place] [address] [place] [address] 69850- 9062 May, Anxiety F41.9 [facility] [address] [place] [id number] [place] [address] 39131- 6526 May, [place] [address] [place] [address] 28723- 4083 Feb, [place] [id number] [place] [address] 56605- 9126 Jan, Chronic obstructive pulmonary disease with acute lower respiratory infection J44.0 ; Major depressive disorder with single episode, remission status unspecified F32.9 ; Environmental allergies Z91.09 ; Anxiety F41.9 ; Hyperlipidemia E78.5 ; Iron deficiency anemia, unspecified iron deficiency anemia type D50.9 ; Other chronic pain G89.29 and Lumbago with sciatica, unspecified side M54.40 [place] [address] [place] [id number] [place] [address] 18003- 8674 Sep, Hyperlipidemia E78.5 and Iron deficiency anemia D50.9 [place] [address] 77158- 5939 Sep, COPD (chronic obstructive pulmonary disease) 496 ; Back pain 724.5 ; Anxiety 300.00 ; Hyperlipidemia E78.5 ; Iron deficiency anemia D50.9 and Headache R51 [place] [address] 13999- 2936 Aug, [place] [address] 41962- 1237 Mar, Hyperlipidemia E78.5 and Iron deficiency anemia D50.9 [place] [address] 91113- 2150 Mar, Routine adult health maintenance V70.[address] 94417- 0400 Mar, Orbital cellulitis on left H05.012 [place] [address] [place] [id number] [place] [address] 16722- 5440 Mar, [place] [address] 04649- 9555 Feb, Breast cancer screening V76.10 [place] [id number] [place] [address] 65969- 8296 Feb, Routine adult health maintenance V70.0 ; COPD (chronic obstructive pulmonary disease) 496 ; Special screening for malignant neoplasms, colon V76.51 and 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.9 [place] [address] [place] [id number] [place] [address] 75403- 8717 Feb, [address] [place] [address] 2546 Dec, Asthma, unspecified, unspecified status 493.90 ; Back pain 724.5 ; COPD (chronic obstructive pulmonary disease) 496 and Anxiety 300.00 [facility] [address] [id number] Dec, Dental examination V72.2 [facility] [address] [place] [id number] [place] [address] 31150- 2546 Dec, Back pain 724.5 ; COPD (chronic obstructive pulmonary disease) 496 and Anxiety 300.00 [facility] [address] [place] [id number] [place] [address] [id number] Dec, Dental examination V72.2 [facility] [address] [place] [id number] [place] [address] [id number] Nov, Dental examination V72.2 [facility] [address] [place] [id number] [place] [address] [id number] October, Dental examination V72.2 [facility] [address] [place] [id number] [place] [address] 20760- 1306 Sep, [facility] [address] [place] [id number] [place] [address] 31291- 8956 Sep, [facility] [address] [place] [id number] [place] [address] 83121- 4336 Aug, [facility] [address] [place] [id number] [place] [address] 96196- 4506 Aug, [facility] [address] [place] [address] 19396 2546 Aug, [facility] [address] [place] [id number] [place] [address] 52538 2546 Aug, [facility] [address] [place] [id number] [address]- 2546 Aug, [facility] [address] [place] [id number] [place] [address] 589474- 7735 Aug, [facility] [address] [id number] [place] [address]- 0841 Jul, [facility] [place] [facility] [address] [id number] [place] [address]- 3194 Jul, [facility] [place] [facility] [address] [id number] [place] [address]- 3370 Jul, [facility] [place] [facility] [address] [id number] [place] [address]- 1675 Jul, [facility] [place] [facility] [address] [id number] [place] [address]- 2743 Jun, [facility] [place] [facility] [address] [id number] [place] [address]- 6377 Jun, [facility] [place] [facility] [address] [id number] [place] [address]- 1054 Nov, [facility] [place] [facility] [address] [id number] [place] [address]- 1559 Nov, [facility] [place] [facility] [address] [id number] [place] [address]- 2305 October, [facility] [place] [facility] [address] [id number] [place] [address]- 3146 October, [facility] [place] [facility] [address] [id number] [place] [address]- 4175 October, [facility] [place] [facility] [address] [id number] [place] [address]- 0099 October, [facility] [place] [facility] [address] [id number] [place] [address]- 0353 October, [facility] [place] [facility] [address] [id number] [place] [address]- 1530 October, [facility] [place] [facility] [address] [id number] [place] [address]- 9344 October, [facility] [place] [facility] [address] [id number] [place] [address]- 6090 October, [facility] [place] [facility] [address] [id number] [place] [address]- 7412 Sep, [facility] [place] [facility] [address] [id number] [place] [address]- 1593 Sep, [facility] [place] [facility] [address] [id number] [place] [address]- 8309 Sep, [facility] [place] [facility] [address] [id number] [place] [address]- 4456 Sep, [facility] [place] [facility] [address] [id number] [place] [address]- 6786 Sep, [facility] [place] [facility] [address] [id number] [place] [address]- 1564 Sep, [facility] [place] [facility] [address] [id number] [place] [address]- 2784 Sep, [facility] [place] [facility] [address] [id number] [place] [address]- 6407 Sep, [facility] [place] [facility] [address] [id number] [place] [address]- 2560 Sep, [facility] [place] [facility] [address] [id number] [place] [address]- 0264 Sep, [facility] [place] [facility] [address] [id number] [place] [address]- 6649 Sep, [facility] [place] [facility] [address] [id number] [place] [address]- 2220 Sep, [facility] [place] [facility] [address] [id number] [place] [address]- 1794 Sep, [facility] [place] [facility] [address] [id number] [place] [address]- 7090 Sep, [facility] [place] [facility] [address] [id number] [place] [address]- 5872 Aug, [facility] [address] [facility] [id number] [place] [address]- 7513 Aug, [facility] [address] [facility] [id number] [address]- 7274 Aug, IMMUNIZATIONS No Known Immunizations SOCIAL HISTORY Never Assessed REASON FOR VISIT PLAN OF CARE VITAL SIGNS MEDICATIONS Medication Instructions Dosage Frequency Start Date End Date Duration Status Proventil HFA 108 (90 Base) MCG/ACT Inhalation PRN every 4 hours 2 puffs as needed Active RESULTS No Results PROCEDURES No Known [...]
--- OUTSIDE RECORDS SUMMARY | 2018-05-03 10:57 | XMS REPORT ---
Author Author BELEN NUR [facility] Address [address] [place] [address] Care Team Providers Care Curing Room Worker Name Role Phone BELEN NUR Unavailable PROBLEMS Type Condition ICD9-CM Code SSK59-SY Code Onset Dates Condition Status SNOMED Code Problem Chronic obstructive pulmonary disease with (acute) exacerbation J44.1 Active 608463818 Problem Depressive disorder, not elsewhere classified F32.9 Active 62598454 Problem Anxiety state, unspecified F41.1 Active 246457253 Problem Chronic obstructive pulmonary disease, unspecified J44.9 Active 70158197 Problem Anxiety F41.9 Active 78362559 Problem Mixed hyperlipidemia E78.2 Active 396039798 Problem Hyperlipidemia E78.5 Active 12985270 Problem Iron deficiency anemia D50.9 Active 65554339 Problem Dysthymic disorder F34.1 Active 59482200 Problem COPD exacerbation J44.1 Active [id number] Problem Severe persistent asthma without complication J45.50 Active 130415525 Problem COPD with acute exacerbation J44.1 Active 484395088 Problem Major depressive disorder with single episode, remission status unspecified F32.9 Active 33352783 Problem 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.0 Active 13952834 Problem Environmental allergies Z91.09 Active 039760881 Problem Chronic obstructive pulmonary disease with acute lower respiratory infection J44.0 Active 647120374 Problem Other chronic pain G89.29 Active 32516999 Problem COPD (chronic obstructive pulmonary disease) with chronic bronchitis J44.9 Active 607291769 Problem Dependence on continuous supplemental oxygen Z99.81 Active 26152774090631 Problem Acute exacerbation of chronic obstructive pulmonary disease (COPD) J44.1 Active 965488105 Problem Chronic pain syndrome G89.4 Active 137054436 Problem Acute seasonal allergic rhinitis, unspecified trigger J30.2 Active 894500122 ALLERGIES No Known Allergies ENCOUNTERS Encounter Location Date Diagnosis [facility] [address] [facility] [id number] [place] [address] 78506- 6085 Feb, [facility] [address] [id number] [place] [address] 83431- 7825 Dec, Chronic obstructive pulmonary disease, unspecified J44.9 [facility] [id number] [place] [address] 97556- 2634 Nov, [place] [id number] [place] [address] 85650- 2438 Nov, Mixed hyperlipidemia E78.2 [facility] [id number] [place] [address] 30308 -9182 Nov, Environmental allergies Z91.09 [place] [id number] [place] [address] 66167- 8734 Nov, Iron deficiency anemia D50.9 and Hyperlipidemia E78.5 [place] [id number] [place] [address] 47617- 2053 October, Severe persistent asthma without complication J45.50 ; Hyperlipidemia E78.5 ; Iron deficiency anemia D50.9 ; Pain in thoracic spine M54.6 and Other chronic pain G89.29 [place] [id number] [place] [address] 81283- 4056 October, Chronic pain syndrome G89.4 [place] [address] [place] [address] 01860- 2522 October, 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.0 and Anxiety state, unspecified F41.1 [facility] [address] [place] [address] 34581 -0366 Aug, COPD with acute exacerbation J44.1 [place] [id number] [place] [address] 20483- 5178 Aug, Chronic obstructive pulmonary disease with acute lower respiratory infection J44.0 [facility] [address] [place] [address] 92450- 6991 Aug, 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.0 [facility] [id number] [place] [address] 14499- 1057 08 Jul, 2017 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.0 and Anxiety state, unspecified F41.1 [facility] [id number] [place] [address] 12424- 1243 06 Jul, 2017 Anxiety F41.9 and Chronic pain syndrome G89.4 [place] [id number] [place] [address] 58465- 9154 Jun, Dysthymic disorder F34.1 and Anxiety state, unspecified F41.1 [place] [address] 30199- 1303 Jun, Anxiety state, unspecified F41.1 and 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.0 [place] [id number] [place] [address] 55822- 0724 Jun, [facility] IN [facility] [id number] [place] [address] 83365 -7650 May, COPD exacerbation J44.1 [place] [address] 16678- 9343 May, Depressive disorder, not elsewhere classified F32.9 and Anxiety state, unspecified F41.1 [place] [id number] [place] [address] 01220- 5407 May, Chronic obstructive pulmonary disease with acute lower respiratory infection J44.0 and Acute seasonal allergic rhinitis, unspecified trigger J30.2 [facility] WALK IN [facility] [id number] [place] [address] 68487 -0295 May, Acute exacerbation of chronic obstructive pulmonary disease (COPD) J44.1 [facility] [id number] [place] [address] 55231- 1706 Apr, Encounter for immunization Z23 [place] [address] 28653- 2680 Apr, [facility] [id number] [place] [address] 06774- 2294 Apr, Back pain 724.5 [facility] WALK IN [place] [id number] [place] [address] 96441 -9034 Mar, Acute seasonal allergic rhinitis, unspecified trigger J30.2 and Sore throat J02.9 [facility] WALK IN [place] [address] 65524 -3510 Mar, Acute exacerbation of chronic obstructive pulmonary disease (COPD) J44.1 [place] [address] 13120- 5884 28 Feb, 2017 COPD (chronic obstructive pulmonary disease) with chronic bronchitis J44.9 ; Low back pain M54.5 and Other chronic pain G89.29 [facility] WALK IN [address] 24469 -4743 Feb, Decreased breath sounds R06.89 and Acute exacerbation of chronic obstructive pulmonary disease (COPD) J44.1 [place] [address] 18914- 2552 15 Feb, 2017 [place] [address] 43602- 5803 Feb, [place] [id number] [place] [address] 59272- 4901 Jan, Major depressive disorder with single episode, remission status unspecified F32.9 [facility] [address] [place] [id number] [place] [address] 86629 -8879 16 Dec, 2016 Allergic contact dermatitis, unspecified trigger L23.9 [facility] WALK IN [address] 17277 -7532 13 Dec, 2016 Allergic reaction, initial encounter T78.40XA [address] 52369- 4945 14 Nov, 2016 Hyperlipidemia E78.5 ; Chronic obstructive pulmonary disease with acute lower respiratory infection J44.0 and Iron deficiency anemia D50.9 [facility] [address] [place] [address] 90218- 6608 Nov, Hyperlipidemia E78.5 ; Iron deficiency anemia D50.9 ; Chronic obstructive pulmonary disease with acute lower respiratory infection J44.0 ; Environmental allergies Z91.09 and Major depressive disorder with single episode, remission status unspecified F32.9 [facility] [address] [place] [address] 03454 -2858 Sep, Shortness of breath R06.02 and COPD exacerbation J44.1 [place] [id number] [place] [address] 37553- 9250 Sep, Chronic obstructive pulmonary disease with acute lower respiratory infection J44.0 [place] [id number] [place] [address] 47050- 8480 Jun, Anxiety F41.9 [place] [id number] [place] [address] 71718- 4010 Jun, Chronic obstructive pulmonary disease with acute lower respiratory infection J44.0 ; Dependence on continuous supplemental oxygen Z99.81 ; Iron deficiency anemia D50.9 ; Anxiety F41.9 ; 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.0 ; Hypercholesterolemia E78.00 and Chronic pain syndrome G89.4 [place] [address] [place] [address] 04050- 4407 May, Anxiety F41.9 [place] [id number] [place] [address] 56038- 4004 May, [place] [id number] [place] [address] 51082- 3356 Feb, [place] [id number] [place] [address] 94409- 5744 Jan, Chronic obstructive pulmonary disease with acute lower respiratory infection J44.0 ; Major depressive disorder with single episode, remission status unspecified F32.9 ; Environmental allergies Z91.09 ; Anxiety F41.9 ; Hyperlipidemia E78.5 ; Iron deficiency anemia, unspecified iron deficiency anemia type D50.9 ; Other chronic pain G89.29 and Lumbago with sciatica, unspecified side M54.40 [place] [id number] [place] [address] 62267- 2777 Sep, Hyperlipidemia E78.5 and Iron deficiency anemia D50.[address] 59451- 1447 Sep, COPD (chronic obstructive pulmonary disease) 496 ; Back pain 724.5 ; Anxiety 300.00 ; Hyperlipidemia E78.5 ; Iron deficiency anemia D50.9 and Headache R51 [address] 23263- 6044 Aug, [address] 90238- 4066 Mar, Hyperlipidemia E78.5 and Iron deficiency anemia D50.[address] 00486- 1404 Mar, Routine adult health maintenance V70.[address] 30539- 3773 Mar, Orbital cellulitis on left H05.012 [place] [id number] [place] [address] 20513- 3427 Mar, [place] [id number] [place] [address] 09424- 1378 Feb, Breast cancer screening V76.10 [place] [id number] [place] [address] 67390- 9063 Feb, Routine adult health maintenance V70.0 ; COPD (chronic obstructive pulmonary disease) 496 ; Special screening for malignant neoplasms, colon V76.51 and 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.9 [place] [id number] [place] [address] 14373- 1037 Feb, [place] [address] [address] 2546 Dec, Asthma, unspecified, unspecified status 493.90 ; Back pain 724.5 ; COPD (chronic obstructive pulmonary disease) 496 and Anxiety 300.00 [facility] [address] [id number] Dec, Dental examination V72.2 [facility] [address] [address]- 2546 Dec, Back pain 724.5 ; COPD (chronic obstructive pulmonary disease) 496 and Anxiety 300.00 [facility] [address] [id number] [place] [address] [id number] Dec, Dental examination V72.2 [facility] [id number] [place] [address] [id number] Nov, Dental examination V72.2 [facility] [id number] [place] [address] [id number] October, Dental examination V72.2 [facility] [address] [address] 2546 Sep, [facility] [address] [address] 2546 Sep, [facility] [address] [place] [address] 2546 Aug, [facility] [address] [place] [address] 2546 Aug, [facility] [address] [place] [address] 2546 Aug, [facility] [id number] [address] 2546 Aug, [facility] [address] [address]- 2546 Aug, [facility] [address] [address]- 4079 Aug, [facility] [place] [facility] [address] [id number] [place] [address]- 7208 Jul, [facility] [place] [facility] [address] [id number] [place] [address]- 1466 Jul, [facility] [place] [facility] [address] [id number] [place] [address] Jul, [facility] [place] [facility] [address] [id number] [place] [address]- 1967 Jul, [facility] [place] [facility] [address] [id number] [place] [address]- 0819 Jun, [facility] [place] [facility] [address] [id number] [place] [address]- 9950 Jun, [facility] [place] [facility] [address] [id number] [place] [address]- 4803 Nov, [facility] [place] [facility] [address] [id number] [place] [address]- 9318 Nov, [facility] [place] [facility] [address] [id number] [place] [address]- 7096 October, [facility] [place] [facility] [address] [id number] [place] [address]- 3072 October, [facility] [place] [facility] [address] [id number] [place] [address]- 5693 October, [facility] [place] [facility] [address] [id number] [place] [address]- 5357 October, [facility] [place] [facility] [address] [id number] [place] [address]- 3261 October, [facility] [place] [facility] [address] [id number] [place] [address]- 2532 October, [facility] [place] [facility] [address] [id number] [place] [address]- 2902 October, [facility] [place] [facility] [address] [id number] [place] [address]- 6531 October, [facility] [address] [id number] [place] [address]- 6959 Sep, [facility] [place] [facility] [address] [id number] [place] [address]- 7547 Sep, [facility] [address] [id number] [place] [address]- 9041 Sep, [facility] [place] [facility] [address] [id number] [place] [address]- 7948 Sep, [facility] [address] [id number] [place] [address]- 1170 Sep, [facility] [address] [id number] [place] [address]- 4443 Sep, [facility] [place] [facility] [address] [id number] [place] [address]- 6729 Sep, [facility] [address] [id number] [place] [address]- 4911 Sep, [facility] [place] [facility] [address] [id number] [place] [address]- 9817 Sep, [facility] [address] [id number] [place] [address]- 6043 Sep, [facility] [place] [facility] [address] [id number] [place] [address]- 5261 Sep, [facility] [place] [facility] [address] [id number] [place] [address]- 1894 Sep, [facility] [place] [facility] [address] [id number] [place] [address]- 8467 Sep, [facility] [place] [facility] [address] [id number] [place] [address]- 5592 Sep, [facility] [place] [facility] [address] [id number] [place] [address]- 7881 Aug, [facility] [address] [facility] [id number] [place] [address] Aug, [facility] [address] [facility] [id number] [place] [address]- 0906 Aug, IMMUNIZATIONS Vaccine Route Administration Date Status SOLUMEDROL (UP TO 125 MG) IM Intramuscular September 11, 2017 Administered SOCIAL HISTORY Never Assessed REASON FOR VISIT chest congestion, productive cough that is yellow tinged. been sick for 2 days.kbkalyn PLAN OF CARE Activity Details Follow Up prn Reason: VITAL SIGNS Height 64 in 2017-09-11 Weight 143.2 lbs 2017-09-11 Temperature 99.0 degrees Fahrenheit 2017-09-11 Heart Rate 110 bpm 2017-09-11 Respiratory Rate 20 2017-09-11 Oximetry on 4l:91 % 2017-09-11 BMI 24.58 kg/m2 2017-09-11 Blood pressure systolic 134 mmHg 2017-09-11 Blood pressure diastolic 80 mmHg 2017-09-11 MEDICATIONS Medication Instructions Dosage Frequency Start Date End Date Duration Status Cetirizine HCl 10 MG Orally Once a day 1 tablet 24h Active Wellbutrin XL 300 MG Orally Once a day 1 tablet in the morning 24h 30 days Active Pantoprazole Sodium 40 MG Orally Once a day 1 tablet 24h Active Ibuprofen 800 MG TAKE ONE TABLET BY MOUTH THREE TIMES DAILY 30 Active PredniSONE 20 MG Orally Once a day 2 tablet 24h Aug, Sep, 5 days Active Incruse Ellipta 62.5 MCG/INH Inhalation Once a day 1 puff 24h Active Symbicort 160-4.5 MCG/ACT Inhalation Twice a day INHALE TWO PUFFS BY MOUTH TWICE DAILY 12h 30 days Active Albuterol Sulfate (2.5 MG/3ML) 0.083% Inhalation Three times a day 3 ml as needed 8h Active Klonopin 0.5 MG Orally Twice a day 1 tablet 12h 30 days Active Proventil HFA 108 (90 Base) MCG/ACT INHALE TWO PUFFS BY MOUTH EVERY 4 HOURS NEEDED 30 Active Oxygen Active Carafate 1 GM Orally PRN 1 tablet at bedtime on an empty stomach before meals Active Singulair 10 mg Orally Once a day 1 tablet in the evening 24h Active Flonase 50 MCG/ACT Nasally Once a day 1 spray in each nostril 24h Active Doxycycline Hyclate 100 MG Orally every 12 hrs 1 capsule 12h Aug, Sep, 10 days Active RESULTS No Results PROCEDURES Procedure Date Ordered Result Body Site SOLUMEDROL (UP TO 125 MG) September 11, 2017 THER/PROPH/DIAG INJ, SC/IM September 11, 2017 [facility] VISIT ESTABLISHED PATIENT September 11, 2017 INSTRUCTIONS MEDICATIONS ADMINISTERED No Known Medications MEDICAL (GENERAL) HISTORY Type Description Date Medical History Asthma Medical History Anxiety Medical History Depression Medical History Headaches Medical History COPD/emphysema Medical History Bone density 11/01/13 heel US WNL Surgical History Breast reduction Surgical History lap band Surgical History Tubal ligation Surgical History section Hospitalization History Sepsis 2010
--- OUTSIDE RECORDS SUMMARY | 2018-05-03 10:57 | XMS REPORT ---
Author Author TAY RAUL Organization [facility] Address [address] [place] [address] Care Team Providers Care Para Machine Operator Name Role Phone ELEAZARRAUL LOCKETT Unavailable PROBLEMS Type Condition ICD9-CM Code LHG48-NW Code Onset Dates Condition Status SNOMED Code Problem Chronic obstructive pulmonary disease with (acute) exacerbation J44.1 Active 763475256 Problem Depressive disorder, not elsewhere classified F32.9 Active 23129725 Problem Anxiety state, unspecified F41.1 Active 621620210 Problem Chronic obstructive pulmonary disease, unspecified J44.9 Active 41939894 Problem Anxiety F41.9 Active 58224136 Problem Mixed hyperlipidemia E78.2 Active 129351369 Problem Hyperlipidemia E78.5 Active 18429918 Problem Iron deficiency anemia D50.9 Active 86141773 Problem Dysthymic disorder F34.1 Active 39901389 Problem COPD exacerbation J44.1 Active 064510764353253 Problem Severe persistent asthma without complication J45.50 Active 045639841 Problem COPD with acute exacerbation J44.1 Active 066481719 Problem Major depressive disorder with single episode, remission status unspecified F32.9 Active 79301396 Problem 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.0 Active 43988077 Problem Environmental allergies Z91.09 Active 982407006 Problem Chronic obstructive pulmonary disease with acute lower respiratory infection J44.0 Active 434535872 Problem Other chronic pain G89.29 Active 11231424 Problem COPD (chronic obstructive pulmonary disease) with chronic bronchitis J44.9 Active 680151821 Problem Dependence on continuous supplemental oxygen Z99.81 Active 53310865981903 Problem Acute exacerbation of chronic obstructive pulmonary disease (COPD) J44.1 Active 290659714 Problem Chronic pain syndrome G89.4 Active 885451071 Problem Acute seasonal allergic rhinitis, unspecified trigger J30.2 Active 852923558 ALLERGIES No Information ENCOUNTERS Encounter Location Date Diagnosis [facility] [address] [facility] [id number] [place] [address] 13061- 4871 Feb, [place] [address] [id number] [place] [address] 22287- 8504 Dec, Chronic obstructive pulmonary disease with acute lower respiratory infection J44.0 [place] [address] [place] [id number] [place] [address] 18483- 3681 Dec, Chronic obstructive pulmonary disease, unspecified J44.9 [place] [address] [place] [id number] [place] [address] 39231- 4832 Nov, [place] [address] [place] [id number] [place] [address] 58396- 0226 Nov, Mixed hyperlipidemia E78.2 [facility] [place] [address] [place] [id number] [place] [address] 11426 -2085 Nov, Environmental allergies Z91.09 [place] [id number] [place] [address] 19454- 4878 Nov, Iron deficiency anemia D50.9 and Hyperlipidemia E78.5 [place] [address] [place] [id number] [place] [address] 21145- 8349 October, Severe persistent asthma without complication J45.50 ; Hyperlipidemia E78.5 ; Iron deficiency anemia D50.9 ; Pain in thoracic spine M54.6 and Other chronic pain G89.29 [place] [address] [place] [id number] [place] [address] 74591- 8342 October, Chronic pain syndrome G89.4 [place] [address] [place] [id number] [place] [address] 10400- 4208 October, 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.0 and Anxiety state, unspecified F41.1 [facility] [place] [id number] [place] [address] 04291 -9668 Aug, COPD with acute exacerbation J44.1 [place] [id number] [place] [address] 78700- 4330 Aug, Chronic obstructive pulmonary disease with acute lower respiratory infection J44.0 [place] [id number] [place] [address] 92675- 6854 Aug, 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.0 [place] [address] [place] [id number] [place] [address] 64765- 6070 Jul, 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.0 and Anxiety state, unspecified F41.1 [place] [address] [place] [id number] [place] [address] 33762- 5420 Jul, Anxiety F41.9 and Chronic pain syndrome G89.4 [place] [address] 98810- 5137 Jun, Dysthymic disorder F34.1 and Anxiety state, unspecified F41.1 [place] [address] [place] [id number] [place] [address] 03470- 0921 Jun, Anxiety state, unspecified F41.1 and 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.0 [place] [address] [place] [id number] [place] [address] 61290- 7287 Jun, [facility] [address] [place] [id number] [place] [address] 82130 -4259 May, COPD exacerbation J44.1 [place] [address] [place] [id number] [place] [address] 56190- 0650 May, Depressive disorder, not elsewhere classified F32.9 and Anxiety state, unspecified F41.1 [place] [address] [place] [id number] [place] [address] 35078- 9624 May, Chronic obstructive pulmonary disease with acute lower respiratory infection J44.0 and Acute seasonal allergic rhinitis, unspecified trigger J30.2 [facility] [address] [place] [id number] [place] [address] 35486 -4895 May, Acute exacerbation of chronic obstructive pulmonary disease (COPD) J44.1 [place] [address] [place] [id number] [place] [address] 68973- 9730 Apr, Encounter for immunization Z23 [facility] [address] [place] [id number] [place] [address] 82066- 0008 Apr, [place] [address] 46023- 5266 Apr, Back pain 724.5 [facility] [place] [address] 68464 -3965 Mar, Acute seasonal allergic rhinitis, unspecified trigger J30.2 and Sore throat J02.9 [facility] [place] [address] 72606 -2422 Mar, Acute exacerbation of chronic obstructive pulmonary disease (COPD) J44.1 [place] [address] 76812- 8685 28 Feb, 2017 COPD (chronic obstructive pulmonary disease) with chronic bronchitis J44.9 ; Low back pain M54.5 and Other chronic pain G89.29 [facility] [place] [address] 00178 -2459 21 Feb, 2017 Decreased breath sounds R06.89 and Acute exacerbation of chronic obstructive pulmonary disease (COPD) J44.1 [place] [address] [place] [id number] [place] [address] 59023- 3716 15 Feb, 2017 [place] [address] 97118- 2023 Feb, [place] [address] [place] [id number] [place] [address] 43916- 4914 Jan, Major depressive disorder with single episode, remission status unspecified F32.9 [facility] N [address] 61257 -5120 16 Dec, 2016 Allergic contact dermatitis, unspecified trigger L23.9 [facility] [address] [place] [id number] [place] [address] 81167 -5794 Dec, Allergic reaction, initial encounter T78.40XA [facility] [address] [place] [address] 96804- 0067 14 Nov, 2016 Hyperlipidemia E78.5 ; Chronic obstructive pulmonary disease with acute lower respiratory infection J44.0 and Iron deficiency anemia D50.9 [facility] [address] [place] [id number] [place] [address] 38051- 4993 02 Nov, 2016 Hyperlipidemia E78.5 ; Iron deficiency anemia D50.9 ; Chronic obstructive pulmonary disease with acute lower respiratory infection J44.0 ; Environmental allergies Z91.09 and Major depressive disorder with single episode, remission status unspecified F32.9 [facility] [address] [place] [id number] [place] [address] 51383 -3925 Sep, Shortness of breath R06.02 and COPD exacerbation J44.1 [facility] [address] [place] [id number] [place] [address] 91331- 8435 Sep, Chronic obstructive pulmonary disease with acute lower respiratory infection J44.0 [facility] [address] [place] [id number] [place] [address] 67219- 9330 Jun, Anxiety F41.9 [place] [address] [place] [id number] [place] [address] 05663- 1035 Jun, Chronic obstructive pulmonary disease with acute lower respiratory infection J44.0 ; Dependence on continuous supplemental oxygen Z99.81 ; Iron deficiency anemia D50.9 ; Anxiety F41.9 ; 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.0 ; Hypercholesterolemia E78.00 and Chronic pain syndrome G89.4 [facility] [address] [place] [address] 72022- 5923 May, Anxiety F41.9 [place] [address] [place] [id number] [place] [address] 35694- 0410 May, [facility] [address] [place] [id number] [place] [address] 32520- 8892 Feb, [place] [address] [place] [id number] [place] [address] 33726- 9478 Jan, Chronic obstructive pulmonary disease with acute lower respiratory infection J44.0 ; Major depressive disorder with single episode, remission status unspecified F32.9 ; Environmental allergies Z91.09 ; Anxiety F41.9 ; Hyperlipidemia E78.5 ; Iron deficiency anemia, unspecified iron deficiency anemia type D50.9 ; Other chronic pain G89.29 and Lumbago with sciatica, unspecified side M54.40 [place] [address] 60060- 0620 Sep, Hyperlipidemia E78.5 and Iron deficiency anemia D50.9 [place] [address] 70798- 2667 Sep, COPD (chronic obstructive pulmonary disease) 496 ; Back pain 724.5 ; Anxiety 300.00 ; Hyperlipidemia E78.5 ; Iron deficiency anemia D50.9 and Headache R51 [place] [address] 50032- 7006 Aug, [place] [address] 31323- 2781 Mar, Hyperlipidemia E78.5 and Iron deficiency anemia D50.9 [place] [address] 54440- 8001 Mar, Routine adult health maintenance V70.0 [place] [address] [place] [id number] [place] [address] 00483- 3515 Mar, Orbital cellulitis on left H05.012 [place] [address] 21406- 6417 Mar, [place] [address] 73076- 8554 Feb, Breast cancer screening V76.10 [place] [address] 01194- 8086 08 Feb, 2015 Routine adult health maintenance V70.0 ; COPD (chronic obstructive pulmonary disease) 496 ; Special screening for malignant neoplasms, colon V76.51 and 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.9 [facility] [address] [address] 6425 Feb, [facility] [address] [place] [id number] [place] [address] 12484- 7890 Dec, Asthma, unspecified, unspecified status 493.90 ; Back pain 724.5 ; COPD (chronic obstructive pulmonary disease) 496 and Anxiety 300.00 [facility] [address] [place] [id number] [place] [address] [id number] Dec, Dental examination V72.2 [facility] [address] [place] [id number] [place] [address] 59838- 1411 Dec, Back pain 724.5 ; COPD (chronic obstructive pulmonary disease) 496 and Anxiety 300.00 [facility] [address] [place] [id number] [place] [address] [id number] Dec, Dental examination V72.2 [facility] [address] [place] [id number] [place] [address] [id number] Nov, Dental examination V72.2 [facility] [address] [place] [id number] [place] [address] [id number] October, Dental examination V72.2 [facility] [address] [place] [id number] [place] [address] 171498- 7996 Sep, [facility] [address] [address]- 7089 Sep, [facility] [address] 6898 Aug, [facility] [address] [address]- 5175 Aug, [facility] [address] [place] [id number] [place] [address] 80243- 1305 Aug, [facility] [address] 4472 Aug, [facility] [address] [place] [id number] [place] [address]- 7401 Aug, [facility] [address] [id number] [place] [address]- 4997 Aug, [facility] [place] [facility] [address] [id number] [place] [address]- 1986 Jul, [facility] [place] [facility] [address] [id number] [place] [address]- 8846 Jul, [facility] [place] [facility] [address] [id number] [place] [address]- 5276 Jul, [facility] [place] [facility] [address] [id number] [place] [address]- 0644 Jul, [facility] [place] [facility] [address] [id number] [place] [address]- 8098 Jun, [facility] [place] [facility] [address] [id number] [place] [address]- 6746 Jun, [facility] [place] [facility] [address] [id number] [place] [address]- 5301 Nov, [facility] [place] [facility] [address] [id number] [place] [address]- 3415 Nov, [facility] [place] [facility] [address] [id number] [place] [address]- 3425 October, [facility] [place] [facility] [address] [id number] [place] [address]- 1486 October, [facility] [place] [facility] [address] [id number] [place] [address]- 6751 October, [facility] [place] [facility] [address] [id number] [place] [address]500 October, [facility] [place] [facility] [address] [id number] [place] [address]- 6665 October, [facility] [place] [facility] [address] [id number] [place] [address]- 7016 October, [facility] [address] [id number] [place] [address]- 7307 October, [facility] [place] [facility] [address] [id number] [place] [address]- 8829 October, [facility] [place] [facility] [address] [id number] [place] [address]- 7423 Sep, [facility] [place] [facility] [address] [id number] [place] [address]- 0359 Sep, [facility] [place] [facility] [address] [id number] [place] [address]- 3784 Sep, [facility] [place] [facility] [address] [id number] [place] [address]- 8726 Sep, [facility] [place] [facility] [address] [id number] [place] [address]- 0280 Sep, [facility] [place] [facility] [address] [id number] [place] [address]- 9473 Sep, [facility] [place] [facility] [address] [id number] [place] [address]- 0931 Sep, [facility] [place] [facility] [address] [id number] [place] [address]- 8460 Sep, [facility] [place] [facility] [address] [id number] [place] [address]- 4062 Sep, [facility] [place] [facility] [address] [id number] [place] [address]- 3297 Sep, [facility] [place] [facility] [address] [id number] [place] [address]- 9488 Sep, [facility] [place] [facility] [address] [id number] [place] [address]- 1237 Sep, [facility] [place] [facility] [address] [id number] [place] [address]- 3474 Sep, [facility] [place] [facility] [address] [id number] [address]- 6566 Sep, [facility] [address] [facility] [id number] [address]- 0016 Aug, [facility] [address] [facility] [id number] [address]- 5116 Aug, [facility] [address] [facility] [id number], [place] [address]- 3056 Aug, IMMUNIZATIONS No Known Immunizations SOCIAL HISTORY Never Assessed REASON FOR VISIT f/u WB-MA PLAN OF CARE Activity Details Follow Up 4 Months, prn Reason: VITAL SIGNS Height 64 in 2017-10-20 Weight 140 lbs 2017-10-20 Heart Rate 110 bpm 2017-10-20 Respiratory Rate 20 2017-10-20 BMI 24.03 kg/m2 2017-10-20 Blood pressure systolic 116 mmHg 2017-10-20 Blood pressure diastolic 64 mmHg 2017-10-20 MEDICATIONS Medication Instructions Dosage Frequency Start Date End Date Duration Status Flonase 50 MCG/ACT Nasally Once a day 1 spray in each nostril 24h Active Incruse Ellipta 62.5 MCG/INH Inhalation Once a day 1 puff 24h Active Symbicort 160-4.5 MCG/ACT Inhalation Twice a day INHALE TWO PUFFS BY MOUTH TWICE DAILY 12h 30 days Active Wellbutrin XL 300 MG Orally Once a day 1 tablet in the morning 24h 30 days Active Albuterol Sulfate (2.5 MG/3ML) 0.083% Inhalation Three times a day 3 ml as needed 8h Active Cetirizine HCl 10 MG Orally Once a day 1 tablet 24h Active Klonopin 0.5 MG Orally Twice a day 1 tablet 12h 30 days Active Pantoprazole Sodium 40 MG Orally Once a day 1 tablet 24h Active Singulair 10 mg Orally Once a day 1 tablet in the evening 24h Active Carafate 1 GM Orally PRN 1 tablet at bedtime on an empty stomach before meals Active Oxygen Active Proventil HFA 108 (90 Base) MCG/ACT INHALE TWO PUFFS BY MOUTH EVERY 4 HOURS NEEDED 30 Active Ibuprofen 800 MG TAKE ONE TABLET BY MOUTH THREE TIMES DAILY 30 Active RESULTS No Results PROCEDURES Procedure Date Ordered Result Body Site [facility] VISIT ESTABLISHED PATIENT October 20, 2017 INSTRUCTIONS MEDICATIONS ADMINISTERED No Known Medications MEDICAL (GENERAL) HISTORY Type Description Date Medical History Asthma Medical History Anxiety Medical History Depression Medical History Headaches Medical History COPD/emphysema Medical History Bone density 11/01/13 heel US WNL Surgical History Breast reduction Surgical History lap band Surgical History Tubal ligation Surgical History section Hospitalization History Sepsis 2011
--- OUTSIDE RECORDS SUMMARY | 2018-05-03 10:58 | XMS REPORT ---
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 Phone ELEAZARRAUL LOCKETT Unavailable PROBLEMS Type Condition ICD9-CM Code TLC11-[place] Code Onset Dates Condition Status SNOMED Code Problem Chronic obstructive pulmonary disease with (acute) exacerbation J44.1 Active 664197890 Problem Depressive disorder, not elsewhere classified F32.9 Active 70171213 Problem Anxiety state, unspecified F41.1 Active 347027259 Problem Chronic obstructive pulmonary disease, unspecified J44.9 Active 42614681 Problem Anxiety F41.9 Active 13638176 Problem Mixed hyperlipidemia E78.2 Active 515197889 Problem Hyperlipidemia E78.5 Active 97917692 Problem Iron deficiency anemia D50.9 Active 47278910 Problem Dysthymic disorder F34.1 Active 11644536 Problem COPD exacerbation J44.1 Active 999801968115043 Problem Severe persistent asthma without complication J45.50 Active 494214347 Problem COPD with acute exacerbation J44.1 Active 429258017 Problem Major depressive disorder with single episode, remission status unspecified F32.9 Active 97768791 Problem 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.0 Active 99441801 Problem Environmental allergies Z91.09 Active 777347388 Problem Chronic obstructive pulmonary disease with acute lower respiratory infection J44.0 Active 714840785 Problem Other chronic pain G89.29 Active 30510583 Problem COPD (chronic obstructive pulmonary disease) with chronic bronchitis J44.9 Active 458406915 Problem Dependence on continuous supplemental oxygen Z99.81 Active 21653336437152 Problem Acute exacerbation of chronic obstructive pulmonary disease (COPD) J44.1 Active 481963363 Problem Chronic pain syndrome G89.4 Active 001181918 Problem Acute seasonal allergic rhinitis, unspecified trigger J30.2 Active 922380954 ALLERGIES No Information ENCOUNTERS Encounter Location Date Diagnosis [facility] [address] [facility] [id number] [place] [address] 27232- 4505 Feb, [place] [address] [place] [id number] [place] [address] 51496- 6206 Dec, Chronic obstructive pulmonary disease, unspecified J44.9 [facility] [address] [place] [id number] [place] [address] 10073- 6914 Nov, [place] [address] [place] [id number] [place] [address] 09099- 6313 Nov, Mixed hyperlipidemia E78.2 [facility] [address] [place] [id number] [place] [address] 48093 -2926 Nov, Environmental allergies Z91.09 [place] [address] [place] [id number] [place] [address] 42197- 9290 Nov, Iron deficiency anemia D50.9 and Hyperlipidemia E78.5 [place] [address] [place] [id number] [place] [address] 06329- 4847 October, Severe persistent asthma without complication J45.50 ; Hyperlipidemia E78.5 ; Iron deficiency anemia D50.9 ; Pain in thoracic spine M54.6 and Other chronic pain G89.29 [place] [address] [place] [id number] [place] [address] 28182- 6398 October, Chronic pain syndrome G89.4 [place] [address] [place] [id number] [place] [address] 03575- 5463 October, 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.0 and Anxiety state, unspecified F41.1 [facility] [id number] [place] [address] 92452 -1444 Aug, COPD with acute exacerbation J44.1 [place] [address] [place] [id number] [place] [address] 67497- 5967 Aug, Chronic obstructive pulmonary disease with acute lower respiratory infection J44.0 [place] [id number] [place] [address] 92392- 2453 Aug, 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.0 [facility] [address] [place] [id number] [place] [address] 78006- 4839 08 Jul, 2017 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.0 and Anxiety state, unspecified F41.1 [facility] [address] [place] [id number] [place] [address] 57018- 8469 Jul, Anxiety F41.9 and Chronic pain syndrome G89.4 [place] [address] 25829- 4945 Jun, Dysthymic disorder F34.1 and Anxiety state, unspecified F41.1 [place] [address] 44106- 1446 Jun, Anxiety state, unspecified F41.1 and 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.0 [place] [address] [place] [id number] [place] [address] 38434- 0273 Jun, [facility] [address] [place] [id number] [place] [address] 69469 -5438 May, COPD exacerbation J44.1 [place] [address] 61066- 2606 May, Depressive disorder, not elsewhere classified F32.9 and Anxiety state, unspecified F41.1 [place] [address] [place] [id number] [place] [address] 47939- 7140 May, Chronic obstructive pulmonary disease with acute lower respiratory infection J44.0 and Acute seasonal allergic rhinitis, unspecified trigger J30.2 [facility] [address] [place] [id number] [place] [address] 78048 -2226 May, Acute exacerbation of chronic obstructive pulmonary disease (COPD) J44.1 [facility] [address] [place] [id number] [place] [address] 49576- 3293 Apr, Encounter for immunization Z23 [facility] [address] 57055- 1300 Apr, [facility] [address] [place] [id number] [place] [address] 15824- 5535 Apr, Back pain 724.5 [facility] [place] [address] [address] [id number] [place] [address] 79553 -3262 Mar, Acute seasonal allergic rhinitis, unspecified trigger J30.2 and Sore throat J02.9 [facility] [place] [address] 82047 -3275 Mar, Acute exacerbation of chronic obstructive pulmonary disease (COPD) J44.1 [place] [address] 42899- 1890 28 Feb, 2017 COPD (chronic obstructive pulmonary disease) with chronic bronchitis J44.9 ; Low back pain M54.5 and Other chronic pain G89.29 [facility] [address] 77782 -7264 Feb, Decreased breath sounds R06.89 and Acute exacerbation of chronic obstructive pulmonary disease (COPD) J44.1 [place] [address] [place] [id number] [place] [address] 61291- 1854 15 Feb, 2017 [place] [address] 70419- 0046 Feb, [place] [address] [place] [id number] [place] [address] 93773- 8416 Jan, Major depressive disorder with single episode, remission status unspecified F32.9 [facility] [address] [place] [id number] [place] [address] 98365 -3877 16 Dec, 2016 Allergic contact dermatitis, unspecified trigger L23.9 [facility] [address] 17325 -2795 13 Dec, 2016 Allergic reaction, initial encounter T78.40XA [address] 47906- 0067 14 Nov, 2016 Hyperlipidemia E78.5 ; Chronic obstructive pulmonary disease with acute lower respiratory infection J44.0 and Iron deficiency anemia D50.9 [facility] [id number] [place] [address] 46940- 5408 Nov, Hyperlipidemia E78.5 ; Iron deficiency anemia D50.9 ; Chronic obstructive pulmonary disease with acute lower respiratory infection J44.0 ; Environmental allergies Z91.09 and Major depressive disorder with single episode, remission status unspecified F32.9 [facility] [id number] [place] [address] 52365 -1281 Sep, Shortness of breath R06.02 and COPD exacerbation J44.1 [place] [address] [place] [id number] [place] [address] 21682- 1712 Sep, Chronic obstructive pulmonary disease with acute lower respiratory infection J44.0 [facility] [address] [place] [id number] [place] [address] 76053- 3732 Jun, Anxiety F41.9 [place] [address] [place] [id number] [place] [address] 18925- 0010 Jun, Chronic obstructive pulmonary disease with acute lower respiratory infection J44.0 ; Dependence on continuous supplemental oxygen Z99.81 ; Iron deficiency anemia D50.9 ; Anxiety F41.9 ; 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.0 ; Hypercholesterolemia E78.00 and Chronic pain syndrome G89.4 [place] [address] [place] [address] 05727- 2402 May, Anxiety F41.9 [place] [id number] [place] [address] 28004- 7426 May, [place] [id number] [place] [address] 09539- 8144 Feb, [place] [address] [place] [id number] [place] [address] 95120- 5937 Jan, Chronic obstructive pulmonary disease with acute lower respiratory infection J44.0 ; Major depressive disorder with single episode, remission status unspecified F32.9 ; Environmental allergies Z91.09 ; Anxiety F41.9 ; Hyperlipidemia E78.5 ; Iron deficiency anemia, unspecified iron deficiency anemia type D50.9 ; Other chronic pain G89.29 and Lumbago with sciatica, unspecified side M54.40 [place] [address] [place] [id number] [place] [address] 93425- 5964 Sep, Hyperlipidemia E78.5 and Iron deficiency anemia D50.9 [place] [address] 92366- 3960 Sep, COPD (chronic obstructive pulmonary disease) 496 ; Back pain 724.5 ; Anxiety 300.00 ; Hyperlipidemia E78.5 ; Iron deficiency anemia D50.9 and Headache R51 [address] 10648- 5694 Aug, [place] [address] 29640- 3682 Mar, Hyperlipidemia E78.5 and Iron deficiency anemia D50.[address] 71158- 3115 Mar, Routine adult health maintenance V70.[address] 57645- 3752 Mar, Orbital cellulitis on left H05.012 [place] [id number] [place] [address] 81528- 6629 Mar, [address] 25184- 5905 Feb, Breast cancer screening V76.10 [place] [id number] [place] [address] 53076- 9816 Feb, Routine adult health maintenance V70.0 ; COPD (chronic obstructive pulmonary disease) 496 ; Special screening for malignant neoplasms, colon V76.51 and 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.9 [place] [id number] [place] [address] 89658- 8460 Feb, [address] [place] [address]- 2546 Dec, Asthma, unspecified, unspecified status 493.90 ; Back pain 724.5 ; COPD (chronic obstructive pulmonary disease) 496 and Anxiety 300.00 [facility] [address] [id number] Dec, Dental examination V72.2 [facility] [address] [place] [id number] [address]- 2546 Dec, Back pain 724.5 ; COPD (chronic obstructive pulmonary disease) 496 and Anxiety 300.00 [facility] [address] [place] [id number] [place] [address] [id number] Dec, Dental examination V72.2 [facility] [address] [place] [id number] [place] [address] [id number] Nov, Dental examination V72.2 [facility] [address] [place] [id number] [place] [address] [id number] October, Dental examination V72.2 [facility] [address] [address] 2546 Sep, [facility] [address] [address]- 2546 Sep, [facility] [address] [address] 2546 Aug, [facility] [address] [address]- 2546 Aug, [facility] [address] [address]- 2546 Aug, [facility] [address] [place] [id number] [address] 2546 Aug, [facility] [address] [address]- 2546 Aug, [facility] [address] [address]- 0576 Aug, [facility] [place] [facility] [address] [id number] [place] [address]- 4038 Jul, [facility] [place] [facility] [address] [id number] [place] [address]- 5206 Jul, [facility] [place] [facility] [address] [id number] [place] [address] Jul, [facility] [place] [facility] [address] [id number] [place] [address]- 8772 Jul, [facility] [place] [facility] [address] [id number] [place] [address]- 0564 Jun, [facility] [place] [facility] [address] [id number] [place] [address]- 9341 Jun, [facility] [place] [facility] [address] [id number] [place] [address]- 9992 Nov, [facility] [place] [facility] [address] [id number] [place] [address]- 0183 Nov, [facility] [place] [facility] [address] [id number] [place] [address]- 6986 October, [facility] [place] [facility] [address] [id number] [place] [address]- 4673 October, [facility] [place] [facility] [address] [id number] [place] [address]- 2517 October, [facility] [place] [facility] [address] [id number] [place] [address]- 3934 October, [facility] [place] [facility] [address] [id number] [place] [address]- 4305 October, [facility] [place] [facility] [address] [id number] [place] [address]- 7855 October, [facility] [place] [facility] [address] [id number] [place] [address]- 5412 October, [facility] [place] [facility] [address] [id number] [place] [address]- 3295 October, [facility] [address] [id number] [place] [address]- 7224 Sep, [facility] [place] [facility] [address] [id number] [place] [address]- 8535 Sep, [facility] [address] [id number] [place] [address]- 3602 Sep, [facility] [place] [facility] [address] [id number] [place] [address]- 4770 Sep, [facility] [address] [id number] [place] [address]- 7065 Sep, [facility] [place] [facility] [address] [id number] [place] [address]- 9471 Sep, [facility] [address] [id number] [place] [address]- 1088 Sep, [facility] [address] [id number] [place] [address]- 4811 Sep, [facility] [place] [facility] [address] [id number] [place] [address]- 8382 Sep, [facility] [address] [id number] [place] [address]- 9602 Sep, [facility] [place] [facility] [address] [id number] [place] [address]- 4662 Sep, [facility] [place] [facility] [address] [id number] [place] [address]- 3788 Sep, [facility] [place] [facility] [address] [id number] [place] [address]- 0672 Sep, [facility] [place] [facility] [address] [id number] [place] [address]- 0082 Sep, [facility] [place] [facility] [address] [id number] [place] [address]- 9569 Aug, [facility] [address] [facility] [id number] [place] [address] [address] Aug, [facility] [address] [facility] [id number] [place] [address]- 3137 Aug, IMMUNIZATIONS No Known Immunizations SOCIAL HISTORY Never Assessed REASON FOR VISIT klonopin refill PLAN OF CARE VITAL SIGNS MEDICATIONS Medication Instructions Dosage Frequency Start Date End Date Duration Status Klonopin 0.5 MG Orally Twice a day [...]
--- OUTSIDE RECORDS SUMMARY | 2018-05-03 10:58 | XMS REPORT ---
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 Name Role Phone YESSI FARRIS Unavailable PROBLEMS Type Condition ICD9-CM Code [id number] Code Onset Dates Condition Status SNOMED Code Problem Chronic obstructive pulmonary disease with (acute) exacerbation J44.1 Active 247898610 Problem Depressive disorder, not elsewhere classified F32.9 Active 67352098 Problem Anxiety state, unspecified F41.1 Active 906476476 Problem Chronic obstructive pulmonary disease, unspecified J44.9 Active 68282821 Problem Anxiety F41.9 Active 12379830 Problem Mixed hyperlipidemia E78.2 Active 166947204 Problem Hyperlipidemia E78.5 Active 81321337 Problem Iron deficiency anemia D50.9 Active 46307857 Problem Dysthymic disorder F34.1 Active 58919402 Problem COPD exacerbation J44.1 Active 954931472735705 Problem Severe persistent asthma without complication J45.50 Active 795203912 Problem COPD with acute exacerbation J44.1 Active 116979607 Problem Major depressive disorder with single episode, remission status unspecified F32.9 Active 52784530 Problem 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.0 Active 65832599 Problem Environmental allergies Z91.09 Active 242712668 Problem Chronic obstructive pulmonary disease with acute lower respiratory infection J44.0 Active 256536112 Problem Other chronic pain G89.29 Active 36762869 Problem COPD (chronic obstructive pulmonary disease) with chronic bronchitis J44.9 Active 424428795 Problem Dependence on continuous supplemental oxygen Z99.81 Active 42684502123658 Problem Acute exacerbation of chronic obstructive pulmonary disease (COPD) J44.1 Active 885306005 Problem Chronic pain syndrome G89.4 Active 404022920 Problem Acute seasonal allergic rhinitis, unspecified trigger J30.2 Active 225970073 ALLERGIES No Information ENCOUNTERS Encounter Location Date Diagnosis [facility] [address] [facility] [id number] [address] Feb, [facility] [id number] [place] [address] 85219- 1619 Dec, Chronic obstructive pulmonary disease, unspecified J44.9 [facility] [id number] [place] [address] 96199- 6706 Nov, [place] [id number] [place] [address] 14135- 8237 Nov, Mixed hyperlipidemia E78.2 [facility] [id number] [place] [address] 15619 -3397 Nov, Environmental allergies Z91.09 [place] [id number] [place] [address] 76397- 3777 Nov, Iron deficiency anemia D50.9 and Hyperlipidemia E78.5 [place] [id number] [place] [address] 99671- 3492 October, Severe persistent asthma without complication J45.50 ; Hyperlipidemia E78.5 ; Iron deficiency anemia D50.9 ; Pain in thoracic spine M54.6 and Other chronic pain G89.29 [place] [id number] [place] [address] 71705- 8526 October, Chronic pain syndrome G89.4 [facility] [id number] [place] [address] 55213- 4834 October, 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.0 and Anxiety state, unspecified F41.1 [facility] [id number] [place] [address] 13623 -3798 Aug, COPD with acute exacerbation J44.1 [place] [id number] [place] [address] 38179- 7926 Aug, Chronic obstructive pulmonary disease with acute lower respiratory infection J44.0 [place] [id number] [place] [address] 16016- 0250 Aug, 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.0 [facility] [id number] [place] [address] 24070- 6399 08 Jul, 2017 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.0 and Anxiety state, unspecified F41.1 [facility] [id number] [place] [address] 64551- 7418 06 Jul, 2017 Anxiety F41.9 and Chronic pain syndrome G89.4 [place] [address] 04334- 0113 Jun, Dysthymic disorder F34.1 and Anxiety state, unspecified F41.1 [place] [address] 13904- 1887 Jun, Anxiety state, unspecified F41.1 and 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.0 [place] [id number] [place] [address] 02053- 6369 Jun, [facility] [address] 9[address]18 [address]4306 May, COPD exacerbation J44.1 [place] [address] 21598- 2101 May, Depressive disorder, not elsewhere classified F32.9 and Anxiety state, unspecified F41.1 [place] [id number] [place] [address] 05681- 7211 May, Chronic obstructive pulmonary disease with acute lower respiratory infection J44.0 and Acute seasonal allergic rhinitis, unspecified trigger J30.2 [facility] [id number] [place] [address] 89903 -9842 May, Acute exacerbation of chronic obstructive pulmonary disease (COPD) J44.1 [facility] [address] 83614- 0164 Apr, Encounter for immunization Z23 [facility] [address] 58198- 8417 Apr, [place] [id number] [place] [address] 57558- 2915 Apr, Back pain 724.5 [facility] [place] [address] 75383 -1522 Mar, Acute seasonal allergic rhinitis, unspecified trigger J30.2 and Sore throat J02.9 [facility] [place] [address] 38077 -7117 Mar, Acute exacerbation of chronic obstructive pulmonary disease (COPD) J44.1 [place] [address] 22056- 4897 Feb, COPD (chronic obstructive pulmonary disease) with chronic bronchitis J44.9 ; Low back pain M54.5 and Other chronic pain G89.29 [facility] [address] [address]53 Feb, Decreased breath sounds R06.89 and Acute exacerbation of chronic obstructive pulmonary disease (COPD) J44.1 [place] [address] 26739- 1367 15 Feb, 2017 [place] [address] 74476- 4532 Feb, [place] [address] 11802- 8052 Jan, Major depressive disorder with single episode, remission status unspecified F32.9 [facility] [id number] [place] [address] 67404 -0075 16 Dec, 2016 Allergic contact dermatitis, unspecified trigger L23.9 [facility] [address] 25485 -3140 13 Dec, 2016 Allergic reaction, initial encounter T78.40XA [place] [address] 07134- 2964 14 Nov, 2016 Hyperlipidemia E78.5 ; Chronic obstructive pulmonary disease with acute lower respiratory infection J44.0 and Iron deficiency anemia D50.9 [facility] [address] [address] Nov, Hyperlipidemia E78.5 ; Iron deficiency anemia D50.9 ; Chronic obstructive pulmonary disease with acute lower respiratory infection J44.0 ; Environmental allergies Z91.09 and Major depressive disorder with single episode, remission status unspecified F32.9 [facility] [id number] [place] [address] 88279 -8360 Sep, Shortness of breath R06.02 and COPD exacerbation J44.1 [facility] [id number] [place] [address] 89966- 3515 Sep, Chronic obstructive pulmonary disease with acute lower respiratory infection J44.0 [facility] [id number] [place] [address] 40272- 1303 Jun, Anxiety F41.9 [place] [id number] [place] [address] 58665- 9420 Jun, Chronic obstructive pulmonary disease with acute lower respiratory infection J44.0 ; Dependence on continuous supplemental oxygen Z99.81 ; Iron deficiency anemia D50.9 ; Anxiety F41.9 ; 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.0 ; Hypercholesterolemia E78.00 and Chronic pain syndrome G89.4 [place] [address] [place] [address] 85239- 1408 May, Anxiety F41.9 [facility] [id number] [place] [address] 99116- 5881 May, [facility] [address] [place] [address] 58857- 7027 Feb, [place] [id number] [place] [address] 42481- 6637 Jan, Chronic obstructive pulmonary disease with acute lower respiratory infection J44.0 ; Major depressive disorder with single episode, remission status unspecified F32.9 ; Environmental allergies Z91.09 ; Anxiety F41.9 ; Hyperlipidemia E78.5 ; Iron deficiency anemia, unspecified iron deficiency anemia type D50.9 ; Other chronic pain G89.29 and Lumbago with sciatica, unspecified side M54.40 [place] [id number] [place] [address] 35550- 6045 Sep, Hyperlipidemia E78.5 and Iron deficiency anemia D50.9 [place] [id number] [place] [address] 72777- 0116 15 Sep, 2015 COPD (chronic obstructive pulmonary disease) 496 ; Back pain 724.5 ; Anxiety 300.00 ; Hyperlipidemia E78.5 ; Iron deficiency anemia D50.9 and Headache R51 [place] [address] 41688- 7572 Aug, [place] [address] 55306- 7510 Mar, Hyperlipidemia E78.5 and Iron deficiency anemia D50.9 [place] [address] 03449- 0615 Mar, Routine adult health maintenance V70.0 [place] [address] 42600- 7242 Mar, Orbital cellulitis on left H05.012 [place] [id number] [place] [address] 23361- 1750 Mar, [place] [address] 26033- 0022 Feb, Breast cancer screening V76.10 [place] [id number] [place] [address] 87576- 5265 08 Feb, 2015 Routine adult health maintenance V70.0 ; COPD (chronic obstructive pulmonary disease) 496 ; Special screening for malignant neoplasms, colon V76.51 and 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.9 [place] [id number] [place] [address] 74610- 8743 Feb, [place] [address] 95339 2546 Dec, Asthma, unspecified, unspecified status 493.90 ; Back pain 724.5 ; COPD (chronic obstructive pulmonary disease) 496 and Anxiety 300.00 [facility] [address] [place] [address] [id number] Dec, Dental examination V72.2 [facility] [id number] [place] [address] 16040- 2546 Dec, Back pain 724.5 ; COPD (chronic obstructive pulmonary disease) 496 and Anxiety 300.00 [facility] [address] [place] [id number] [place] [address] [id number] Dec, Dental examination V72.2 [facility] [id number] [place] [address] [id number] Nov, Dental examination V72.2 [facility] [address] [id number] [place] [address] [id number] October, Dental examination V72.2 [facility] [address] [place] [address] 05530- 7466 Sep, [facility] [id number] [place] [address] 74273- 0066 Sep, [facility] [address] [address]- 4125 Aug, [facility] [address], [place] [address]- 1556 Aug, [facility] [address], [place] [address] 2546 Aug, [facility] [address] [place] [id number] [place] [address] 75825- 8558 Aug, [facility] [id number] [address]- 2546 Aug, [facility] [address], [place] [address]- 2747 Aug, [facility] [address] [id number] [place] [address]- 5824 Jul, [facility] [place] [facility] [address] [id number] [place] [address]- 6416 Jul, [facility] [place] [facility] [address] [id number] [place] [address]- 1579 Jul, [facility] [place] [facility] [address] [id number] [place] [address]- 1879 Jul, [facility] [place] [facility] [address] [id number] [place] [address]- 3665 Jun, [facility] [place] [facility] [address] [id number] [place] [address]- 7904 Jun, [facility] [place] [facility] [address] [id number] [place] [address]- 4493 Nov, [facility] [place] [facility] [address] [id number] [place] [address]- 1939 Nov, [facility] [place] [facility] [address] [id number] [place] [address]- 4155 October, [facility] [place] [facility] [address] [id number] [place] [address]- 3926 October, [facility] [place] [facility] [address] [id number] [place] [address]- 5434 October, [facility] [place] [facility] [address] [id number] [place] [address]- 1534 October, [facility] [place] [facility] [address] [id number] [place] [address]- 3083 October, [facility] [place] [facility] [address] [id number] [place] [address]- 2301 October, [facility] [place] [facility] [address] [id number] [place] [address]- 7543 October, [facility] [place] [facility] [address] [id number] [place] [address]- 2994 October, [facility] [place] [facility] [address] [id number] [place] [address]- 4821 Sep, [facility] [place] [facility] [address] [id number] [place] [address]- 6323 Sep, [facility] [place] [facility] [address] [id number] [place] [address]- 1768 Sep, [facility] [place] [facility] [address] [id number] [place] [address]- 6145 Sep, [facility] [place] [facility] [address] [id number] [place] [address]- 6944 Sep, [facility] [place] [facility] [address] [id number] [place] [address]- 8908 Sep, [facility] [place] [facility] [address] [id number] [place] [address]- 9329 Sep, [facility] [place] [facility] [address] [id number] [place] [address]- 9905 Sep, [facility] [place] [facility] [address] [id number] [place] [address]- 9556 Sep, [facility] [place] [facility] [address] [id number] [place] [address]- 5951 Sep, [facility] [place] [facility] [address] [id number] [place] [address]- 0334 Sep, [facility] [place] [facility] [address] [id number] [place] [address]- 5101 Sep, [facility] [place] [facility] [address] [id number] [place] [address]- 6534 Sep, [facility] [place] [facility] [address] [id number] [place] [address]- 9531 Sep, [facility] [place] [facility] [address] [id number] [place] [address]- 9477 Aug, [facility] [place] [facility] [address] [facility] [id number] [place] [address]- 6436 Aug, [facility] [address] [facility] [id number] [address]- 4417 Aug, IMMUNIZATIONS No Known Immunizations SOCIAL HISTORY Never Assessed REASON FOR VISIT f/u, Depresson and anxiety. PLAN OF CARE Activity Details Follow Up 2 Weeks Reason:depression & anxiety VITAL SIGNS MEDICATIONS Unknown Medications RESULTS No Results PROCEDURES Procedure Date Ordered Result Body Site [facility] VISIT MENTAL HEALTH ESTAB PT Jun 23, 2017 Psychotherapy, patient &/family, 30 minutes, established patient Jun 23, 2017 visit needs to be added to the same day medical Jun 23, 2017 INSTRUCTIONS MEDICATIONS ADMINISTERED No Known Medications MEDICAL (GENERAL) HISTORY Type Description Date Medical History Asthma Medical History Anxiety Medical History Depression Medical History Headaches Medical History COPD/emphysema Medical History Bone density 11/01/13 heel US WNL Surgical History Breast reduction Surgical History lap band Surgical History Tubal ligation Surgical History section Hospitalization History Sepsis 2010
--- OUTSIDE RECORDS SUMMARY | 2018-05-03 10:59 | XMS REPORT ---
Author Author TAY RAUL Organization [facility] Address [address] [place] [address] Care Team Providers Care Outsole Cementer Machine Name Role Phone ELEAZARLEVY RAUL Unavailable PROBLEMS Type Condition ICD9-CM Code QEB78-TV Code Onset Dates Condition Status SNOMED Code Problem Acute seasonal allergic rhinitis, unspecified trigger J30.2 Active 119280445 Problem Anxiety state, unspecified F41.1 Active 557932725 Problem Chronic obstructive pulmonary disease with (acute) exacerbation J44.1 Active 657265413 Problem Mixed hyperlipidemia E78.2 Active 470566400 Problem Hyperlipidemia E78.5 Active 12480016 Problem Severe persistent asthma without complication J45.50 Active 325605752 Problem Iron deficiency anemia D50.9 Active 28754327 Problem COPD exacerbation J44.1 Active 022962405786205 Problem Depressive disorder, not elsewhere classified F32.9 Active 17142600 Problem COPD with acute exacerbation J44.1 Active 108107237 Problem Dysthymic disorder F34.1 Active 35696478 Problem Chronic obstructive pulmonary disease with acute lower respiratory infection J44.0 Active 087673052 Problem Major depressive disorder with single episode, remission status unspecified F32.9 Active 40550982 Problem Anxiety F41.9 Active 04454217 Problem Environmental allergies Z91.09 Active 739242735 Problem Chronic pain syndrome G89.4 Active 231025895 Problem Other chronic pain G89.29 Active 10197934 Problem 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.0 Active 72524139 Problem COPD (chronic obstructive pulmonary disease) with chronic bronchitis J44.9 Active 617861799 Problem Dependence on continuous supplemental oxygen Z99.81 Active 42786289924303 Problem Acute exacerbation of chronic obstructive pulmonary disease (COPD) J44.1 Active 876975286 ALLERGIES No Known Allergies ENCOUNTERS Encounter Location Date Diagnosis [facility] [address] [facility] [id number] [address] Feb, [place] [address] [id number] [place] [address] 95560- 0697 Nov, Mixed hyperlipidemia E78.2 [facility] [place] [address] [address] [place] [id number] [place] [address] 54105 [address]6041 Nov, Environmental allergies Z91.09 [place] [address] [address] [place] [id number] [place] [address] 90502- 8311 Nov, Iron deficiency anemia D50.9 and Hyperlipidemia E78.5 [place] [address] [address] [place] [id number] [place] [address] 09620- 4885 October, Severe persistent asthma without complication J45.50 ; Hyperlipidemia E78.5 ; Iron deficiency anemia D50.9 ; Pain in thoracic spine M54.6 and Other chronic pain G89.29 [place] [address] [address] [place] [id number] [place] [address] 39441- 0041 October, Chronic pain syndrome G89.4 [place] [address] [address] [place] [id number] [place] [address] 79294- 2152 October, 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.0 and Anxiety state, unspecified F41.1 [facility] [place] [address] [address] [place] [id number] [place] [address] 04636 -0714 Aug, COPD with acute exacerbation J44.1 [place] [address] [address] [place] [id number] [place] [address] 21896- 3462 Aug, Chronic obstructive pulmonary disease with acute lower respiratory infection J44.0 [place] [address] [address] [place] [id number] [place] [address] 26765- 3219 Aug, 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.0 [place] [address] [address] [place] [id number] [place] [address] 65433- 0354 Jul, 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.0 and Anxiety state, unspecified F41.1 [place] [address] [address] [place] [id number] [place] [address] 08492- 6741 Jul, Anxiety F41.9 and Chronic pain syndrome G89.4 [place] [address] [address] [place] [id number] [place] [address] 25222- 6390 Jun, Dysthymic disorder F34.1 and Anxiety state, unspecified F41.1 [place] [address] [address]- 1778 Jun, Anxiety state, unspecified F41.1 and 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.0 [place] [address] 86503- 0790 Jun, [facility] [place] [address] [address] May, COPD exacerbation J44.1 [place] [address] 19509- 5448 May, Depressive disorder, not elsewhere classified F32.9 and Anxiety state, unspecified F41.1 [place] [address] 28580- 3552 May, Chronic obstructive pulmonary disease with acute lower respiratory infection J44.0 and Acute seasonal allergic rhinitis, unspecified trigger J30.2 [facility] [place] [address] [address] [place] [id number] [place] [address] 69749 -2330 May, Acute exacerbation of chronic obstructive pulmonary disease (COPD) J44.1 [place] [address] 13710- 7929 Apr, Encounter for immunization Z23 [place] [address] 27363- 0381 Apr, [place] [address] 44267- 7636 Apr, Back pain 724.5 [facility] [place] [address] 66283 -0319 Mar, Acute seasonal allergic rhinitis, unspecified trigger J30.2 and Sore throat J02.9 [facility] [address] [place] [id number] [place] [address] 77699 -1410 13 Mar, 2017 Acute exacerbation of chronic obstructive pulmonary disease (COPD) J44.1 [place] [address] [address] [place] [id number] [place] [address] 90765- 2880 28 Feb, 2017 COPD (chronic obstructive pulmonary disease) with chronic bronchitis J44.9 ; Low back pain M54.5 and Other chronic pain G89.29 [facility] [place] [id number] [place] [address] 41172 -2996 21 Feb, 2017 Decreased breath sounds R06.89 and Acute exacerbation of chronic obstructive pulmonary disease (COPD) J44.[address] 27330- 3186 15 Feb, [address] 46749- 2281 11 Feb, 2017 [place] [id number] [place] [address] 90425- 1635 Jan, Major depressive disorder with single episode, remission status unspecified F32.9 [facility] [place] [id number] [place] [address] 10546 -4639 16 Dec, 2016 Allergic contact dermatitis, unspecified trigger L23.9 [facility] [place] [id number] [place] [address] 66015 -7042 13 Dec, 2016 Allergic reaction, initial encounter T78.40XA [place] [id number] [place] [address] 38283- 7614 14 Nov, 2016 Hyperlipidemia E78.5 ; Chronic obstructive pulmonary disease with acute lower respiratory infection J44.0 and Iron deficiency anemia D50.9 [place] [id number] [place] [address] 32731- 0493 02 Nov, 2016 Hyperlipidemia E78.5 ; Iron deficiency anemia D50.9 ; Chronic obstructive pulmonary disease with acute lower respiratory infection J44.0 ; Environmental allergies Z91.09 and Major depressive disorder with single episode, remission status unspecified F32.9 [facility] [address] [address] Sep, Shortness of breath R06.02 and COPD exacerbation J44.1 [facility] [address] [place] [id number] [place] [address] 37161- 2330 Sep, Chronic obstructive pulmonary disease with acute lower respiratory infection J44.0 [facility] [address] [place] [id number] [place] [address] 79993- 3867 Jun, Anxiety F41.9 [place] [address] [place] [id number] [place] [address] 48106- 2614 Jun, Chronic obstructive pulmonary disease with acute lower respiratory infection J44.0 ; Dependence on continuous supplemental oxygen Z99.81 ; Iron deficiency anemia D50.9 ; Anxiety F41.9 ; 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.0 ; Hypercholesterolemia E78.00 and Chronic pain syndrome G89.4 [facility] [address] [place] [id number] [place] [address] 31605- 5586 May, Anxiety F41.9 [facility] [address] [place] [id number] [place] [address] 46605- 5323 May, [facility] [address] [place] [id number] [place] [address] 29729- 9373 Feb, [place] [address] [address] [place] [id number] [place] [address] 05280- 3579 Jan, Chronic obstructive pulmonary disease with acute lower respiratory infection J44.0 ; Major depressive disorder with single episode, remission status unspecified F32.9 ; Environmental allergies Z91.09 ; Anxiety F41.9 ; Hyperlipidemia E78.5 ; Iron deficiency anemia, unspecified iron deficiency anemia type D50.9 ; Other chronic pain G89.29 and Lumbago with sciatica, unspecified side M54.40 [facility] [address] [place] [address] 88543- 3829 Sep, Hyperlipidemia E78.5 and Iron deficiency anemia D50.9 [place] [address] [address] 9[address] Sep, COPD (chronic obstructive pulmonary disease) 496 ; Back pain 724.5 ; Anxiety 300.00 ; Hyperlipidemia E78.5 ; Iron deficiency anemia D50.9 and Headache R51 [facility] [address] [place] [address] 83882- 8803 Aug, [facility] [address] [place] [id number] [place] [address] 51428- 9090 Mar, Hyperlipidemia E78.5 and Iron deficiency anemia D50.9 [place] [address] [address] [place] [id number] [place] [address] 41504- 6550 Mar, Routine adult health maintenance V70.0 [place] [address] [address] [place] [id number] [place] [address] 75762- 0737 Mar, Orbital cellulitis on left H05.012 [place] [address] [address] [place] [id number] [place] [address] 38198- 8885 Mar, [facility] [address] [place] [id number] [place] [address] 31074- 1805 Feb, Breast cancer screening V76.10 [facility] [address] [place] [id number] [place] [address] 00034- 3964 08 Feb, 2015 Routine adult health maintenance V70.0 ; COPD (chronic obstructive pulmonary disease) 496 ; Special screening for malignant neoplasms, colon V76.51 and 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.9 [facility] [address] [address]- 8383 Feb, [place] [address] [address] [place] [id number] [place] [address] 35638- 2441 Dec, Asthma, unspecified, unspecified status 493.90 ; Back pain 724.5 ; COPD (chronic obstructive pulmonary disease) 496 and Anxiety 300.00 [facility] [address] [id number] Dec, Dental examination V72.2 [facility] [address] [id number] [place] [address]- 2546 Dec, Back pain 724.5 ; COPD (chronic obstructive pulmonary disease) 496 and Anxiety 300.00 [facility] [address] [id number] [id number] Dec, Dental examination V72.2 [facility] [address] [id number] [id number] Nov, Dental examination V72.2 [facility] [address] [place] [id number] [place] [address] [id number] October, Dental examination V72.2 [facility] [id number] [place] [address] 25058- 2546 Sep, [facility] [address] [facility] [id number] [address] 2546 Sep, [facility] [address] [facility] [id number] [place] [address] 99413 2546 Aug, [facility] [address] [facility] [id number] [place] [address]- 3312 Aug, [facility] [address] [facility] [id number] [place] [address]- 9616 Aug, [facility] [address] [place] [id number] [address]- 1576 Aug, [facility] [address] [facility] [id number] [place] [address]- 2546 Aug, [facility] [address] [facility] [id number] [place] [address] 2546 Aug, [facility] [address] [facility] [id number] [place] [address]- 2546 Jul, [facility] [address] [facility] [id number] [place] [address]- 2546 Jul, [facility] [address] [facility] [id number] [place] [address]- 6902 Jul, [facility] [address] [id number] [place] [address]- 5446 Jul, [facility] [address] [id number] [place] [address]- 8405 Jun, [facility] [address] [id number] [place] [address]- 7238 Jun, [facility] [address] [id number] [place] [address]- 6919 Nov, [facility] [address] [id number] [place] [address]- 6822 Nov, [facility] [address] [id number] [place] [address]- 3617 October, [facility] [address] [id number] [place] [address]- 4629 October, [facility] [address] [id number] [place] [address]- 7597 October, [facility] [address] [id number] [place] [address]- 9312 October, [facility] [address] [id number] [place] [address]- 9460 October, [facility] [address] [id number] [place] [address]- 8273 October, [facility] [place] [facility] [address] [id number] [place] [address]- 0579 October, [facility] [place] [facility] [address] [id number] [place] [address]- 2268 October, [facility] [place] [facility] [address] [id number] [place] [address]- 4173 Sep, [facility] [place] [facility] [address] [id number] [place] [address]- 6121 Sep, [facility] [place] [facility] [address] [id number] [place] [address]- 5166 Sep, [facility] [address] [id number] [place] [address]- 4690 Sep, [facility] [address] [facility] [id number] [place] [address]- 5450 Sep, [facility] [address] [facility] [id number] [place] [address]- 0061 Sep, [facility] [address] [id number] [place] [address]- 2487 Sep, [facility] [address] [facility] [id number] [place] [address]- 3237 Sep, [facility] [address] [facility] [id number] [place] [address]- 1152 Sep, [facility] [address] [facility] [id number] [place] [address]- 6104 Sep, [facility] [address] [facility] [id number] [place] [address]- 7353 Sep, [facility] [address] [facility] [id number] [place] [address]- 7101 Sep, [facility] [address] [facility] [id number] [place] [address]- 0649 Sep, [facility] [address] [place] [id number] [address]- 7936 Sep, [facility] [address] [facility] [id number] [place] [address]- 0931 Aug, [facility] [address] [facility] [id number] [place] [address]- 4054 Aug, [facility] [address] [facility] [id number] [place] [address]- 0[address] Aug, IMMUNIZATIONS No Known Immunizations SOCIAL HISTORY Never Assessed REASON FOR VISIT BH intake PLAN OF CARE Activity Details Follow Up 4 Weeks Reason: VITAL SIGNS Height 64 in 2017-06-23 Weight 156 lbs 2017-06-23 BMI 26.77 kg/m2 2017-06-23 Blood pressure systolic 136 mmHg 2017-06-23 Blood pressure diastolic 82 mmHg 2017-06-23 MEDICATIONS Medication Instructions Dosage Frequency Start Date End Date Duration Status Symbicort 160-4.5 MCG/ACT Inhalation Twice a day INHALE TWO PUFFS BY MOUTH TWICE DAILY 12h 30 days Active Carafate 1 GM Orally PRN 1 tablet at bedtime on an empty stomach before meals Active Cetirizine HCl 10 MG Orally Once a day 1 tablet 24h Active Proventil HFA 108 (90 Base) MCG/ACT Inhalation PRN every 4 hours 2 puffs as needed Active Singulair 10 mg Orally Once a day 1 tablet in the evening 24h Active Pantoprazole Sodium 40 MG Orally Once a day 1 tablet 24h Active Incruse Ellipta 62.5 MCG/INH Inhalation Once a day 1 puff 24h Active Oxygen Active Klonopin 0.5 MG Orally Twice a day-no early refills 1 tablet 30 days Active Flonase 50 MCG/ACT Nasally Once a day 1 spray in each nostril 24h Active Tramadol HCl 50 MG Orally every 6 hrs 1 tablet as needed 6h Active Wellbutrin XL 300 MG Orally Once a day 1 tablet in the morning 24h 30 days Active Ibuprofen 800 MG Orally Three times a day 1 tablet 8h 30 Not-Taking RESULTS No Results PROCEDURES Procedure Date Ordered Result Body Site [facility] VISIT ESTABLISHED PATIENT Jun 23, 2017 [facility] Visit needs to be added with another visit on the same day Jun 23, 2017 INSTRUCTIONS MEDICATIONS ADMINISTERED No [...]
--- OUTSIDE RECORDS SUMMARY | 2018-05-03 10:59 | XMS REPORT ---
Author Author GABRIELA BHATIA [facility] Address [address] [place] [address] Care Team Providers Care Equipment Engineering Technician Name Role Phone GABRIELA BHATIA Unavailable PROBLEMS Type Condition ICD9-CM Code QVT74-TJ Code Onset Dates Condition Status SNOMED Code Problem Hyperlipidemia E78.5 Active 27774242 Problem Anxiety F41.9 Active 71801815 Problem Major depressive disorder with single episode, remission status unspecified F32.9 Active 90249857 Problem Iron deficiency anemia D50.9 Active 11767762 Problem COPD exacerbation J44.1 Active 684399980 Problem Dependence on continuous supplemental oxygen Z99.81 Active 88536459754687 Problem Chronic obstructive pulmonary disease with acute lower respiratory infection J44.0 Active 459639865 Problem Environmental allergies Z91.09 Active 818163542 Problem 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.0 Active 19871544 Problem Chronic pain syndrome G89.4 Active 650770889 ALLERGIES Unknown Allergies SOCIAL HISTORY No smoking Hx information available PLAN OF CARE VITAL SIGNS MEDICATIONS Medication Instructions Dosage Frequency Start Date End Date Duration Status Klonopin 0.5 MG Orally Twice a day 1 tablet 12h 29 May, 2016 18 days Active RESULTS No Results PROCEDURES No Known procedures IMMUNIZATIONS No Known Immunizations
--- OUTSIDE RECORDS SUMMARY | 2018-05-03 10:59 | XMS REPORT ---
Author Author EDDIE MARTINEZ [facility] Address [address] [place] [address] Care Team Providers Care Senior Contracts Administrator Name Role Phone EDDIE MARTINEZ Unavailable PROBLEMS Type Condition ICD9-CM Code LNO95-WE Code Onset Dates Condition Status SNOMED Code Problem Acute seasonal allergic rhinitis, unspecified trigger J30.2 Active 040941684 Problem Anxiety state, unspecified F41.1 Active 883065291 Problem Chronic obstructive pulmonary disease with (acute) exacerbation J44.1 Active 875166388 Problem Mixed hyperlipidemia E78.2 Active 157031461 Problem Hyperlipidemia E78.5 Active 09241964 Problem Severe persistent asthma without complication J45.50 Active 811427694 Problem Iron deficiency anemia D50.9 Active 59133345 Problem COPD exacerbation J44.1 Active 464623405478964 Problem Depressive disorder, not elsewhere classified F32.9 Active 11064234 Problem COPD with acute exacerbation J44.1 Active 007493018 Problem Dysthymic disorder F34.1 Active 60595878 Problem Chronic obstructive pulmonary disease with acute lower respiratory infection J44.0 Active 161615520 Problem Major depressive disorder with single episode, remission status unspecified F32.9 Active 24388494 Problem Anxiety F41.9 Active 64737405 Problem Environmental allergies Z91.09 Active 821132926 Problem Chronic pain syndrome G89.4 Active 683338956 Problem Other chronic pain G89.29 Active 97929203 Problem 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.0 Active 41792932 Problem COPD (chronic obstructive pulmonary disease) with chronic bronchitis J44.9 Active 176070668 Problem Dependence on continuous supplemental oxygen Z99.81 Active 03729464411418 Problem Acute exacerbation of chronic obstructive pulmonary disease (COPD) J44.1 Active 760148312 ALLERGIES No Known Allergies ENCOUNTERS Encounter Location Date Diagnosis [facility] [address] [facility] [id number] [address] Feb, [place] [id number] [address] Nov, Mixed hyperlipidemia E78.2 [facility] [place] [address] [place] [id number] [place] [address]4706 Nov, Environmental allergies Z91.09 [place] [address] [place] [id number] [place] [address] 45715- 8727 Nov, Iron deficiency anemia D50.9 and Hyperlipidemia E78.5 [place] [address] [place] [id number] [place] [address] 99580- 0487 October, Severe persistent asthma without complication J45.50 ; Hyperlipidemia E78.5 ; Iron deficiency anemia D50.9 ; Pain in thoracic spine M54.6 and Other chronic pain G89.29 [place] [address] [place] [id number] [place] [address] 83700- 1740 October, Chronic pain syndrome G89.4 [place] [address] [place] [id number] [place] [address] 52897- 3543 October, 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.0 and Anxiety state, unspecified F41.1 [facility] [place] [id number] [place] [address]277 -8001 Aug, COPD with acute exacerbation J44.1 [place] [address] [place] [address] 59014- 5409 Aug, Chronic obstructive pulmonary disease with acute lower respiratory infection J44.0 [place] [address] [place] [address] 81123- 8938 Aug, 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.0 [place] [address] [place] [id number] [place] [address] 05279- 9509 Jul, 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.0 and Anxiety state, unspecified F41.1 [place] [address] [place] [address] 55837- 9995 Jul, Anxiety F41.9 and Chronic pain syndrome G89.4 [place] [address] [place] [id number] [place] [address] 12888- 5319 Jun, Dysthymic disorder F34.1 and Anxiety state, unspecified F41.1 [place] [address] [place] [id number] [place] [address] 25374- 2615 Jun, Anxiety state, unspecified F41.1 and 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.0 [place] [address] [place] [id number] [place] [address] 51915- 6853 Jun, [facility] [place] [address] [address] May, COPD exacerbation J44.1 [place] [address] 84241- 4168 May, Depressive disorder, not elsewhere classified F32.9 and Anxiety state, unspecified F41.1 [place] [address] [place] [id number] [place] [address] 59834- 2830 May, Chronic obstructive pulmonary disease with acute lower respiratory infection J44.0 and Acute seasonal allergic rhinitis, unspecified trigger J30.2 [facility] [place] [address] [place] [id number] [place] [address] 02429 -7906 May, Acute exacerbation of chronic obstructive pulmonary disease (COPD) J44.1 [place] [address] [place] [id number] [place] [address] 14439- 2312 Apr, Encounter for immunization Z23 [place] [address] [address]111- [address]180 Apr, [place] [address] 65[address]- 0454 Apr, Back pain 724.5 [facility] [place] [address] [place] [id number] [place] [address] 58702 -5090 Mar, Acute seasonal allergic rhinitis, unspecified trigger J30.2 and Sore throat J02.9 [facility] [address] [place] [id number] [place] [address] 42403 -2853 13 Mar, 2017 Acute exacerbation of chronic obstructive pulmonary disease (COPD) J44.1 [place] [address] [place] [id number] [place] [address] 72794- 3400 28 Feb, 2017 COPD (chronic obstructive pulmonary disease) with chronic bronchitis J44.9 ; Low back pain M54.5 and Other chronic pain G89.29 [facility] [address] [place] [address]40 -0226 21 Feb, 2017 Decreased breath sounds R06.89 and Acute exacerbation of chronic obstructive pulmonary disease (COPD) J44.[address] 37[address]- 3288 15 Feb, [address] [address]- [address]996 Feb, [address] [address]- 7392 Jan, Major depressive disorder with single episode, remission status unspecified F32.9 [facility] [address] [address] 16 Dec, 2016 Allergic contact dermatitis, unspecified trigger L23.9 [facility] [place] [id number] [place] [address] 07589 -6777 13 Dec, 2016 Allergic reaction, initial encounter T78.40XA [address] 90756- [address]446 14 Nov, 2016 Hyperlipidemia E78.5 ; Chronic obstructive pulmonary disease with acute lower respiratory infection J44.0 and Iron deficiency anemia D50.9 [place] [id number] [place] [address] 07275- 9789 02 Nov, 2016 Hyperlipidemia E78.5 ; Iron deficiency anemia D50.9 ; Chronic obstructive pulmonary disease with acute lower respiratory infection J44.0 ; Environmental allergies Z91.09 and Major depressive disorder with single episode, remission status unspecified F32.9 [facility] [address] [address] Sep, Shortness of breath R06.02 and COPD exacerbation J44.1 [facility] [address] [address] Sep, Chronic obstructive pulmonary disease with acute lower respiratory infection J44.0 [facility] [address] [place] [id number] [place] [address] 94306- 9059 Jun, Anxiety F41.9 [place] [address] [place] [id number] [place] [address] 70253- 4844 Jun, Chronic obstructive pulmonary disease with acute lower respiratory infection J44.0 ; Dependence on continuous supplemental oxygen Z99.81 ; Iron deficiency anemia D50.9 ; Anxiety F41.9 ; 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.0 ; Hypercholesterolemia E78.00 and Chronic pain syndrome G89.4 [facility] [address] [place] [id number] [place] [address] 68905- 4451 May, Anxiety F41.9 [place] [address] [place] [id number] [place] [address] 45988- 9426 May, [facility] [address] [place] [address] 01233- 5776 Feb, [place] [address] [place] [id number] [place] [address] 48951- 8381 Jan, Chronic obstructive pulmonary disease with acute lower respiratory infection J44.0 ; Major depressive disorder with single episode, remission status unspecified F32.9 ; Environmental allergies Z91.09 ; Anxiety F41.9 ; Hyperlipidemia E78.5 ; Iron deficiency anemia, unspecified iron deficiency anemia type D50.9 ; Other chronic pain G89.29 and Lumbago with sciatica, unspecified side M54.40 [facility] [address] [address] Sep, Hyperlipidemia E78.5 and Iron deficiency anemia D50.9 [facility] [address] [place] [address] 46233- 0572 Sep, COPD (chronic obstructive pulmonary disease) 496 ; Back pain 724.5 ; Anxiety 300.00 ; Hyperlipidemia E78.5 ; Iron deficiency anemia D50.9 and Headache R51 [facility] [address] [place] [id number] [place] [address] 89513- 2827 Aug, [facility] [address] [place] [id number] [place] [address] 12316- 9513 Mar, Hyperlipidemia E78.5 and Iron deficiency anemia D50.9 [place] [address] 12490- 1462 Mar, Routine adult health maintenance V70.0 [place] [address] [place] [id number] [place] [address] 54156- 2010 Mar, Orbital cellulitis on left H05.012 [place] [address] [place] [id number] [place] [address] 98324- 5328 Mar, [facility] [address] [place] [id number] [place] [address] 90459- 7717 Feb, Breast cancer screening V76.10 [place] [address] [place] [id number] [place] [address] 01220- 8456 08 Feb, 2015 Routine adult health maintenance V70.0 ; COPD (chronic obstructive pulmonary disease) 496 ; Special screening for malignant neoplasms, colon V76.51 and 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.9 [facility] [address] [place] [id number] [place] [address] 75317- 9861 Feb, [place] [address] 76695- 0266 Dec, Asthma, unspecified, unspecified status 493.90 ; Back pain 724.5 ; COPD (chronic obstructive pulmonary disease) 496 and Anxiety 300.00 [facility] [address] [place] [address] [id number] Dec, Dental examination V72.2 [facility] [address] [id number] [address] Dec, Back pain 724.5 ; COPD (chronic obstructive pulmonary disease) 496 and Anxiety 300.00 [facility] [address] [id number] [id number] Dec, Dental examination V72.2 [facility] [id number] [place] [address] [id number] Nov, Dental examination V72.2 [facility] [address] [id number] [place] [id number] October, Dental examination V72.2 [facility] [address] [id number] [address] 2546 Sep, [facility] [address] [id number] [address] 2546 Sep, [facility] [address] [id number] [address]- 9659 Aug, [facility] [address] [id number] [address] 2959 Aug, [facility] [address] [facility] [id number] [address]- 6435 Aug, [facility] [address] [id number] [address]- 0376 Aug, [facility] [address] [id number] [address] 2546 Aug, [facility] [address] [id number] [address] 2543 Aug, [facility] [address] [id number] [address]- 2546 Jul, [facility] [address] [facility] [id number] [address]- 2546 Jul, [facility] [address] [id number] [place] [address]- 8039 Jul, [facility] [address] [id number] [place] [address]- 7246 Jul, [facility] [address] [id number] [place] [address]- 9522 Jun, [facility] [address] [id number] [place] [address]- 9324 Jun, [facility] [address] [id number] [place] [address]- 5012 Nov, [facility] [address] [id number] [place] [address]- 2743 Nov, [facility] [address] [id number] [place] [address]- 7029 October, [facility] [address] [id number] [place] [address]- 5619 October, [facility] [address] [id number] [place] [address]- 3545 October, [facility] [address] [id number] [place] [address]- 5349 October, [facility] [address] [id number] [place] [address]- 9314 October, [facility] [address] [id number] [place] [address]- 9458 October, [facility] [address] [id number] [place] [address]- 2535 October, [facility] [address] [id number] [place] [address]- 1107 October, [facility] [address] [id number] [place] [address]- 9764 Sep, [facility] [address] [id number] [place] [address]- 0353 Sep, [facility] [address] [id number] [place] [address]- 3922 Sep, [facility] [address] [id number] [place] [address]- 9819 Sep, [facility] [address] [facility] [id number] [place] [address]- 8135 Sep, [facility] [address] [id number] [place] [address]- 6791 Sep, [facility] [address] [id number] [place] [address]- 0940 Sep, [facility] [address] [id number] [place] [address]- 5095 Sep, [facility] [address] [facility] [id number] [place] [address]- 4894 Sep, [facility] [address] [facility] [id number] [place] [address]- 5942 Sep, [facility] [address] [facility] [id number] [place] [address]- 1745 Sep, [facility] [address] [facility] [id number] [place] [address]- 0930 Sep, [facility] [address] [facility] [id number] [place] [address]- 3835 Sep, [facility] [address] [facility] [id number] [address]- 6702 Sep, [facility] [address] [facility] [id number] [address]- 0111 Aug, [facility] [address] [facility] [id number] [place] [address] Aug, [facility] [address] [facility] [id number] [place] Aug, IMMUNIZATIONS Vaccine Route Administration Date Status SOLUMEDROL (UP TO 125 MG) IM Intramuscular Jun 11, 2017 Administered SOCIAL HISTORY Never Assessed REASON FOR VISIT cough, chest congestion, runny nose. been sick for 5 days. [email or web address] PLAN OF CARE Activity Details Follow Up prn Reason: VITAL SIGNS Height 64 in 2017-06-11 Weight 157.2 lbs 2017-06-11 Temperature 97.7 degrees Fahrenheit 2017-06-11 Heart Rate 92 bpm 2017-06-11 Respiratory Rate 20 2017-06-11 BMI 26.98 kg/m2 2017-06-11 Blood pressure systolic 136 mmHg 2017-06-11 Blood pressure diastolic 86 mmHg 2017-06-11 MEDICATIONS Medication Instructions Dosage Frequency Start Date End Date Duration Status Proventil HFA 108 (90 Base) MCG/ACT Inhalation PRN every 4 hours 2 puffs as needed Active Singulair 10 mg Orally Once a day 1 tablet in the evening 24h Active Oxygen Active Symbicort 160-4.5 MCG/ACT Inhalation Twice a day INHALE TWO PUFFS BY MOUTH TWICE DAILY 12h 30 days Active Flonase 50 MCG/ACT Nasally Once a day 1 spray in each nostril 24h Active Tramadol HCl 50 MG Orally every 6 hrs 1 tablet as needed 6h Active Cetirizine HCl 10 MG Orally Once a day 1 tablet 24h Active Pantoprazole Sodium 40 MG Orally Once a day 1 tablet 24h Active Ibuprofen 800 MG Orally Three times a day 1 tablet 8h 30 Active Klonopin 0.5 MG Orally Twice a day 1 tablet 12h 30 Active Carafate 1 GM Orally PRN 1 tablet at bedtime on an empty stomach before meals Active Incruse Ellipta 62.5 MCG/INH Inhalation Once a day 1 puff 24h Active Clonazepam 0.5 MG TAKE ONE TABLET BY MOUTH TWICE DAILY 30 Active Wellbutrin XL 150 MG Orally Once a day 1 tablet in the morning 24h 30 Active RESULTS No Results PROCEDURES Procedure Date Ordered Result Body Site SOLUMEDROL (UP TO 125 MG) Jun 11, 2017 THER/PROPH/DIAG INJ, SC/IM Jun 11, 2017 [facility] VISIT ESTABLISHED PATIENT Jun 11, 2017 INSTRUCTIONS MEDICATIONS ADMINISTERED No Known Medications MEDICAL (GENERAL) HISTORY Type Description Date Medical History Asthma Medical History Anxiety Medical History Depression Medical History Headaches Medical History COPD/emphysema Medical History Bone density 11/01/13 heel US WNL Surgical History Breast reduction Surgical History lap band Surgical History Tubal ligation Surgical History section Hospitalization History Sepsis 2010
--- OUTSIDE RECORDS SUMMARY | 2018-05-03 11:00 | XMS REPORT ---
Author Author ABIGAIL RIZO Organization [facility] Address [address] [place] [address] Care Team Providers Care Unix Architect Name Role Phone ABIGAIL RIZO Unavailable PROBLEMS Type Condition ICD9-CM Code NLH54-MB Code Onset Dates Condition Status SNOMED Code Problem COPD (chronic obstructive pulmonary disease) with chronic bronchitis J44.9 Active 195991819 Problem Acute seasonal allergic rhinitis, unspecified trigger J30.2 Active 632125897 Problem Acute exacerbation of chronic obstructive pulmonary disease (COPD) J44.1 Active 864198026 Problem COPD with acute exacerbation J44.1 Active 398617171 Problem Dysthymic disorder F34.1 Active 79575951 Problem Anxiety state, unspecified F41.1 Active 783173080 Problem Chronic obstructive pulmonary disease with (acute) exacerbation J44.1 Active 060144285 Problem COPD exacerbation J44.1 Active 155955784506126 Problem Depressive disorder, not elsewhere classified F32.9 Active 18940967 Problem Anxiety F41.9 Active 30726803 Problem Environmental allergies Z91.09 Active 085077232 Problem Iron deficiency anemia D50.9 Active 99269148 Problem Hyperlipidemia E78.5 Active 81813004 Problem 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.0 Active 48288931 Problem Dependence on continuous supplemental oxygen Z99.81 Active 51652840423211 Problem Chronic obstructive pulmonary disease with acute lower respiratory infection J44.0 Active 774309390 Problem Chronic pain syndrome G89.4 Active 355698658 Problem Major depressive disorder with single episode, remission status unspecified F32.9 Active 01052553 Problem Other chronic pain G89.29 Active 81112787 ALLERGIES No Known Allergies ENCOUNTERS Encounter Location Date Diagnosis [facility] [address] [facility] [id number] [address] October, [facility] [address] [facility] [id number] [address] Aug, COPD with acute exacerbation J44.1 [place] [address] [place] [id number] [place] [address]20- 1387 Aug, Chronic obstructive pulmonary disease with acute lower respiratory infection J44.0 [place] [address] [place] [id number] [place] [address] 22473- 0942 Aug, 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.0 [place] [id number] [place] [address] 49857- 9186 Jul, 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.0 and Anxiety state, unspecified F41.1 [place] [address] [address] Jul, Anxiety F41.9 and Chronic pain syndrome G89.4 [place] [id number] [place] [address] 52763- 4399 Jun, Dysthymic disorder F34.1 and Anxiety state, unspecified F41.1 [place] [id number] [place] [address] 11196- 2976 Jun, Anxiety state, unspecified F41.1 and 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.0 [place] [id number] [place] [address] 04756- 2491 Jun, [facility] [id number] [place] [address]36 [address]697 May, COPD exacerbation J44.1 [place] [id number] [place] [address] 18358- 3722 May, Depressive disorder, not elsewhere classified F32.9 and Anxiety state, unspecified F41.1 [place] [id number] [place] [address] 67525- 0107 May, Chronic obstructive pulmonary disease with acute lower respiratory infection J44.0 and Acute seasonal allergic rhinitis, unspecified trigger J30.2 [facility] [id number] [place] [address]2112 May, Acute exacerbation of chronic obstructive pulmonary disease (COPD) J44.1 [facility] [id number] [place] [address] 79427- 9368 17 Apr, 2017 Encounter for immunization Z23 [facility] [address] [address] Apr, [facility] [address] [address]77- [address]508 Apr, Back pain 724.[address] [facility] [address] Mar, Acute seasonal allergic rhinitis, unspecified trigger J30.2 and Sore throat J02.[address] [facility] [address] [address] Mar, Acute exacerbation of chronic obstructive pulmonary disease (COPD) J44.1 [facility] [address] 31935- [address] Feb, COPD (chronic obstructive pulmonary disease) with chronic bronchitis J44.9 ; Low back pain M54.5 and Other chronic pain G89.[address] [facility] [id number] [place] [address] 79674 [address]7973 Feb, Decreased breath sounds R06.89 and Acute exacerbation of chronic obstructive pulmonary disease (COPD) J44.1 [place] [id number] [place] [address] 37432- 1144 15 Feb, 2017 [place] [id number] [place] [address] 01409- 6009 Feb, [place] [address] 20782- 6110 Jan, Major depressive disorder with single episode, remission status unspecified F32.[address] [facility] [id number] [place] [address] 93872 -2263 16 Jean Claude, 2017 Allergic contact dermatitis, unspecified trigger L23.9 [facility] [id number] [place] [address] 12308 -4672 13 Dec, 2016 Allergic reaction, initial encounter T78.40XA [facility] [id number] [place] [address] 45333- 8172 14 Nov, 2016 Hyperlipidemia E78.5 ; Chronic obstructive pulmonary disease with acute lower respiratory infection J44.0 and Iron deficiency anemia D50.9 [place] [address] 61964- 4660 02 Nov, 2016 Hyperlipidemia E78.5 ; Iron deficiency anemia D50.9 ; Chronic obstructive pulmonary disease with acute lower respiratory infection J44.0 ; Environmental allergies Z91.09 and Major depressive disorder with single episode, remission status unspecified F32.9 [facility] [id number] [place] [address] 67674 [address]3831 06 Sep, 2016 Shortness of breath R06.02 and COPD exacerbation J44.1 [place] [id number] [place] [address] 02092- 1220 Sep, Chronic obstructive pulmonary disease with acute lower respiratory infection J44.0 [place] [address] 65445- 0115 Jun, Anxiety F41.9 [place] [id number] [place] [address] 33458- 4232 Jun, Chronic obstructive pulmonary disease with acute lower respiratory infection J44.0 ; Dependence on continuous supplemental oxygen Z99.81 ; Iron deficiency anemia D50.9 ; Anxiety F41.9 ; 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.0 ; Hypercholesterolemia E78.00 and Chronic pain syndrome G89.4 [place] [id number] [place] [address] 06701- 3800 May, Anxiety F41.9 [place] [address] [id number] [place] [address] 20770- 8548 May, [place] [address] [place] [address] Feb, [place] [id number] [place] [address] 14467- 7919 Jan, Chronic obstructive pulmonary disease with acute lower respiratory infection J44.0 ; Major depressive disorder with single episode, remission status unspecified F32.9 ; Environmental allergies Z91.09 ; Anxiety F41.9 ; Hyperlipidemia E78.5 ; Iron deficiency anemia, unspecified iron deficiency anemia type D50.9 ; Other chronic pain G89.29 and Lumbago with sciatica, unspecified side M54.40 [place] [address] 28897- 4378 Sep, Hyperlipidemia E78.5 and Iron deficiency anemia D50.9 [place] [address] 84725- 3806 Sep, COPD (chronic obstructive pulmonary disease) 496 ; Back pain 724.5 ; Anxiety 300.00 ; Hyperlipidemia E78.5 ; Iron deficiency anemia D50.9 and Headache R51 [place] [address] 62550- 1654 Aug, [place] [address] 60387- 7358 Mar, Hyperlipidemia E78.5 and Iron deficiency anemia D50.9 [place] [address] [id number] [place] [address] 49689- 6140 Mar, Routine adult health maintenance V70.0 [place] [id number] [place] [address] 45156- 6625 Mar, Orbital cellulitis on left H05.012 [place] [address] 97084- 0189 Mar, [place] [id number] [place] [address] 51482- 1379 Feb, Breast cancer screening V76.10 [place] [address] 12239 2546 Feb, Routine adult health maintenance V70.0 ; COPD (chronic obstructive pulmonary disease) 496 ; Special screening for malignant neoplasms, colon V76.51 and 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.9 [facility] [address] [address] 2546 Feb, [facility] [id number] [place] [address] 66609- 8646 Dec, Asthma, unspecified, unspecified status 493.90 ; Back pain 724.5 ; COPD (chronic obstructive pulmonary disease) 496 and Anxiety 300.00 [facility] [id number] [place] [phone] Dec, Dental examination V72.2 [facility] [id number] [place] [address] 66311- 2546 Dec, Back pain 724.5 ; COPD (chronic obstructive pulmonary disease) 496 and Anxiety 300.00 [facility] [id number] [place] [address] [id number] Dec, Dental examination V72.2 [facility] [id number] [place] [address] [id number] Nov, Dental examination V72.2 [facility] [id number] [place] [address] [id number] October, Dental examination V72.2 [facility] [id number] [place] [address] 44179 2546 Sep, [facility] [address] [place] [address] 76366 2546 Sep, [facility] [id number] [place] [address] 37990 2546 Aug, [facility] [id number] [place] [address] 51013 2546 Aug, [facility] [id number] [place] [address] 977097- 1167 Aug, [facility] [place] [facility] [address] [id number] [place] [address]84 Aug, [facility] [place] [facility] [address] [id number] [place] [address]- 2063 Aug, [facility] [place] [facility] [address] [id number] [place] [address]- 3306 Aug, [facility] [place] [facility] [address] [id number] [place] [address] 5714 Jul, [facility] [place] [facility] [address] [id number] [place] [address]- 9003 Jul, [facility] [place] [facility] [address] [id number] [place] [address]- 1690 Jul, [facility] [place] [facility] [address] [id number] [place] [address]- 0461 Jul, [facility] [place] [facility] [address] [id number] [place] [address]- 4863 Jun, [facility] [place] [facility] [address] [id number] [place] [address]- 2924 Jun, [facility] [place] [facility] [address] [id number] [place] [address]- 1055 Nov, [facility] [place] [facility] [address] [id number] [place] [address]- 9721 Nov, [facility] [place] [facility] [address] [id number] [place] [address]- 3893 October, [facility] [place] [facility] [address] [id number] [place] [address]- 0627 October, [facility] [place] [facility] [address] [id number] [place] [address] October, [facility] [place] [facility] [address] [id number] [place] [address]- 9727 October, [facility] [place] [facility] [address] [id number] [place] [address]- 8524 October, [facility] [place] [facility] [address] [id number] [place] [address]- 7677 October, [facility] [place] [facility] [address] [id number] [place] [address]- 0049 October, [facility] [place] [facility] [address] [id number] [place] [address]- 1348 October, [facility] [place] [facility] [address] [id number] [place] [address]- 2995 Sep, [facility] [place] [facility] [address] [id number] [place] [address]- 3957 Sep, [facility] [place] [facility] [address] [id number] [place] [address]- 8598 Sep, [facility] [place] [facility] [address] [id number] [place] [address]- 9666 Sep, [facility] [place] [facility] [address] [id number] [place] [address]- 8589 Sep, [facility] [place] [facility] [address] [id number] [place] [address]- 9881 Sep, [facility] [place] [facility] [address] [id number] [place] [address]- 8057 Sep, [facility] [place] [facility] [address] [id number] [place] [address]- 3086 Sep, [facility] [place] [facility] [address] [id number] [place] [address]- 0929 Sep, [facility] [place] [facility] [address] [id number] [place] [address]- 1695 Sep, [facility] [place] [facility] [address] [id number] [place] [address]- 8072 Sep, [facility] [place] [facility] [address] [id number] [place] [address]- 1624 Sep, [facility] [address] [facility] [id number] [place] [address] 4[address] Sep, [facility] [address] [facility] [id number] [address]- 7222 Sep, [facility] [address] [facility] [id number] [address]- 8527 Aug, [facility] [address] [facility] [id number] [place] [address] Aug, [facility] [address] [facility] [id number] [address] 8086 Aug, IMMUNIZATIONS No Known Immunizations SOCIAL HISTORY Never Assessed REASON FOR VISIT GORDO PT COPD--[place]uppett[place], -C/o lower back pain. Has had pain for a long time PLAN OF CARE Activity Details Follow Up 3 Months Reason:copd VITAL SIGNS Height 64 in 2017-03-11 Weight 176.5 lbs 2017-03-11 Temperature 97.5 degrees Fahrenheit 2017-03-11 Heart Rate 110 bpm 2017-03-11 Respiratory Rate 24 2017-03-11 Oximetry w/ oxygen:94 % 2017-03-11 BMI 30.29 kg/m2 2017-03-11 MEDICATIONS Medication Instructions Dosage Frequency Start Date End Date Duration Status Symbicort 160-4.5 MCG/ACT Inhalation Twice a day INHALE TWO PUFFS BY MOUTH TWICE DAILY 12h 30 days Active Oxygen Active Proventil HFA 108 (90 Base) MCG/ACT Inhalation PRN every 4 hours 2 puffs as needed Active Pantoprazole Sodium 40 MG Orally Once a day 1 tablet 24h Active Incruse Ellipta 62.5 MCG/INH Inhalation Once a day 1 puff 24h Active Flonase 50 MCG/ACT Nasally Once a day 1 spray in each nostril 24h Active Wellbutrin XL 150 MG Orally Once a day 1 tablet in the morning 24h 30 Active Singulair 10 mg Orally Once a day 1 tablet in the evening 24h Active Klonopin 0.5 MG Orally Twice a day 1 tablet 12h May, 30 days Active RESULTS No Results PROCEDURES Procedure Date Ordered Result Body Site MEASURE BLOOD OXYGEN LEVEL Mar 11, 2017 [facility] VISIT ESTABLISHED PATIENT Mar 11, 2017 INSTRUCTIONS MEDICATIONS ADMINISTERED No Known Medications MEDICAL (GENERAL) HISTORY Type Description Date Medical History Asthma Medical History Anxiety Medical History Depression Medical History Headaches Medical History COPD/emphysema Medical History Bone density 11/01/13 heel US WNL Surgical History Breast reduction Surgical History lap band Surgical History Tubal ligation Surgical History section Hospitalization History Sepsis 2010
--- OUTSIDE RECORDS SUMMARY | 2018-05-03 11:00 | XMS REPORT ---
Author Author BELEN NUR [facility] Address [address] [place] [address] Care Team Providers Care Political Worker Name Role Phone NURVANBELEN Unavailable PROBLEMS Type Condition ICD9-CM Code THX14-XE Code Onset Dates Condition Status SNOMED Code Problem COPD (chronic obstructive pulmonary disease) with chronic bronchitis J44.9 Active 843319198 Problem Acute seasonal allergic rhinitis, unspecified trigger J30.2 Active 226715522 Problem Acute exacerbation of chronic obstructive pulmonary disease (COPD) J44.1 Active 965528040 Problem COPD with acute exacerbation J44.1 Active 905836790 Problem Dysthymic disorder F34.1 Active 31955194 Problem Anxiety state, unspecified F41.1 Active 395248653 Problem Chronic obstructive pulmonary disease with (acute) exacerbation J44.1 Active 085277211 Problem COPD exacerbation J44.1 Active [id number] Problem Depressive disorder, not elsewhere classified F32.9 Active 48252207 Problem Anxiety F41.9 Active 24062804 Problem Environmental allergies Z91.09 Active 485622811 Problem Iron deficiency anemia D50.9 Active 84871284 Problem Hyperlipidemia E78.5 Active 25055287 Problem 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.0 Active 75396133 Problem Dependence on continuous supplemental oxygen Z99.81 Active 02537021612909 Problem Chronic obstructive pulmonary disease with acute lower respiratory infection J44.0 Active 781790667 Problem Chronic pain syndrome G89.4 Active 950089925 Problem Major depressive disorder with single episode, remission status unspecified F32.9 Active 37896750 Problem Other chronic pain G89.29 Active 32230602 ALLERGIES No Known Allergies ENCOUNTERS Encounter Location Date Diagnosis [facility] [address] [facility] [id number] [address] Feb, [facility] [address] [facility] [id number], [place] [address] October, [facility] [address] [address] October, Chronic pain syndrome G89.4 [facility] [address] [place] [address] October, 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.0 and Anxiety state, unspecified F41.1 [facility] [address] [place] [address] Aug, COPD with acute exacerbation J44.1 [facility] [address] [place] [address]166[address] 6684 Aug, Chronic obstructive pulmonary disease with acute lower respiratory infection J44.0 [facility] [address] [place] [address]2457[address]48 Aug, 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.0 [facility] [address] [place] [address]65[address] 6551 Jul, 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.0 and Anxiety state, unspecified F41.1 [place] [address] [place] [address] 34779- 2339 Jul, Anxiety F41.9 and Chronic pain syndrome G89.4 [facility] [address] [address] Jun, Dysthymic disorder F34.1 and Anxiety state, unspecified F41.1 [facility] [address], [place] [address] Jun, Anxiety state, unspecified F41.1 and 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.0 [facility] [address], [place] [address] Jun, [facility] [address], [place] [address] May, COPD exacerbation J44.1 [facility] [id number] [place] [address]001[address] 6138 May, Depressive disorder, not elsewhere classified F32.9 and Anxiety state, unspecified F41.1 [place] [address] [address] May, Chronic obstructive pulmonary disease with acute lower respiratory infection J44.0 and Acute seasonal allergic rhinitis, unspecified trigger J30.2 [facility] [address] [address] May, Acute exacerbation of chronic obstructive pulmonary disease (COPD) J44.1 [place] [address] [address] Apr, Encounter for immunization Z23 [address] [address] Apr, [place] [address] [address] Apr, Back pain 724.5 [facility] [address] [place] [address]87 [address]42 Mar, Acute seasonal allergic rhinitis, unspecified trigger J30.2 and Sore throat J02.9 [facility] [address] [place] [address]807 [address]82 Mar, Acute exacerbation of chronic obstructive pulmonary disease (COPD) J44.1 [facility] [address] [address] 28 Feb, 2017 COPD (chronic obstructive pulmonary disease) with chronic bronchitis J44.9 ; Low back pain M54.5 and Other chronic pain G89.29 [facility] [address] [place] [address]83 [address] Feb, Decreased breath sounds R06.89 and Acute exacerbation of chronic obstructive pulmonary disease (COPD) J44.1 [place] [address] [address] 15 Feb, 2017 [facility] [address], [place] [address] 11 Feb, 2017 [place] [address] [place] [address] 41239- 0[address] Jan, Major depressive disorder with single episode, remission status unspecified F32.9 [facility] [id number] [place] [address] 28582 -9288 16 Dec, 2016 Allergic contact dermatitis, unspecified trigger L23.9 [facility] [address] [place] [address] 55752 -6398 13 Dec, 2016 Allergic reaction, initial encounter T78.40XA [facility] [id number] [place] [address] 37380- 1064 14 Nov, 2016 Hyperlipidemia E78.5 ; Chronic obstructive pulmonary disease with acute lower respiratory infection J44.0 and Iron deficiency anemia D50.9 [place] [address] [place] [address] 38801- 0379 Nov, Hyperlipidemia E78.5 ; Iron deficiency anemia D50.9 ; Chronic obstructive pulmonary disease with acute lower respiratory infection J44.0 ; Environmental allergies Z91.09 and Major depressive disorder with single episode, remission status unspecified F32.9 [facility] [address], [place] [address] Sep, Shortness of breath R06.02 and COPD exacerbation J44.1 [facility] [place] [address], [place] [address] Sep, Chronic obstructive pulmonary disease with acute lower respiratory infection J44.0 [facility] [id number] [place] [address] 45258- 4827 Jun, Anxiety F41.9 [place] [address] [place] [address] 27496- 4356 Jun, Chronic obstructive pulmonary disease with acute lower respiratory infection J44.0 ; Dependence on continuous supplemental oxygen Z99.81 ; Iron deficiency anemia D50.9 ; Anxiety F41.9 ; 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.0 ; Hypercholesterolemia E78.00 and Chronic pain syndrome G89.4 [facility] [place] [id number] [place] [address] 37990- 7195 May, Anxiety F41.9 [facility] [id number] [place] [address] 70681- 2253 May, [place] [id number] [place] [address] 76161- 7168 Feb, [place] [address] [address] Jan, Chronic obstructive pulmonary disease with acute lower respiratory infection J44.0 ; Major depressive disorder with single episode, remission status unspecified F32.9 ; Environmental allergies Z91.09 ; Anxiety F41.9 ; Hyperlipidemia E78.5 ; Iron deficiency anemia, unspecified iron deficiency anemia type D50.9 ; Other chronic pain G89.29 and Lumbago with sciatica, unspecified side M54.40 [facility] [place] [id number] [place] [address] 17464- 5292 Sep, Hyperlipidemia E78.5 and Iron deficiency anemia D50.9 [facility] [id number] [place] [address] 01066- 4656 Sep, COPD (chronic obstructive pulmonary disease) 496 ; Back pain 724.5 ; Anxiety 300.00 ; Hyperlipidemia E78.5 ; Iron deficiency anemia D50.9 and Headache R51 [place] [id number] [place] [address] 72128- 6503 Aug, [place] [address] [address]- [address] Mar, Hyperlipidemia E78.5 and Iron deficiency anemia D50.9 [place] [id number] [place] [address] 37316- 7182 Mar, Routine adult health maintenance V70.0 [place] [address], [place] [address] Mar, Orbital cellulitis on left H05.012 [facility] [id number] [place] [address] 22792- 9083 Mar, [facility] [address] [place] [address] 18933- 8276 Feb, Breast cancer screening V76.10 [facility] [id number] [place] [address] 44237- 6405 08 Feb, 2015 Routine adult health maintenance V70.0 ; COPD (chronic obstructive pulmonary disease) 496 ; Special screening for malignant neoplasms, colon V76.51 and 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.9 [place] [id number] [place] [address] 52969- 2760 Feb, [place] [id number] [place] [address] 24908- 7205 Dec, Asthma, unspecified, unspecified status 493.90 ; Back pain 724.5 ; COPD (chronic obstructive pulmonary disease) 496 and Anxiety 300.00 [facility] [id number] [place] [address] [id number] Dec, Dental examination V72.2 [place] [address] [place] [address] 75490- 2296 Dec, Back pain 724.5 ; COPD (chronic obstructive pulmonary disease) 496 and Anxiety 300.00 [facility] [id number] [place] [address] [id number] Dec, Dental examination V72.2 [facility] [id number] [place] [address] [id number] Nov, Dental examination V72.2 [facility] [id number] [place] [address] [id number] October, Dental examination V72.2 [place] [id number] [place] [address] 96716- 8995 Sep, [facility] [place] [facility] [address] [id number] [place] [address] Sep, [facility] [place] [facility] [address] [id number] [place] [address]- 8226 Aug, [facility] [place] [facility] [address] [id number] [place] [address]- 2896 Aug, [facility] [place] [facility] [address] [id number] [place] [address]- 2696 Aug, [facility] [place] [facility] [address] [id number] [place] [address]- 9869 Aug, [facility] [place] [facility] [address] [id number] [place] [address]- 2956 Aug, [facility] [place] [facility] [address] [id number] [place] [address]- 4446 Aug, [facility] [place] [facility] [address] [id number] [place] [address]- 3166 Jul, [facility] [place] [facility] [address] [id number] [place] [address]- 9046 Jul, [facility] [place] [facility] [address] [id number] [place] [address]- 3546 Jul, [facility] [place] [facility] [address] [id number] [place] [address]- 2076 Jul, [facility] [place] [facility] [address] [id number], [place] [address] Jun, [facility] [place] [facility] [address] [id number] [place] [address]- [address] Jun, [facility] [place] [facility] [address] [id number] [place] [address]- 4746 Nov, [facility] [place] [facility] [address] [id number] [place] [address]- 2086 Nov, [facility] [place] [facility] [address] [id number] [place] [address]- 2296 October, [facility] [address] [id number] [place] [address]- 8089 October, [facility] [place] [facility] [address] [id number] [place] [address]- 8159 October, [facility] [address] [id number] [place] [address]- 6580 October, [facility] [place] [facility] [address] [id number] [place] [address]- 9663 October, [facility] [place] [facility] [address] [id number] [place] [address]- 9241 October, [facility] [place] [facility] [address] [id number] [place] [address]- 6517 October, [facility] [address] [id number] [place] [address]- 6972 October, [facility] [place] [facility] [address] [id number] [place] [address]- 1177 Sep, [facility] [place] [facility] [address] [id number] [place] [address]- 2052 24 Sep, 2013 [facility] [place] [facility] [address] [id number] [place] [address]- 0354 Sep, [facility] [place] [facility] [address] [id number] [place] [address]- 8036 15 Sep, 2013 [facility] [place] [facility] [address] [id number] [place] [address]- 2003 14 Sep, 2013 [facility] [place] [facility] [address] [id number] [place] [address]- 3439 14 Sep, 2013 [facility] [place] [facility] [address] [id number] [place] [address]- 3998 10 Sep, 2013 [facility] [place] [facility] [address] [id number] [place] [address]- 2253 Sep, [facility] [id number] Sep, [facility] [address] Sep, [facility] [address] Sep, [facility] [address], [place] [address] 9184 Sep, [facility] [address] Sep, [facility] [id number] [place] [address] 799924- 2111 Sep, [facility] [address] Aug, [facility] [address] [address]557 Aug, [facility] [address], [place] [address]- [address]287 Aug, IMMUNIZATIONS No Known Immunizations SOCIAL HISTORY Never Assessed REASON FOR VISIT Sore throat, cough, congestion, fever. been sick for 4 days. [email or web address] PLAN OF CARE Activity Details Follow Up prn Reason: VITAL SIGNS Height 64 in 2017-04-08 Weight 162.0 lbs 2017-04-08 Temperature 97.8 degrees Fahrenheit 2017-04-08 Heart Rate 88 bpm 2017-04-08 Respiratory Rate 24 2017-04-08 BMI 27.80 kg/m2 2017-04-08 Blood pressure systolic 130 mmHg 2017-04-08 Blood pressure diastolic 80 mmHg 2017-04-08 MEDICATIONS Medication Instructions Dosage Frequency Start Date End Date Duration Status Oxygen Active Klonopin 0.5 MG Orally Twice a day 1 tablet 12h 30 Active Proventil HFA 108 (90 Base) MCG/ACT [...] 1 tablet in the evening 24h Active PredniSONE 20 MG Orally Once a day 2 tablet 24h 26 Mar, 2017 Mar, 5 days Active Flonase 50 MCG/ACT Nasally Once a day 1 spray in each nostril 24h Active Wellbutrin XL 150 MG Orally Once a day 1 tablet in the morning 24h 30 Active RESULTS Name Result Date Reference Range STREP A (IN HOUSE) 2017-04-08 STREP A negative Control + Lot # [id number] Exp date 03 13 2018 PROCEDURES Procedure Date Ordered Result Body Site STREP A ASSAY W/OPTIC Apr 08, 2017 [facility] VISIT ESTABLISHED PATIENT Apr 08, 2017 INSTRUCTIONS MEDICATIONS ADMINISTERED No Known Medications MEDICAL (GENERAL) HISTORY Type Description Date Medical History Asthma Medical History Anxiety Medical History Depression Medical History Headaches Medical History COPD/emphysema Medical History Bone density 11/01/13 heel US WNL Surgical History Breast reduction Surgical History lap band Surgical History Tubal ligation Surgical History section Hospitalization History Sepsis 2010
--- OUTSIDE RECORDS SUMMARY | 2018-05-03 11:01 | XMS REPORT ---
Author Author MARY Parks Organization [facility] Address [address] [place] [address] Care Team Providers Care Center Receptionist Name Role Phone Kasey MARY Unavailable PROBLEMS Type Condition ICD9-CM Code IVJ77-CN Code Onset Dates Condition Status SNOMED Code Problem COPD (chronic obstructive pulmonary disease) with chronic bronchitis J44.9 Active 485776236 Problem Acute seasonal allergic rhinitis, unspecified trigger J30.2 Active 988599418 Problem Acute exacerbation of chronic obstructive pulmonary disease (COPD) J44.1 Active 512860476 Problem COPD with acute exacerbation J44.1 Active 696000100 Problem Dysthymic disorder F34.1 Active 83914644 Problem Anxiety state, unspecified F41.1 Active 940300178 Problem Chronic obstructive pulmonary disease with (acute) exacerbation J44.1 Active 681480200 Problem COPD exacerbation J44.1 Active [id number] Problem Depressive disorder, not elsewhere classified F32.9 Active 00068060 Problem Anxiety F41.9 Active 49623378 Problem Environmental allergies Z91.09 Active 875767544 Problem Iron deficiency anemia D50.9 Active 70476508 Problem Hyperlipidemia E78.5 Active 77249650 Problem 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.0 Active 40753082 Problem Dependence on continuous supplemental oxygen Z99.81 Active 57518286769599 Problem Chronic obstructive pulmonary disease with acute lower respiratory infection J44.0 Active 203557113 Problem Chronic pain syndrome G89.4 Active 756388151 Problem Major depressive disorder with single episode, remission status unspecified F32.9 Active 71865678 Problem Other chronic pain G89.29 Active 65473838 ALLERGIES No Information ENCOUNTERS Encounter Location Date Diagnosis [facility] [address] [id number], [place] [address] October, [facility] [id number] [place] [address] 26058 -9552 Aug, COPD with acute exacerbation J44.1 [place] [id number] [place] [address] 57507- 1016 Aug, Chronic obstructive pulmonary disease with acute lower respiratory infection J44.0 [address] [place] [id number] [place] [address] 74722- 6864 Aug, 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.0 [place] [id number] [place] [address] 03694- 5199 Jul, 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.0 and Anxiety state, unspecified F41.1 [address] [id number] [place] [address] 62105- 6387 Jul, Anxiety F41.9 and Chronic pain syndrome G89.4 [place] [id number] [place] [address] 00352- 7922 Jun, Dysthymic disorder F34.1 and Anxiety state, unspecified F41.1 [address] [id number] [place] [address] 25646- 4772 Jun, Anxiety state, unspecified F41.1 and 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.0 [place] [id number] [place] [address] 84208- 6381 Jun, [facility] [id number] [place] [address] 57645 -5192 May, COPD exacerbation J44.1 [place] [id number] [place] [address] 95806- 2201 May, Depressive disorder, not elsewhere classified F32.9 and Anxiety state, unspecified F41.1 [place] [id number] [place] [address] 28471- 0074 May, Chronic obstructive pulmonary disease with acute lower respiratory infection J44.0 and Acute seasonal allergic rhinitis, unspecified trigger J30.2 [facility] [id number] [place] [address] 83621 -6028 May, Acute exacerbation of chronic obstructive pulmonary disease (COPD) J44.1 [facility] [id number] [place] [address] 67465- 5862 17 Apr, 2017 Encounter for immunization Z23 [facility] [address] [address]- [address] Apr, [facility] [address] 73088- 7004 Apr, Back pain 724.5 [facility] [address] 17054 -4766 Mar, Acute seasonal allergic rhinitis, unspecified trigger J30.2 and Sore throat J02.9 [facility] [address] 40314 -2117 Mar, Acute exacerbation of chronic obstructive pulmonary disease (COPD) J44.1 [facility] [id number] [place] [address] 56352- 7158 28 Feb, 2017 COPD (chronic obstructive pulmonary disease) with chronic bronchitis J44.9 ; Low back pain M54.5 and Other chronic pain G89.29 [facility] [id number] [place] [address] 36240 -0619 Feb, Decreased breath sounds R06.89 and Acute exacerbation of chronic obstructive pulmonary disease (COPD) J44.1 [facility] [id number] [place] [address] 38478- 1633 15 Feb, 2017 [facility] [id number] [place] [address] 18261- 1504 Feb, [place] [id number] [place] [address] 72500- 1049 Jan, Major depressive disorder with single episode, remission status unspecified F32.9 [facility] [id number] [place] [address] 69493 -2410 Dec, Allergic contact dermatitis, unspecified trigger L23.9 [facility] [id number] [place] [address] 78993 -1272 13 Dec, 2016 Allergic reaction, initial encounter T78.40XA [facility] [id number] [place] [address] 94122- 3953 14 Nov, 2016 Hyperlipidemia E78.5 ; Chronic obstructive pulmonary disease with acute lower respiratory infection J44.0 and Iron deficiency anemia D50.9 [place] [id number] [place] [address] 23084- 8668 02 Nov, 2016 Hyperlipidemia E78.5 ; Iron deficiency anemia D50.9 ; Chronic obstructive pulmonary disease with acute lower respiratory infection J44.0 ; Environmental allergies Z91.09 and Major depressive disorder with single episode, remission status unspecified F32.9 [facility] [id number] [place] [address] 46680 -5086 06 Sep, 2016 Shortness of breath R06.02 and COPD exacerbation J44.1 [place] [id number] [place] [address] 85241- 8883 Sep, Chronic obstructive pulmonary disease with acute lower respiratory infection J44.0 [place] [id number] [place] [address] 96249- 9412 Jun, Anxiety F41.9 [place] [id number] [place] [address] 98160- 5295 Jun, Chronic obstructive pulmonary disease with acute lower respiratory infection J44.0 ; Dependence on continuous supplemental oxygen Z99.81 ; Iron deficiency anemia D50.9 ; Anxiety F41.9 ; 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.0 ; Hypercholesterolemia E78.00 and Chronic pain syndrome G89.4 [place] [id number] [place] [address] 03258- 3871 May, Anxiety F41.9 [place] [id number] [place] [address] 07989- 6824 May, [place] [address], [place] [address] Feb, [facility] [id number] [place] [address] 90682- 5272 Jan, Chronic obstructive pulmonary disease with acute lower respiratory infection J44.0 ; Major depressive disorder with single episode, remission status unspecified F32.9 ; Environmental allergies Z91.09 ; Anxiety F41.9 ; Hyperlipidemia E78.5 ; Iron deficiency anemia, unspecified iron deficiency anemia type D50.9 ; Other chronic pain G89.29 and Lumbago with sciatica, unspecified side M54.40 [place] [id number] [place] [address] 12874- 0629 Sep, Hyperlipidemia E78.5 and Iron deficiency anemia D50.9 [place] [id number] [place] [address] 10560- 9952 Sep, COPD (chronic obstructive pulmonary disease) 496 ; Back pain 724.5 ; Anxiety 300.00 ; Hyperlipidemia E78.5 ; Iron deficiency anemia D50.9 and Headache R51 [place] [id number] [place] [address] 16456- 7297 Aug, [place] [id number] [place] [address] 08387- 4190 Mar, Hyperlipidemia E78.5 and Iron deficiency anemia D50.9 [place] [id number] [place] [address] 22923- 4230 Mar, Routine adult health maintenance V70.0 [place] [id number] [place] [address] 85268- 7510 Mar, Orbital cellulitis on left H05.012 [place] [id number] [place] [address] 58137- 0632 Mar, [place] [id number] [place] [address] 49232- 7064 17 Feb, 2015 Breast cancer screening V76.10 [place] [id number], [place] [address]796 08 Feb, 2015 Routine adult health maintenance V70.0 ; COPD (chronic obstructive pulmonary disease) 496 ; Special screening for malignant neoplasms, colon V76.51 and 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 [address], [place] [address] 47[address] 08 Feb, 2015 [facility] [id number] [place] [address] 85773- 5708 Dec, Asthma, unspecified, unspecified status 493.90 ; Back pain 724.5 ; COPD (chronic obstructive pulmonary disease) 496 and Anxiety 300.00 [facility] [place] [facility] [id number] [place] [address] [id number] Dec, Dental examination V72.2 [facility] [id number] [place] [address] 63284- 7876 Dec, Back pain 724.5 ; COPD (chronic obstructive pulmonary disease) 496 and Anxiety 300.00 [facility] [place] [facility] [id number] [place] [address] [id number] Dec, Dental examination V72.2 [facility] [place] [facility] [id number] [place] [address] [id number] Nov, Dental examination V72.2 [facility] [place] [facility] [id number] [place] [address] [id number] October, Dental examination V72.2 [facility] [address] [place] [address] 14376- 9236 Sep, [facility] [id number] [place] [address] 93775- 1606 Sep, [facility] [id number] [place] [address] 78280- 8136 Aug, [facility] [address], [place] [address]80 Aug, [facility] [id number] [place] [address] 23349- 9014 Aug, [facility] [place] [facility] [address] [id number] [place] [address]- 8603 Aug, [facility] [place] [facility] [address] [id number] [place] [address]- 5293 Aug, [facility] [place] [facility] [address] [id number] [place] [address]- 3809 Aug, [facility] [place] [facility] [address] [id number] [place] [address]- 5377 Jul, [facility] [place] [facility] [address] [id number] [place] [address]- 0703 Jul, [facility] [place] [facility] [address] [id number] [place] [address]- 9853 Jul, [facility] [place] [facility] [address] [id number] [place] [address]- 2738 Jul, [facility] [place] [facility] [address] [id number] [place] [address]- 5437 Jun, [facility] [place] [facility] [address] [id number] [place] [address]- 6738 Jun, [facility] [place] [facility] [address] [id number] [place] [address]- 4790 Nov, [facility] [place] [facility] [address] [id number] [place] [address]- 3831 Nov, [facility] [place] [facility] [address] [id number] [place] [address]- 2827 October, [facility] [place] [facility] [address] [id number] [place] [address]- 6121 October, [facility] [place] [facility] [address] [id number] [place] [address]- 1137 October, [facility] [place] [facility] [address] [id number] [place] [address] October, [facility] [place] [facility] [address] [id number] [place] [address]- 4143 October, [facility] [place] [facility] [address] [id number] [place] [address]- 1569 October, [facility] [place] [facility] [address] [id number] [place] [address]- 6064 October, [facility] [place] [facility] [address] [id number] [place] [address]- 5762 October, [facility] [place] [facility] [address] [id number] [place] [address]- 4097 Sep, [facility] [place] [facility] [address] [id number] [place] [address]- 2387 Sep, [facility] [place] [facility] [address] [id number] [place] [address]- 3485 Sep, [facility] [place] [facility] [address] [id number] [place] [address]- 6160 Sep, [facility] [place] [facility] [address] [id number] [place] [address]- 0660 Sep, [facility] [place] [facility] [address] [id number] [place] [address]- 5529 Sep, [facility] [place] [facility] [address] [id number] [place] [address]- 1396 Sep, [facility] [place] [facility] [address] [id number] [place] [address]- 4766 Sep, [facility] [place] [facility] [address] [id number] [place] [address]- 1482 Sep, [facility] [place] [facility] [address] [id number] [place] [address]- 0878 Sep, [facility] [place] [facility] [address] [id number] [place] [address]- 5555 Sep, [facility] [place] [facility] [address] [id number] [place] [address]- 3420 Sep, [facility] [address] [facility] [id number] [place] [address] 38[address] Sep, [facility] [address] [facility] [address] [id number] [address] 3056 Sep, [facility] [address] [facility] [address] [id number] [address] Aug, [facility] [address] [facility] [address] [id number], [place] [address]- [address]3 Aug, [facility] [address] [facility] [address] [id number], [place] [address] 0850 Aug, IMMUNIZATIONS No Known Immunizations SOCIAL HISTORY Never Assessed REASON FOR VISIT Controlled Refill Request PLAN OF CARE VITAL SIGNS [...]
--- OUTSIDE RECORDS SUMMARY | 2018-05-03 11:01 | XMS REPORT ---
Author Author BEELN NUR [facility] Address [address] [place] [address] Care Team Providers Care Academic Tutor Name Role Phone NURVANBELEN Unavailable PROBLEMS Type Condition ICD9-CM Code TRT73-MI Code Onset Dates Condition Status SNOMED Code Problem COPD (chronic obstructive pulmonary disease) with chronic bronchitis J44.9 Active 365288563 Problem Acute seasonal allergic rhinitis, unspecified trigger J30.2 Active 342787638 Problem Acute exacerbation of chronic obstructive pulmonary disease (COPD) J44.1 Active 350842338 Problem COPD with acute exacerbation J44.1 Active 117780848 Problem Dysthymic disorder F34.1 Active 38930306 Problem Anxiety state, unspecified F41.1 Active 811050338 Problem Chronic obstructive pulmonary disease with (acute) exacerbation J44.1 Active 377467469 Problem COPD exacerbation J44.1 Active 759855921034118 Problem Depressive disorder, not elsewhere classified F32.9 Active 73499678 Problem Anxiety F41.9 Active 38163752 Problem Environmental allergies Z91.09 Active 482949962 Problem Iron deficiency anemia D50.9 Active 94896032 Problem Hyperlipidemia E78.5 Active 30450363 Problem 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.0 Active 21809547 Problem Dependence on continuous supplemental oxygen Z99.81 Active 74709138923286 Problem Chronic obstructive pulmonary disease with acute lower respiratory infection J44.0 Active 081756435 Problem Chronic pain syndrome G89.4 Active 043716381 Problem Major depressive disorder with single episode, remission status unspecified F32.9 Active 69539745 Problem Other chronic pain G89.29 Active 67287948 ALLERGIES No Known Allergies ENCOUNTERS Encounter Location Date Diagnosis [facility] [address] [facility] [id number] [address] Feb, [facility] [address] [facility] [id number], [place] [address] October, [place] [address], [place] [address] October, 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.0 and Anxiety state, unspecified F41.1 [facility] [address], [place] [address] Aug, COPD with acute exacerbation J44.1 [place] [address] [place] [id number] [place] [address] Aug, Chronic obstructive pulmonary disease with acute lower respiratory infection J44.0 [place] [address] [place] [id number] [place] [address] Aug, 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.0 [place] [address] [place] [address] Jul, 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.0 and Anxiety state, unspecified F41.1 [place] [address], [place] [address] Jul, Anxiety F41.9 and Chronic pain syndrome G89.4 [place] [address] [place] [id number] [place] [address] Jun, Dysthymic disorder F34.1 and Anxiety state, unspecified F41.1 [place] [address] [place] [address] Jun, Anxiety state, unspecified F41.1 and 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.0 [place] [address] [address] Jun, [facility] [address] [place] [address] May, COPD exacerbation J44.1 [facility] [address], [place] [address] May, Depressive disorder, not elsewhere classified F32.9 and Anxiety state, unspecified F41.1 [facility] [address] [place] [id number] [place] [address] May, Chronic obstructive pulmonary disease with acute lower respiratory infection J44.0 and Acute seasonal allergic rhinitis, unspecified trigger J30.2 [facility] [address] [address] May, Acute exacerbation of chronic obstructive pulmonary disease (COPD) J44.1 [facility] [address] [address] 17 Apr, 2017 Encounter for immunization Z23 [address] [address] Apr, [place] [address] [address] Apr, Back pain 724.5 [facility] [address] [address] Mar, Acute seasonal allergic rhinitis, unspecified trigger J30.2 and Sore throat J02.9 [facility] [address] [place] [address] Mar, Acute exacerbation of chronic obstructive pulmonary disease (COPD) J44.1 [facility] [address] [address] 28 Feb, 2017 COPD (chronic obstructive pulmonary disease) with chronic bronchitis J44.9 ; Low back pain M54.5 and Other chronic pain G89.29 [facility] [address] [place] [id number] [place] [address] 21 Feb, 2017 Decreased breath sounds R06.89 and Acute exacerbation of chronic obstructive pulmonary disease (COPD) J44.1 [facility] [address] [address] 15 Feb, 2017 [facility] [address] [address] Feb, [facility] [address] [place] [address] Jan, Major depressive disorder with single episode, remission status unspecified F32.9 [facility] [address] [place] [id number] [place] [address] 16 Dec, 2016 Allergic contact dermatitis, unspecified trigger L23.9 [facility] [address] [place] [id number] [place] [address] 13 Dec, 2016 Allergic reaction, initial encounter T78.40XA [place] [address] [place] [id number] [place] [address] 14 Nov, 2016 Hyperlipidemia E78.5 ; Chronic obstructive pulmonary disease with acute lower respiratory infection J44.0 and Iron deficiency anemia D50.9 [place] [id number] [place] [address] Nov, Hyperlipidemia E78.5 ; Iron deficiency anemia D50.9 ; Chronic obstructive pulmonary disease with acute lower respiratory infection J44.0 ; Environmental allergies Z91.09 and Major depressive disorder with single episode, remission status unspecified F32.9 [facility] [address] [place] [id number] [place] [address] Sep, Shortness of breath R06.02 and COPD exacerbation J44.1 [place] [id number] [place] [address] 4[address] Sep, Chronic obstructive pulmonary disease with acute lower respiratory infection J44.0 [place] [address] [place] [id number] [place] [address] Jun, Anxiety F41.9 [place] [id number] [place] [address] Jun, Chronic obstructive pulmonary disease with acute lower respiratory infection J44.0 ; Dependence on continuous supplemental oxygen Z99.81 ; Iron deficiency anemia D50.9 ; Anxiety F41.9 ; 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.0 ; Hypercholesterolemia E78.00 and Chronic pain syndrome G89.4 [facility] [address] [place] [id number] [place] [address] May, Anxiety F41.9 [place] [address] [address] May, [place] [address] [place] [id number] [place] [address] Feb, [place] [address] [address] Jan, Chronic obstructive pulmonary disease with acute lower respiratory infection J44.0 ; Major depressive disorder with single episode, remission status unspecified F32.9 ; Environmental allergies Z91.09 ; Anxiety F41.9 ; Hyperlipidemia E78.5 ; Iron deficiency anemia, unspecified iron deficiency anemia type D50.9 ; Other chronic pain G89.29 and Lumbago with sciatica, unspecified side M54.40 [place] [address] [place] [id number] [place] [address] Sep, Hyperlipidemia E78.5 and Iron deficiency anemia D50.9 [place] [address] [address] Sep, COPD (chronic obstructive pulmonary disease) 496 ; Back pain 724.5 ; Anxiety 300.00 ; Hyperlipidemia E78.5 ; Iron deficiency anemia D50.9 and Headache R51 [place] [address] [place] [id number] [place] [address]99 Aug, [place] [address] [place] [id number] [place] [address] 16996[address] Mar, Hyperlipidemia E78.5 and Iron deficiency anemia D50.9 [place] [address] [address] Mar, Routine adult health maintenance V70.0 [place] [address] [place] [id number] [place] [address]19[address] 6[address] Mar, Orbital cellulitis on left H05.012 [place] [address], [place] [address] Mar, [facility] [address] [place] [id number] [place] [address] 17 Feb, 2015 Breast cancer screening V76.10 [facility] [address] [place] [address]14[address] 08 Feb, 2015 Routine adult health maintenance V70.0 ; COPD (chronic obstructive pulmonary disease) 496 ; Special screening for malignant neoplasms, colon V76.51 and 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.9 [facility] [address] [place] [id number] [place] [address]5699- [address]209 08 Feb, 2015 [place] [address] [place] [id number] [place] [address] 84774- [address]648 Dec, Asthma, unspecified, unspecified status 493.90 ; Back pain 724.5 ; COPD (chronic obstructive pulmonary disease) 496 and Anxiety 300.00 [facility] [address] [place] [id number] [place] [id number] Dec, Dental examination V72.2 [facility] [address] [place] [id number] [place] [address]13- 9056 Dec, Back pain 724.5 ; COPD (chronic obstructive pulmonary disease) 496 and Anxiety 300.00 [facility] [address] [place] [id number] [place] [id number] Dec, Dental examination V72.2 [facility] [address] [place] [id number] [place] [id number] Nov, Dental examination V72.2 [facility] [address] [place] [id number] [place] [id number] October, Dental examination V72.2 [facility] [address] [place] [id number] [place] [address] 51584- 9111 Sep, [facility] [address] [place] [id number] [place] [address] 28046- 9734 Sep, [facility] [place] [facility] [address] [id number] [place] [address] Aug, [facility] [place] [facility] [address] [id number] [place] [address]- 475[address] Aug, [facility] [place] [facility] [address] [id number] [place] [address] 6[address] Aug, [facility] [place] [facility] [address] [id number] [place] [address] Aug, [facility] [place] [facility] [address] [id number] [place] [address]- [address]99 Aug, [facility] [place] [facility] [address] [id number] [place] [address]- 1766 Aug, [facility] [place] [facility] [address] [id number] [place] [address]- 4268 Jul, [facility] [place] [facility] [address] [id number] [place] [address]- 75[address] Jul, [facility] [place] [facility] [address] [id number] [place] [address]- 3[address] Jul, [facility] [place] [facility] [address] [id number] [place] [address]- 8732 Jul, [facility] [place] [facility] [address] [id number] [place] [address]- 0643 Jun, [facility] [place] [facility] [address] [id number] [place] [address]- 77[address] Jun, [facility] [place] [facility] [address] [id number] [place] [address]- 3[address] Nov, [facility] [place] [facility] [address] [id number] [place] [address]- 0241 Nov, [facility] [place] [facility] [address] [id number] [place] [address]- [address] October, [facility] [place] [facility] [address] [id number] [place] [address]- 6[address] October, [facility] [place] [facility] [address] [id number] [place] [address]- 2825 October, [facility] [place] [facility] [address] [id number] [place] [address]- 6386 October, [facility] [place] [facility] [address] [id number] [place] [address]- 0149 October, [facility] [place] [facility] [address] [id number] [place] [address]- 2318 October, [facility] [place] [facility] [address] [id number] [place] [address]- 9365 October, [facility] [place] [facility] [address] [id number] [place] [address]- 3417 October, [facility] [place] [facility] [address] [id number] [place] [address]- 1766 Sep, [facility] [place] [facility] [address] [id number] [place] [address]- 4905 24 Sep, 2013 [facility] [place] [facility] [address] [id number] [place] [address]- 9580 Sep, [facility] [place] [facility] [address] [id number] [place] [address]- 8691 Sep, [facility] [place] [facility] [address] [id number] [place] [address]- 7074 14 Sep, 2013 [facility] [place] [facility] [address] [id number] [place] [address]- 4289 14 Sep, 2013 [facility] [place] [facility] [address] [id number] [place] [address]- 7270 10 Sep, 2013 [facility] [place] [facility] [address] [id number] [place] [address]- 6518 10 Sep, 2013 [facility] [place] [facility] [address] [id number] [place] [address]- 0425 08 Sep, 2013 [facility] [place] [facility] [address] [id number] [address] Sep, [facility] [address] Sep, [facility] [address] [address] Sep, [facility] [address] Sep, [facility] [address] [address] Sep, [facility] [address] [place] [id number] [place] [address] [id number]- 3348 Aug, [facility] [address], [place] [address]- 3667 Aug, [facility] [address], [place] [address] Aug, IMMUNIZATIONS No Known Immunizations SOCIAL HISTORY Never Assessed REASON FOR VISIT chest tightness, painful productive cough at night has not really went away since last dx with zuleika Jackson PLAN OF CARE Activity Details Follow Up prn Reason: VITAL SIGNS Height 64 in 2017-03-26 Weight 167.2 lbs 2017-03-26 Temperature 98.2 degrees Fahrenheit 2017-03-26 Heart Rate 84 bpm 2017-03-26 Respiratory Rate 24 2017-03-26 Oximetry w/ oxygen @ 4L:98 % 2017-03-26 BMI 28.70 kg/m2 2017-03-26 Blood pressure systolic 130 mmHg 2017-03-26 Blood pressure diastolic 82 mmHg 2017-03-26 MEDICATIONS Medication Instructions Dosage Frequency Start Date End Date Duration Status Symbicort 160-4.5 MCG/ACT Inhalation Twice a day INHALE TWO PUFFS BY MOUTH TWICE DAILY 12h 30 days Active Azithromycin 250 MG Orally Once a day 2 tablets on the first day, then 1 tablet daily for 4 days 24h Mar, Mar, 5 day(s) Active PredniSONE 20 MG Orally Once a day 2 tablet 24h Mar, Mar, 5 days Active Klonopin 0.5 MG Orally Twice a day 1 tablet 12h 30 Active Oxygen Active Incruse Ellipta 62.5 MCG/INH Inhalation Once a day 1 puff 24h Active Pantoprazole Sodium 40 MG Orally Once a day 1 tablet 24h Active Wellbutrin XL 150 MG Orally Once a day 1 tablet in the morning 24h 30 Active Proventil HFA 108 (90 Base) MCG/ACT Inhalation PRN every 4 hours 2 puffs as needed Active Singulair 10 mg Orally Once a day 1 tablet in the evening 24h Active Flonase 50 MCG/ACT Nasally Once a day 1 spray in each nostril 24h Active RESULTS No Results PROCEDURES Procedure Date Ordered Result Body Site MEASURE BLOOD OXYGEN LEVEL Mar 26, 2017 [facility] VISIT ESTABLISHED PATIENT Mar 26, 2017 INSTRUCTIONS MEDICATIONS ADMINISTERED No Known Medications MEDICAL (GENERAL) HISTORY Type Description Date Medical History Asthma Medical History Anxiety Medical History Depression Medical History Headaches Medical History COPD/emphysema Medical History Bone density 11/01/13 heel US WNL Surgical History Breast reduction Surgical History lap band Surgical History Tubal ligation Surgical History section Hospitalization History Sepsis 2010
--- OUTSIDE RECORDS SUMMARY | 2018-05-03 11:01 | XMS REPORT ---
Author Author MARY Parks Organization [facility] Address [address] [place] [address] Care Team Providers Care Inspector Set Up And Lay Out Name Role Phone Kasey MARY Unavailable PROBLEMS Type Condition ICD9-CM Code OXO85-NA Code Onset Dates Condition Status SNOMED Code Problem COPD (chronic obstructive pulmonary disease) with chronic bronchitis J44.9 Active 506809792 Problem Acute seasonal allergic rhinitis, unspecified trigger J30.2 Active 956106185 Problem Acute exacerbation of chronic obstructive pulmonary disease (COPD) J44.1 Active 414248811 Problem COPD with acute exacerbation J44.1 Active 499080955 Problem Dysthymic disorder F34.1 Active 56595451 Problem Anxiety state, unspecified F41.1 Active 532220007 Problem Chronic obstructive pulmonary disease with (acute) exacerbation J44.1 Active 926675602 Problem COPD exacerbation J44.1 Active 297066049256237 Problem Depressive disorder, not elsewhere classified F32.9 Active 42884143 Problem Anxiety F41.9 Active 85184417 Problem Environmental allergies Z91.09 Active 870500315 Problem Iron deficiency anemia D50.9 Active 27270127 Problem Hyperlipidemia E78.5 Active 76169103 Problem 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.0 Active 85690647 Problem Dependence on continuous supplemental oxygen Z99.81 Active 85118013211643 Problem Chronic obstructive pulmonary disease with acute lower respiratory infection J44.0 Active 166539098 Problem Chronic pain syndrome G89.4 Active 994001777 Problem Major depressive disorder with single episode, remission status unspecified F32.9 Active 70443094 Problem Other chronic pain G89.29 Active 83031633 ALLERGIES No Information ENCOUNTERS Encounter Location Date Diagnosis [facility] [address] [facility] [id number] [address] 10 Feb, 2018 [facility] [address] [id number] [address] October, [facility] [id number] [place] [address] October, Chronic pain syndrome G89.4 [facility] [id number] [place] [address] October, Mild episode of recurrent major depressive disorder F33.0 and Anxiety state, unspecified F41.1 [facility] [id number] [place] [address]79 -[address]72 Aug, COPD with acute exacerbation J44.1 [place] [id number] [place] [address]40- 2444 Aug, Chronic obstructive pulmonary disease with acute lower respiratory infection J44.0 [place] [id number] [place] [address] 49139- 5517 Aug, Mild episode of recurrent major depressive disorder F33.0 [place] [id number] [place] [address] 28814- 5532 Jul, Mild episode of recurrent major depressive disorder F33.0 and Anxiety state, unspecified F41.1 [place] [id number] [place] [address] 98658- 5796 Jul, Anxiety F41.9 and Chronic pain syndrome G89.4 [place] [address] [place] [address] 28577- 6652 Jun, Dysthymic disorder F34.1 and Anxiety state, unspecified F41.1 [place] [id number] [place] [address] 40880- 7848 Jun, Anxiety state, unspecified F41.1 and Mild episode of recurrent major depressive disorder F33.0 [facility] [id number] [place] [address] 45808- 4635 Jun, [facility] [id number] [place] [address] 81462 -[address]111 May, COPD exacerbation J44.1 [facility] [id number] [place] [address] 76452- 2809 May, Depressive disorder, not elsewhere classified F32.9 and Anxiety state, unspecified F41.1 [facility] [id number] [place] [address] 67755- 7378 May, Chronic obstructive pulmonary disease with acute lower respiratory infection J44.0 and Acute seasonal allergic rhinitis, unspecified trigger J30.2 [facility] [address] [address] May, Acute exacerbation of chronic obstructive pulmonary disease (COPD) J44.1 [place] [address] [address] Apr, Encounter for immunization Z23 [address] [address] Apr, [place] [address] [address] Apr, Back pain 724.5 [facility] [address] [place] [address]82 -[address]79 Mar, Acute seasonal allergic rhinitis, unspecified trigger J30.2 and Sore throat J02.9 [facility] [address] [address] Mar, Acute exacerbation of chronic obstructive pulmonary disease (COPD) J44.1 [facility] [id number] [place] [address] 09243- 1678 28 Feb, 2017 COPD (chronic obstructive pulmonary disease) with chronic bronchitis J44.9 ; Low back pain M54.5 and Other chronic pain G89.29 [facility] [address] [address] 21 Feb, 2017 Decreased breath sounds R06.89 and Acute exacerbation of chronic obstructive pulmonary disease (COPD) J44.1 [place] [address] [place] [address] 15 Feb, 2017 [facility] [id number] [place] [address] 01692- 6253 11 Feb, 2017 [place] [id number] [place] [address] 48049- 8946 Jan, Major depressive disorder with single episode, remission status unspecified F32.9 [facility] [id number] [place] [address] 60325 -8871 16 Dec, 2016 Allergic contact dermatitis, unspecified trigger L23.9 [facility] [id number] [place] [address] 99738 -2675 13 Dec, 2016 Allergic reaction, initial encounter T78.40XA [place] [id number] [place] [address] 18019- 1703 14 Nov, 2016 Hyperlipidemia E78.5 ; Chronic obstructive pulmonary disease with acute lower respiratory infection J44.0 and Iron deficiency anemia D50.9 [place] [address] [place] [address] 84170- 7205 Nov, Hyperlipidemia E78.5 ; Iron deficiency anemia D50.9 ; Chronic obstructive pulmonary disease with acute lower respiratory infection J44.0 ; Environmental allergies Z91.09 and Major depressive disorder with single episode, remission status unspecified F32.9 [facility] [address] [address] Sep, Shortness of breath R06.02 and COPD exacerbation J44.1 [place] [id number] [place] [address] 88725- 7369 Sep, Chronic obstructive pulmonary disease with acute lower respiratory infection J44.0 [place] [id number] [place] [address] 43925- 5298 Jun, Anxiety F41.9 [place] [address] [place] [address] 07668- 8940 Jun, Chronic obstructive pulmonary disease with acute lower respiratory infection J44.0 ; Dependence on continuous supplemental oxygen Z99.81 ; Iron deficiency anemia D50.9 ; Anxiety F41.9 ; Mild episode of recurrent major depressive disorder F33.0 ; Hypercholesterolemia E78.00 and Chronic pain syndrome G89.4 [place] [id number] [place] [address] 30308- 7846 May, Anxiety F41.9 [place] [address] 9[address]17- 6090 May, [facility] [address] 134[address]- [address] Feb, [place] [address] 30952- 7546 Jan, Chronic obstructive pulmonary disease with acute lower respiratory infection J44.0 ; Major depressive disorder with single episode, remission status unspecified F32.9 ; Environmental allergies Z91.09 ; Anxiety F41.9 ; Hyperlipidemia E78.5 ; Iron deficiency anemia, unspecified iron deficiency anemia type D50.9 ; Other chronic pain G89.29 and Lumbago with sciatica, unspecified side M54.40 [place] [address] 93800- 8266 Sep, Hyperlipidemia E78.5 and Iron deficiency anemia D50.9 [place] [id number] [place] [address] 75957- 7506 Sep, COPD (chronic obstructive pulmonary disease) 496 ; Back pain 724.5 ; Anxiety 300.00 ; Hyperlipidemia E78.5 ; Iron deficiency anemia D50.9 and Headache R51 [place] [id number] [place] [address] 57202- 2141 Aug, [place] [address] 52119- 0993 Mar, Hyperlipidemia E78.5 and Iron deficiency anemia D50.9 [place] [id number] [place] [address] 98911- 3141 Mar, Routine adult health maintenance V70.0 [facility] [address] [address] Mar, Orbital cellulitis on left H05.012 [facility] [address], [place] [address] Mar, [facility] [address] [address] Feb, Breast cancer screening V76.10 [facility] [id number] [place] [address] 84540- 1477 08 Feb, 2015 Routine adult health maintenance V70.0 ; COPD (chronic obstructive pulmonary disease) 496 ; Special screening for malignant neoplasms, colon V76.51 and 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.9 [place] [id number] [place] [address] 46342- 3062 Feb, [facility] [id number] [place] [address] 64096- 3783 Dec, Asthma, unspecified, unspecified status 493.90 ; Back pain 724.5 ; COPD (chronic obstructive pulmonary disease) 496 and Anxiety 300.00 [facility] [id number] [place] [address] [id number] Dec, Dental examination V72.2 [place] [address], [place] [address] Dec, Back pain 724.5 ; COPD (chronic obstructive pulmonary disease) 496 and Anxiety 300.00 [facility] [address] [place] [address] [id number] Dec, Dental examination V72.2 [facility] [id number] [place] [address] [id number] Nov, Dental examination V72.2 [facility] [id number] [place] [address] [id number] October, Dental examination V72.2 [facility] [id number] [place] [address] [id number]- 9676 14 Sep, 2014 [facility] [place] [facility] [address] [id number] [place] [address]- [address]298 Sep, [facility] [place] [facility] [address] [id number] [place] [address]- 6786 Aug, [facility] [place] [facility] [address] [id number] [place] [address]- 9570 Aug, [facility] [place] [facility] [address] [id number] [place] [address]- 1722 Aug, [facility] [place] [facility] [address] [id number] [place] [address]- 1745 Aug, [facility] [place] [facility] [address] [id number] [place] [address]- 5843 Aug, [facility] [place] [facility] [address] [id number] [place] [address]- 3568 Aug, [facility] [place] [facility] [address] [id number] [place] [address]- 6638 Jul, [facility] [place] [facility] [address] [id number] [place] [address]- 5390 Jul, [facility] [place] [facility] [address] [id number] [place] [address]- 7496 Jul, [facility] [place] [facility] [address] [id number] [place] [address]- 2226 Jul, [facility] [place] [facility] [address] [id number] [place] [address]- 5289 Jun, [facility] [place] [facility] [address] [id number] [place] [address]- 7096 Jun, [facility] [place] [facility] [address] [id number] [place] [address]- 7632 Nov, [facility] [place] [facility] [address] [id number] [place] [address]- 2546 Nov, [facility] [place] [facility] [address] [id number] [place] [address]- 3041 October, [facility] [address] [id number] [place] [address]- 6157 October, [facility] [address] [id number] [place] [address]- 4202 October, [facility] [address] [id number] [place] [address]- 3635 October, [facility] [address] [id number] [place] [address]- 0117 October, [facility] [address] [id number] [place] [address]- 5973 October, [facility] [address] [id number] [place] [address]- 2979 October, [facility] [address] [id number] [place] [address]- 4814 October, [facility] [address] [id number] [place] [address]- 7415 Sep, [facility] [address] [id number] [place] [address]- 4150 24 Sep, 2013 [facility] [address] [id number] [place] [address]- 3171 15 Sep, 2013 [facility] [place] [facility] [address] [id number] [place] [address]- 3150 15 Sep, 2013 [facility] [address] [id number] [place] [address]- 4387 14 Sep, 2013 [facility] [place] [facility] [address] [id number] [place] [address]- 1571 14 Sep, 2013 [facility] [address] [id number] [place] [address]- 7758 10 Sep, 2013 [facility] [place] [facility] [address] [id number] [place] [address]- 2536 Sep, [facility] [address] [id number], [place] [address]- [address] Sep, [facility] [address] [facility] [id number] [address]- [address] Sep, [facility] [address] [id number] [address]- 9899 Sep, [facility] [address] [address]- [address]666 Sep, [facility] [address] [id number], [place] [address]- 0020 Sep, [facility] [address], [place] [address]- 5642 Sep, [facility] [address] [address]- 9512 Aug, [facility] [address] [id number], [place] [address]- 7[address] Aug, [facility] [address] [id number], [place] [address]- [address] Aug, IMMUNIZATIONS Vaccine Route Administration Date Status FLUARIX QUAD (3 AND UP) 2016 IM Intramuscular Apr 30, 2017 Administered SOCIAL HISTORY Never Assessed REASON FOR VISIT flu shot---DBennettRN PLAN OF CARE VITAL SIGNS MEDICATIONS Unknown Medications RESULTS No Results PROCEDURES Procedure Date Ordered Result Body Site FLUARIX QUAD (3 AND UP) 2016Apr 30, 2017 SINGLE IMMUNIZATION ADMIN Apr 30, 2017 INSTRUCTIONS MEDICATIONS ADMINISTERED No Known Medications MEDICAL (GENERAL) HISTORY Type Description Date Medical History Asthma Medical History Anxiety Medical History Depression Medical History Headaches Medical History COPD/emphysema Medical History Bone density 11/01/13 heel US WNL Surgical History Breast reduction Surgical History lap band Surgical History Tubal ligation Surgical History section Hospitalization History Sepsis 2010
--- OUTSIDE RECORDS SUMMARY | 2018-05-03 11:02 | XMS REPORT ---
Author Author DELISA PEREZ [facility] [address] Address [address] [place] [address] Care Team Providers Care [employer]derer [employer] Name Role Phone DELISA PEREZ Unavailable PROBLEMS Type Condition ICD9-CM Code OSR17-QZ Code Onset Dates Condition Status SNOMED Code Problem Acute seasonal allergic rhinitis, unspecified trigger J30.2 Active 122587339 Problem Anxiety state, unspecified F41.1 Active 710404956 Problem Chronic obstructive pulmonary disease with (acute) exacerbation J44.1 Active 708824703 Problem Mixed hyperlipidemia E78.2 Active 105541616 Problem Hyperlipidemia E78.5 Active 33014376 Problem Severe persistent asthma without complication J45.50 Active 604065918 Problem Iron deficiency anemia D50.9 Active 19004852 Problem COPD exacerbation J44.1 Active 605389491968406 Problem Depressive disorder, not elsewhere classified F32.9 Active 17517945 Problem COPD with acute exacerbation J44.1 Active 963694137 Problem Dysthymic disorder F34.1 Active 55326746 Problem Chronic obstructive pulmonary disease with acute lower respiratory infection J44.0 Active 669236662 Problem Major depressive disorder with single episode, remission status unspecified F32.9 Active 79419297 Problem Anxiety F41.9 Active 77379962 Problem Environmental allergies Z91.09 Active 473800264 Problem Chronic pain syndrome G89.4 Active 028598019 Problem Other chronic pain G89.29 Active 34558696 Problem Mild episode of recurrent major depressive disorder F33.0 Active 24385193 Problem COPD (chronic obstructive pulmonary disease) with chronic bronchitis J44.9 Active 265324308 Problem Dependence on continuous supplemental oxygen Z99.81 Active 78669175139030 Problem Acute exacerbation of chronic obstructive pulmonary disease (COPD) J44.1 Active 458272160 ALLERGIES No Known Allergies ENCOUNTERS Encounter Location Date Diagnosis [facility] [place] [address] [facility] [id number] [address] Feb, [place] [address] [address] Nov, Mixed hyperlipidemia E78.2 [facility] [address] [place] [id number] [place] [address]689 -8174 Nov, Environmental allergies Z91.09 [place] [address] [place] [id number] [place] [address] 59170- 6472 Nov, Iron deficiency anemia D50.9 and Hyperlipidemia E78.5 [place] [address] [place] [id number] [place] [address] 66594- 3070 October, Severe persistent asthma without complication J45.50 ; Hyperlipidemia E78.5 ; Iron deficiency anemia D50.9 ; Pain in thoracic spine M54.6 and Other chronic pain G89.29 [place] [address] [place] [id number] [place] [address] 30222- 9715 October, Chronic pain syndrome G89.4 [place] [address] [place] [id number] [place] [address] 26082- 8421 October, Mild episode of recurrent major depressive disorder F33.0 and Anxiety state, unspecified F41.1 [facility] [place] [id number] [place] [address]19 [address]7375 Aug, COPD with acute exacerbation J44.1 [place] [id number] [place] [address] 94490- 3689 Aug, Chronic obstructive pulmonary disease with acute lower respiratory infection J44.0 [place] [address] [place] [id number] [place] [address] 57873- 1329 Aug, Mild episode of recurrent major depressive disorder F33.0 [place] [address] [place] [id number] [place] [address] 22383- 5093 08 Jul, 2017 Mild episode of recurrent major depressive disorder F33.0 and Anxiety state, unspecified F41.1 [place] [id number] [place] [address] 97455- 6112 Jul, Anxiety F41.9 and Chronic pain syndrome G89.4 [place] [address] [place] [id number] [place] [address] 51916- 2269 Jun, Dysthymic disorder F34.1 and Anxiety state, unspecified F41.1 [place] [address] [address] Jun, Anxiety state, unspecified F41.1 and Mild episode of recurrent major depressive disorder F33.0 [place] [address] [address]40- 6611 Jun, [facility] [place] [address] [address] May, COPD exacerbation J44.1 [place] [address] 28[address]- 9925 May, Depressive disorder, not elsewhere classified F32.9 and Anxiety state, unspecified F41.1 [place] [address] [address]- 7981 May, Chronic obstructive pulmonary disease with acute lower respiratory infection J44.0 and Acute seasonal allergic rhinitis, unspecified trigger J30.2 [facility] [place] [address] [place] [id number] [place] [address] 08561 -2112 May, Acute exacerbation of chronic obstructive pulmonary disease (COPD) J44.1 [place] [address] 25282- 8917 Apr, Encounter for immunization Z23 [place] [address] 18144- 1010 Apr, [place] [address] 42525- 1491 Apr, Back pain 724.5 [facility] [address] [place] [id number] [place] [address] 28612 -1116 Mar, Acute seasonal allergic rhinitis, unspecified trigger J30.2 and Sore throat J02.9 [facility] [address] [place] [id number] [place] [address] 44839 -1134 13 Mar, 2017 Acute exacerbation of chronic obstructive pulmonary disease (COPD) J44.1 [place] [address] [place] [id number] [place] [address] 04511- 8187 28 Feb, 2017 COPD (chronic obstructive pulmonary disease) with chronic bronchitis J44.9 ; Low back pain M54.5 and Other chronic pain G89.29 [facility] IN [address] [address] 21 Feb, 2017 Decreased breath sounds R06.89 and Acute exacerbation of chronic obstructive pulmonary disease (COPD) J44.[address] 8[address]01- 5319 15 Feb, [address] 55819- 3061 Feb, [address] 08408- 3369 Jan, Major depressive disorder with single episode, remission status unspecified F32.9 [facility] IN [address] 64397 [address]2118 16 Dec, 2016 Allergic contact dermatitis, unspecified trigger L23.9 [facility] IN [address] 80108 [address] 13 Dec, 2016 Allergic reaction, initial encounter T78.40XA [address] [address]53- 6378 14 Nov, 2016 Hyperlipidemia E78.5 ; Chronic obstructive pulmonary disease with acute lower respiratory infection J44.0 and Iron deficiency anemia D50.[address] 00760- 6365 02 Nov, 2016 Hyperlipidemia E78.5 ; Iron deficiency anemia D50.9 ; Chronic obstructive pulmonary disease with acute lower respiratory infection J44.0 ; Environmental allergies Z91.09 and Major depressive disorder with single episode, remission status unspecified F32.9 [facility] [address] [address] Sep, Shortness of breath R06.02 and COPD exacerbation J44.1 [facility] [place] [address] [address] Sep, Chronic obstructive pulmonary disease with acute lower respiratory infection J44.0 [facility] [place] [address] [place] [id number] [place] [address] 89125- 5094 Jun, Anxiety F41.9 [place] [address] [place] [id number] [place] [address] 31052- 4144 Jun, Chronic obstructive pulmonary disease with acute lower respiratory infection J44.0 ; Dependence on continuous supplemental oxygen Z99.81 ; Iron deficiency anemia D50.9 ; Anxiety F41.9 ; Mild episode of recurrent major depressive disorder F33.0 ; Hypercholesterolemia E78.00 and Chronic pain syndrome G89.4 [place] [address] [place] [id number] [place] [address] 07590- 2540 May, Anxiety F41.9 [place] [address] [place] [id number] [place] [address] 83909- 3389 May, [place] [address] [place] [id number] [place] [address] 15874- 0038 Feb, [place] [id number] [place] [address] 76645- 2108 Jan, Chronic obstructive pulmonary disease with acute lower respiratory infection J44.0 ; Major depressive disorder with single episode, remission status unspecified F32.9 ; Environmental allergies Z91.09 ; Anxiety F41.9 ; Hyperlipidemia E78.5 ; Iron deficiency anemia, unspecified iron deficiency anemia type D50.9 ; Other chronic pain G89.29 and Lumbago with sciatica, unspecified side M54.40 [facility] [place] [address] [address] Sep, Hyperlipidemia E78.5 and Iron deficiency anemia D50.9 [place] [address] [address]- 4[address] Sep, COPD (chronic obstructive pulmonary disease) 496 ; Back pain 724.5 ; Anxiety 300.00 ; Hyperlipidemia E78.5 ; Iron deficiency anemia D50.9 and Headache R51 [facility] [place] [address] [place] [id number] [place] [address] 91032- 9665 Aug, [place] [address] [place] [id number] [place] [address] 36948- 5002 Mar, Hyperlipidemia E78.5 and Iron deficiency anemia D50.9 [place] [address] [place] [id number] [place] [address] 49553- 7132 Mar, Routine adult health maintenance V70.0 [place] [address] [place] [id number] [place] [address] 95783- 3597 Mar, Orbital cellulitis on left H05.012 [place] [address] [place] [id number] [place] [address] 45765- 3886 Mar, [place] [address] [place] [id number] [place] [address] 70599- 9916 Feb, Breast cancer screening V76.10 [place] [address] [place] [id number] [place] [address] 44446- 6467 Feb, Routine adult health maintenance V70.0 ; COPD (chronic obstructive pulmonary disease) 496 ; Special screening for malignant neoplasms, colon V76.51 and 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.9 [place] [address] [place] [id number] [place] [address] 33524- 0632 Feb, [place] [address] [place] [id number] [place] [address] 74903- 6149 Dec, Asthma, unspecified, unspecified status 493.90 ; Back pain 724.5 ; COPD (chronic obstructive pulmonary disease) 496 and Anxiety 300.00 [facility] [place] [facility] [address] [id number] Dec, Dental examination V72.2 [place] [address] [id number] [place] [address]- 2546 Dec, Back pain 724.5 ; COPD (chronic obstructive pulmonary disease) 496 and Anxiety 300.00 [facility] [address] [id number] Dec, Dental examination V72.2 [facility] [place] [facility] [address] [id number] [place] [id number] Nov, Dental examination V72.2 [facility] [place] [facility] [address] [place] [id number] [place] [address] [id number] October, Dental examination V72.2 [facility] [id number] [place] [address] 96475- 2546 Sep, [facility] [address] [place] [id number] [place] [address] 52919 2546 Sep, [facility] [address] [place] [id number] [place] [address] 15926- 8456 Aug, [facility] [address] [place] [id number] [address]- 1113 Aug, [facility] [address] [facility] [id number] [place] [address]- 6566 Aug, [facility] [address] [place] [id number] [address]- 1345 Aug, [facility] [address] [facility] [id number] [place] [address]- 9616 Aug, [facility] [address] [facility] [id number] [place] [address] 254 Aug, [facility] [address] [facility] [id number] [place] [address]- 2546 Jul, [facility] [place] [address] [facility] [id number] [place] [address]- 2546 Jul, [facility] [address] [place] [id number] [address]- 0212 Jul, [facility] [address] [id number] [place] [address]- 5328 Jul, [facility] [place] [facility] [address] [id number] [place] [address]- 8497 Jun, [facility] [place] [facility] [address] [id number] [place] [address]- 9113 Jun, [facility] [place] [facility] [address] [id number] [place] [address]- 4371 Nov, [facility] [place] [facility] [address] [id number] [place] [address]- 6748 Nov, [facility] [place] [facility] [address] [id number] [place] [address]- 1494 October, [facility] [address] [id number] [place] [address]- 9974 October, [facility] [place] [facility] [address] [id number] [place] [address]- 2855 October, [facility] [address] [id number] [place] [address]- 4953 October, [facility] [place] [facility] [address] [id number] [place] [address]- 0080 October, [facility] [place] [facility] [address] [id number] [place] [address]- 8251 October, [facility] [place] [facility] [address] [id number] [place] [address]- 0780 October, [facility] [place] [facility] [address] [id number] [place] [address]- 0004 October, [facility] [place] [facility] [address] [id number] [place] [address]- 6864 Sep, [facility] [place] [facility] [address] [id number] [place] [address]- 3265 Sep, [facility] [place] [facility] [address] [id number] [place] [address]- 6593 15 Sep, 2013 [facility] [place] [address] [id number] [place] [address]- 7909 Sep, [facility] [place] [address] [facility] [id number] [place] [address]- 2206 Sep, [facility] [place] [address] [facility] [id number] [place] [address]- 7482 Sep, [facility] [place] [address] [id number] [place] [address]- 2318 Sep, [facility] [place] [address] [facility] [id number] [place] [address]- 4110 Sep, [facility] [place] [address] [facility] [id number] [place] [address]- 6244 Sep, [facility] [place] [address] [facility] [id number] [place] [address]- 7657 Sep, [facility] [place] [address] [facility] [id number] [place] [address]- 6857 Sep, [facility] [place] [address] [facility] [id number] [place] [address]- 7614 Sep, [facility] [place] [address] [facility] [id number] [place] [address]- 9543 Sep, [facility] [place] [address] [facility] [id number] [place] [address]- 4317 Sep, [facility] [place] [address] [facility] [id number] [place] [address]- 0972 Aug, [facility] [place] [address] [facility] [id number] [place] [address]- 0693 Aug, [facility] [place] [address] [facility] [id number] [place] [address]- 6623 Aug, IMMUNIZATIONS No Known Immunizations SOCIAL HISTORY Never Assessed REASON FOR VISIT COPD---DBennettRN PLAN OF CARE Activity Details Follow Up 4 Months Reason: VITAL SIGNS Height 64 in 2017-06-01 Weight 154 lbs 2017-06-01 Temperature 97.6 degrees Fahrenheit 2017-06-01 Heart Rate 90 bpm 2017-06-01 Respiratory Rate 20 2017-06-01 BMI 26.43 kg/m2 2017-06-01 Blood pressure systolic 124 mmHg 2017-06-01 Blood pressure diastolic 86 mmHg 2017-06-01 MEDICATIONS Medication Instructions Dosage Frequency Start Date End Date Duration Status Wellbutrin XL 150 MG Orally Once a day 1 tablet in the morning 24h 30 Active Flonase 50 MCG/ACT Nasally Once a day 1 spray in each nostril 24h Active Pantoprazole Sodium 40 MG Orally Once a day 1 tablet 24h Active Carafate 1 GM Orally PRN 1 tablet at bedtime on an empty stomach before meals Active Oxygen Active Proventil HFA 108 (90 Base) MCG/ACT Inhalation PRN every 4 hours 2 puffs as needed Active Tramadol HCl 50 MG Orally every 6 hrs 1 tablet as needed 6h Active Klonopin 0.5 MG Orally Twice a day 1 tablet 12h 30 Active Ibuprofen 800 MG Orally Three times a day 1 tablet 8h 30 Active Symbicort 160-4.5 MCG/ACT Inhalation Twice a day INHALE TWO PUFFS BY MOUTH TWICE DAILY 12h 30 days Active Singulair 10 mg Orally Once a day 1 tablet in the evening 24h Active Incruse Ellipta 62.5 MCG/INH Inhalation Once a day 1 puff 24h Active Cetirizine HCl 10 MG Orally Once a day 1 tablet 24h Active RESULTS No Results PROCEDURES Procedure Date Ordered Result Body Site [facility] VISIT ESTABLISHED PATIENT Jun 01, 2017 INSTRUCTIONS MEDICATIONS ADMINISTERED No Known Medications MEDICAL (GENERAL) HISTORY Type Description Date Medical History Asthma Medical History Anxiety Medical History Depression Medical History Headaches Medical History COPD/emphysema Medical History Bone density 11/01/13 heel US WNL Surgical History Breast reduction Surgical History lap band Surgical History Tubal ligation Surgical History section Hospitalization History Sepsis 2010
--- OUTSIDE RECORDS SUMMARY | 2018-05-03 11:02 | XMS REPORT ---
Author Author ABIGAIL RIZO Organization [facility], [place] Address [address] [place] [address] Care Team Providers Care Paint Crew Supervisor Name Role Phone ABIGAIL RIZO Unavailable PROBLEMS Type Condition ICD9-CM Code DGE12-NN Code Onset Dates Condition Status SNOMED Code Problem COPD (chronic obstructive pulmonary disease) with chronic bronchitis J44.9 Active 026187099 Problem Acute seasonal allergic rhinitis, unspecified trigger J30.2 Active 860855053 Problem Acute exacerbation of chronic obstructive pulmonary disease (COPD) J44.1 Active 591639788 Problem COPD with acute exacerbation J44.1 Active 317029488 Problem Dysthymic disorder F34.1 Active 95479049 Problem Anxiety state, unspecified F41.1 Active 374005386 Problem Chronic obstructive pulmonary disease with (acute) exacerbation J44.1 Active 636558598 Problem COPD exacerbation J44.1 Active 291119815432121 Problem Depressive disorder, not elsewhere classified F32.9 Active 80924559 Problem Anxiety F41.9 Active 25799837 Problem Environmental allergies Z91.09 Active 298994225 Problem Iron deficiency anemia D50.9 Active 72426889 Problem Hyperlipidemia E78.5 Active 31265925 Problem Mild episode of recurrent major depressive disorder F33.0 Active 92012039 Problem Dependence on continuous supplemental oxygen Z99.81 Active 60974123492123 Problem Chronic obstructive pulmonary disease with acute lower respiratory infection J44.0 Active 001675587 Problem Chronic pain syndrome G89.4 Active 212130271 Problem Major depressive disorder with single episode, remission status unspecified F32.9 Active 44464859 Problem Other chronic pain G89.29 Active 35992830 ALLERGIES No Information ENCOUNTERS Encounter Location Date Diagnosis [facility] [place] [address] [facility] [id number] [address] October, [facility] [address] [facility] [id number] [address] Aug, COPD with acute exacerbation J44.1 [place] [address] [place] [id number] [place] [address]91 Aug, Chronic obstructive pulmonary disease with acute lower respiratory infection J44.0 [place] [address] [place] [id number] [place] [address] Aug, Mild episode of recurrent major depressive disorder F33.0 [place] [address] [address] Jul, Mild episode of recurrent major depressive disorder F33.0 and Anxiety state, unspecified F41.1 [place] [address] [address]- [address] Jul, Anxiety F41.9 and Chronic pain syndrome G89.4 [place] [address] [place] [id number] [place] [address] 82195- 1162 Jun, Dysthymic disorder F34.1 and Anxiety state, unspecified F41.1 [place] [address] [place] [id number] [place] [address] 39522- 7967 Jun, Anxiety state, unspecified F41.1 and Mild episode of recurrent major depressive disorder F33.0 [place] [address] [place] [id number] [place] [address] 86748- 6475 Jun, [facility] [address] [place] [id number] [place] [address] May, COPD exacerbation J44.1 [place] [address] [place] [id number] [place] [address] 24376- 3649 May, Depressive disorder, not elsewhere classified F32.9 and Anxiety state, unspecified F41.1 [place] [address] [place] [id number] [place] [address] 63057- 1838 May, Chronic obstructive pulmonary disease with acute lower respiratory infection J44.0 and Acute seasonal allergic rhinitis, unspecified trigger J30.2 [facility] [address] [place] [id number] [place] [address] May, Acute exacerbation of chronic obstructive pulmonary disease (COPD) J44.1 [facility] [place] [address] [address] 17 Apr, 2017 Encounter for immunization Z23 [facility] [place] [address] [address] Apr, [facility] [place] [address] [address] Apr, Back pain 724.5 [facility] [address] [address] Mar, Acute seasonal allergic rhinitis, unspecified trigger J30.2 and Sore throat J02.9 [facility] [address] [address] Mar, Acute exacerbation of chronic obstructive pulmonary disease (COPD) J44.1 [place] [address] [address] Feb, COPD (chronic obstructive pulmonary disease) with chronic bronchitis J44.9 ; Low back pain M54.5 and Other chronic pain G89.29 [facility] [address] [place] [id number] [place] [address] Feb, Decreased breath sounds R06.89 and Acute exacerbation of chronic obstructive pulmonary disease (COPD) J44.1 [place] [address] [place] [id number] [place] [address] 41243- 9174 15 Feb, 2017 [place] [address] [place] [id number] [place] [address] 51173- 3669 Feb, [place] [address] [address] Jan, Major depressive disorder with single episode, remission status unspecified F32.9 [facility] [address] [place] [id number] [place] [address] Dec, Allergic contact dermatitis, unspecified trigger L23.9 [facility] [address] [place] [id number] [place] [address] 13 Dec, 2016 Allergic reaction, initial encounter T78.40XA [facility] [place] [address] [place] [id number] [place] [address] 73315- 6821 14 Nov, 2016 Hyperlipidemia E78.5 ; Chronic obstructive pulmonary disease with acute lower respiratory infection J44.0 and Iron deficiency anemia D50.9 [place] [address] [address]- [address] 02 Nov, 2016 Hyperlipidemia E78.5 ; Iron deficiency anemia D50.9 ; Chronic obstructive pulmonary disease with acute lower respiratory infection J44.0 ; Environmental allergies Z91.09 and Major depressive disorder with single episode, remission status unspecified F32.9 [facility] [address] [place] [id number] [place] [address]60 [address] 06 Sep, 2016 Shortness of breath R06.02 and COPD exacerbation J44.1 [place] [address] [address]12- [address] Sep, Chronic obstructive pulmonary disease with acute lower respiratory infection J44.0 [place] [address] [place] [id number] [place] [address] 80279- 8571 Jun, Anxiety F41.9 [place] [address] [place] [id number] [place] [address] 46550- 2567 Jun, Chronic obstructive pulmonary disease with acute lower respiratory infection J44.0 ; Dependence on continuous supplemental oxygen Z99.81 ; Iron deficiency anemia D50.9 ; Anxiety F41.9 ; Mild episode of recurrent major depressive disorder F33.0 ; Hypercholesterolemia E78.00 and Chronic pain syndrome G89.4 [place] [address] [place] [id number] [place] [address] 89996- 7630 May, Anxiety F41.9 [place] [address] [place] [id number] [place] [address] 43640- 8[address] May, [place] [address] [place] [address] Feb, [place] [address] [place] [id number] [place] [address] 6[address]28- 37[address] Jan, Chronic obstructive pulmonary disease with acute lower respiratory infection J44.0 ; Major depressive disorder with single episode, remission status unspecified F32.9 ; Environmental allergies Z91.09 ; Anxiety F41.9 ; Hyperlipidemia E78.5 ; Iron deficiency anemia, unspecified iron deficiency anemia type D50.9 ; Other chronic pain G89.29 and Lumbago with sciatica, unspecified side M54.40 [place] [address] [address]- [address] Sep, Hyperlipidemia E78.5 and Iron deficiency anemia D50.9 [place] [address] [place] [id number] [place] [address] 02372- 2480 Sep, COPD (chronic obstructive pulmonary disease) 496 ; Back pain 724.5 ; Anxiety 300.00 ; Hyperlipidemia E78.5 ; Iron deficiency anemia D50.9 and Headache R51 [place] [address] [place] [id number] [place] [address]15- 1858 Aug, [place] [address] [place] [id number] [place] [address] 25238- 1301 Mar, Hyperlipidemia E78.5 and Iron deficiency anemia D50.9 [place] [address] [place] [id number] [place] [address] 08220- 9090 Mar, Routine adult health maintenance V70.0 [place] [address] [place] [id number] [place] [address] 32992- 2037 Mar, Orbital cellulitis on left H05.012 [place] [address] 7[address]65- [address]183 Mar, [place] [address] [place] [id number] [place] [address] 32708- 8762 Feb, Breast cancer screening V76.10 [place] [address] 92893- 2546 Feb, Routine adult health maintenance V70.0 ; COPD (chronic obstructive pulmonary disease) 496 ; Special screening for malignant neoplasms, colon V76.51 and 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.9 [facility] [place] [id number] [place] [address] 23880 2546 Feb, [facility] [place] [address] [place] [id number] [place] [address] 56230- 9526 Dec, Asthma, unspecified, unspecified status 493.90 ; Back pain 724.5 ; COPD (chronic obstructive pulmonary disease) 496 and Anxiety 300.00 [facility] [address] [place] [id number] [place] [address] [id number] Dec, Dental examination V72.2 [facility] [place] [address] [place] [id number] [place] [address] 31777- 2546 Dec, Back pain 724.5 ; COPD (chronic obstructive pulmonary disease) 496 and Anxiety 300.00 [facility] [address] [place] [id number] [place] [address] [id number] Dec, Dental examination V72.2 [facility] [address] [place] [id number] [place] [address] [id number] Nov, Dental examination V72.2 [facility] [address] [place] [id number] [place] [address] [id number] October, Dental examination V72.2 [facility] [place] [address] [place] [id number] [place] [address] 35079 2546 Sep, [facility] [place] [address] [place] [id number] [place] [address] 44522 2546 Sep, [facility] [place] [address] [place] [id number] [place] [address] 20428 2546 Aug, [facility] [place] [address] [place] [id number] [place] [address] 61696 2546 Aug, [facility] [place] [address] [place] [id number] [place] [address] 83691- 4922 Aug, [facility] [place] [facility] [address] [id number] [place] [address]- [address] Aug, [facility] [place] [facility] [address] [id number] [place] [address]- 3143 Aug, [facility] [place] [facility] [address] [id number] [place] [address]- 5989 Aug, [facility] [place] [facility] [address] [id number] [place] [address]- 2294 Jul, [facility] [place] [facility] [address] [id number] [place] [address]- 3700 Jul, [facility] [place] [facility] [address] [id number] [place] [address]- 4693 Jul, [facility] [place] [facility] [address] [id number] [place] [address]- 5998 Jul, [facility] [place] [facility] [address] [id number] [place] [address]- 0817 Jun, [facility] [place] [facility] [address] [id number] [place] [address]- 1942 Jun, [facility] [place] [facility] [address] [id number] [place] [address]- 5184 Nov, [facility] [place] [facility] [address] [id number] [place] [address]- 1992 Nov, [facility] [place] [facility] [address] [id number] [place] [address]- 2587 October, [facility] [place] [facility] [address] [id number] [place] [address]- 8482 October, [facility] [place] [facility] [address] [id number] [place] [address]- 5921 October, [facility] [place] [facility] [address] [id number] [place] [address]- 1907 October, [facility] [place] [facility] [address] [id number] [place] [address]- 5480 October, [facility] [address] [id number] [place] [address]- 7140 October, [facility] [place] [facility] [address] [id number] [place] [address]- 1684 October, [facility] [place] [facility] [address] [id number] [place] [address]- 1840 October, [facility] [place] [facility] [address] [id number] [place] [address]- 5819 Sep, [facility] [place] [facility] [address] [id number] [place] [address]- 5942 Sep, [facility] [place] [facility] [address] [id number] [place] [address]- 4862 Sep, [facility] [place] [facility] [address] [id number] [place] [address]- 3924 Sep, [facility] [place] [facility] [address] [id number] [place] [address]- 3720 Sep, [facility] [place] [facility] [address] [id number] [place] [address]- 6534 Sep, [facility] [place] [facility] [address] [id number] [place] [address]- 7999 Sep, [facility] [place] [facility] [address] [id number] [place] [address]- 8988 Sep, [facility] [place] [facility] [address] [id number] [place] [address]- 9114 Sep, [facility] [place] [facility] [address] [id number] [place] [address]- 8346 Sep, [facility] [place] [facility] [address] [id number] [place] [address]- 0702 Sep, [facility] [place] [facility] [address] [id number] [place] [address]- 4507 Sep, [facility] [place] [address] [facility] [id number] [address] Sep, [facility] [place] [address] [facility] [id number] [place] [address]- 7729 Sep, [facility] [place] [address] [facility] [id number] [place] [address]- 4390 Aug, [facility] [place] [address] [facility] [id number] [place] [address]- 0642 Aug, [facility] [place] [address] [facility] [id number] [place] [address]- [address]842 Aug, IMMUNIZATIONS No Known Immunizations SOCIAL HISTORY [...]
--- OUTSIDE RECORDS SUMMARY | 2018-05-03 11:02 | XMS REPORT ---
Author Author MARY CARO Organization [facility] Address [address] [place] [address] Care Team Providers Care Planer Setter Name Role Phone MARY CARO Unavailable PROBLEMS Type Condition ICD9-CM Code HCP94-ME Code Onset Dates Condition Status SNOMED Code Problem Hyperlipidemia E78.5 Active 10067542 Problem Anxiety F41.9 Active 40477555 Problem Major depressive disorder with single episode, remission status unspecified F32.9 Active 62432370 Problem Iron deficiency anemia D50.9 Active 76890552 Problem COPD exacerbation J44.1 Active 287097529 Problem Dependence on continuous supplemental oxygen Z99.81 Active 44116717433688 Problem Chronic obstructive pulmonary disease with acute lower respiratory infection J44.0 Active 921967187 Problem Environmental allergies Z91.09 Active 028642212 Problem Mild episode of recurrent major depressive disorder F33.0 Active 99062643 Problem Chronic pain syndrome G89.4 Active 272633503 ALLERGIES Unknown Allergies SOCIAL HISTORY No smoking Hx information available PLAN OF CARE VITAL SIGNS MEDICATIONS Unknown Medications RESULTS No Results PROCEDURES No Known procedures IMMUNIZATIONS No Known Immunizations
--- OUTSIDE RECORDS SUMMARY | 2018-05-03 11:03 | XMS REPORT ---
Author Author MARY Parks Organization [facility] Address [address] [place] [address] Care Team Providers Care Lawn Care Specialist Name Role Phone MARY Parks Unavailable PROBLEMS Type Condition ICD9-CM Code LBO60-CB Code Onset Dates Condition Status SNOMED Code Problem Acute seasonal allergic rhinitis, unspecified trigger J30.2 Active [id number] Problem Anxiety state, unspecified F41.1 Active 900477492 Problem Chronic obstructive pulmonary disease with (acute) exacerbation J44.1 Active 327364796 Problem Mixed hyperlipidemia E78.2 Active 308038694 Problem Hyperlipidemia E78.5 Active 09005933 Problem Severe persistent asthma without complication J45.50 Active 030323855 Problem Iron deficiency anemia D50.9 Active 83982231 Problem COPD exacerbation J44.1 Active [id number] Problem Depressive disorder, not elsewhere classified F32.9 Active 17120973 Problem COPD with acute exacerbation J44.1 Active 378968639 Problem Dysthymic disorder F34.1 Active 95878972 Problem Chronic obstructive pulmonary disease with acute lower respiratory infection J44.0 Active 522682111 Problem Major depressive disorder with single episode, remission status unspecified F32.9 Active 03746703 Problem Anxiety F41.9 Active 29176610 Problem Environmental allergies Z91.09 Active 890412033 Problem Chronic pain syndrome G89.4 Active 603220688 Problem Other chronic pain G89.29 Active 28782024 Problem Mild episode of recurrent major depressive disorder F33.0 Active 11072566 Problem COPD (chronic obstructive pulmonary disease) with chronic bronchitis J44.9 Active 232958503 Problem Dependence on continuous supplemental oxygen Z99.81 Active 47538197916985 Problem Acute exacerbation of chronic obstructive pulmonary disease (COPD) J44.1 Active 934631058 ALLERGIES No Information ENCOUNTERS Encounter Location Date Diagnosis [facility] [address] [facility] [id number] [address] Feb, [place] [address] [address] Nov, Mixed hyperlipidemia E78.2 [facility] [place] [address] [place] [id number] [place] [address]38 [address]3675 Nov, Environmental allergies Z91.09 [place] [address] [place] [id number] [place] [address] 93209- 7061 Nov, Iron deficiency anemia D50.9 and Hyperlipidemia E78.5 [place] [address] [place] [id number] [place] [address] 73676- 5038 October, Severe persistent asthma without complication J45.50 ; Hyperlipidemia E78.5 ; Iron deficiency anemia D50.9 ; Pain in thoracic spine M54.6 and Other chronic pain G89.29 [place] [address] [place] [id number] [place] [address] 96264- 3139 October, Chronic pain syndrome G89.4 [place] [address] [place] [id number] [place] [address] 23507- 2727 October, Mild episode of recurrent major depressive disorder F33.0 and Anxiety state, unspecified F41.1 [facility] [place] [address] [place] [address]10 -5708 Aug, COPD with acute exacerbation J44.1 [place] [address] [place] [address] 28055- 6797 Aug, Chronic obstructive pulmonary disease with acute lower respiratory infection J44.0 [place] [address] [place] [address] 35377- 1712 Aug, Mild episode of recurrent major depressive disorder F33.0 [place] [address] [place] [id number] [place] [address] 11515- 4259 Jul, Mild episode of recurrent major depressive disorder F33.0 and Anxiety state, unspecified F41.1 [place] [address] [place] [address] 24125- 3384 Jul, Anxiety F41.9 and Chronic pain syndrome G89.4 [place] [address] [place] [id number] [place] [address] 82660- 5287 Jun, Dysthymic disorder F34.1 and Anxiety state, unspecified F41.1 [place] [address] [place] [id number] [place] [address] 82817- 1264 Jun, Anxiety state, unspecified F41.1 and Mild episode of recurrent major depressive disorder F33.0 [place] [address] [place] [id number] [place] [address] 15110- 6319 Jun, [facility] [place] [address] [address] May, COPD exacerbation J44.1 [place] [address] 68207- 0979 May, Depressive disorder, not elsewhere classified F32.9 and Anxiety state, unspecified F41.1 [place] [address] [place] [id number] [place] [address] 10550- 1568 May, Chronic obstructive pulmonary disease with acute lower respiratory infection J44.0 and Acute seasonal allergic rhinitis, unspecified trigger J30.2 [facility] [place] [address] [place] [id number] [place] [address] 72298 -6430 May, Acute exacerbation of chronic obstructive pulmonary disease (COPD) J44.1 [place] [address] [place] [id number] [place] [address] 66893- 1361 Apr, Encounter for immunization Z23 [place] [address] [address]258- 5854 Apr, [place] [address] 02908- 7537 Apr, Back pain 724.5 [facility] [place] [address] [place] [id number] [place] [address] 14197 -1324 Mar, Acute seasonal allergic rhinitis, unspecified trigger J30.2 and Sore throat J02.9 [facility] [address] [place] [id number] [place] [address] 75030 -8855 13 Mar, 2017 Acute exacerbation of chronic obstructive pulmonary disease (COPD) J44.1 [place] [address] [place] [id number] [place] [address] 17249- 4320 28 Feb, 2017 COPD (chronic obstructive pulmonary disease) with chronic bronchitis J44.9 ; Low back pain M54.5 and Other chronic pain G89.29 [facility] IN [facility] [address] [place] [address] 57513 -8880 21 Feb, 2017 Decreased breath sounds R06.89 and Acute exacerbation of chronic obstructive pulmonary disease (COPD) J44.[address] [address]- 7561 15 Feb, [address] [address]- 8[address] Feb, [address] [address]- [address]241 Jan, Major depressive disorder with single episode, remission status unspecified F32.9 [facility] [address] [address] 16 Dec, 2016 Allergic contact dermatitis, unspecified trigger L23.9 [facility] [place] [id number] [place] [address] 32947 -3942 13 Dec, 2016 Allergic reaction, initial encounter T78.40XA [address] [address]- 1122 14 Nov, 2016 Hyperlipidemia E78.5 ; Chronic obstructive pulmonary disease with acute lower respiratory infection J44.0 and Iron deficiency anemia D50.9 [place] [id number] [place] [address] 41722- 2972 02 Nov, 2016 Hyperlipidemia E78.5 ; Iron deficiency anemia D50.9 ; Chronic obstructive pulmonary disease with acute lower respiratory infection J44.0 ; Environmental allergies Z91.09 and Major depressive disorder with single episode, remission status unspecified F32.9 [facility] [address], [place] [address] Sep, Shortness of breath R06.02 and COPD exacerbation J44.1 [facility] [address], [place] [address] Sep, Chronic obstructive pulmonary disease with acute lower respiratory infection J44.0 [facility] [address] [place] [id number] [place] [address] 11578- 0968 Jun, Anxiety F41.9 [place] [address] [place] [id number] [place] [address] 19091- 4761 Jun, Chronic obstructive pulmonary disease with acute lower respiratory infection J44.0 ; Dependence on continuous supplemental oxygen Z99.81 ; Iron deficiency anemia D50.9 ; Anxiety F41.9 ; Mild episode of recurrent major depressive disorder F33.0 ; Hypercholesterolemia E78.00 and Chronic pain syndrome G89.4 [facility] [address] [place] [id number] [place] [address] 01163- 1674 May, Anxiety F41.9 [place] [address] [place] [id number] [place] [address] 93950- 1591 May, [facility] [address] [place] [address] 72810- 3517 Feb, [place] [address] [place] [id number] [place] [address] 32748- 9045 Jan, Chronic obstructive pulmonary disease with acute lower respiratory infection J44.0 ; Major depressive disorder with single episode, remission status unspecified F32.9 ; Environmental allergies Z91.09 ; Anxiety F41.9 ; Hyperlipidemia E78.5 ; Iron deficiency anemia, unspecified iron deficiency anemia type D50.9 ; Other chronic pain G89.29 and Lumbago with sciatica, unspecified side M54.40 [facility] [address], [place] [address] Sep, Hyperlipidemia E78.5 and Iron deficiency anemia D50.9 [facility] [address] [place] [address] 79592- 1681 Sep, COPD (chronic obstructive pulmonary disease) 496 ; Back pain 724.5 ; Anxiety 300.00 ; Hyperlipidemia E78.5 ; Iron deficiency anemia D50.9 and Headache R51 [facility] [address] [place] [id number] [place] [address] 29882- 3244 Aug, [facility] [address] [place] [id number] [place] [address] 98237- 7125 Mar, Hyperlipidemia E78.5 and Iron deficiency anemia D50.9 [place] [address] 52119- 6777 Mar, Routine adult health maintenance V70.0 [place] [address] [place] [id number] [place] [address] 97152- 9989 Mar, Orbital cellulitis on left H05.012 [place] [address] [place] [id number] [place] [address] 59630- 8005 Mar, [facility] [address] [place] [id number] [place] [address] 57487- 5448 Feb, Breast cancer screening V76.10 [place] [address] [place] [id number] [place] [address] 26331- 2808 08 Feb, 2015 Routine adult health maintenance V70.0 ; COPD (chronic obstructive pulmonary disease) 496 ; Special screening for malignant neoplasms, colon V76.51 and 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.9 [facility] [address] [place] [id number] [place] [address] 00700- 4454 Feb, [place] [address] 70859- 2166 Dec, Asthma, unspecified, unspecified status 493.90 ; Back pain 724.5 ; COPD (chronic obstructive pulmonary disease) 496 and Anxiety 300.00 [facility] [address] [place] [address] [id number] Dec, Dental examination V72.2 [facility] [address] [id number], [place] [address] Dec, Back pain 724.5 ; COPD (chronic obstructive pulmonary disease) 496 and Anxiety 300.00 [facility] [address] [id number] [id number] Dec, Dental examination V72.2 [facility] [id number] [place] [address] [id number] Nov, Dental examination V72.2 [facility] [address] [id number] [id number] October, Dental examination V72.2 [facility] [address] [id number], [place] [address] 2546 Sep, [facility] [address] [id number], [place] [address] 2546 Sep, [facility] [address] [id number], [place] [address]- 1834 Aug, [facility] [address] [id number], [place] [address]- 5729 Aug, [facility] [address] [facility] [id number], [place] [address] 1343 Aug, [facility] [address] [id number], [place] [address]- 9416 Aug, [facility] [address] [id number], [place] [address] 2546 Aug, [facility] [address] [id number], [place] [address] 2548 Aug, [facility] [address] [id number], [place] [address] 2546 Jul, [facility] [address] [facility] [id number], [place] [address]- 2546 Jul, [facility] [address] [id number] [place] [address]- 8538 Jul, [facility] [address] [id number] [place] [address]- 6312 Jul, [facility] [address] [id number] [place] [address]- 9169 Jun, [facility] [address] [id number] [place] [address]- 6473 Jun, [facility] [address] [id number] [place] [address]- 0948 Nov, [facility] [address] [id number] [place] [address]- 0912 Nov, [facility] [address] [id number] [place] [address]- 7834 October, [facility] [address] [id number] [place] [address]- 9576 October, [facility] [address] [id number] [place] [address]- 9317 October, [facility] [address] [id number] [place] [address]- 6842 October, [facility] [address] [id number] [place] [address]- 7114 October, [facility] [address] [id number] [place] [address]- 2160 October, [facility] [address] [id number] [place] [address]- 6460 October, [facility] [address] [id number] [place] [address]- 1989 October, [facility] [address] [id number] [place] [address]- 0774 Sep, [facility] [address] [id number] [place] [address]- 8236 Sep, [facility] [address] [id number] [place] [address]- 8913 Sep, [facility] [address] [id number] [place] [address]- 8536 Sep, [facility] [address] [facility] [id number] [place] [address]- 6953 Sep, [facility] [address] [id number] [place] [address]- 6711 Sep, [facility] [address] [id number] [place] [address]- 3233 Sep, [facility] [address] [id number] [place] [address]- 0919 Sep, [facility] [address] [facility] [id number] [place] [address]- 1925 Sep, [facility] [address] [facility] [id number], [place] [address]- 9888 Sep, [facility] [address] [facility] [id number], [place] [address]- 4325 Sep, [facility] [address] [facility] [id number], [place] [address]- 9620 Sep, [facility] [address] [facility] [id number], [place] [address]- 2182 Sep, [facility] [address] [facility] [id number], [place] [address]- 3587 Sep, [facility] [address] [facility] [id number], [place] [address]- 8918 Aug, [facility] [address] [facility] [id number], [place] [address]- 2710 Aug, [facility] [address] [facility] [id number][place] [address]- [address] Aug, IMMUNIZATIONS No Known Immunizations SOCIAL HISTORY Never Assessed REASON FOR VISIT Cancel Appointment Request PLAN OF CARE VITAL SIGNS MEDICATIONS [...]
--- OUTSIDE RECORDS SUMMARY | 2018-05-03 11:03 | XMS REPORT ---
Author Author YESSI FARRIS Organization [facility] Address [address] [place] [address] Care Team Providers Care Physician Allergist Immunologist Name Role Phone YESSI FARRIS Unavailable PROBLEMS Type Condition ICD9-CM Code SQB35-MA Code Onset Dates Condition Status SNOMED Code Problem Acute seasonal allergic rhinitis, unspecified trigger J30.2 Active 664097881 Problem Anxiety state, unspecified F41.1 Active 289112362 Problem Chronic obstructive pulmonary disease with (acute) exacerbation J44.1 Active 836011701 Problem Mixed hyperlipidemia E78.2 Active 872455401 Problem Hyperlipidemia E78.5 Active 12167626 Problem Severe persistent asthma without complication J45.50 Active 464555528 Problem Iron deficiency anemia D50.9 Active 83070105 Problem COPD exacerbation J44.1 Active 071570840294273 Problem Depressive disorder, not elsewhere classified F32.9 Active 98797687 Problem COPD with acute exacerbation J44.1 Active 687023680 Problem Dysthymic disorder F34.1 Active 71356783 Problem Chronic obstructive pulmonary disease with acute lower respiratory infection J44.0 Active 013172964 Problem Major depressive disorder with single episode, remission status unspecified F32.9 Active 80217952 Problem Anxiety F41.9 Active 57011754 Problem Environmental allergies Z91.09 Active 062613798 Problem Chronic pain syndrome G89.4 Active 812908104 Problem Other chronic pain G89.29 Active 77918633 Problem Mild episode of recurrent major depressive disorder F33.0 Active 34965435 Problem COPD (chronic obstructive pulmonary disease) with chronic bronchitis J44.9 Active 260623173 Problem Dependence on continuous supplemental oxygen Z99.81 Active 47384280237415 Problem Acute exacerbation of chronic obstructive pulmonary disease (COPD) J44.1 Active 978434744 ALLERGIES No Information ENCOUNTERS Encounter Location Date Diagnosis [facility] [address] [facility] [id number] [address] Feb, [facility] [address] [place] [id number] [place] [address] 07 Nov, 2017 Mixed hyperlipidemia E78.2 [facility] [place] [address] [address] Nov, Environmental allergies Z91.09 [place] [address] [address] Nov, Iron deficiency anemia D50.9 and Hyperlipidemia E78.5 [place] [address] [address] October, Severe persistent asthma without complication J45.50 ; Hyperlipidemia E78.5 ; Iron deficiency anemia D50.9 ; Pain in thoracic spine M54.6 and Other chronic pain G89.29 [place] [address] [address] [place] [id number] [place] [address] October, Chronic pain syndrome G89.4 [place] [address] [address] October, Mild episode of recurrent major depressive disorder F33.0 and Anxiety state, unspecified F41.1 [facility] [place] [address] [place] [id number] [place] [address] Aug, COPD with acute exacerbation J44.1 [place] [address] [place] [id number] [place] [address]268 Aug, Chronic obstructive pulmonary disease with acute lower respiratory infection J44.0 [place] [address] [place] [id number] [place] [address] Aug, Mild episode of recurrent major depressive disorder F33.0 [place] [address] [address] Jul, Mild episode of recurrent major depressive disorder F33.0 and Anxiety state, unspecified F41.1 [place] [address] [place] [id number] [place] [address]774[address] 9[address] Jul, Anxiety F41.9 and Chronic pain syndrome G89.4 [place] [address] [place] [id number] [place] [address] Jun, Dysthymic disorder F34.1 and Anxiety state, unspecified F41.1 [place] [address] [address] Jun, Anxiety state, unspecified F41.1 and Mild episode of recurrent major depressive disorder F33.0 [place] [address] [address] Jun, [facility] [address] [address] May, COPD exacerbation J44.1 [place] [address] [address] May, Depressive disorder, not elsewhere classified F32.9 and Anxiety state, unspecified F41.1 [place] [address] [address] May, Chronic obstructive pulmonary disease with acute lower respiratory infection J44.0 and Acute seasonal allergic rhinitis, unspecified trigger J30.2 [facility] N [address] [address] May, Acute exacerbation of chronic obstructive pulmonary disease (COPD) J44.1 [place] [address] [address] Apr, Encounter for immunization Z23 [place] [address] [address] Apr, [place] [address] [address] Apr, Back pain 724.5 [facility] [address] [address] Mar, Acute seasonal allergic rhinitis, unspecified trigger J30.2 and Sore throat J02.9 [facility] [address] [place] [id number] [place] [address] 13 Mar, 2017 Acute exacerbation of chronic obstructive pulmonary disease (COPD) J44.1 [place] [address] [address] 28 Feb, 2017 COPD (chronic obstructive pulmonary disease) with chronic bronchitis J44.9 ; Low back pain M54.5 and Other chronic pain G89.29 [facility] [address] [address] 21 Feb, 2017 Decreased breath sounds R06.89 and Acute exacerbation of chronic obstructive pulmonary disease (COPD) J44.[address] [address] 15 Feb, [address] [address] 11 Feb, [address] [address] Jan, Major depressive disorder with single episode, remission status unspecified F32.9 [facility] [address] [address] 16 Dec, 2016 Allergic contact dermatitis, unspecified trigger L23.9 [facility] [address] [address] 13 Dec, 2016 Allergic reaction, initial encounter T78.40XA [address] [address] 14 Nov, 2016 Hyperlipidemia E78.5 ; Chronic obstructive pulmonary disease with acute lower respiratory infection J44.0 and Iron deficiency anemia D50.[address] [address] 02 Nov, 2016 Hyperlipidemia E78.5 ; Iron deficiency anemia D50.9 ; Chronic obstructive pulmonary disease with acute lower respiratory infection J44.0 ; Environmental allergies Z91.09 and Major depressive disorder with single episode, remission status unspecified F32.9 [facility] [address] [address] Sep, Shortness of breath R06.02 and COPD exacerbation J44.1 [facility] [address] [place] [address] Sep, Chronic obstructive pulmonary disease with acute lower respiratory infection J44.0 [facility] [address] [place] [id number] [place] [address]- 609[address] Jun, Anxiety F41.9 [facility] [address] [place] [id number] [place] [address] Jun, Chronic obstructive pulmonary disease with acute lower respiratory infection J44.0 ; Dependence on continuous supplemental oxygen Z99.81 ; Iron deficiency anemia D50.9 ; Anxiety F41.9 ; Mild episode of recurrent major depressive disorder F33.0 ; Hypercholesterolemia E78.00 and Chronic pain syndrome G89.4 [place] [address] [place] [id number] [place] [address] May, Anxiety F41.9 [place] [address] [place] [id number] [place] [address] May, [facility] [address] [place] [id number] [place] [address]- [address] Feb, [place] [address] [place] [id number] [place] [address]- [address] Jan, Chronic obstructive pulmonary disease with acute lower respiratory infection J44.0 ; Major depressive disorder with single episode, remission status unspecified F32.9 ; Environmental allergies Z91.09 ; Anxiety F41.9 ; Hyperlipidemia E78.5 ; Iron deficiency anemia, unspecified iron deficiency anemia type D50.9 ; Other chronic pain G89.29 and Lumbago with sciatica, unspecified side M54.40 [facility] [address] [place] [address]- [address] Sep, Hyperlipidemia E78.5 and Iron deficiency anemia D50.9 [place] [address] [place] [address]- 16[address] Sep, COPD (chronic obstructive pulmonary disease) 496 ; Back pain 724.5 ; Anxiety 300.00 ; Hyperlipidemia E78.5 ; Iron deficiency anemia D50.9 and Headache R51 [place] [address] [place] [id number] [place] [address]36- [address] Aug, [place] [address] [address] Mar, Hyperlipidemia E78.5 and Iron deficiency anemia D50.9 [place] [id number] [place] [address] Mar, Routine adult health maintenance V70.0 [place] [id number] [place] [address]70- [address] Mar, Orbital cellulitis on left H05.[address] [address] Mar, [place] [address] [place] [id number] [place] [address]87- 408[address] Feb, Breast cancer screening V76.10 [place] [id number] [place] [address] 22783- 3605 Feb, Routine adult health maintenance V70.0 ; COPD (chronic obstructive pulmonary disease) 496 ; Special screening for malignant neoplasms, colon V76.51 and 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.9 [place] [address] [place] [address]- 7945 Feb, [place] [address] [place] [id number] [place] [address] 06267- 9863 Dec, Asthma, unspecified, unspecified status 493.90 ; Back pain 724.5 ; COPD (chronic obstructive pulmonary disease) 496 and Anxiety 300.00 [facility] [address] [address] Dec, Dental examination V72.2 [place] [address] [facility] [id number], [place] [address] Dec, Back pain 724.5 ; COPD (chronic obstructive pulmonary disease) 496 and Anxiety 300.00 [facility] [address] [id number] [id number] Dec, Dental examination V72.2 [facility] [address] [id number] [id number] Nov, Dental examination V72.2 [facility] [address] [place] [id number] [address] October, Dental examination V72.2 [facility] [address] [id number] [place] [address] Sep, [facility] [address] [facility] [id number], [place] [address] Sep, [facility] [address] [facility] [id number], [place] [address] Aug, [facility] [address] [facility] [id number], [place] [address] Aug, [facility] [address] [facility] [id number], [place] [address] Aug, [facility] [address] [facility] [id number], [place] [address] 2546 Aug, [facility] [address] [facility] [id number], [place] [address] Aug, [facility] [address] [facility] [id number], [place] [address] Aug, [facility] [address] [facility] [id number], [place] [address] Jul, [facility] [address] [facility] [id number], [place] [address] Jul, [facility] [address] [facility] [id number], [place] [address] Jul, [facility] [place] [facility] [address] [id number] [place] [address]- 79[address] Jul, [facility] [place] [facility] [address] [id number] [place] [address]- 40[address] Jun, [facility] [place] [facility] [address] [id number] [place] [address]- 8032 Jun, [facility] [place] [facility] [address] [id number] [place] [address]- 4[address] Nov, [facility] [place] [facility] [address] [id number] [place] [address]- 4663 Nov, [facility] [place] [facility] [address] [id number] [place] [address]- [address] October, [facility] [place] [facility] [address] [id number] [place] [address]- [address] October, [facility] [place] [facility] [address] [id number] [place] [address]- 9557 October, [facility] [place] [facility] [address] [id number] [place] [address]- 4762 October, [facility] [place] [facility] [address] [id number] [place] [address]- 0958 October, [facility] [place] [facility] [address] [id number] [place] [address]- [address] October, [facility] [place] [facility] [address] [id number] [place] [address]- 9[address] October, [facility] [place] [facility] [address] [id number] [place] [address]- 6966 October, [facility] [place] [facility] [address] [id number] [place] [address]- 8616 Sep, [facility] [place] [facility] [address] [id number] [place] [address]- 7318 Sep, [facility] [place] [facility] [address] [facility] [id number] [place] [address]- [address] 15 Sep, 2013 [facility] [address] [facility] [id number] [place] [address]- 3[address] Sep, [facility] [address] [facility] [id number] [place] [address]- 2000 Sep, [facility] [address] [facility] [id number] [place] [address]- 5841 Sep, [facility] [address] [facility] [id number] [place] [address]- 5946 Sep, [facility] [address] [facility] [id number] [place] [address] Sep, [facility] [address] [facility] [id number] [place] [address]- 8[address] Sep, [facility] [address] [place] [address] Sep, [facility] [address] [place] [id number] [place] [address] Sep, [facility] [address] [place] [address] Sep, [facility] [address] [id number], [place] [address] Sep, [facility] [address] [id number], [place] [address] Sep, [facility] [address] [facility] [id number], [place] [address] Aug, [facility] [address] [facility] [id number], [place] [address] Aug, [facility] [address] [facility] [id number], [place] [address] Aug, IMMUNIZATIONS No Known Immunizations SOCIAL HISTORY Never Assessed REASON FOR VISIT BH intake, Depresson and anxiety. PLAN OF CARE Activity Details Follow Up next available Reason:depression and anxiety VITAL SIGNS MEDICATIONS Medication Instructions Dosage Frequency Start Date End Date Duration Status Singulair 10 mg Orally Once a day 1 tablet in the evening 24h Active Wellbutrin XL 150 MG Orally Once a day 1 tablet in the morning 24h 30 Active Proventil HFA 108 (90 Base) MCG/ACT Inhalation PRN every 4 hours 2 puffs as needed Active Flonase 50 MCG/ACT Nasally Once a [...] 1 tablet 12h 30 Active Oxygen Active Symbicort 160-4.5 MCG/ACT Inhalation Twice a day INHALE TWO PUFFS BY MOUTH TWICE DAILY 12h 30 days Active Tramadol HCl 50 MG Orally every 6 hrs 1 tablet as needed 6h Active Clonazepam 0.5 MG TAKE ONE TABLET BY MOUTH TWICE DAILY 30 Active RESULTS No Results PROCEDURES Procedure Date Ordered Result Body Site [facility] VISIT MENTAL HEALTH ESTAB PT Jun 09, 2017 Psych diagnostic evaluation, established patient Jun 09, 2017 INSTRUCTIONS MEDICATIONS ADMINISTERED No Known Medications MEDICAL (GENERAL) HISTORY Type Description Date Medical History Asthma Medical History Anxiety Medical History Depression Medical History Headaches Medical History COPD/emphysema Medical History Bone density 11/01/13 heel US WNL Surgical History Breast reduction Surgical History lap band Surgical History Tubal ligation Surgical History section Hospitalization History Sepsis 2010
--- OUTSIDE RECORDS SUMMARY | 2018-05-03 11:03 | XMS REPORT ---
Author Author ANDREA FERRELL [facility] Address [address] [place] [address] Care Team Providers Care Manager Graphic Name Role Phone ANDREA FERRELL Unavailable PROBLEMS Type Condition ICD9-CM Code UOI39-HI Code Onset Dates Condition Status SNOMED Code Problem Acute seasonal allergic rhinitis, unspecified trigger J30.2 Active 953847658 Problem Anxiety state, unspecified F41.1 Active 110504037 Problem Chronic obstructive pulmonary disease with (acute) exacerbation J44.1 Active 425539354 Problem Mixed hyperlipidemia E78.2 Active 980751209 Problem Hyperlipidemia E78.5 Active 31779504 Problem Severe persistent asthma without complication J45.50 Active 080609047 Problem Iron deficiency anemia D50.9 Active 79097350 Problem COPD exacerbation J44.1 Active [id number] Problem Depressive disorder, not elsewhere classified F32.9 Active 82665685 Problem COPD with acute exacerbation J44.1 Active 914316957 Problem Dysthymic disorder F34.1 Active 46631102 Problem Chronic obstructive pulmonary disease with acute lower respiratory infection J44.0 Active 162315468 Problem Major depressive disorder with single episode, remission status unspecified F32.9 Active 82218903 Problem Anxiety F41.9 Active 40960554 Problem Environmental allergies Z91.09 Active 054272615 Problem Chronic pain syndrome G89.4 Active 815898695 Problem Other chronic pain G89.29 Active 99027874 Problem Mild episode of recurrent major depressive disorder F33.0 Active 94819433 Problem COPD (chronic obstructive pulmonary disease) with chronic bronchitis J44.9 Active 606304231 Problem Dependence on continuous supplemental oxygen Z99.81 Active 47996541383884 Problem Acute exacerbation of chronic obstructive pulmonary disease (COPD) J44.1 Active 051886785 ALLERGIES No Information ENCOUNTERS Encounter Location Date Diagnosis [facility] [place] [address] [facility] [id number], [place] [address] Feb, [place] [address] [id number] [place] [address]7078- 7578 07 Nov, 2017 Mixed hyperlipidemia E78.2 [facility] [place] [id number] [place] [address]6088 -5447 Nov, Environmental allergies Z91.09 [place] [id number] [place] [address] 99823- 6938 Nov, Iron deficiency anemia D50.9 and Hyperlipidemia E78.5 [place] [address] [address] October, Severe persistent asthma without complication J45.50 ; Hyperlipidemia E78.5 ; Iron deficiency anemia D50.9 ; Pain in thoracic spine M54.6 and Other chronic pain G89.29 [place] [id number] [place] [address] 52087- 5324 October, Chronic pain syndrome G89.4 [place] [address] [address] October, Mild episode of recurrent major depressive disorder F33.0 and Anxiety state, unspecified F41.1 [facility] [place] [id number] [place] [address]83 -9276 Aug, COPD with acute exacerbation J44.1 [place] [id number] [place] [address] 95991- 4888 Aug, Chronic obstructive pulmonary disease with acute lower respiratory infection J44.0 [place] [id number] [place] [address] 28595- 2834 Aug, Mild episode of recurrent major depressive disorder F33.0 [place] [id number] [place] [address] 02077- 1350 Jul, Mild episode of recurrent major depressive disorder F33.0 and Anxiety state, unspecified F41.1 [place] [id number] [place] [address] 40841- 7836 06 Feb, 2018 Anxiety F41.9 and Chronic pain syndrome G89.4 [facility] [place] [id number] [place] [address] 27022- 3059 Jun, Dysthymic disorder F34.1 and Anxiety state, unspecified F41.1 [place] [address] [address]- 3441 Jun, Anxiety state, unspecified F41.1 and 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.0 [place] [address] 51084- 5445 Jun, [facility] [address] [address] May, COPD exacerbation J44.1 [place] [address] [address]39- 9404 May, Depressive disorder, not elsewhere classified F32.9 and Anxiety state, unspecified F41.1 [place] [address] 38835- 5684 May, Chronic obstructive pulmonary disease with acute lower respiratory infection J44.0 and Acute seasonal allergic rhinitis, unspecified trigger J30.2 [facility] [address] [address] May, Acute exacerbation of chronic obstructive pulmonary disease (COPD) J44.1 [place] [address] [address]57- [address]275 Apr, Encounter for immunization Z23 [place] [address] 07410- 0493 Apr, [place] [address] 03072- 7922 Apr, Back pain 724.5 [facility] [address] [address]3571 Mar, Acute seasonal allergic rhinitis, unspecified trigger J30.2 and Sore throat J02.9 [facility] [address] [id number] [place] [address] 06150 -7035 13 Mar, 2017 Acute exacerbation of chronic obstructive pulmonary disease (COPD) J44.1 [place] [address] 43545- 7079 28 Feb, 2017 COPD (chronic obstructive pulmonary disease) with chronic bronchitis J44.9 ; Low back pain M54.5 and Other chronic pain G89.29 [facility] [address] [address] 21 Feb, 2017 Decreased breath sounds R06.89 and Acute exacerbation of chronic obstructive pulmonary disease (COPD) J44.[address] [address]- 4407 15 Feb, [address] [address]99- 1705 11 Feb, [address] [address]279- 6187 Jan, Major depressive disorder with single episode, remission status unspecified F32.9 [facility] [address] 6[address] 16 Dec, 2016 Allergic contact dermatitis, unspecified trigger L23.9 [facility] [address] 04[address]73 13 Dec, 2016 Allergic reaction, initial encounter T78.40XA [address] 7[address]12- 0917 14 Nov, 2016 Hyperlipidemia E78.5 ; Chronic obstructive pulmonary disease with acute lower respiratory infection J44.0 and Iron deficiency anemia D50.[address] 75185- 5117 02 Nov, 2016 Hyperlipidemia E78.5 ; Iron deficiency anemia D50.9 ; Chronic obstructive pulmonary disease with acute lower respiratory infection J44.0 ; Environmental allergies Z91.09 and Major depressive disorder with single episode, remission status unspecified F32.9 [facility] [address], [place] [address] Sep, Shortness of breath R06.02 and COPD exacerbation J44.1 [facility] [place] [address]65[address], [place] [address] Sep, Chronic obstructive pulmonary disease with acute lower respiratory infection J44.0 [facility] [place] [address] [id number] [place] [address] 58092- 2438 Jun, Anxiety F41.9 [place] [address] [address] [id number] [place] [address] 11287- 0884 Jun, Chronic obstructive pulmonary disease with acute lower respiratory infection J44.0 ; Dependence on continuous supplemental oxygen Z99.81 ; Iron deficiency anemia D50.9 ; Anxiety F41.9 ; Mild episode of recurrent major depressive disorder F33.0 ; Hypercholesterolemia E78.00 and Chronic pain syndrome G89.4 [place] [id number] [place] [address] 58349- 1106 May, Anxiety F41.9 [place] [address] [address] [id number] [place] [address] 98528- 1615 May, [facility] [place] [address] [id number] [place] [address] 32598- 0246 Feb, [place] [address] [address] [id number] [place] [address] 79453- 1261 Jan, Chronic obstructive pulmonary disease with acute lower respiratory infection J44.0 ; Major depressive disorder with single episode, remission status unspecified F32.9 ; Environmental allergies Z91.09 ; Anxiety F41.9 ; Hyperlipidemia E78.5 ; Iron deficiency anemia, unspecified iron deficiency anemia type D50.9 ; Other chronic pain G89.29 and Lumbago with sciatica, unspecified side M54.40 [facility] [place] [address] [place] [address] 65209- 7561 Sep, Hyperlipidemia E78.5 and Iron deficiency anemia D50.9 [place] [address] [place] [address] 21031- 0677 Sep, COPD (chronic obstructive pulmonary disease) 496 ; Back pain 724.5 ; Anxiety 300.00 ; Hyperlipidemia E78.5 ; Iron deficiency anemia D50.9 and Headache R51 [place] [address] [id number] [place] [address] 41349- 3829 Aug, [place] [address] 41747- 7402 Mar, Hyperlipidemia E78.5 and Iron deficiency anemia D50.9 [place] [address] [address] [id number] [place] [address] 12817- 2942 Mar, Routine adult health maintenance V70.0 [place] [address] [address] [id number] [place] [address] 14967- 9076 Mar, Orbital cellulitis on left H05.012 [place] [address] 76046- 5822 Mar, [place] [address] [address] [id number] [place] [address] 57122- 1288 Feb, Breast cancer screening V76.10 [place] [address] [address] [id number] [place] [address] 03369- 0508 Feb, Routine adult health maintenance V70.0 ; COPD (chronic obstructive pulmonary disease) 496 ; Special screening for malignant neoplasms, colon V76.51 and 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.9 [place] [address] [address] [id number] [place] [address] 00035- 9623 Feb, [place] [address] [place] [address] [id number] [place] [address] 10514- 8946 Dec, Asthma, unspecified, unspecified status 493.90 ; Back pain 724.5 ; COPD (chronic obstructive pulmonary disease) 496 and Anxiety 300.00 [facility] [address] [id number] Dec, Dental examination V72.2 [place] [address] [facility] [id number], [place] [address]- [address]46 Dec, Back pain 724.5 ; COPD (chronic obstructive pulmonary disease) 496 and Anxiety 300.00 [facility] [address] [id number] [id number] Dec, Dental examination V72.2 [facility] [address] [place] [id number] [id number] Nov, Dental examination V72.2 [facility] [address] [place] [address] [id number] [place] [address] [id number] October, Dental examination V72.2 [facility] [id number] [place] [address], [place] [address]- 2546 Sep, [facility] [place] [address] [facility] [id number], [place] [address]- [address]46 Sep, [facility] [address] [place] [id number], [place] [address] 2876 Aug, [facility] [place] [address] [facility] [id number], [place] [address]- 8008 Aug, [facility] [place] [address] [facility] [id number], [place] [address]- 9246 Aug, [facility] [place] [address] [id number] [address] 2726 Aug, [facility] [place] [address] [facility] [id number], [place] [address]- [address]16 Aug, [facility] [place] [address] [facility] [id number], [place] [address]- 2546 Aug, [facility] [address] [facility] [id number], [place] [address]- 2546 Jul, [facility] [place] [address] [facility] [id number], [place] [address]- [address]46 Jul, [facility] [place] [address] [facility] [id number], [place] [address]- 6704 Jul, [facility] [place] [facility] [address] [id number] [place] [address]- 3976 Jul, [facility] [place] [facility] [address] [id number] [place] [address]- 6145 Jun, [facility] [place] [facility] [address] [id number] [place] [address]- 6646 Jun, [facility] [place] [facility] [address] [id number] [place] [address]- 5903 Nov, [facility] [place] [facility] [address] [id number] [place] [address]- 8201 Nov, [facility] [place] [facility] [address] [id number] [place] [address]- 4475 October, [facility] [place] [facility] [address] [id number] [place] [address]- 1816 October, [facility] [place] [facility] [address] [id number] [place] [address]- 0052 October, [facility] [place] [facility] [address] [id number] [place] [address]- 1064 October, [facility] [place] [facility] [address] [id number] [place] [address]- 8281 October, [facility] [place] [facility] [address] [id number] [place] [address]- 6159 October, [facility] [place] [facility] [address] [id number] [place] [address]- 6383 October, [facility] [place] [facility] [address] [id number] [place] [address]- 8280 October, [facility] [place] [facility] [address] [id number] [place] [address]- 5468 Sep, [facility] [place] [facility] [address] [id number] [place] [address]- 3962 Sep, [facility] [place] [facility] [address] [id number] [place] [address]- 3777 15 Sep, 2013 [facility] [place] [address] [id number] [place] [address]- 3472 Sep, [facility] [place] [address] [facility] [id number] [place] [address]- 4591 Sep, [facility] [place] [address] [facility] [id number] [place] [address]- 5341 Sep, [facility] [place] [address] [id number] [place] [address]- 2863 Sep, [facility] [place] [address] [facility] [id number] [place] [address]- 8157 Sep, [facility] [place] [address] [facility] [id number] [place] [address]- 7647 Sep, [facility] [place] [address] [place] [address]- 4737 Sep, [facility] [place] [address] [facility] [id number] [place] [address]- 0668 Sep, [facility] [place] [address] [place] [address]- 0629 Sep, [facility] [place] [id number], [place] [address]- 1041 Sep, [facility] [place] [address] [id number], [place] [address]- 7671 Sep, [facility] [place] [address] [facility] [id number], [place] [address]- 3134 Aug, [facility] [place] [address] [facility] [id number], [place] [address]- 4516 Aug, [facility] [place] [address] [facility] [id number], [place] [address]- 6845 Aug, IMMUNIZATIONS No Known Immunizations SOCIAL HISTORY Never Assessed REASON FOR VISIT PT Evaluation PLAN OF CARE Activity Details Follow Up 3 Weeks Reason:F/U PT VITAL SIGNS MEDICATIONS Unknown Medications RESULTS No Results PROCEDURES Procedure Date Ordered Result Body Site THERAPEUTIC EXERCISES Apr 26, 2017 PT EVAL MOD COMPLEX 30 MIN Apr 26, 2017 INSTRUCTIONS MEDICATIONS ADMINISTERED No Known Medications MEDICAL (GENERAL) HISTORY Type Description Date Medical History Asthma Medical History Anxiety Medical History Depression Medical History Headaches Medical History COPD/emphysema Medical History Bone density 11/01/13 heel US WNL Surgical History Breast reduction Surgical History lap band Surgical History Tubal ligation Surgical History section Hospitalization History Sepsis 2010
--- OUTSIDE RECORDS SUMMARY | 2018-05-03 11:04 | XMS REPORT ---
Author Author BELEN NUR [facility] Address [address] [place] [address] Care Team Providers Care Supervisor Housecleaner Name Role Phone VAN NURISTIN Unavailable PROBLEMS Type Condition ICD9-CM Code ZWP77-JD Code Onset Dates Condition Status SNOMED Code Problem COPD (chronic obstructive pulmonary disease) with chronic bronchitis J44.9 Active 275698746 Problem Acute seasonal allergic rhinitis, unspecified trigger J30.2 Active 378507646 Problem Acute exacerbation of chronic obstructive pulmonary disease (COPD) J44.1 Active 394739441 Problem COPD with acute exacerbation J44.1 Active 722595038 Problem Dysthymic disorder F34.1 Active 64584640 Problem Anxiety state, unspecified F41.1 Active 022244560 Problem Chronic obstructive pulmonary disease with (acute) exacerbation J44.1 Active 287473851 Problem COPD exacerbation J44.1 Active [id number] Problem Depressive disorder, not elsewhere classified F32.9 Active 08455752 Problem Anxiety F41.9 Active 11880506 Problem Environmental allergies Z91.09 Active 591951471 Problem Iron deficiency anemia D50.9 Active 58277606 Problem Hyperlipidemia E78.5 Active 42241145 Problem Mild episode of recurrent major depressive disorder F33.0 Active 82219836 Problem Dependence on continuous supplemental oxygen Z99.81 Active 05598663664494 Problem Chronic obstructive pulmonary disease with acute lower respiratory infection J44.0 Active 011793496 Problem Chronic pain syndrome G89.4 Active 779415907 Problem Major depressive disorder with single episode, remission status unspecified F32.9 Active 37356603 Problem Other chronic pain G89.29 Active 67351292 ALLERGIES No Known Allergies ENCOUNTERS Encounter Location Date Diagnosis [facility] [place] [address] [facility] [id number] [address] October, [facility] [address] [facility] [id number], [place] [address] Aug, COPD with acute exacerbation J44.1 [facility] [place] [id number] [place] [address]39[address]26 Aug, Chronic obstructive pulmonary disease with acute lower respiratory infection J44.0 [place] [id number] [place] [address]411- 8854 Aug, Mild episode of recurrent major depressive disorder F33.0 [place] [id number] [place] [address]16- 8339 Jul, Mild episode of recurrent major depressive disorder F33.0 and Anxiety state, unspecified F41.1 [place] [address] [address] Jul, Anxiety F41.9 and Chronic pain syndrome G89.4 [place] [id number] [place] [address] 51057- 3356 Jun, Dysthymic disorder F34.1 and Anxiety state, unspecified F41.1 [place] [id number] [place] [address] 36836- 6207 Jun, Anxiety state, unspecified F41.1 and Mild episode of recurrent major depressive disorder F33.0 [place] [id number] [place] [address] 55716- 7632 Jun, [facility] [id number] [place] [address] May, COPD exacerbation J44.1 [place] [id number] [place] [address] 07899- 8330 May, Depressive disorder, not elsewhere classified F32.9 and Anxiety state, unspecified F41.1 [place] [id number] [place] [address] 73678- 6582 May, Chronic obstructive pulmonary disease with acute lower respiratory infection J44.0 and Acute seasonal allergic rhinitis, unspecified trigger J30.2 [facility] [id number] [place] [address]76 May, Acute exacerbation of chronic obstructive pulmonary disease (COPD) J44.1 [facility] [place] [address] [address] 17 Apr, 2017 Encounter for immunization Z23 [facility] [place] [address] [address] Apr, [facility] [place] [address] [address]- 9618 Apr, Back pain 724.5 [facility] [address] [address] Mar, Acute seasonal allergic rhinitis, unspecified trigger J30.2 and Sore throat J02.9 [facility] [address] [address] Mar, Acute exacerbation of chronic obstructive pulmonary disease (COPD) J44.1 [facility] [place] [address] [address] Feb, COPD (chronic obstructive pulmonary disease) with chronic bronchitis J44.9 ; Low back pain M54.5 and Other chronic pain G89.29 [facility] [id number] [place] [address] 77462 [address]5773 Feb, Decreased breath sounds R06.89 and Acute exacerbation of chronic obstructive pulmonary disease (COPD) J44.1 [facility] [place] [id number] [place] [address] 28543- 4315 15 Feb, 2017 [place] [address] [address]- 8921 Feb, [place] [address] 24475- [address]481 Jan, Major depressive disorder with single episode, remission status unspecified F32.9 [facility] [id number] [place] [address]11 Dec, Allergic contact dermatitis, unspecified trigger L23.9 [facility] [address] [address] 13 Dec, 2016 Allergic reaction, initial encounter T78.40XA [facility] [place] [id number] [place] [address] 50336- 5802 14 Nov, 2016 Hyperlipidemia E78.5 ; Chronic obstructive pulmonary disease with acute lower respiratory infection J44.0 and Iron deficiency anemia D50.9 [facility] [place] [id number] [place] [address] 27637- 1825 02 Nov, 2016 Hyperlipidemia E78.5 ; Iron deficiency anemia D50.9 ; Chronic obstructive pulmonary disease with acute lower respiratory infection J44.0 ; Environmental allergies Z91.09 and Major depressive disorder with single episode, remission status unspecified F32.9 [facility] [id number] [place] [address]130 [address]58[address] 06 Sep, 2016 Shortness of breath R06.02 and COPD exacerbation J44.1 [place] [id number] [place] [address] 62550- 2415 Sep, Chronic obstructive pulmonary disease with acute lower respiratory infection J44.0 [place] [id number] [place] [address] 40339- 0402 Jun, Anxiety F41.9 [place] [id number] [place] [address] 27358- 2367 Jun, Chronic obstructive pulmonary disease with acute lower respiratory infection J44.0 ; Dependence on continuous supplemental oxygen Z99.81 ; Iron deficiency anemia D50.9 ; Anxiety F41.9 ; Mild episode of recurrent major depressive disorder F33.0 ; Hypercholesterolemia E78.00 and Chronic pain syndrome G89.4 [place] [id number] [place] [address] 65442- 4692 May, Anxiety F41.9 [place] [id number] [place] [address] 77204- 2991 May, [place] [address] [place] [address] [id number] [address] Feb, [facility] [place] [id number] [place] [address] 46833- 4761 Jan, Chronic obstructive pulmonary disease with acute lower respiratory infection J44.0 ; Major depressive disorder with single episode, remission status unspecified F32.9 ; Environmental allergies Z91.09 ; Anxiety F41.9 ; Hyperlipidemia E78.5 ; Iron deficiency anemia, unspecified iron deficiency anemia type D50.9 ; Other chronic pain G89.29 and Lumbago with sciatica, unspecified side M54.40 [place] [id number] [place] [address] 72938- 7086 Sep, Hyperlipidemia E78.5 and Iron deficiency anemia D50.9 [place] [id number] [place] [address] 73547- 8477 Sep, COPD (chronic obstructive pulmonary disease) 496 ; Back pain 724.5 ; Anxiety 300.00 ; Hyperlipidemia E78.5 ; Iron deficiency anemia D50.9 and Headache R51 [place] [id number] [place] [address] 17818- 0916 Aug, [place] [id number] [place] [address] 71391- 4441 Mar, Hyperlipidemia E78.5 and Iron deficiency anemia D50.9 [place] [id number] [place] [address] 95857- 8767 Mar, Routine adult health maintenance V70.0 [place] [id number] [place] [address] 34133- 0544 Mar, Orbital cellulitis on left H05.012 [place] [address] 34801- 9739 Mar, [place] [id number] [place] [address] 23819- 8713 17 Feb, 2015 Breast cancer screening V76.10 [place] [id number] [place] [address] 70371- 5206 08 Feb, 2015 Routine adult health maintenance V70.0 ; COPD (chronic obstructive pulmonary disease) 496 ; Special screening for malignant neoplasms, colon V76.51 and 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.9 [facility] [place] [address] [address] 2546 Feb, [facility] [place] [id number] [place] [address] 36104- 8336 Dec, Asthma, unspecified, unspecified status 493.90 ; Back pain 724.5 ; COPD (chronic obstructive pulmonary disease) 496 and Anxiety 300.00 [facility] [id number] [place] [address] [id number] Dec, Dental examination V72.2 [facility] [place] [id number] [place] [address] 22855 2546 Dec, Back pain 724.5 ; COPD (chronic obstructive pulmonary disease) 496 and Anxiety 300.00 [facility] [id number] [place] [address] [id number] Dec, Dental examination V72.2 [facility] [id number] [place] [address] [id number] Nov, Dental examination V72.2 [facility] [id number] [place] [address] [id number] October, Dental examination V72.2 [facility] [place] [address] [address] Sep, [facility] [place] [address] [place] [address] 30664 2546 Sep, [facility] [place] [id number] [place] [address] 80372 2546 Aug, [facility] [place] [address] [address] 2546 Aug, [facility] [place] [id number] [place] [address] 64521- 7689 Aug, [facility] [place] [facility] [address] [id number] [place] [address]- [address] Aug, [facility] [place] [facility] [address] [id number] [place] [address]- 4415 Aug, [facility] [place] [facility] [address] [id number] [place] [address] Aug, [facility] [place] [facility] [address] [id number] [place] [address]- 8372 Jul, [facility] [place] [facility] [address] [id number] [place] [address]- 3627 Jul, [facility] [place] [facility] [address] [id number] [place] [address]- 9516 Jul, [facility] [place] [facility] [address] [id number] [place] [address]- 7462 Jul, [facility] [place] [facility] [address] [id number] [place] [address]- 2541 Jun, [facility] [place] [facility] [address] [id number] [place] [address]- 6108 Jun, [facility] [place] [facility] [address] [id number] [place] [address]- 8736 Nov, [facility] [place] [facility] [address] [id number] [place] [address]- 4478 Nov, [facility] [place] [facility] [address] [id number] [place] [address]- 6314 October, [facility] [place] [facility] [address] [id number] [place] [address]- 9503 October, [facility] [place] [facility] [address] [id number] [place] [address]- 3021 October, [facility] [place] [facility] [address] [id number] [place] [address]- 8446 October, [facility] [place] [facility] [address] [id number] [place] [address]- 1310 October, [facility] [address] [id number] [place] [address]- 7695 October, [facility] [address] [id number] [place] [address]- 6716 October, [facility] [address] [id number] [place] [address]- 9380 October, [facility] [address] [id number] [place] [address]- 6205 Sep, [facility] [address] [id number] [place] [address]- 5244 Sep, [facility] [address] [id number] [place] [address]- 1259 Sep, [facility] [address] [id number] [place] [address]- 6713 Sep, [facility] [address] [id number] [place] [address]- 6402 Sep, [facility] [address] [id number] [place] [address]- 0378 Sep, [facility] [address] [id number] [place] [address]- 9487 Sep, [facility] [place] [facility] [address] [id number] [place] [address]- 8899 Sep, [facility] [address] [id number] [place] [address]- 8877 Sep, [facility] [place] [facility] [address] [id number] [place] [address]- 0691 Sep, [facility] [place] [facility] [address] [id number] [place] [address]- 7915 Sep, [facility] [place] [facility] [address] [id number] [place] [address]- 1477 Sep, [facility] [place] [address] [facility] [id number] [address] Sep, [facility] [place] [address] [facility] [id number], [place] [address]- 2546 Sep, [facility] [place] [address] [facility] [id number], [place] [address]- 2546 Aug, [facility] [place] [address] [facility] [id number], [place] [address]- [address]46 Aug, [facility] [place] [address] [facility] [id number], [place] [address] Aug, IMMUNIZATIONS Vaccine Route Administration Date Status SOLUMEDROL (UP TO 125 MG) IM Intramuscular December 27, 2016 Administered SOCIAL HISTORY Never Assessed REASON FOR VISIT facial swelling, was here Tues got a shot it went away then came back yesterday JStrasserRN PLAN OF CARE Activity Details Follow Up prn Reason: VITAL SIGNS Height 64 in 2016-12-27 Weight 174.4 lbs 2016-12-27 Temperature 98.3 degrees Fahrenheit 2016-12-27 Heart Rate 88 bpm 2016-12-27 Respiratory Rate 20 2016-12-27 BMI 29.93 kg/m2 2016-12-27 Blood pressure systolic 152 mmHg 2016-12-27 Blood pressure diastolic 94 mmHg 2016-12-27 MEDICATIONS Medication Instructions Dosage Frequency Start Date End Date Duration Status Wellbutrin XL 150 MG Orally Once a day 1 tablet in the morning 24h Nov, 30 day(s) Active Proventil HFA 108 (90 Base) MCG/ACT Inhalation PRN every 4 hours 2 puffs as needed Active Incruse Ellipta 62.5 MCG/INH Inhalation Once a day 1 puff 24h Active PredniSONE 20 MG Orally 3 tablets x 3 days, followed by 2 tablets x 3 days, followed by 1 tablet x 3 days. as directed Dec, Dec, 9 days Active Klonopin 0.5 MG Orally Twice a day 1 tablet 12h May, 30 days Active Symbicort 160-4.5 MCG/ACT Inhalation Twice a day INHALE TWO PUFFS BY MOUTH TWICE DAILY 12h 30 days Active Flonase 50 MCG/ACT Nasally Once a day 1 spray in each nostril 24h Active Oxygen Active Omeprazole 20 MG Orally Once a day 1 capsule 24h Active Singulair 10 mg Orally Once a day 1 tablet in the evening 24h Active RESULTS No Results PROCEDURES Procedure Date Ordered Result Body Site SOLUMEDROL (UP TO 125 MG) December 27, 2016 THER/PROPH/DIAG INJ, SC/IM December 27, 2016 [facility] VISIT ESTABLISHED PATIENT December 27, 2016 INSTRUCTIONS MEDICATIONS ADMINISTERED No Known Medications MEDICAL (GENERAL) HISTORY Type Description Date Medical History Asthma Medical History Anxiety Medical History Depression Medical History Headaches Medical History COPD/emphysema Medical History Bone density 11/01/13 heel US WNL Surgical History Breast reduction Surgical History lap band Surgical History Tubal ligation Surgical History section Hospitalization History Sepsis 2010
--- OUTSIDE RECORDS SUMMARY | 2018-05-03 11:04 | XMS REPORT ---
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 Name Role Phone XAVIER Moore Unavailable PROBLEMS Type Condition ICD9-CM Code TCE10-JO Code Onset Dates Condition Status SNOMED Code Problem COPD (chronic obstructive pulmonary disease) with chronic bronchitis J44.9 Active 745580438 Problem Acute seasonal allergic rhinitis, unspecified trigger J30.2 Active 921352477 Problem Acute exacerbation of chronic obstructive pulmonary disease (COPD) J44.1 Active 128344455 Problem COPD with acute exacerbation J44.1 Active 771129847 Problem Dysthymic disorder F34.1 Active 97527250 Problem Anxiety state, unspecified F41.1 Active 360386524 Problem Chronic obstructive pulmonary disease with (acute) exacerbation J44.1 Active 801491035 Problem COPD exacerbation J44.1 Active 204901101543323 Problem Depressive disorder, not elsewhere classified F32.9 Active 23248779 Problem Anxiety F41.9 Active 46677768 Problem Environmental allergies Z91.09 Active 935444864 Problem Iron deficiency anemia D50.9 Active 30596280 Problem Hyperlipidemia E78.5 Active 30846585 Problem Mild episode of recurrent major depressive disorder F33.0 Active 25993560 Problem Dependence on continuous supplemental oxygen Z99.81 Active 58407162835070 Problem Chronic obstructive pulmonary disease with acute lower respiratory infection J44.0 Active 296354505 Problem Chronic pain syndrome G89.4 Active 995155064 Problem Major depressive disorder with single episode, remission status unspecified F32.9 Active 20724970 Problem Other chronic pain G89.29 Active 89648837 ALLERGIES No Known Allergies ENCOUNTERS Encounter Location Date Diagnosis [facility] [address] [facility] [id number] [address] October, [facility] [address] [id number] [address] Aug, COPD with acute exacerbation J44.1 [id number] [place] [address] 65189- 3629 Aug, Chronic obstructive pulmonary disease with acute lower respiratory infection J44.0 [place] [id number] [place] [address] 80997- 1274 Aug, Mild episode of recurrent major depressive disorder F33.0 [place] [id number] [place] [address] 41326- 1139 Jul, Mild episode of recurrent major depressive disorder F33.0 and Anxiety state, unspecified F41.1 [place] [id number] [place] [address] 55760- 3281 Jul, Anxiety F41.9 and Chronic pain syndrome G89.4 [place] [id number] [place] [address] 86489- 8310 Jun, Dysthymic disorder F34.1 and Anxiety state, unspecified F41.1 [place] [id number] [place] [address] 46751- 9383 Jun, Anxiety state, unspecified F41.1 and Mild episode of recurrent major depressive disorder F33.0 [place] [id number] [place] [address] 26666- 7972 Jun, [facility] IN [facility] [id number] [place] [address] 68960 [address] May, COPD exacerbation J44.1 [place] [id number] [place] [address] 47427- 2789 May, Depressive disorder, not elsewhere classified F32.9 and Anxiety state, unspecified F41.1 [place] [id number] [place] [address] 05753- 2938 May, Chronic obstructive pulmonary disease with acute lower respiratory infection J44.0 and Acute seasonal allergic rhinitis, unspecified trigger J30.2 [facility] [id number] [place] [address] May, Acute exacerbation of chronic obstructive pulmonary disease (COPD) J44.1 [facility] [id number] [place] [address] 31206- 8041 17 Apr, 2017 Encounter for immunization Z23 [facility] [address] [address] Apr, [facility] [address] [address] Apr, Back pain 724.5 [facility] [address] [address] Mar, Acute seasonal allergic rhinitis, unspecified trigger J30.2 and Sore throat J02.9 [facility] [address] [address] Mar, Acute exacerbation of chronic obstructive pulmonary disease (COPD) J44.1 [facility] [id number] [place] [address] 65534- 6546 Feb, COPD (chronic obstructive pulmonary disease) with chronic bronchitis J44.9 ; Low back pain M54.5 and Other chronic pain G89.29 [facility] [id number] [place] [address] 8[address]15 [address] Feb, Decreased breath sounds R06.89 and Acute exacerbation of chronic obstructive pulmonary disease (COPD) J44.1 [facility] [id number] [place] [address] 08832- 5832 15 Feb, 2017 [facility] [id number] [place] [address] 12504- 4180 Feb, [place] [id number] [place] [address] 76441- 7736 Jan, Major depressive disorder with single episode, remission status unspecified F32.9 [facility] [id number] [place] [address] Dec, Allergic contact dermatitis, unspecified trigger L23.9 [facility] [address] [place] [address] 26284 -[address]53 13 Dec, 2016 Allergic reaction, initial encounter T78.40XA [facility] [id number] [place] [address] 82911- 7139 14 Nov, 2016 Hyperlipidemia E78.5 ; Chronic obstructive pulmonary disease with acute lower respiratory infection J44.0 and Iron deficiency anemia D50.9 [place] [id number] [place] [address] 06134- 0596 02 Nov, 2016 Hyperlipidemia E78.5 ; Iron deficiency anemia D50.9 ; Chronic obstructive pulmonary disease with acute lower respiratory infection J44.0 ; Environmental allergies Z91.09 and Major depressive disorder with single episode, remission status unspecified F32.9 [facility] IN [facility] [id number] [place] [address] 88001 [address]4724 Sep, Shortness of breath R06.02 and COPD exacerbation J44.1 [place] [id number] [place] [address] 58873- 8800 Sep, Chronic obstructive pulmonary disease with acute lower respiratory infection J44.0 [place] [id number] [place] [address] 88764- 6014 Jun, Anxiety F41.9 [place] [id number] [place] [address] 83722- 6881 Jun, Chronic obstructive pulmonary disease with acute lower respiratory infection J44.0 ; Dependence on continuous supplemental oxygen Z99.81 ; Iron deficiency anemia D50.9 ; Anxiety F41.9 ; Mild episode of recurrent major depressive disorder F33.0 ; Hypercholesterolemia E78.00 and Chronic pain syndrome G89.4 [place] [id number] [place] [address] 88525- 9845 May, Anxiety F41.9 [place] [id number] [place] [address] 50864- 3293 May, [id number] [place] [address] 99845- 1226 Feb, [facility] [id number] [place] [address] 56186- 5530 Jan, Chronic obstructive pulmonary disease with acute lower respiratory infection J44.0 ; Major depressive disorder with single episode, remission status unspecified F32.9 ; Environmental allergies Z91.09 ; Anxiety F41.9 ; Hyperlipidemia E78.5 ; Iron deficiency anemia, unspecified iron deficiency anemia type D50.9 ; Other chronic pain G89.29 and Lumbago with sciatica, unspecified side M54.40 [place] [id number] [place] [address] 92104- 5739 Sep, Hyperlipidemia E78.5 and Iron deficiency anemia D50.9 [place] [id number] [place] [address] 20950- 6570 Sep, COPD (chronic obstructive pulmonary disease) 496 ; Back pain 724.5 ; Anxiety 300.00 ; Hyperlipidemia E78.5 ; Iron deficiency anemia D50.9 and Headache R51 [place] [id number] [place] [address] 68360- 2949 Aug, [place] [id number] [place] [address] 47815- 2229 Mar, Hyperlipidemia E78.5 and Iron deficiency anemia D50.9 [place] [id number] [place] [address] 18849- 0463 Mar, Routine adult health maintenance V70.0 [place] [id number] [place] [address] 20529- 7161 Mar, Orbital cellulitis on left H05.012 [place] [id number] [place] [address] 27876- 4438 Mar, [place] [id number] [place] [address] 02538- 9266 Feb, Breast cancer screening V76.10 [place] [address] [place] [address] 08 Feb, 2015 Routine adult health maintenance V70.0 ; COPD (chronic obstructive pulmonary disease) 496 ; Special screening for malignant neoplasms, colon V76.51 and 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.9 [facility] [id number] [place] [address] 79517- 3336 08 Feb, 2015 [facility] [id number] [place] [address] 51879- 2551 Dec, Asthma, unspecified, unspecified status 493.90 ; Back pain 724.5 ; COPD (chronic obstructive pulmonary disease) 496 and Anxiety 300.00 [facility] [id number] [place] [address] [id number] Dec, Dental examination V72.2 [facility] [id number] [place] [address] 18871- 2556 Dec, Back pain 724.5 ; COPD (chronic obstructive pulmonary disease) 496 and Anxiety 300.00 [facility] [id number] [place] [address] [id number] Dec, Dental examination V72.2 [facility] [address] [id number] Nov, Dental examination V72.2 [facility] [id number] [place] [address] [id number] October, Dental examination V72.2 [facility] [id number] [place] [address] 60663- 0786 Sep, [facility] [id number] [place] [address] 32435- 3488 Sep, [facility] [id number] [place] [address] 98273- 6176 Aug, [facility] [id number] [place] [address] [id number]- 2226 Aug, [facility] [id number] [place] [address] 16897- 5864 Aug, [facility] [place] [facility] [address] [id number] [place] [address]- 5673 Aug, [facility] [place] [facility] [address] [id number] [place] [address]- 1102 Aug, [facility] [place] [facility] [address] [id number] [place] [address]- 69[address] Aug, [facility] [place] [facility] [address] [id number] [place] [address]- 4643 Jul, [facility] [place] [facility] [address] [id number] [place] [address]- 1846 Jul, [facility] [place] [facility] [address] [id number] [place] [address]- 5212 Jul, [facility] [place] [facility] [address] [id number] [place] [address]- 0610 Jul, [facility] [place] [facility] [address] [id number] [place] [address]- 4838 Jun, [facility] [place] [facility] [address] [id number] [place] [address]- 6446 Jun, [facility] [place] [facility] [address] [id number] [place] [address]- 6088 Nov, [facility] [place] [facility] [address] [id number] [place] [address]- 9414 Nov, [facility] [place] [facility] [address] [id number] [place] [address]- 7087 October, [facility] [place] [facility] [address] [id number] [place] [address]- 1734 October, [facility] [place] [facility] [address] [id number] [place] [address]- 4992 October, [facility] [place] [facility] [address] [id number] [place] [address]- 5052 October, [facility] [place] [facility] [address] [id number] [place] [address]- 9556 October, [facility] [place] [facility] [address] [id number] [place] [address]- 0724 October, [facility] [place] [facility] [address] [id number] [place] [address]- 4840 October, [facility] [place] [facility] [address] [id number] [place] [address]- 7585 October, [facility] [place] [facility] [address] [id number] [place] [address]- 3443 Sep, [facility] [place] [facility] [address] [id number] [place] [address]- 2605 Sep, [facility] [place] [facility] [address] [id number] [place] [address]- 5315 Sep, [facility] [place] [facility] [address] [id number] [place] [address]- 2085 Sep, [facility] [place] [facility] [address] [id number] [place] [address]- 8749 Sep, [facility] [place] [facility] [address] [id number] [place] [address]- 5534 Sep, [facility] [place] [facility] [address] [id number] [place] [address]- 9770 Sep, [facility] [place] [facility] [address] [id number] [place] [address]- 7491 Sep, [facility] [place] [facility] [address] [id number] [place] [address]- 5215 Sep, [facility] [place] [facility] [address] [id number] [place] [address]- 1925 Sep, [facility] [place] [facility] [address] [id number] [place] [address]- 1999 Sep, [facility] [place] [facility] [address] [id number] [place] [address]- 5598 Sep, [facility] [address] [facility] [id number], [place] [address]- 2546 Sep, [facility] [address] [facility] [id number], [place] [address]- 2546 Sep, [facility] [address] [facility] [id number], [place] [address]- 2546 Aug, [facility] [address] [facility] [id number], [place] [address]- 2546 Aug, [facility] [address] [facility] [id number], [place] [address]- [address]46 Aug, IMMUNIZATIONS Vaccine Route Administration Date Status DEXAMETHASONE 4MG/ML (PER 1 MG) IM Intramuscular December 24, 2016 Administered DEPO MEDROL 40 MG/ML IM Intramuscular December 24, 2016 Administered SOCIAL HISTORY Never Assessed REASON FOR VISIT facial swelling...mainly on the left side. been like this for 2 days. reports some itching...noticed this after she started working in her yard. kbkalyn PLAN OF CARE Activity Details Follow Up prn Reason: VITAL SIGNS Height 64 in 2016-12-24 Weight 176.8 lbs 2016-12-24 Temperature 98.1 degrees Fahrenheit 2016-12-24 Heart Rate 96 bpm 2016-12-24 Respiratory Rate 22 2016-12-24 BMI 30.34 kg/m2 2016-12-24 Blood pressure systolic 128 mmHg 2016-12-24 Blood pressure diastolic 82 mmHg 2016-12-24 MEDICATIONS Medication Instructions Dosage Frequency Start Date End Date Duration Status Proventil HFA 108 (90 Base) MCG/ACT Inhalation PRN every 4 hours 2 puffs as needed Active Klonopin 0.5 MG Orally Twice a day 1 tablet 12h May, 30 days Active Wellbutrin XL 150 MG Orally Once a day 1 tablet in the morning 24h Nov, 30 day(s) Active Singulair 10 mg Orally Once a day 1 tablet in the evening 24h Active Incruse Ellipta 62.5 MCG/INH Inhalation Once a day 1 puff 24h Active Oxygen Active Flonase 50 MCG/ACT Nasally Once a day 1 spray in each nostril 24h Active Symbicort 160-4.5 MCG/ACT Inhalation Twice a day INHALE TWO PUFFS BY MOUTH TWICE DAILY 12h 30 days Active RESULTS No Results PROCEDURES Procedure Date Ordered Result Body Site [facility] VISIT ESTABLISHED PATIENT December 24, 2016 THER/PROPH/DIAG INJ, SC/IM December 24, 2016 DEPO MEDROL 40 MG/ML December 24, 2016 DEXAMETHASONE 4MG/ML (PER 1 MG) December 24, 2016 INSTRUCTIONS MEDICATIONS ADMINISTERED No Known Medications MEDICAL (GENERAL) HISTORY Type Description Date Medical History Asthma Medical History Anxiety Medical History Depression Medical History Headaches Medical History COPD/emphysema Medical History Bone density 11/01/13 heel US WNL Surgical History Breast reduction Surgical History lap band Surgical History Tubal ligation Surgical History section Hospitalization History Sepsis 2010
--- OUTSIDE RECORDS SUMMARY | 2018-05-03 11:05 | XMS REPORT ---
Author Author GORDO MARY Organization [facility] Address [address] [place] [address] Care Team Providers Care Fresh Work Inspector Name Role Phone MARY CARO Unavailable PROBLEMS Type Condition ICD9-CM Code FCU89-FA Code Onset Dates Condition Status SNOMED Code Problem Hyperlipidemia E78.5 Active 41128767 Problem Anxiety F41.9 Active 49860653 Problem Environmental allergies Z91.09 Active 447980223 Problem Iron deficiency anemia D50.9 Active 36792999 Problem COPD exacerbation J44.1 Active 799094922 Problem Chronic pain syndrome G89.4 Active 536598761 Problem Major depressive disorder with single episode, remission status unspecified F32.9 Active 25529391 Problem Chronic obstructive pulmonary disease with acute lower respiratory infection J44.0 Active 871159161 Problem Mild episode of recurrent major depressive disorder F33.0 Active 34922116 Problem Dependence on continuous supplemental oxygen Z99.81 Active [id number] ALLERGIES Substance Reaction Event Type Date Status N.K.D.A. Unknown Non Drug Allergy Jun, Unknown SOCIAL HISTORY No smoking Hx information available PLAN OF CARE Activity Details Follow Up 3 Months Reason:copd with fasting labs VITAL SIGNS Height 64 in 2016-06-29 Weight 171.0 lbs 2016-06-29 Temperature 97.7 degrees Fahrenheit 2016-06-29 Heart Rate 105 bpm 2016-06-29 Respiratory Rate 22 2016-06-29 Oximetry 90 % 2016-06-29 BMI 29.35 kg/m2 2016-06-29 Blood pressure systolic 160 mmHg 2016-06-29 Blood pressure diastolic 90 mmHg 2016-06-29 MEDICATIONS Medication Instructions Dosage Frequency Start Date End Date Duration Status Tramadol HCl 50 MG TAKE ONE TABLET BY MOUTH EVERY 6 HOURS NEEDED Active Paxil 30 MG Orally Once a day take 1 tablet (30 mg) by oral route once daily 24h Aug, Active Flonase 50 MCG/ACT Nasally Once a day 1 spray in each nostril 24h Active Iron 90 (18 Fe) MG Orally Once a day 2 tablets 24h Active Singulair 10 MG Orally Once a day 1 tablet in the evening 24h Active Klonopin 0.5 MG Orally Twice a day 1 tablet 12h May, 30 days Active Paroxetine HCl 30 MG TAKE ONE TABLET BY MOUTH ONCE DAILY 30 Active Proventil HFA 108 (90 Base) MCG/ACT Inhalation PRN every 4 hours 2 puffs as needed Active Incruse Ellipta 62.5 MCG/INH Inhalation Once a day 1 puff 24h Active Pravastatin Sodium 20 mg Orally Once a day at bedtime 1 tablet Mar, Active Albuterol Sulfate (2.5 MG/3ML) 0.083% Inhalation Three times a day 3 ml 8h Active Oxygen Active Symbicort 160-4.5 MCG/ACT Inhalation Twice a day INHALE TWO PUFFS BY MOUTH TWICE DAILY 12h Active Nebulizer - Active RESULTS No Results PROCEDURES Procedure Date Ordered Related Diagnosis Body Site MEASURE BLOOD OXYGEN LEVEL Jun 29, 2016 [facility] VISIT ESTABLISHED PATIENT Jun 29, 2016 Office Visit, Est Pt., Level 4 Jun 29, 2016 IMMUNIZATIONS No Known Immunizations
--- OUTSIDE RECORDS SUMMARY | 2018-05-03 11:06 | XMS REPORT ---
Author Author BELEN NUR [facility] IN [facility] Address [address] [place] [address] Care Team Providers Care City Mail Carrier Name Role Phone BELEN NUR Unavailable PROBLEMS Type Condition ICD9-CM Code GPI45-LG Code Onset Dates Condition Status SNOMED Code Problem Acute exacerbation of chronic obstructive pulmonary disease (COPD) J44.1 Active 531526499 Problem Chronic obstructive pulmonary disease with (acute) exacerbation J44.1 Active 849437704 Problem Acute seasonal allergic rhinitis, unspecified trigger J30.2 Active 377882916 Problem Severe persistent asthma without complication J45.50 Active 831101539 Problem Iron deficiency anemia D50.9 Active 49714903 Problem COPD with acute exacerbation J44.1 Active 132783838 Problem Depressive disorder, not elsewhere classified F32.9 Active 89161278 Problem Anxiety state, unspecified F41.1 Active 379302159 Problem Dysthymic disorder F34.1 Active 19068640 Problem COPD exacerbation J44.1 Active 188831170852620 Problem Environmental allergies Z91.09 Active 458838054 Problem Chronic obstructive pulmonary disease with acute lower respiratory infection J44.0 Active 565601842 Problem Hyperlipidemia E78.5 Active 35829184 Problem Anxiety F41.9 Active 27877218 Problem Dependence on continuous supplemental oxygen Z99.81 Active 92073316290487 Problem Chronic pain syndrome G89.4 Active 939631653 Problem Major depressive disorder with single episode, remission status unspecified F32.9 Active 07647720 Problem Other chronic pain G89.29 Active 26896317 Problem Mild episode of recurrent major depressive disorder F33.0 Active 91125446 Problem COPD (chronic obstructive pulmonary disease) with chronic bronchitis J44.9 Active 428619172 ALLERGIES No Known Allergies ENCOUNTERS Encounter Location Date Diagnosis [facility] [address] [facility] [id number] [address] Feb, [facility] [id number] [place] [address] October, Severe persistent asthma without complication J45.50 ; Hyperlipidemia E78.5 ; Iron deficiency anemia D50.9 ; Pain in thoracic spine M54.6 and Other chronic pain G89.29 [facility] [id number] [place] [address] 28914[address] 5772 October, Chronic pain syndrome G89.4 [facility] [id number] [place] [address]66[address] 9664 October, Mild episode of recurrent major depressive disorder F33.0 and Anxiety state, unspecified F41.1 [facility] [address] [address] Aug, COPD with acute exacerbation J44.1 [facility] [id number] [place] [address] 37747- 7345 Aug, Chronic obstructive pulmonary disease with acute lower respiratory infection J44.0 [facility] [id number] [place] [address]29- 5354 Aug, Mild episode of recurrent major depressive disorder F33.0 [facility] [id number] [place] [address] 62955- 119[address] 08 Jul, 2017 Mild episode of recurrent major depressive disorder F33.0 and Anxiety state, unspecified F41.1 [facility] [id number] [place] [address] 86625- 9348 Jul, Anxiety F41.9 and Chronic pain syndrome G89.4 [facility] [id number] [place] [address] 97589- 5945 Jun, Dysthymic disorder F34.1 and Anxiety state, unspecified F41.1 [facility] [id number] [place] [address] 01384- 2638 Jun, Anxiety state, unspecified F41.1 and Mild episode of recurrent major depressive disorder F33.0 [facility] [id number] [place] [address] 94911- 5932 Jun, [facility] [address] [address] May, COPD exacerbation J44.1 [facility] [address] [address] May, Depressive disorder, not elsewhere classified F32.9 and Anxiety state, unspecified F41.1 [facility] [address] [address] May, Chronic obstructive pulmonary disease with acute lower respiratory infection J44.0 and Acute seasonal allergic rhinitis, unspecified trigger J30.2 [facility] [address] [address] May, Acute exacerbation of chronic obstructive pulmonary disease (COPD) J44.1 [place] [address] [address] 17 Apr, 2017 Encounter for immunization Z23 [place] [address] [address] Apr, [place] [address] [address] Apr, Back pain 724.5 [facility] [address] [address] Mar, Acute seasonal allergic rhinitis, unspecified trigger J30.2 and Sore throat J02.9 [facility] [address] [address] Mar, Acute exacerbation of chronic obstructive pulmonary disease (COPD) J44.1 [facility] [address] [address] Feb, COPD (chronic obstructive pulmonary disease) with chronic bronchitis J44.9 ; Low back pain M54.5 and Other chronic pain G89.29 [facility] [address] [address] 21 Feb, 2017 Decreased breath sounds R06.89 and Acute exacerbation of chronic obstructive pulmonary disease (COPD) J44.1 [place] [address] [place] [address] 90074- 4765 15 Feb, 2017 [place] [address] [place] [address] 15666- 9397 11 Feb, 2017 [place] [id number] [place] [address] Jan, Major depressive disorder with single episode, remission status unspecified F32.9 [facility] [address] [place] [id number] [place] [address] 16 Dec, 2016 Allergic contact dermatitis, unspecified trigger L23.9 [facility] [id number] [place] [address] 49[address]245 13 Dec, 2016 Allergic reaction, initial encounter T78.40XA [place] [id number] [place] [address] 60867- 3157 14 Nov, 2016 Hyperlipidemia E78.5 ; Chronic obstructive pulmonary disease with acute lower respiratory infection J44.0 and Iron deficiency anemia D50.9 [facility] [address] [place] [address] 06869- 1633 Nov, Hyperlipidemia E78.5 ; Iron deficiency anemia D50.9 ; Chronic obstructive pulmonary disease with acute lower respiratory infection J44.0 ; Environmental allergies Z91.09 and Major depressive disorder with single episode, remission status unspecified F32.9 [facility] [address] [place] [address]26[address] Sep, Shortness of breath R06.02 and COPD exacerbation J44.1 [facility] [id number] [place] [address] 42805- 9331 Sep, Chronic obstructive pulmonary disease with acute lower respiratory infection J44.0 [facility] [facility] [id number] [place] [address] 07181- 0468 Jun, Anxiety F41.9 [facility] [id number] [place] [address] 64546- 2608 Jun, Chronic obstructive pulmonary disease with acute lower respiratory infection J44.0 ; Dependence on continuous supplemental oxygen Z99.81 ; Iron deficiency anemia D50.9 ; Anxiety F41.9 ; Mild episode of recurrent major depressive disorder F33.0 ; Hypercholesterolemia E78.00 and Chronic pain syndrome G89.4 [facility] [id number] [place] [address] 95587- 6523 May, Anxiety F41.9 [facility] [id number] [place] [address] 67785- 2565 May, [place] [id number] [place] [address] 95383- 5564 Feb, [place] [id number] [place] [address] 01397- 0796 Jan, Chronic obstructive pulmonary disease with acute lower respiratory infection J44.0 ; Major depressive disorder with single episode, remission status unspecified F32.9 ; Environmental allergies Z91.09 ; Anxiety F41.9 ; Hyperlipidemia E78.5 ; Iron deficiency anemia, unspecified iron deficiency anemia type D50.9 ; Other chronic pain G89.29 and Lumbago with sciatica, unspecified side M54.40 [facility] [id number] [place] [address] 01271- 3057 Sep, Hyperlipidemia E78.5 and Iron deficiency anemia D50.9 [facility] [id number] [place] [address] 87148- 3192 Sep, COPD (chronic obstructive pulmonary disease) 496 ; Back pain 724.5 ; Anxiety 300.00 ; Hyperlipidemia E78.5 ; Iron deficiency anemia D50.9 and Headache R51 [place] [id number] [place] [address] 07903- 2220 Aug, [place] [id number] [place] [address] 36205- 9954 08 Mar, 2015 Hyperlipidemia E78.5 and Iron deficiency anemia D50.9 [facility] [address] [address] Mar, Routine adult health maintenance V70.0 [facility] [address] [place] [address] 17787- 6132 Mar, Orbital cellulitis on left H05.012 [facility] [place] [id number] [place] [address] 18953- 8080 Mar, [facility] [address] [place] [address] 51441- 6387 Feb, Breast cancer screening V76.10 [facility] [id number] [place] [address] 53480- 6507 08 Feb, 2015 Routine adult health maintenance V70.0 ; COPD (chronic obstructive pulmonary disease) 496 ; Special screening for malignant neoplasms, colon V76.51 and 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.9 [place] [address] [place] [address] 97909- 4842 Feb, [facility] [id number] [place] [address] 01300- 1553 Dec, Asthma, unspecified, unspecified status 493.90 ; Back pain 724.5 ; COPD (chronic obstructive pulmonary disease) 496 and Anxiety 300.00 [facility] [address] [place] [address] [id number] Dec, Dental examination V72.2 [facility] [address] [place] [address] 37926- 3281 Dec, Back pain 724.5 ; COPD (chronic obstructive pulmonary disease) 496 and Anxiety 300.00 [facility] [id number] [place] [address] [id number] Dec, Dental examination V72.2 [facility] [id number] [place] [address] [id number] Nov, Dental examination V72.2 [facility] [id number] [id number] 14 Oct, 2014 Dental examination V72.2 [facility] [place] [facility] [address] [id number] [place] [address] 14 Sep, 2014 [facility] [place] [facility] [address] [id number] [place] [address]- 9276 Sep, [facility] [place] [facility] [address] [id number] [place] [address]- 0584 Aug, [facility] [place] [facility] [address] [id number] [place] [address]- 8857 Aug, [facility] [place] [facility] [address] [id number] [place] [address]- 6486 Aug, [facility] [place] [facility] [address] [facility] [id number] [place] [address]- 2796 Aug, [facility] [place] [facility] [address] [id number] [place] [address]- 4800 Aug, [facility] [place] [facility] [address] [id number] [place] [address]- 3534 Aug, [facility] [place] [facility] [id number] [address]- 4[address] Jul, [facility] [place] [facility] [address] [facility] [id number] [place] [address]- 4752 Jul, [facility] [place] [facility] [address] [facility] [id number] [place] [address]- 4336 Jul, [facility] [place] [facility] [address] [facility] [id number] [place] [address]- 8430 Jul, [facility] [place] [facility] [address] [facility] [id number] [place] [address]- 4776 Jun, [facility] [place] [facility] [address] [id number] [place] [address]- 0316 Jun, [facility] [place] [facility] [address] [facility] [id number] [place] [address] 12[address] Nov, [facility] [place] [facility] [address] [id number] [place] [address]- 6172 Nov, [facility] [place] [facility] [address] [id number] [place] [address]- 1681 October, [facility] [place] [facility] [address] [id number] [place] [address]- 9506 October, [facility] [place] [facility] [address] [id number] [place] [address]- 6036 October, [facility] [place] [facility] [address] [id number] [place] [address]- 8718 October, [facility] [place] [facility] [address] [id number] [place] [address]- 2542 October, [facility] [place] [facility] [address] [id number] [place] [address]- 8622 October, [facility] [place] [facility] [address] [id number] [place] [address]- 3971 October, [facility] [place] [facility] [address] [id number] [place] [address]- 2387 October, [facility] [place] [facility] [address] [id number] [place] [address]- 3326 Sep, [facility] [place] [facility] [address] [id number] [place] [address]- 7537 Sep, [facility] [place] [facility] [address] [id number] [place] [address]- 5160 Sep, [facility] [place] [facility] [address] [id number] [place] [address]- 7853 Sep, [facility] [place] [facility] [address] [id number] [place] [address]- 1419 Sep, [facility] [place] [facility] [address] [id number] [place] [address]- 3642 Sep, [facility] [place] [facility] [address] [id number] [place] [address]- 0206 Sep, [facility] [address] [address]- 7[address] Sep, [facility] [address] [address]- 2537 Sep, [facility] [address] [address]- 0761 Sep, [facility] [id number] [address]- 8416 Sep, [facility] [id number] [place] [address] 27361- 5889 Sep, [facility] [id number] [place] [address] 91672- 2267 Sep, [facility] [id number] [place] [address] 71638- 6145 Sep, [facility] [address] [address]- 6774 Aug, [facility] [address] [address]- 90[address] Aug, [facility] [address] [address] Aug, IMMUNIZATIONS No Known Immunizations SOCIAL HISTORY Never Assessed REASON FOR VISIT Congestion the started yesturday, PT has been vomiting phlem-[place] PLAN OF CARE Activity Details Follow Up prn Reason: VITAL SIGNS Height 64 in 2017-05-14 Weight 158.2 lbs 2017-05-14 Temperature 97.6 degrees Fahrenheit 2017-05-14 Heart Rate 84 bpm 2017-05-14 Respiratory Rate 22 2017-05-14 BMI 27.15 kg/m2 2017-05-14 Blood pressure systolic 128 mmHg 2017-05-14 Blood pressure diastolic 86 mmHg 2017-05-14 MEDICATIONS Medication Instructions Dosage Frequency Start Date End Date Duration Status Pantoprazole Sodium 40 MG Orally Once a day 1 tablet 24h Active Singulair 10 mg Orally Once a day 1 tablet in the evening 24h Active Flonase 50 MCG/ACT Nasally Once a day 1 spray in each nostril 24h Active Oxygen Active Ibuprofen 800 MG Orally Three times a day 1 tablet 8h 30 Active Incruse Ellipta 62.5 MCG/INH Inhalation Once a day 1 puff 24h Active Symbicort 160-4.5 MCG/ACT Inhalation Twice a day INHALE TWO PUFFS BY MOUTH TWICE DAILY 12h 30 days Active Wellbutrin XL 150 MG Orally Once a day 1 tablet in the morning 24h 30 Active PredniSONE 20 MG Orally Once a day 2 tablet 24h May, May, 5 days Active Proventil HFA 108 (90 Base) MCG/ACT Inhalation PRN every 4 hours 2 puffs as needed Active Doxycycline Hyclate 100 MG Orally every 12 hrs 1 capsule 12h May, May, 10 days Active Klonopin 0.5 MG Orally Twice a day 1 tablet 12h 30 Active RESULTS No Results PROCEDURES Procedure Date Ordered Result Body Site [facility] VISIT ESTABLISHED PATIENT May 14, 2017 INSTRUCTIONS MEDICATIONS ADMINISTERED No Known Medications MEDICAL (GENERAL) HISTORY Type Description Date Medical History Asthma Medical History Anxiety Medical History Depression Medical History Headaches Medical History COPD/emphysema Medical History Bone density 11/01/13 heel US WNL Surgical History Breast reduction Surgical History lap band Surgical History Tubal ligation Surgical History section Hospitalization History Sepsis 2010
--- OUTSIDE RECORDS SUMMARY | 2018-05-03 11:07 | XMS REPORT ---
Author Author MARY CARO Organization [facility] Address [address] [place] [address] Care Team Providers Care Riveter Pneumatic Name Role Phone MARY CARO Unavailable PROBLEMS Type Condition ICD9-CM Code KRC18-YO Code Onset Dates Condition Status SNOMED Code Problem Hyperlipidemia E78.5 Active 71680840 Problem Anxiety F41.9 Active 14440034 Problem Environmental allergies Z91.09 Active 723445922 Problem Iron deficiency anemia D50.9 Active 64137179 Problem COPD exacerbation J44.1 Active 138804801 Problem Chronic pain syndrome G89.4 Active 962413135 Problem Major depressive disorder with single episode, remission status unspecified F32.9 Active 55576167 Problem Chronic obstructive pulmonary disease with acute lower respiratory infection J44.0 Active 386705266 Problem Mild episode of recurrent major depressive disorder F33.0 Active 96129205 Problem Dependence on continuous supplemental oxygen Z99.81 Active [id number] ALLERGIES Unknown Allergies SOCIAL HISTORY No smoking Hx information available PLAN OF CARE VITAL SIGNS MEDICATIONS Medication Instructions Dosage Frequency Start Date End Date Duration Status Klonopin 0.5 MG Orally Twice a day 1 tablet 12h 29 May, 2016 30 days Active RESULTS No Results PROCEDURES No Known procedures IMMUNIZATIONS No Known Immunizations
--- OUTSIDE RECORDS SUMMARY | 2018-05-03 11:07 | XMS REPORT ---
Author Author GORDO MARY Organization [facility] Address [address] [place] [address] Care Team Providers Care Radiographer Mammographer Name Role Phone JUANITA CARONETTE Unavailable PROBLEMS Type Condition ICD9-CM Code MHE11-QT Code Onset Dates Condition Status SNOMED Code Problem Chronic obstructive pulmonary disease with acute lower respiratory infection J44.0 Active 777800924 Problem Mild episode of recurrent major depressive disorder F33.0 Active 14208442 Problem Major depressive disorder with single episode, remission status unspecified F32.9 Active 89586334 Problem Iron deficiency anemia D50.9 Active 03714044 Problem Hyperlipidemia E78.5 Active 90760337 Problem Environmental allergies Z91.09 Active 405140826 Problem Anxiety F41.9 Active 12360920 Problem Acute seasonal allergic rhinitis, unspecified trigger J30.2 Active 895269838 Problem Acute exacerbation of chronic obstructive pulmonary disease (COPD) J44.1 Active 744834387 Problem Chronic pain syndrome G89.4 Active 033166917 Problem Dependence on continuous supplemental oxygen Z99.81 Active 93772764247175 Problem Other chronic pain G89.29 Active 66940769 Problem COPD (chronic obstructive pulmonary disease) with chronic bronchitis J44.9 Active 509644722 ALLERGIES No Known Allergies SOCIAL HISTORY Never Assessed PLAN OF CARE Activity Details Follow Up 3 Months Reason:copd VITAL SIGNS Height 64 in 2016-11-13 Weight 170.0 lbs 2016-11-13 Temperature 98.1 degrees Fahrenheit 2016-11-13 Heart Rate 102 bpm 2016-11-13 Respiratory Rate 24 2016-11-13 Oximetry w/ oxygen @ 2L:96 % 2016-11-13 BMI 29.18 kg/m2 2016-11-13 Blood pressure systolic 138 mmHg 2016-11-13 Blood pressure diastolic 78 mmHg 2016-11-13 MEDICATIONS Medication Instructions Dosage Frequency Start Date End Date Duration Status Flonase 50 MCG/ACT Nasally Once a day 1 spray in each nostril 24h Active Symbicort 160-4.5 MCG/ACT Inhalation Twice a day INHALE TWO PUFFS BY MOUTH TWICE DAILY 12h 30 days Active Proventil HFA 108 (90 Base) MCG/ACT Inhalation PRN every 4 hours 2 puffs as needed Active Incruse Ellipta 62.5 MCG/INH Inhalation Once a day 1 puff 24h Active Singulair 10 mg Orally Once a day 1 tablet in the evening 24h Active Oxygen Active Klonopin 0.5 MG Orally Twice a day 1 tablet 12h May, 30 days Active Wellbutrin XL 150 MG Orally Once a day 1 tablet in the morning 24h Nov, 30 day(s) Active RESULTS No Results PROCEDURES Procedure Date Ordered Result Body Site MEASURE BLOOD OXYGEN LEVEL November 13, 2016 [facility] VISIT ESTABLISHED PATIENT November 13, 2016 IMMUNIZATIONS No Known Immunizations MEDICAL (GENERAL) HISTORY Type Description Date Medical History Asthma Medical History Anxiety Medical History Depression Medical History Headaches Medical History COPD/emphysema Medical History Bone density 11/01/13 heel US WNL Surgical History Breast reduction Surgical History lap band Surgical History Tubal ligation Surgical History section Hospitalization History Sepsis 2010
--- OUTSIDE RECORDS SUMMARY | 2018-05-03 11:09 | XMS REPORT | Continuity of Care Document ---
Author Author [facility] Address Unknown Phone Unavailable Allergies Active Description Code Type Severity Reaction Onset Reported/Identified Relationship to Patient Clinical Status Yes No Known Drug Allergies [id number] Drug Allergy Mild N/A 07/15/2009 Medications There is no data. Problems Date Dx Coded Attending Type Code Diagnosis Diagnosed By 05/13/1028 NIKOLAI MOORE MD, Ot D64.9 ANEMIA, UNSPECIFIED 05/13/1028 NIKOLAI MOORE MD, Ot I10 ESSENTIAL (PRIMARY) HYPERTENSION 05/13/1028 NIKOLAI MOORE MD, Ot J43.9 EMPHYSEMA, UNSPECIFIED 05/13/1028 NIKOLAI MOORE MD, Ot J45.909 UNSPECIFIED ASTHMA, UNCOMPLICATED 05/13/1028 NIKOLAI MOORE MD, Ot J84.9 INTERSTITIAL PULMONARY DISEASE, UNSPECIF 05/13/1028 NIKOLAI MOORE MD, Ot K21.9 GASTRO-ESOPHAGEAL REFLUX DISEASE WITHOUT 05/13/1028 TERESA QUINONES, NIKOLAI Ot 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 01/17/2010 Ot 278.01 01/17/2010 Ot 401.9 01/17/2010 Ot 493.90 01/17/2010 Ot 530.81 01/17/2010 Ot V58.69 01/17/2010 Ot V85.4 03/24/2012 Ot 276.8 HYPOPOTASSEMIA 03/24/2012 Ot 300.00 ANXIETY STATE NOS 03/24/2012 Ot 311 DEPRESSIVE DISORDER NEC 03/24/2012 Ot 682.0 CELLULITIS OF FACE 03/24/2012 Ot V03.82 PROPHYLACTIC VACC AGAINST STREPTOCOCCUS 03/24/2012 Ot V12.69 PERSONAL HISTORY, OTHER DISEASES OF RESP 05/04/2012 Ot 724.5 BACKACHE NOS 05/04/2012 Ot V57.1 PHYSICAL THERAPY NEC 09/05/2013 HEIDI WOOD APRN V65.49 OTHER SPECIFIED COUNSELING 09/05/2013 HEIDI WOOD APRN V72.31 RESTROOMS OR LOUNGES MAID EXAM, ROUTINE 09/05/2013 NINA MILNER A V72.62 LAB SCREENING- GENERAL PHYSICAL 09/05/2013 NINA MILENR A V73.81 HPV SCREENING 09/05/2013 NINA MILNER, A V76.10 BREAST CANCER SCREENING 09/05/2013 NINA MILNER HEDII A V76.2 CERVICAL CANCER SCREENING (PAP SMEAR) 09/05/2013 NINA MILNER A V76.51 COLON CANCER SCREENING 09/05/2013 NINA MILNER A V82.81 SPECIAL SCREENING FOR OSTEOPOROSIS 09/05/2013 NINA MINLER A V65.49 OTHER SPECIFIED COUNSELING 09/05/2013 NINA MILNER A V72.31 RESTROOMS OR LOUNGES MAID EXAM, ROUTINE 09/05/2013 NINA MILNER A V72.62 LAB SCREENING- GENERAL PHYSICAL 09/05/2013 NINA MILNERELIZA A V73.81 HPV SCREENING 09/05/2013 NINA MILNER A V76.10 BREAST CANCER SCREENING 09/05/2013 NINA MILNER A V76.2 CERVICAL CANCER SCREENING (PAP SMEAR) 09/05/2013 NINA MILNER A V76.51 COLON CANCER SCREENING 09/05/2013 NINA MILNERELIZA A V82.81 SPECIAL SCREENING FOR OSTEOPOROSIS 09/05/2013 OIN CHAPO MILNERA L V65.49 OTHER SPECIFIED COUNSELING 09/05/2013 ION HAQWenceslao GABRIEL L V72.31 RESTROOMS OR LOUNGES MAID EXAM, ROUTINE 09/05/2013 ION HAQN, GABRIEL L V72.62 LAB SCREENING- GENERAL PHYSICAL 09/05/2013 ION ADDING MACHINE OPERATOR, GABRIEL L V73.81 HPV SCREENING 09/05/2013 ION ADDING MACHINE OPERATOR, GABRIEL L V76.10 BREAST CANCER SCREENING 09/05/2013 BRADEN ADDING MACHINE OPERATOR, GABRIEL L V76.2 CERVICAL CANCER SCREENING (PAP SMEAR) 09/05/2013 ION ADDING MACHINE OPERATOR, GABRIEL L V76.51 COLON CANCER SCREENING 09/05/2013 MADL ADDING MACHINE OPERATOR, GABRIEL L V82.81 SPECIAL SCREENING FOR OSTEOPOROSIS 09/05/2013 DEMETRIA ADDING MACHINE OPERATOR, MARITZA R V65.49 OTHER SPECIFIED COUNSELING 09/05/2013 DEMETRIA ADDING MACHINE OPERATOR, MARITZA R V72.31 RESTROOMS OR LOUNGES MAID EXAM, ROUTINE 09/05/2013 DEMETRIA ADDING MACHINE OPERATOR, MARITZA R V72.62 LAB SCREENING- GENERAL PHYSICAL 09/05/2013 DEMETRIA ADDING MACHINE OPERATOR, MARITZA R V73.81 HPV SCREENING 09/05/2013 DEMETRIA ADDING MACHINE OPERATOR, MARITZA R V76.10 BREAST CANCER SCREENING 09/05/2013 DEMETRIA ADDING MACHINE OPERATOR, MARITZA R V76.2 CERVICAL CANCER SCREENING (PAP SMEAR) 09/05/2013 DEMETRIA ADDING MACHINE OPERATOR, MARITZA R V76.51 COLON CANCER SCREENING 09/05/2013 DEMETRIA ADDING MACHINE OPERATOR, MARITZA R V82.81 SPECIAL SCREENING FOR OSTEOPOROSIS 09/05/2013 WHITE DDSCHON V65.49 OTHER SPECIFIED COUNSELING 09/05/2013 WHITE DDSCHON V72.31 RESTROOMS OR LOUNGES MAID EXAM, ROUTINE 09/05/2013 WHITE DDSCHON V72.62 LAB SCREENING- GENERAL PHYSICAL 09/05/2013 WHITE DDSCHON V73.81 HPV SCREENING 09/05/2013 WHITE DDSCHON V76.10 BREAST CANCER SCREENING 09/05/2013 WHITE DDSCHON V76.2 CERVICAL CANCER SCREENING (PAP SMEAR) 09/05/2013 WHITE DDSCHON V76.51 COLON CANCER SCREENING 09/05/2013 WHITE DDS, CHON Estrada V82.81 SPECIAL SCREENING FOR OSTEOPOROSIS 09/19/2013 NINA MILNER, HEIDI Iglesias 493.90 ASTHMA UNSPECIFIED 09/19/2013 ION MILNER, GABRIEL L 493.90 ASTHMA UNSPECIFIED 09/19/2013 DEMETRIA MILNER MARITZA R 493.90 ASTHMA UNSPECIFIED 09/19/2013 WHITE DDS, CHON Estrada 493.90 ASTHMA UNSPECIFIED 11/01/2013 ION MILNER GABRIEL L 461.9 SINUSITIS ACUTE 11/01/2013 CHAPO LEMON APRNA L 493.02 EXTRINSIC ASTHMA WITH (ACUTE) EXACERBATION 11/01/2013 DEMETRIA MILNER MARITZA R 461.9 SINUSITIS ACUTE 11/01/2013 DEMETRIA MILNER MARITZA R 493.02 EXTRINSIC ASTHMA WITH (ACUTE) EXACERBATION 11/01/2013 WHITE DDS, CHON D 461.9 SINUSITIS ACUTE 11/01/2013 WHITE DDSCHON 493.02 EXTRINSIC ASTHMA WITH (ACUTE) EXACERBATION 12/06/2013 DEMETRIA HAQN, MARITZA R 787.03 VOMITING ALONE 12/06/2013 DEMETRIA ADDING MACHINE OPERATOR, MARITZA R V45.86 BARIATRIC SURGERY STATUS 12/06/2013 WHITE DDS, CHON D 787.03 VOMITING ALONE 12/06/2013 WHITE DDS, CHON D V45.86 BARIATRIC SURGERY STATUS 07/13/2014 WHITE DDS, CHON D 786.2 COUGH 08/23/2014 WHITE DDS, CHON D 786.05 SHORTNESS OF BREATH 09/19/2014 Ot 278.00 09/19/2014 Ot 553.3 09/19/2014 Ot 278.00 09/19/2014 Ot 401.9 09/19/2014 Ot 715.90 09/19/2014 Ot 791.9 09/19/2014 Ot V72.63 09/19/2014 Ot V72.81 09/19/2014 Ot V74.8 09/19/2014 Ot 721.3 09/19/2014 Ot 959.19 09/19/2014 Ot E000.8 09/19/2014 Ot E849.7 09/19/2014 Ot E888.9 09/19/2014 Ot 611.72 09/19/2014 Ot V76.12 09/19/2014 Ot 793.80 09/19/2014 Ot 793.89 09/19/2014 Ot V76.12 09/19/2014 Ot 611.72 09/19/2014 Ot 611.0 09/19/2014 Ot 611.3 09/19/2014 HEIDI WOOD APRN Ot V65.49 09/19/2014 HEIDI WOOD APRN Ot V72.31 09/19/2014 HEIDI WOOD ADDING MACHINE OPERATOR Ot V72.62 09/19/2014 HEIDI WOOD ADDING MACHINE OPERATOR Ot V73.81 09/19/2014 HEIDI WOOD APRN Ot V76.12 09/19/2014 HEIDI WOOD APRN Ot V76.2 09/19/2014 HEIDI WOOD ADDING MACHINE OPERATOR Ot V76.51 09/19/2014 HEIDI WOOD ADDING MACHINE OPERATOR Ot V82.81 12/06/2014 Ot 278.00 12/06/2014 Ot 553.3 12/06/2014 Ot 278.00 12/06/2014 Ot 401.9 12/06/2014 Ot 715.90 12/06/2014 Ot 791.9 12/06/2014 Ot V72.63 12/06/2014 Ot V72.81 12/06/2014 Ot V74.8 12/06/2014 Ot 721.3 12/06/2014 Ot 959.19 12/06/2014 Ot E000.8 12/06/2014 Ot E849.7 12/06/2014 Ot E888.9 12/06/2014 Ot 611.72 12/06/2014 Ot V76.12 12/06/2014 Ot 793.80 12/06/2014 Ot 793.89 12/06/2014 Ot V76.12 12/06/2014 Ot 611.72 12/06/2014 Ot 611.0 12/06/2014 Ot 611.3 12/06/2014 HEIDI WOOD A ADDING MACHINE OPERATOR Ot V65.49 12/06/2014 NINA A ADDING MACHINE OPERATOR Ot V72.31 12/06/2014 NINA A ADDING MACHINE OPERATOR Ot V72.62 12/06/2014 NINA A ADDING MACHINE OPERATOR Ot V73.81 12/06/2014 NINA A ADDING MACHINE OPERATOR Ot V76.12 12/06/2014 NINA A ADDING MACHINE OPERATOR Ot V76.2 12/06/2014 NINA A ADDING MACHINE OPERATOR Ot V76.51 12/06/2014 ELIZA WOODIDI Harris ADDING MACHINE OPERATOR Ot V82.81 12/06/2014 THERON CALLOWAY DO Ot 493.20 12/06/2014 THERON CALLOWAY DO Ot 515 12/06/2014 THERON CALLOWAY DO Ot 786.09 12/06/2014 BERTA KNOWLES ADDING MACHINE OPERATOR Ot 465.9 12/06/2014 BERTA KNOWLES ADDING MACHINE OPERATOR Ot 477.9 12/06/2014 BERTA KNOWLES ADDING MACHINE OPERATOR Ot 492.8 12/06/2014 BERTA KNOWLES ADDING MACHINE OPERATOR Ot 515 12/18/2014 Ot 278.00 12/18/2014 Ot 553.3 12/18/2014 Ot 278.00 12/18/2014 Ot 401.9 12/18/2014 Ot 715.90 12/18/2014 Ot 791.9 12/18/2014 Ot V72.63 12/18/2014 Ot V72.81 12/18/2014 Ot V74.8 12/18/2014 Ot 721.3 12/18/2014 Ot 959.19 12/18/2014 Ot E000.8 12/18/2014 Ot E849.7 12/18/2014 Ot E888.9 12/18/2014 Ot 611.72 12/18/2014 Ot V76.12 12/18/2014 Ot 793.80 12/18/2014 Ot 793.89 12/18/2014 Ot V76.12 12/18/2014 Ot 611.72 12/18/2014 Ot 611.0 12/18/2014 Ot 611.3 12/18/2014 HEIDI WOOD ADDING MACHINE OPERATOR Ot V65.49 12/18/2014 HEIDI WOOD ADDING MACHINE OPERATOR Ot V72.31 12/18/2014 HEIDI WOOD ADDING MACHINE OPERATOR Ot V72.62 12/18/2014 HEIDI WOOD ADDING MACHINE OPERATOR Ot V73.81 12/18/2014 HEIDI WOOD ADDING MACHINE OPERATOR Ot V76.12 12/18/2014 HEIDI WOOD ADDING MACHINE OPERATOR Ot V76.2 12/18/2014 HEIDI WOOD ADDING MACHINE OPERATOR Ot V76.51 12/18/2014 HEIDI WOOD ADDING MACHINE OPERATOR Ot V82.81 12/18/2014 THERON CALLOWAY DO Ot 493.20 12/18/2014 THERON CALLOWAY DO Ot 515 12/18/2014 THERON CALLOWAY DO Ot 786.09 12/18/2014 BERTA KNOWLES ADDING MACHINE OPERATOR Ot 465.9 12/18/2014 BERTA KNOWLES ADDING MACHINE OPERATOR Ot 477.9 12/18/2014 BERTA KNOWLES APRN Ot 492.8 12/18/2014 BERTA KNOWLES APRN Ot 515 11/15/2015 Ot 793.89 OTH (ABN) FINDINGS ON RADIOLOGICAL EXAMI 11/15/2015 Ot V76.12 OTH SCREEN MAMMO-MALIGN NEOPLASM OF ULYSSES 11/15/2015 Ot 611.72 LUMP OR MASS IN BREAST 11/15/2015 Ot 611.0 INFLAM DISEASE OF BREAST 11/15/2015 Ot 611.3 FAT NECROSIS OF BREAST 11/15/2015 HEIDI WOOD ADDING MACHINE OPERATOR Ot V65.49 OTHER SPECIFIED COUNSELING 11/15/2015 HEIDI WOOD ADDING MACHINE OPERATOR Ot V72.31 ROUTINE GYNECOLOGICAL EXAMINATION 11/15/2015 NINAHEIDI ADDING MACHINE OPERATOR Ot V72.62 LAB EXAM ORDERED PART OF A ROUTINE GE 11/15/2015 NINAHEIDI ADDING MACHINE OPERATOR Ot V73.81 SPECIAL SCREENING EXAMINATION, HUMAN PAP 11/15/2015 NINAHEIDI ADDING MACHINE OPERATOR Ot V76.12 OTH SCREEN MAMMO-MALIGN NEOPLASM OF ULYSSES 11/15/2015 NINAHEIDI ADDING MACHINE OPERATOR Ot V76.2 SCREEN MAL NEOP-CERVIX 11/15/2015 NINAELIZA Harris ADDING MACHINE OPERATOR Ot V76.51 SCREEN MAL NEOP-COLON 11/15/2015 NINA, HEIDI Iglesias ADDING MACHINE OPERATOR Ot V82.81 SCREENING FOR OSTEOPOROSIS 11/15/2015 THERON CALLOWAY DO Ot 493.20 CHRONIC OBSTRUCTIVE ASTHMA, NOS 11/15/2015 THERON CALLOWAY DO Ot 515 POSTINFLAM PULM FIBROSIS 11/15/2015 THERON CALLOWAY DO Ot 786.09 RESPIRATORY ABNORM NEC 11/15/2015 BRETA KNOWLES ADDING MACHINE OPERATOR Ot 477.9 ALLERGIC RHINITIS NOS 11/15/2015 BERTA KNOWLES ADDING MACHINE OPERATOR Ot 492.8 EMPHYSEMA NEC 11/15/2015 BERTA KNOWLES ADDING MACHINE OPERATOR Ot 515 POSTINFLAM PULM FIBROSIS 11/15/2015 BERTA KNOWLES ADDING MACHINE OPERATOR Ot 465.9 ACUTE URI NOS 11/15/2015 BERTA KNOWLES ADDING MACHINE OPERATOR Ot 477.9 ALLERGIC RHINITIS NOS 11/15/2015 BERTA KNOWLES ADDING MACHINE OPERATOR Ot 492.8 EMPHYSEMA NEC 11/15/2015 BERTA KNOWLES ADDING MACHINE OPERATOR Ot 515 POSTINFLAM PULM FIBROSIS 11/15/2015 HERNANDO QUINONES, KARL Garcia Ot 784.2 SWELLING IN HEAD NECK 11/15/2015 BERTA KNOWLES ADDING MACHINE OPERATOR Ot 496 CHR AIRWAY OBSTRUCT NEC 11/15/2015 BERTA KNOWLES ADDING MACHINE OPERATOR Ot 515 POSTINFLAM PULM FIBROSIS 11/15/2015 BERTA KNOWLES ADDING MACHINE OPERATOR Ot 574.20 CHOLELITHIASIS NOS 11/15/2015 BERTA KNOWLES ADDING MACHINE OPERATOR Ot 799.02 HYPOXEMIA 11/15/2015 NAA TILLMAN Harris ADDING MACHINE OPERATOR Ot Z12.31 ENCNTR SCREEN MAMMOGRAM FOR MALIGNANT NE 11/18/2015 THERON CALLOWAY DO Ot J44.9 CHRONIC OBSTRUCTIVE PULMONARY DISEASE, U 11/18/2015 THERON CALLOWAY DO Ot J45.909 UNSPECIFIED ASTHMA, UNCOMPLICATED 11/18/2015 THERON CALLOWAY DO Ot R09.02 HYPOXEMIA 11/19/2015 THERON CALLOWAY DO Ot J30.9 ALLERGIC RHINITIS, UNSPECIFIED 11/19/2015 THERON CALLOWAY DO Ot J44.9 CHRONIC OBSTRUCTIVE PULMONARY DISEASE, U 11/19/2015 THERON CALLOWAY DO Ot R09.02 HYPOXEMIA 11/19/2015 THERON CALLOWAY DO Ot J30.9 ALLERGIC RHINITIS, UNSPECIFIED 11/19/2015 THERON CALLOWAY DO Ot J44.9 CHRONIC OBSTRUCTIVE PULMONARY DISEASE, U 11/19/2015 THERON CALLOWAY DO Ot R09.02 HYPOXEMIA 11/21/2015 THERON CALLOWAY DO Ot J30.9 ALLERGIC RHINITIS, UNSPECIFIED 11/21/2015 THERON CALLOWAY DO Ot J44.9 CHRONIC OBSTRUCTIVE PULMONARY DISEASE, U 11/21/2015 THERON CALLOWAY DO Ot R09.02 HYPOXEMIA 12/05/2015 THERON CALLOWAY DO Ot J30.9 ALLERGIC RHINITIS, UNSPECIFIED 12/05/2015 THERON CALLOWAY DO Ot J44.9 CHRONIC OBSTRUCTIVE PULMONARY DISEASE, U 12/05/2015 THERON CALLOWAY DO Ot R09.02 HYPOXEMIA 12/05/2015 THERON CALLOWAY DO Ot J44.9 CHRONIC OBSTRUCTIVE PULMONARY DISEASE, U 12/05/2015 THERON CALLOWAY DO Ot J45.909 UNSPECIFIED ASTHMA, UNCOMPLICATED 12/05/2015 THERON CALLOWAY DO Ot R09.02 HYPOXEMIA 01/13/2016 Ot 793.89 OTH (ABN) FINDINGS ON RADIOLOGICAL EXAMI 01/13/2016 Ot V76.12 OTH SCREEN MAMMO-MALIGN NEOPLASM OF ULYSSES 01/13/2016 Ot 611.72 LUMP OR MASS IN BREAST 01/13/2016 Ot 611.0 INFLAM DISEASE OF BREAST 01/13/2016 Ot 611.3 FAT NECROSIS OF BREAST 01/13/2016 HEIDI WOOD ADDING MACHINE OPERATOR Ot V65.49 OTHER SPECIFIED COUNSELING 01/13/2016 HEIDI WOOD ADDING MACHINE OPERATOR Ot V72.31 ROUTINE GYNECOLOGICAL EXAMINATION 01/13/2016 NINAHEIDI ADDING MACHINE OPERATOR Ot V72.62 LAB EXAM ORDERED PART OF A ROUTINE GE 01/13/2016 NINAHEIDI ADDING MACHINE OPERATOR Ot V73.81 SPECIAL SCREENING EXAMINATION, HUMAN PAP 01/13/2016 HEIDI WOOD ADDING MACHINE OPERATOR Ot V76.12 OTH SCREEN MAMMO-MALIGN NEOPLASM OF ULYSSES 01/13/2016 NINAHEIDI ADDING MACHINE OPERATOR Ot V76.2 SCREEN MAL NEOP-CERVIX 01/13/2016 NINAHEIDI ADDING MACHINE OPERATOR Ot V76.51 SCREEN MAL NEOP-COLON 01/13/2016 NNIA, HEIDI Iglesias ADDING MACHINE OPERATOR Ot V82.81 SCREENING FOR OSTEOPOROSIS 01/13/2016 THERON CALLOWAY DO Ot 493.20 CHRONIC OBSTRUCTIVE ASTHMA, NOS 01/13/2016 THERON CALLOWAY DO Ot 515 POSTINFLAM PULM FIBROSIS 01/13/2016 THERON CALLOWAY DO Ot 786.09 RESPIRATORY ABNORM NEC 01/13/2016 BERTA KNOWLES ADDING MACHINE OPERATOR Ot 477.9 ALLERGIC RHINITIS NOS 01/13/2016 BERTA KNOWLES ADDING MACHINE OPERATOR Ot 492.8 EMPHYSEMA NEC 01/13/2016 BERTA KNOWLES ADDING MACHINE OPERATOR Ot 515 POSTINFLAM PULM FIBROSIS 01/13/2016 BERTA KNOWLES ADDING MACHINE OPERATOR Ot 465.9 ACUTE URI NOS 01/13/2016 BERTA KNOWLES ADDING MACHINE OPERATOR Ot 477.9 ALLERGIC RHINITIS NOS 01/13/2016 BERTA KNOWLES ADDING MACHINE OPERATOR Ot 492.8 EMPHYSEMA NEC 01/13/2016 BERTA KNOWLES ADDING MACHINE OPERATOR Ot 515 POSTINFLAM PULM FIBROSIS 01/13/2016 HERNANDO QUINONES, KARL Garcia Ot 784.2 SWELLING IN HEAD NECK 01/13/2016 BERTA KNOWLES ADDING MACHINE OPERATOR Ot 496 CHR AIRWAY OBSTRUCT NEC 01/13/2016 BERTA KNOWLES ADDING MACHINE OPERATOR Ot 515 POSTINFLAM PULM FIBROSIS 01/13/2016 BERTA KNOWLES ADDING MACHINE OPERATOR Ot 574.20 CHOLELITHIASIS NOS 01/13/2016 BERTA KNOWLES ADDING MACHINE OPERATOR Ot 799.02 HYPOXEMIA 01/13/2016 PRIMOANA ADDING MACHINE OPERATOR Ot Z12.31 ENCNTR SCREEN MAMMOGRAM FOR MALIGNANT NE 01/13/2016 THERON CALLOWAY DO Ot J30.9 ALLERGIC RHINITIS, UNSPECIFIED 01/13/2016 THERON CALLOWAY DO Ot J44.9 CHRONIC OBSTRUCTIVE PULMONARY DISEASE, U 01/13/2016 THERON CALLOWAY DO Ot R09.02 HYPOXEMIA 01/13/2016 THERON CALLOWAY DO Ot J44.9 CHRONIC OBSTRUCTIVE PULMONARY DISEASE, U 01/13/2016 THERON CALLOWAY DO Ot J45.909 UNSPECIFIED ASTHMA, UNCOMPLICATED 01/13/2016 THERON CALLOWAY DO Ot R09.02 HYPOXEMIA 01/14/2016 THERON CALLOWAY DO Ot J43.8 OTHER EMPHYSEMA 01/14/2016 THERON CALLOWAY DO Ot J84.9 INTERSTITIAL PULMONARY DISEASE, UNSPECIF 01/14/2016 THERON CALLOWAY DO Ot K21.9 GASTRO-ESOPHAGEAL REFLUX DISEASE WITHOUT 01/14/2016 THERON CALLOWAY DO Ot R09.02 HYPOXEMIA 01/22/2016 THERON CALLOWAY DO Ot J43.8 OTHER EMPHYSEMA 01/22/2016 THERON CALLOWAY DO Ot J84.9 INTERSTITIAL PULMONARY DISEASE, UNSPECIF 01/22/2016 THERON CALLOWAY DO Ot K21.9 GASTRO-ESOPHAGEAL REFLUX DISEASE WITHOUT 01/22/2016 THERON CALLOWAY DO Ot R09.02 HYPOXEMIA 03/05/2016 THERON CALLOWAY DO Ot J43.8 OTHER EMPHYSEMA 03/05/2016 THERON CALLOWAY DO Ot J84.9 INTERSTITIAL PULMONARY DISEASE, UNSPECIF 03/05/2016 THERON CALLOWAY DO Ot K21.9 GASTRO-ESOPHAGEAL REFLUX DISEASE WITHOUT 03/05/2016 THERON CALLOWAY DO Ot R09.02 HYPOXEMIA 03/11/2016 THERON CALLOWAY DO Ot J43.8 OTHER EMPHYSEMA 03/11/2016 THERON CALLOWAY DO Ot J84.9 INTERSTITIAL PULMONARY DISEASE, UNSPECIF 03/11/2016 THERON CALLOWAY DO Ot K21.9 GASTRO-ESOPHAGEAL REFLUX DISEASE WITHOUT 03/11/2016 THERON CALOLWAY DO Ot R09.02 HYPOXEMIA 04/09/2016 Ot 793.89 OTH (ABN) FINDINGS ON RADIOLOGICAL EXAMI 04/09/2016 Ot V76.12 OTH SCREEN MAMMO-MALIGN NEOPLASM OF ULYSSES 04/09/2016 Ot 611.72 LUMP OR MASS IN BREAST 04/09/2016 Ot 611.0 INFLAM DISEASE OF BREAST 04/09/2016 Ot 611.3 FAT NECROSIS OF BREAST 04/09/2016 HEIDI WOOD ADDING MACHINE OPERATOR Ot V65.49 OTHER SPECIFIED COUNSELING 04/09/2016 HEIDI WOOD ADDING MACHINE OPERATOR Ot V72.31 ROUTINE GYNECOLOGICAL EXAMINATION 04/09/2016 HEIDI WOOD ADDING MACHINE OPERATOR Ot V72.62 LAB EXAM ORDERED PART OF A ROUTINE GE 04/09/2016 ELIZA WOODIDI Harris ADDING MACHINE OPERATOR Ot V73.81 SPECIAL SCREENING EXAMINATION, HUMAN PAP 04/09/2016 ELIZA WOODIDI Harris ADDING MACHINE OPERATOR Ot V76.12 OTH SCREEN MAMMO-MALIGN NEOPLASM OF ULYSSES 04/09/2016 ELIZA WOODIDI A ADDING MACHINE OPERATOR Ot V76.2 SCREEN MAL NEOP-CERVIX 04/09/2016 NINA, A ADDING MACHINE OPERATOR Ot V76.51 SCREEN MAL NEOP-COLON 04/09/2016 ELIZA WOODIDI A ADDING MACHINE OPERATOR Ot V82.81 SCREENING FOR OSTEOPOROSIS 04/09/2016 THERON CALLOWAY DO Ot 493.20 CHRONIC OBSTRUCTIVE ASTHMA, NOS 04/09/2016 THERON CALLOWAY DO Ot 515 POSTINFLAM PULM FIBROSIS 04/09/2016 THERON CALLOWAY DO Ot 786.09 RESPIRATORY ABNORM NEC 04/09/2016 BERTA KNOWLES ADDING MACHINE OPERATOR Ot 477.9 ALLERGIC RHINITIS NOS 04/09/2016 BERTA KNOWLES ADDING MACHINE OPERATOR Ot 492.8 EMPHYSEMA NEC 04/09/2016 BERTA KNOWLES ADDING MACHINE OPERATOR Ot 515 POSTINFLAM PULM FIBROSIS 04/09/2016 BERTA KNOWLES ADDING MACHINE OPERATOR Ot 465.9 ACUTE URI NOS 04/09/2016 BERTA KNOWLES ADDING MACHINE OPERATOR Ot 477.9 ALLERGIC RHINITIS NOS 04/09/2016 BERTA KNOWLES ADDING MACHINE OPERATOR Ot 492.8 EMPHYSEMA NEC 04/09/2016 BERTA KNOWLES ADDING MACHINE OPERATOR Ot 515 POSTINFLAM PULM FIBROSIS 04/09/2016 HERNANDO QUINONES, KARL Garcia Ot 784.2 SWELLING IN HEAD NECK 04/09/2016 BERTA KNOWLES ADDING MACHINE OPERATOR Ot 496 CHR AIRWAY OBSTRUCT NEC 04/09/2016 BERTA KNOWLES ADDING MACHINE OPERATOR Ot 515 POSTINFLAM PULM FIBROSIS 04/09/2016 BERTA KNOWLES ADDING MACHINE OPERATOR Ot 574.20 CHOLELITHIASIS NOS 04/09/2016 BERTA KNOWLES ADDING MACHINE OPERATOR Ot 799.02 HYPOXEMIA 04/09/2016 ANA TILLMAN ADDING MACHINE OPERATOR Ot Z12.31 ENCNTR SCREEN MAMMOGRAM FOR MALIGNANT NE 04/09/2016 THERON CALLOWAY DO Ot J30.9 ALLERGIC RHINITIS, UNSPECIFIED 04/09/2016 THERON CALLOWAY DO Ot J44.9 CHRONIC OBSTRUCTIVE PULMONARY DISEASE, U 04/09/2016 THERON CALLOWAY DO Ot R09.02 HYPOXEMIA 04/09/2016 THERON CALLOWAY DO Ot J44.9 CHRONIC OBSTRUCTIVE PULMONARY DISEASE, U 04/09/2016 THERON CALLOWAY DO Ot J45.909 UNSPECIFIED ASTHMA, UNCOMPLICATED 04/09/2016 THERON CALLOWAY DO Ot R09.02 HYPOXEMIA 04/09/2016 THERON CALLOWAY DO Ot J43.8 OTHER EMPHYSEMA 04/09/2016 THERON CALLOWAY DO Ot J84.9 INTERSTITIAL PULMONARY DISEASE, UNSPECIF 04/09/2016 THERON CALLOWAY DO Ot K21.9 GASTRO-ESOPHAGEAL REFLUX DISEASE WITHOUT 04/09/2016 THERON CALLOWAY DO Ot R09.02 HYPOXEMIA 04/09/2016 THERON CALLOWAY DO Ot J43.8 OTHER EMPHYSEMA 04/09/2016 THERON CALLOWAY DO Ot J84.9 INTERSTITIAL PULMONARY DISEASE, UNSPECIF 04/09/2016 THERON CALLOWAY DO Ot K21.9 GASTRO-ESOPHAGEAL REFLUX DISEASE WITHOUT 04/09/2016 THERON CALLOWAY DO Ot R09.02 HYPOXEMIA 04/10/2016 BERTA KNOWLES ADDING MACHINE OPERATOR Ot J06.9 ACUTE UPPER RESPIRATORY INFECTION, UNSPE 04/10/2016 BERTA KNOWLES ADDING MACHINE OPERATOR Ot J43.9 EMPHYSEMA, UNSPECIFIED 04/10/2016 BERTA KNOWLES ADDING MACHINE OPERATOR Ot R06.00 DYSPNEA, UNSPECIFIED 04/10/2016 BERTA KNOWLES ADDING MACHINE OPERATOR Ot R09.02 HYPOXEMIA 04/10/2016 BERTA KNOWLES ADDING MACHINE OPERATOR Ot R50.9 FEVER, UNSPECIFIED 04/10/2016 Ot 793.89 OTH (ABN) FINDINGS ON RADIOLOGICAL EXAMI 04/10/2016 Ot V76.12 OTH SCREEN MAMMO-MALIGN NEOPLASM OF ULYSSES 04/10/2016 Ot 611.72 LUMP OR MASS IN BREAST 04/10/2016 Ot 611.0 INFLAM DISEASE OF BREAST 04/10/2016 Ot 611.3 FAT NECROSIS OF BREAST 04/10/2016 HEIDI WOOD ADDING MACHINE OPERATOR Ot V65.49 OTHER SPECIFIED COUNSELING 04/10/2016 HEIDI WOOD ADDING MACHINE OPERATOR Ot V72.31 ROUTINE GYNECOLOGICAL EXAMINATION 04/10/2016 HEIDI WOOD ADDING MACHINE OPERATOR Ot V72.62 LAB EXAM ORDERED PART OF A ROUTINE GE 04/10/2016 HEIDI WOOD ADDING MACHINE OPERATOR Ot V73.81 SPECIAL SCREENING EXAMINATION, HUMAN PAP 04/10/2016 HEIDI WOOD ADDING MACHINE OPERATOR Ot V76.12 OTH SCREEN MAMMO-MALIGN NEOPLASM OF ULYSSES 04/10/2016 NINAHEIDI SPIVEY ADDING MACHINE OPERATOR Ot V76.2 SCREEN MAL NEOP-CERVIX 04/10/2016 NINA A ADDING MACHINE OPERATOR Ot V76.51 SCREEN MAL NEOP-COLON 04/10/2016 HEIDI WOOD ADDING MACHINE OPERATOR Ot V82.81 SCREENING FOR OSTEOPOROSIS 04/10/2016 THERON CALLOWAY DO Ot 493.20 CHRONIC OBSTRUCTIVE ASTHMA, NOS 04/10/2016 THERON CALLOWAY DO Ot 515 POSTINFLAM PULM FIBROSIS 04/10/2016 THERON CALLOWAY DO Ot 786.09 RESPIRATORY ABNORM NEC 04/10/2016 BERTA KNOWLES ADDING MACHINE OPERATOR Ot 477.9 ALLERGIC RHINITIS NOS 04/10/2016 BERTA KNOWLES ADDING MACHINE OPERATOR Ot 492.8 EMPHYSEMA NEC 04/10/2016 BERTA KNOWLES ADDING MACHINE OPERATOR Ot 515 POSTINFLAM PULM FIBROSIS 04/10/2016 BERTA KNOWLES ADDING MACHINE OPERATOR Ot 465.9 ACUTE URI NOS 04/10/2016 BERTA KNOWLES ADDING MACHINE OPERATOR Ot 477.9 ALLERGIC RHINITIS NOS 04/10/2016 BERTA KNOWLES ADDING MACHINE OPERATOR Ot 492.8 EMPHYSEMA NEC 04/10/2016 BERTA KNOWLES ADDING MACHINE OPERATOR Ot 515 POSTINFLAM PULM FIBROSIS 04/10/2016 HERNANDO QUINONES, KARL Garcia Ot 784.2 SWELLING IN HEAD NECK 04/10/2016 BERTA KNOWLES ADDING MACHINE OPERATOR Ot 496 CHR AIRWAY OBSTRUCT NEC 04/10/2016 BERTA KNOWLES ADDING MACHINE OPERATOR Ot 515 POSTINFLAM PULM FIBROSIS 04/10/2016 BERTA KNOWLES ADDING MACHINE OPERATOR Ot 574.20 CHOLELITHIASIS NOS 04/10/2016 BERTA KNOWLES ADDING MACHINE OPERATOR Ot 799.02 HYPOXEMIA 04/10/2016 ANA TILLMAN ADDING MACHINE OPERATOR Ot Z12.31 ENCNTR SCREEN MAMMOGRAM FOR MALIGNANT NE 04/10/2016 THERON CALLOWAY DO Ot J30.9 ALLERGIC RHINITIS, UNSPECIFIED 04/10/2016 THERON CALLOWAY DO Ot J44.9 CHRONIC OBSTRUCTIVE PULMONARY DISEASE, U 04/10/2016 THERON CALLOWAY DO Ot R09.02 HYPOXEMIA 04/10/2016 THERON CALLOWAY DO, Ot J44.9 CHRONIC OBSTRUCTIVE PULMONARY DISEASE, U 04/10/2016 THERON CALLOWAY DO Ot J45.909 UNSPECIFIED ASTHMA, UNCOMPLICATED 04/10/2016 THERON CALLOWAY DO Ot R09.02 HYPOXEMIA 04/10/2016 THERON CALLOWAY DO Ot J43.8 OTHER EMPHYSEMA 04/10/2016 THERON CALLOWAY DO Ot J84.9 INTERSTITIAL PULMONARY DISEASE, UNSPECIF 04/10/2016 THERON CALLOWAY DO Ot K21.9 GASTRO-ESOPHAGEAL REFLUX DISEASE WITHOUT 04/10/2016 THERON CALLOWAY DO Ot R09.02 HYPOXEMIA 04/10/2016 BERTA KNOWLES APRN Ot J06.9 ACUTE UPPER RESPIRATORY INFECTION, UNSPE 04/10/2016 BERTA KNOWLES ADDING MACHINE OPERATOR Ot J43.9 EMPHYSEMA, UNSPECIFIED 04/10/2016 BERTA KNOWLES ADDING MACHINE OPERATOR Ot R06.00 DYSPNEA, UNSPECIFIED 04/10/2016 BERTA KNOWLES ADDING MACHINE OPERATOR Ot R09.02 HYPOXEMIA 04/10/2016 BERTA KNOWLES ADDING MACHINE OPERATOR Ot R50.9 FEVER, UNSPECIFIED 04/10/2016 THERON CALLOWAY DO Ot J43.8 OTHER EMPHYSEMA 04/10/2016 THERON CALLOWAY DO Ot J84.9 INTERSTITIAL PULMONARY DISEASE, UNSPECIF 04/10/2016 THERON CALLOWAY DO Ot K21.9 GASTRO-ESOPHAGEAL REFLUX DISEASE WITHOUT 04/10/2016 THERON CALLOWAY DO Ot R09.02 HYPOXEMIA 04/10/2016 BERTA KNOWLES APRN Ot J06.9 ACUTE UPPER RESPIRATORY INFECTION, UNSPE 04/10/2016 BERTA KNOWLES ADDING MACHINE OPERATOR Ot J43.9 EMPHYSEMA, UNSPECIFIED 04/10/2016 BERTA KNOWLES ADDING MACHINE OPERATOR Ot R06.00 DYSPNEA, UNSPECIFIED 04/10/2016 BERTA KNOWLES ADDING MACHINE OPERATOR Ot R09.02 HYPOXEMIA 04/10/2016 BERTA KNOWLES APRN Ot R50.9 FEVER, UNSPECIFIED 04/12/2016 THERON CALLOWAY DO Ot J43.8 OTHER EMPHYSEMA 04/12/2016 THERON CALLOWAY DO Ot J84.9 INTERSTITIAL PULMONARY DISEASE, UNSPECIF 04/12/2016 THERON CALLOWAY DO Ot K21.9 GASTRO-ESOPHAGEAL REFLUX DISEASE WITHOUT 04/12/2016 THERON CALLOWAY DO Ot R09.02 HYPOXEMIA 04/13/2016 THERON CALLOWAY DO Ot J43.8 OTHER EMPHYSEMA 04/13/2016 THERON CALLOWAY DO Ot J84.9 INTERSTITIAL PULMONARY DISEASE, UNSPECIF 04/13/2016 THERON CALLOWAY DO Ot K21.9 GASTRO-ESOPHAGEAL REFLUX DISEASE WITHOUT 04/13/2016 THERON CALLOWAY DO Ot R09.02 HYPOXEMIA 04/16/2016 THERON CALLOWAY DO Ot J43.8 OTHER EMPHYSEMA 04/16/2016 THERON CALLOWAY DO Ot J84.9 INTERSTITIAL PULMONARY DISEASE, UNSPECIF 04/16/2016 THERON CALLOWAY DO Ot K21.9 GASTRO-ESOPHAGEAL REFLUX DISEASE WITHOUT 04/16/2016 THERON CALLOWAY DO Ot R09.02 HYPOXEMIA 04/17/2016 THERON CALLOWAY DO Ot J43.8 OTHER EMPHYSEMA 04/17/2016 THERON CALLOWAY DO Ot J84.9 INTERSTITIAL PULMONARY DISEASE, UNSPECIF 04/17/2016 THERON CALLOWAY DO Ot K21.9 GASTRO-ESOPHAGEAL REFLUX DISEASE WITHOUT 04/17/2016 THERON CALLOWAY DO Ot R09.02 HYPOXEMIA 05/01/2016 BERTA KNOWLES ADDING MACHINE OPERATOR Ot J06.9 ACUTE UPPER RESPIRATORY INFECTION, UNSPE 05/01/2016 BERTA KNOWLES ADDING MACHINE OPERATOR Ot J43.9 EMPHYSEMA, UNSPECIFIED 05/01/2016 BERTA KNOWLES ADDING MACHINE OPERATOR Ot R06.00 DYSPNEA, UNSPECIFIED 05/01/2016 BERTA KNOWLES ADDING MACHINE OPERATOR Ot R09.02 HYPOXEMIA 05/01/2016 BERTA KNOWLES ADDING MACHINE OPERATOR Ot R50.9 FEVER, UNSPECIFIED 05/06/2016 BERTA KNOWLES ADDING MACHINE OPERATOR Ot J06.9 ACUTE UPPER RESPIRATORY INFECTION, UNSPE 05/06/2016 BERTA KNOWLES ADDING MACHINE OPERATOR Ot J43.9 EMPHYSEMA, UNSPECIFIED 05/06/2016 BERTA KNOWLES ADDING MACHINE OPERATOR Ot R06.00 DYSPNEA, UNSPECIFIED 05/06/2016 BERTA KNOWLES ADDING MACHINE OPERATOR Ot R09.02 HYPOXEMIA 05/06/2016 BERTA KNOWLES ADDING MACHINE OPERATOR Ot R50.9 FEVER, UNSPECIFIED 06/11/2016 BERTA KNOWLES ADDING MACHINE OPERATOR Ot J18.9 PNEUMONIA, UNSPECIFIED ORGANISM 06/11/2016 BERTA KNOWLES ADDING MACHINE OPERATOR Ot J44.9 CHRONIC OBSTRUCTIVE PULMONARY DISEASE, U 06/11/2016 BERTA KNOWLES ADDING MACHINE OPERATOR Ot J45.998 OTHER ASTHMA 06/11/2016 BERTA KNOWLES ADDING MACHINE OPERATOR Ot R09.02 HYPOXEMIA 06/11/2016 BERTA KNOWLES ADDING MACHINE OPERATOR Ot J18.9 PNEUMONIA, UNSPECIFIED ORGANISM 06/11/2016 BERTA KNOWLES ADDING MACHINE OPERATOR Ot J44.9 CHRONIC OBSTRUCTIVE PULMONARY DISEASE, U 06/11/2016 BERTA KNOWLES ADDING MACHINE OPERATOR Ot J45.998 OTHER ASTHMA 06/11/2016 BERTA KNOWLES ADDING MACHINE OPERATOR Ot R09.02 HYPOXEMIA 06/11/2016 THERON CALLOWAY DO Ot J43.8 OTHER EMPHYSEMA 06/11/2016 THERON CALLOWAY DO Ot J84.9 INTERSTITIAL PULMONARY DISEASE, UNSPECIF 06/11/2016 THERON CALLOWAY DO Ot K21.9 GASTRO-ESOPHAGEAL REFLUX DISEASE WITHOUT 06/11/2016 THERON CALLOWAY DO Ot R09.02 HYPOXEMIA 06/11/2016 THERON CALLOWAY DO Ot J43.8 OTHER EMPHYSEMA 06/11/2016 THERON CALLOWAY DO Ot J84.9 INTERSTITIAL PULMONARY DISEASE, UNSPECIF 06/11/2016 THERON CALLOWAY DO Ot K21.9 GASTRO-ESOPHAGEAL REFLUX DISEASE WITHOUT 06/11/2016 THERON CALLOWAY DO Ot R09.02 HYPOXEMIA 07/03/2016 BERTA KNOWLES ADDING MACHINE OPERATOR Ot J18.9 PNEUMONIA, UNSPECIFIED ORGANISM 07/03/2016 BENSONBERTA STONE ADDING MACHINE OPERATOR Ot J44.9 CHRONIC OBSTRUCTIVE PULMONARY DISEASE, U 07/03/2016 BENSONRAEGANBERTA E ADDING MACHINE OPERATOR Ot J45.998 OTHER ASTHMA 07/03/2016 BENSONRAEGANBERTA Quique ADDING MACHINE OPERATOR Ot R09.02 HYPOXEMIA 07/06/2016 BENSONRAEGAN STONEINE Quique ADDING MACHINE OPERATOR Ot J18.9 PNEUMONIA, UNSPECIFIED ORGANISM 07/06/2016 RAEGAN KNOWLESINE Quique ADDING MACHINE OPERATOR Ot J44.9 CHRONIC OBSTRUCTIVE PULMONARY DISEASE, U 07/06/2016 BENSONBERTA STONE ADDING MACHINE OPERATOR Ot J45.998 OTHER ASTHMA 07/06/2016 BENSONBERTA STONE ADDING MACHINE OPERATOR Ot R09.02 HYPOXEMIA 07/15/2016 THERON CALLOWAY DO Ot J43.8 OTHER EMPHYSEMA 07/15/2016 THERON CALLOWAY DO Ot J84.9 INTERSTITIAL PULMONARY DISEASE, UNSPECIF 07/15/2016 THERON CALLOWAY DO Ot K21.9 GASTRO-ESOPHAGEAL REFLUX DISEASE WITHOUT 07/15/2016 THERON CALLOWAY DO Ot R09.02 HYPOXEMIA 07/22/2016 THERON CALLOWAY DO Ot J43.8 OTHER EMPHYSEMA 07/22/2016 THERON CALLOWAY DO Ot J84.9 INTERSTITIAL PULMONARY DISEASE, UNSPECIF 07/22/2016 THERON CALLOWAY DO Ot K21.9 GASTRO-ESOPHAGEAL REFLUX DISEASE WITHOUT 07/22/2016 THERON CALLOWAY DO Ot R09.02 HYPOXEMIA 07/23/2016 THERON CALLOWAY DO Ot J43.8 OTHER EMPHYSEMA 07/23/2016 THERON CALLOWAY DO Ot J84.9 INTERSTITIAL PULMONARY DISEASE, UNSPECIF 07/23/2016 THERON CALLOWAY DO Ot K21.9 GASTRO-ESOPHAGEAL REFLUX DISEASE WITHOUT 07/23/2016 THERON CALLOWAY DO Ot R09.02 HYPOXEMIA 07/23/2016 THERON CALLOWAY DO Ot J43.8 OTHER EMPHYSEMA 07/23/2016 THERON CALLOWAY DO Ot J84.9 INTERSTITIAL PULMONARY DISEASE, UNSPECIF 07/23/2016 THERON CALLOWAY DO Ot K21.9 GASTRO-ESOPHAGEAL REFLUX DISEASE WITHOUT 07/23/2016 THERON CALLOWAY DO Ot R09.02 HYPOXEMIA 07/24/2016 THERON CALLOWAY DO Ot J43.8 OTHER EMPHYSEMA 07/24/2016 THERON CALLOWAY DO Ot J84.9 INTERSTITIAL PULMONARY DISEASE, UNSPECIF 07/24/2016 THERON CALLOWAY DO Ot K21.9 GASTRO-ESOPHAGEAL REFLUX DISEASE WITHOUT 07/24/2016 THERON CALLOWAY DO Ot R09.02 HYPOXEMIA 08/23/2016 ESTRELLA CHOI APRN Ot J44.1 CHRONIC OBSTRUCTIVE PULMONARY DISEASE W 08/23/2016 ESTRELLA CHOI APRN Ot R06.02 SHORTNESS OF BREATH 08/23/2016 ESTRELLA CHOI APRN Ot R07.89 OTHER CHEST PAIN 08/23/2016 ESTRELLA CHOI APRN Ot Z79.899 OTHER [facility] (CURRENT) DRUG THERAPY 08/23/2016 ESTRELLA CHOI APRN Ot Z99.81 DEPENDENCE ON SUPPLEMENTAL OXYGEN 08/25/2016 ESTRELLA CHOI APRN Ot J44.1 CHRONIC OBSTRUCTIVE PULMONARY DISEASE W 08/25/2016 ESTRELLA CHOI APRN Ot R06.02 SHORTNESS OF BREATH 08/25/2016 ESTRELLA CHOI APRN Ot R07.89 OTHER CHEST PAIN 08/25/2016 ESTRELLA CHOI APRN Ot Z79.899 OTHER [facility] (CURRENT) DRUG THERAPY 08/25/2016 ESTRELLA CHOI APRN Ot Z99.81 DEPENDENCE ON SUPPLEMENTAL OXYGEN 09/03/2016 THERON CALLOWAY DO Ot J43.8 OTHER EMPHYSEMA 09/03/2016 THERON CALLOWAY DO Ot J84.9 INTERSTITIAL PULMONARY DISEASE, UNSPECIF 09/03/2016 THERON CALLOWAY DO Ot K21.9 GASTRO-ESOPHAGEAL REFLUX DISEASE WITHOUT 09/03/2016 THREON CALLOWAY DO Ot R09.02 HYPOXEMIA 09/07/2016 THERON CALLOWAY DO Ot J43.8 OTHER EMPHYSEMA 09/07/2016 THERON CALLOWAY DO Ot J84.9 INTERSTITIAL PULMONARY DISEASE, UNSPECIF 09/07/2016 THERON CALLOWAY DO Ot K21.9 GASTRO-ESOPHAGEAL REFLUX DISEASE WITHOUT 09/07/2016 THERON CALLOWAY DO Ot R09.02 HYPOXEMIA 09/21/2016 BERTA KNOWLES ADDING MACHINE OPERATOR Ot J18.9 PNEUMONIA, UNSPECIFIED ORGANISM 10/21/2016 THERON CALLOWAY DO Ot J43.8 OTHER EMPHYSEMA 10/21/2016 THERON CALLOWAY DO Ot J84.9 INTERSTITIAL PULMONARY DISEASE, UNSPECIF 10/21/2016 THERON CALLOWAY DO Ot K21.9 GASTRO-ESOPHAGEAL REFLUX DISEASE WITHOUT 10/21/2016 THERON CALLOWAY DO Ot R09.02 HYPOXEMIA 10/27/2016 BERTA KNOWLES ADDING MACHINE OPERATOR Ot J18.9 PNEUMONIA, UNSPECIFIED ORGANISM 11/03/2016 BERTA KNOWLES ADDING MACHINE OPERATOR Ot J18.9 PNEUMONIA, UNSPECIFIED ORGANISM 11/23/2016 BERTA KNOWLES ADDING MACHINE OPERATOR Ot J18.9 PNEUMONIA, UNSPECIFIED ORGANISM 11/23/2016 BERTA KNOWLES ADDING MACHINE OPERATOR Ot J30.9 ALLERGIC RHINITIS, UNSPECIFIED 11/23/2016 BERTA KNOWLES ADDING MACHINE OPERATOR Ot J43.9 EMPHYSEMA, UNSPECIFIED 11/23/2016 BERTA KNOWLES ADDING MACHINE OPERATOR Ot J45.998 OTHER ASTHMA 11/23/2016 BERTA KNOWLES ADDING MACHINE OPERATOR Ot R06.02 SHORTNESS OF BREATH 11/23/2016 BERTA KNOWLES ADDING MACHINE OPERATOR Ot J18.9 PNEUMONIA, UNSPECIFIED ORGANISM 11/23/2016 BERTA KNOWLES ADDING MACHINE OPERATOR Ot J30.9 ALLERGIC RHINITIS, UNSPECIFIED 11/23/2016 BERTA KNOWLES ADDING MACHINE OPERATOR Ot J43.9 EMPHYSEMA, UNSPECIFIED 11/23/2016 BERTA KNOWLES ADDING MACHINE OPERATOR Ot J45.998 OTHER ASTHMA 11/23/2016 BERTA KNOWLES ADDING MACHINE OPERATOR Ot R06.02 SHORTNESS OF BREATH 11/27/2016 BERTA KNOWLES ADDING MACHINE OPERATOR Ot J06.9 ACUTE UPPER RESPIRATORY INFECTION, UNSPE 11/27/2016 BERTA KNOWLES ADDING MACHINE OPERATOR Ot J43.9 EMPHYSEMA, UNSPECIFIED 11/27/2016 BERTA KNOWLES ADDING MACHINE OPERATOR Ot R06.00 DYSPNEA, UNSPECIFIED 11/27/2016 BERTA KNOWLES ADDING MACHINE OPERATOR Ot R09.02 HYPOXEMIA 11/27/2016 BERTA KNOWLES ADDING MACHINE OPERATOR Ot R50.9 FEVER, UNSPECIFIED 11/27/2016 BERTA KNOWLES ADDING MACHINE OPERATOR Ot J18.9 PNEUMONIA, UNSPECIFIED ORGANISM 11/27/2016 BERTA KNOWLES ADDING MACHINE OPERATOR Ot J44.9 CHRONIC OBSTRUCTIVE PULMONARY DISEASE, U 11/27/2016 BERTA KNOWLES ADDING MACHINE OPERATOR Ot J45.998 OTHER ASTHMA 11/27/2016 BERTA KNOWLES ADDING MACHINE OPERATOR Ot R09.02 HYPOXEMIA 11/27/2016 BERTA KNOWLES ADDING MACHINE OPERATOR Ot J18.9 PNEUMONIA, UNSPECIFIED ORGANISM 11/27/2016 BERTA KNOWLES ADDING MACHINE OPERATOR Ot J30.9 ALLERGIC RHINITIS, UNSPECIFIED 11/27/2016 BERTA KNOWLES ADDING MACHINE OPERATOR Ot J43.9 EMPHYSEMA, UNSPECIFIED 11/27/2016 BERTA KNOWLES ADDING MACHINE OPERATOR Ot J45.998 OTHER ASTHMA 11/27/2016 BERTA KNOWLES ADDING MACHINE OPERATOR Ot R06.02 SHORTNESS OF BREATH 11/27/2016 BERTA KNOWLES ADDING MACHINE OPERATOR Ot J18.9 PNEUMONIA, UNSPECIFIED ORGANISM 12/14/2016 BERTA KNOWLES ADDING MACHINE OPERATOR Ot J18.9 PNEUMONIA, UNSPECIFIED ORGANISM 12/14/2016 BERTA KNOWLES ADDING MACHINE OPERATOR Ot J30.9 ALLERGIC RHINITIS, UNSPECIFIED 12/14/2016 BERTA KNOWLES ADDING MACHINE OPERATOR Ot J43.9 EMPHYSEMA, UNSPECIFIED 12/14/2016 BERTA KNOWLES ADDING MACHINE OPERATOR Ot J45.998 OTHER ASTHMA 12/14/2016 BERTA KNOWLES ADDING MACHINE OPERATOR Ot R06.02 SHORTNESS OF BREATH 12/20/2016 BERTA KNOWLES ADDING MACHINE OPERATOR Ot J18.9 PNEUMONIA, UNSPECIFIED ORGANISM 12/20/2016 BERTA KNOWLES ADDING MACHINE OPERATOR Ot J30.9 ALLERGIC RHINITIS, UNSPECIFIED 12/20/2016 BERTA KNOWLES ADDING MACHINE OPERATOR Ot J43.9 EMPHYSEMA, UNSPECIFIED 12/20/2016 BERTA KNOWLES ADDING MACHINE OPERATOR Ot J45.998 OTHER ASTHMA 12/20/2016 BERTA KNOWLES ADDING MACHINE OPERATOR Ot R06.02 SHORTNESS OF BREATH 12/23/2016 BERTA KNOWLES ADDING MACHINE OPERATOR Ot J43.9 EMPHYSEMA, UNSPECIFIED 12/23/2016 BERTA KNOWLES ADDING MACHINE OPERATOR Ot J44.9 CHRONIC OBSTRUCTIVE PULMONARY DISEASE, U 12/23/2016 BERTA KNOWLES ADDING MACHINE OPERATOR Ot J45.998 OTHER ASTHMA 12/23/2016 BERTA KNOWLES ADDING MACHINE OPERATOR Ot J84.9 INTERSTITIAL PULMONARY DISEASE, UNSPECIF 12/23/2016 BERTA KNOWLES ADDING MACHINE OPERATOR Ot K22.9 DISEASE OF ESOPHAGUS, UNSPECIFIED 12/23/2016 BERTA KNOWLES ADDING MACHINE OPERATOR Ot K80.20 CALCULUS OF GALLBLADDER W/O CHOLECYSTITI 12/23/2016 BERTA KNOWLES ADDING MACHINE OPERATOR Ot R09.02 HYPOXEMIA 12/29/2016 BERTA KNOWLES ADDING MACHINE OPERATOR Ot J43.9 EMPHYSEMA, UNSPECIFIED 12/29/2016 BERTA KNOWLES ADDING MACHINE OPERATOR Ot J44.9 CHRONIC OBSTRUCTIVE PULMONARY DISEASE, U 12/29/2016 BERTA KNOWLES ADDING MACHINE OPERATOR Ot J45.998 OTHER ASTHMA 12/29/2016 BERTA KNOWLES ADDING MACHINE OPERATOR Ot J84.9 INTERSTITIAL PULMONARY DISEASE, UNSPECIF 12/29/2016 BERTA KNOWLES ADDING MACHINE OPERATOR Ot K22.9 DISEASE OF ESOPHAGUS, UNSPECIFIED 12/29/2016 BERTA KNOWLES ADDING MACHINE OPERATOR Ot K80.20 CALCULUS OF GALLBLADDER W/O CHOLECYSTITI 12/29/2016 BERTA KNOWLES ADDING MACHINE OPERATOR Ot R09.02 HYPOXEMIA 01/27/2017 RADHA TRAN MD Ot D64.9 ANEMIA, UNSPECIFIED 01/27/2017 RADHA TRAN MD Ot Z01.818 ENCOUNTER FOR OTHER PREPROCEDURAL EXAMIN 01/27/2017 RADHA TRAN MD Ot D64.9 ANEMIA, UNSPECIFIED 01/27/2017 RADHA TRAN MD Ot Z01.818 ENCOUNTER FOR OTHER PREPROCEDURAL EXAMIN 01/29/2017 RADHA TRAN MD Ot D64.9 ANEMIA, UNSPECIFIED 01/29/2017 RADHA TRAN MD Ot E66.01 MORBID (SEVERE) OBESITY DUE TO EXCESS CA 01/29/2017 RADHA TRAN MD Ot E78.00 PURE HYPERCHOLESTEROLEMIA, UNSPECIFIED 01/29/2017 RADHA TRAN MD Ot F32.9 MAJOR DEPRESSIVE DISORDER, SINGLE EPISOD 01/29/2017 RADHA TRAN MD, Ot F41.9 ANXIETY DISORDER, UNSPECIFIED 01/29/2017 RADHA TRAN MD Ot I10 ESSENTIAL (PRIMARY) HYPERTENSION 01/29/2017 RADHA TRAN MD, Ot J44.9 CHRONIC OBSTRUCTIVE PULMONARY DISEASE, U 01/29/2017 RADHA TRAN MD, Ot J45.909 UNSPECIFIED ASTHMA, UNCOMPLICATED 01/29/2017 RADHA TRAN MD, Ot K21.9 GASTRO-ESOPHAGEAL REFLUX DISEASE WITHOUT 01/29/2017 RADHA TRAN MD, Ot K22.10 ULCER OF ESOPHAGUS WITHOUT BLEEDING 01/29/2017 RADHA TRAN MD, Ot K29.70 GASTRITIS, UNSPECIFIED, WITHOUT BLEEDING 01/29/2017 RADHA TRAN MD, Ot K64.0 FIRST DEGREE HEMORRHOIDS 01/29/2017 RADHA TRAN MD, Ot M19.91 PRIMARY OSTEOARTHRITIS, UNSPECIFIED SITE 01/29/2017 RADHA TRAN MD, Ot Z12.11 ENCOUNTER FOR SCREENING FOR MALIGNANT NE 01/29/2017 RADHA TRAN MD, Ot Z68.30 BODY MASS INDEX (BMI) 30.0-30.9, ADULT 01/29/2017 RADHA RTAN MD, Ot Z87.891 PERSONAL HISTORY OF NICOTINE DEPENDENCE 01/29/2017 RADHA TRAN MD, Ot Z98.84 BARIATRIC SURGERY STATUS 02/02/2017 RADHA TRAN MD, Ot D64.9 ANEMIA, UNSPECIFIED 02/02/2017 RADHA TRAN MD, Ot Z01.818 ENCOUNTER FOR OTHER PREPROCEDURAL EXAMIN 02/10/2017 ESTRELLA CHOI APRN Ot J44.1 CHRONIC OBSTRUCTIVE PULMONARY DISEASE W 02/10/2017 ESTRELLA CHOI APRN Ot R06.02 SHORTNESS OF BREATH 02/10/2017 ESTRELLA CHOI APRN Ot R07.89 OTHER CHEST PAIN 02/10/2017 ESTRELLA CHOI APRN Ot 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 02/10/2017 ESTRELLA CHOI APRN Ot Z99.81 DEPENDENCE ON SUPPLEMENTAL OXYGEN 03/05/2017 KRISTI VANESSA Ot E61.1 IRON DEFICIENCY 03/05/2017 KRISTI VANESSA Ot K90.9 INTESTINAL MALABSORPTION, UNSPECIFIED 03/11/2017 KRSITI VANESSA Ot E61.1 IRON DEFICIENCY 03/11/2017 KRISTI VANESSA N Ot K90.9 INTESTINAL MALABSORPTION, UNSPECIFIED 03/13/2017 OTF BOBAN N Ot D50.0 IRON DEFICIENCY ANEMIA SECONDARY TO BLOO 03/13/2017 OTF, BOBAN N Ot E61.1 IRON DEFICIENCY 03/13/2017 OTF BOBAN N Ot I10 ESSENTIAL (PRIMARY) HYPERTENSION 03/13/2017 OTF KRISTI N Ot J44.9 CHRONIC OBSTRUCTIVE PULMONARY DISEASE, U 03/13/2017 OTF BOBAN N Ot J84.9 INTERSTITIAL PULMONARY DISEASE, UNSPECIF 03/13/2017 OTF BOBAN N Ot K22.11 ULCER OF ESOPHAGUS WITH BLEEDING 03/13/2017 OTF BOBAN N Ot K29.51 UNSPECIFIED CHRONIC GASTRITIS WITH BLEED 03/13/2017 OTF CHANDANBULMARO N Ot K90.9 INTESTINAL MALABSORPTION, UNSPECIFIED 03/13/2017 OTFKRISTI N Ot Z79.899 OTHER [facility] (CURRENT) DRUG THERAPY 03/18/2017 OTFKRISTI TURNER N Ot D50.0 IRON DEFICIENCY ANEMIA SECONDARY TO BLOO 03/18/2017 OTF BOBAN N Ot I10 ESSENTIAL (PRIMARY) HYPERTENSION 03/18/2017 OTF, KRISTI N Ot J44.9 CHRONIC OBSTRUCTIVE PULMONARY DISEASE, U 03/18/2017 OTF BOBAN N Ot J84.9 INTERSTITIAL PULMONARY DISEASE, UNSPECIF 03/18/2017 OTF BOBAN N Ot K22.11 ULCER OF ESOPHAGUS WITH BLEEDING 03/18/2017 OTFKRISTI N Ot K29.51 UNSPECIFIED CHRONIC GASTRITIS WITH BLEED 03/18/2017 OTFKRISTI N Ot Z79.899 OTHER [facility] (CURRENT) DRUG THERAPY 03/29/2017 RADHA TRAN MD, Ot D64.9 ANEMIA, UNSPECIFIED 03/29/2017 RADHA TRAN MD Ot E66.01 MORBID (SEVERE) OBESITY DUE TO EXCESS CA 03/29/2017 RADHA TRAN MD, Ot E78.00 PURE HYPERCHOLESTEROLEMIA, UNSPECIFIED 03/29/2017 RADHA TRAN MD, Ot F32.9 MAJOR DEPRESSIVE DISORDER, SINGLE EPISOD 03/29/2017 RADHA TRAN MD, Ot F41.9 ANXIETY DISORDER, UNSPECIFIED 03/29/2017 RADHA TRAN MD, Ot I10 ESSENTIAL (PRIMARY) HYPERTENSION 03/29/2017 RADHA TARN MD, Ot J44.9 CHRONIC OBSTRUCTIVE PULMONARY DISEASE, U 03/29/2017 RADHA TRAN MD, Ot J45.909 UNSPECIFIED ASTHMA, UNCOMPLICATED 03/29/2017 RADHA TRAN MD, Ot K21.9 GASTRO-ESOPHAGEAL REFLUX DISEASE WITHOUT 03/29/2017 RADHA TRAN MD Ot K22.10 ULCER OF ESOPHAGUS WITHOUT BLEEDING 03/29/2017 RADHA TRAN MD, Ot K29.70 GASTRITIS, UNSPECIFIED, WITHOUT BLEEDING 03/29/2017 RADHA TRAN MD, Ot K64.0 FIRST DEGREE HEMORRHOIDS 03/29/2017 RADHA TRAN MD, Ot M19.91 PRIMARY OSTEOARTHRITIS, UNSPECIFIED SITE 03/29/2017 RADHA TRAN MD, Ot Z12.11 ENCOUNTER FOR SCREENING FOR MALIGNANT NE 03/29/2017 RADHA TRAN MD, Ot Z68.30 BODY MASS INDEX (BMI) 30.0-30.9, ADULT 03/29/2017 RADHA TRAN MD, Ot Z87.891 PERSONAL HISTORY OF NICOTINE DEPENDENCE 03/29/2017 RADHA TRAN MD, Ot Z98.84 BARIATRIC SURGERY STATUS 07/02/2017 BERTA KNOWLES APRN Ot J43.9 EMPHYSEMA, UNSPECIFIED 07/02/2017 BERTA KNOWLES ADDING MACHINE OPERATOR Ot J47.9 BRONCHIECTASIS, UNCOMPLICATED 07/02/2017 BERTA KNOWLES ADDING MACHINE OPERATOR Ot J84.9 INTERSTITIAL PULMONARY DISEASE, UNSPECIF 07/02/2017 BERTA KNOWLES ADDING MACHINE OPERATOR Ot K22.8 OTHER SPECIFIED DISEASES OF ESOPHAGUS 07/08/2017 BERTA KNOWLES ADDING MACHINE OPERATOR Ot J30.9 ALLERGIC RHINITIS, UNSPECIFIED 07/08/2017 BERTA KNOWLES ADDING MACHINE OPERATOR Ot J43.9 EMPHYSEMA, UNSPECIFIED 07/08/2017 BERTA KNOWLES ADDING MACHINE OPERATOR Ot J45.998 OTHER ASTHMA 07/08/2017 BERTA KNOWLES ADDING MACHINE OPERATOR Ot J84.9 INTERSTITIAL PULMONARY DISEASE, UNSPECIF 07/08/2017 BERTA KNOWLES APRN Ot K21.9 GASTRO-ESOPHAGEAL REFLUX DISEASE WITHOUT 07/13/2017 BERTA KNOWLES ADDING MACHINE OPERATOR Ot J30.9 ALLERGIC RHINITIS, UNSPECIFIED 07/13/2017 BENSON, BERTA E ADDING MACHINE OPERATOR Ot J43.9 EMPHYSEMA, UNSPECIFIED 07/13/2017 BENSON, BERTA E ADDING MACHINE OPERATOR Ot J45.998 OTHER ASTHMA 07/13/2017 BENSON, BERTA E ADDING MACHINE OPERATOR Ot J84.9 INTERSTITIAL PULMONARY DISEASE, UNSPECIF 07/13/2017 BENSON, BERTA E ADDING MACHINE OPERATOR Ot K21.9 GASTRO-ESOPHAGEAL REFLUX DISEASE WITHOUT 07/23/2017 BENSONRAEGAN STONEINE E ADDING MACHINE OPERATOR Ot J43.9 EMPHYSEMA, UNSPECIFIED 07/23/2017 BENSON, BERTA E ADDING MACHINE OPERATOR Ot J47.9 BRONCHIECTASIS, UNCOMPLICATED 07/23/2017 BENSON, BERTA E ADDING MACHINE OPERATOR Ot J84.9 INTERSTITIAL PULMONARY DISEASE, UNSPECIF 07/23/2017 BENSON, BERTA E ADDING MACHINE OPERATOR Ot K22.8 OTHER SPECIFIED DISEASES OF ESOPHAGUS 07/27/2017 BENSONRAEGANBERTA E ADDING MACHINE OPERATOR Ot J43.9 EMPHYSEMA, UNSPECIFIED 07/27/2017 BENSONRAEGAN STONEINE E ADDING MACHINE OPERATOR Ot J47.9 BRONCHIECTASIS, UNCOMPLICATED 07/27/2017 BENSONRAEGAN STONEINE E ADDING MACHINE OPERATOR Ot J84.9 INTERSTITIAL PULMONARY DISEASE, UNSPECIF 07/27/2017 BENSON, BERTA E ADDING MACHINE OPERATOR Ot K22.8 OTHER SPECIFIED DISEASES OF ESOPHAGUS 07/28/2017 BENSON, BERTA E ADDING MACHINE OPERATOR Ot J30.9 ALLERGIC RHINITIS, UNSPECIFIED 07/28/2017 BENSONRAEGAN STONEINE E ADDING MACHINE OPERATOR Ot J43.9 EMPHYSEMA, UNSPECIFIED 07/28/2017 BENSON, BERTA E ADDING MACHINE OPERATOR Ot J45.998 OTHER ASTHMA 07/28/2017 BENSONRAEGAN STONEINE E ADDING MACHINE OPERATOR Ot J84.9 INTERSTITIAL PULMONARY DISEASE, UNSPECIF 07/28/2017 BENSONRAEGANBERTA E ADDING MACHINE OPERATOR Ot K21.9 GASTRO-ESOPHAGEAL REFLUX DISEASE WITHOUT 08/04/2017 BENSON BERTA E ADDING MACHINE OPERATOR Ot J30.9 ALLERGIC RHINITIS, UNSPECIFIED 08/04/2017 BENSON BERTA E ADDING MACHINE OPERATOR Ot J43.9 EMPHYSEMA, UNSPECIFIED 08/04/2017 BENSON, BERTA E ADDING MACHINE OPERATOR Ot J45.998 OTHER ASTHMA 08/04/2017 BENSON, BERTA E ADDING MACHINE OPERATOR Ot J84.9 INTERSTITIAL PULMONARY DISEASE, UNSPECIF 08/04/2017 BENSONRAEGAN STONEINE E ADDING MACHINE OPERATOR Ot K21.9 GASTRO-ESOPHAGEAL REFLUX DISEASE WITHOUT 09/01/2017 BENSON, BERTA E ADDING MACHINE OPERATOR Ot J44.9 CHRONIC OBSTRUCTIVE PULMONARY DISEASE, U 09/01/2017 BENSON, BERTA E ADDING MACHINE OPERATOR Ot J45.998 OTHER ASTHMA 09/01/2017 BENSON, BERTA E ADDING MACHINE OPERATOR Ot J84.9 INTERSTITIAL PULMONARY DISEASE, UNSPECIF 09/01/2017 BENSON, BERTA E ADDING MACHINE OPERATOR Ot R09.02 HYPOXEMIA 09/07/2017 BENSON, BERTA E ADDING MACHINE OPERATOR Ot J44.9 CHRONIC OBSTRUCTIVE PULMONARY DISEASE, U 09/07/2017 BENSON, BERTA E ADDING MACHINE OPERATOR Ot J45.998 OTHER ASTHMA 09/07/2017 BENSON, BERTA E ADDING MACHINE OPERATOR Ot J84.9 INTERSTITIAL PULMONARY DISEASE, UNSPECIF 09/07/2017 BENSON, BERTA E ADDING MACHINE OPERATOR Ot R09.02 HYPOXEMIA 09/16/2017 BENSON, BERTA E ADDING MACHINE OPERATOR Ot J44.9 CHRONIC OBSTRUCTIVE PULMONARY DISEASE, U 09/16/2017 BENSON, BERTA E ADDING MACHINE OPERATOR Ot J45.998 OTHER ASTHMA 09/16/2017 BENSON, BERTA E ADDING MACHINE OPERATOR Ot J84.9 INTERSTITIAL PULMONARY DISEASE, UNSPECIF 09/16/2017 BENSON, BERTA E ADDING MACHINE OPERATOR Ot R09.02 HYPOXEMIA 09/21/2017 BENSON, BERTA E ADDING MACHINE OPERATOR Ot J44.9 CHRONIC OBSTRUCTIVE PULMONARY DISEASE, U 09/21/2017 BENSON, BERTA E ADDING MACHINE OPERATOR Ot J45.998 OTHER ASTHMA 09/21/2017 BENSON, BERTA E ADDING MACHINE OPERATOR Ot J84.9 INTERSTITIAL PULMONARY DISEASE, UNSPECIF 09/21/2017 BENSON, BERTA E ADDING MACHINE OPERATOR Ot R09.02 HYPOXEMIA 09/23/2017 BENSON, BERTA E ADDING MACHINE OPERATOR Ot J44.9 CHRONIC OBSTRUCTIVE PULMONARY DISEASE, U 09/23/2017 BENSON, BERTA E ADDING MACHINE OPERATOR Ot J45.998 OTHER ASTHMA 09/23/2017 BENSON, BERTA E ADDING MACHINE OPERATOR Ot J84.9 INTERSTITIAL PULMONARY DISEASE, UNSPECIF 09/23/2017 BENSON, BERTA E ADDING MACHINE OPERATOR Ot R09.02 HYPOXEMIA 09/28/2017 BENSON, BERTA E ADDING MACHINE OPERATOR Ot J44.9 CHRONIC OBSTRUCTIVE PULMONARY DISEASE, U 09/28/2017 BENSON, BERTA E ADDING MACHINE OPERATOR Ot J45.998 OTHER ASTHMA 09/28/2017 BENSON, BERTA E ADDING MACHINE OPERATOR Ot J84.9 INTERSTITIAL PULMONARY DISEASE, UNSPECIF 09/28/2017 BENSONRAEGAN STONEINE Quique ADDING MACHINE OPERATOR Ot R09.02 HYPOXEMIA 09/30/2017 BENSONRAEGAN STONEINE Quique ADDING MACHINE OPERATOR Ot J44.9 CHRONIC OBSTRUCTIVE PULMONARY DISEASE, U 09/30/2017 BENSONRAEGANBERTA Quique ADDING MACHINE OPERATOR Ot J45.998 OTHER ASTHMA 09/30/2017 BENSON BERTA Quique ADDING MACHINE OPERATOR Ot J84.9 INTERSTITIAL PULMONARY DISEASE, UNSPECIF 09/30/2017 BENSONRAEGANBERTA Quique ADDING MACHINE OPERATOR Ot R09.02 HYPOXEMIA 10/07/2017 BENSON BERTA E ADDING MACHINE OPERATOR Ot J44.9 CHRONIC OBSTRUCTIVE PULMONARY DISEASE, U 10/07/2017 BENSONRAEGANBERTA E ADDING MACHINE OPERATOR Ot J45.998 OTHER ASTHMA 10/07/2017 BENSON BERTA E ADDING MACHINE OPERATOR Ot J84.9 INTERSTITIAL PULMONARY DISEASE, UNSPECIF 10/07/2017 BENSON, BERTA E ADDING MACHINE OPERATOR Ot R09.02 HYPOXEMIA 10/08/2017 NIKOLAI MOORE MD Ot D64.9 ANEMIA, UNSPECIFIED 10/08/2017 NIKOLAI MOORE MD Ot I10 ESSENTIAL (PRIMARY) HYPERTENSION 10/08/2017 NIKOLAI MOORE MD Ot J43.9 EMPHYSEMA, UNSPECIFIED 10/08/2017 NIKOLAI MOORE MD Ot J45.909 UNSPECIFIED ASTHMA, UNCOMPLICATED 10/08/2017 NIKOLAI MOORE MD Ot J84.9 INTERSTITIAL PULMONARY DISEASE, UNSPECIF 10/08/2017 NIKOLAI MOORE MD Ot K21.9 GASTRO-ESOPHAGEAL REFLUX DISEASE WITHOUT 10/08/2017 NIKOLAI MOORE MD Ot 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 10/12/2017 NIKOLAI MOORE MD Ot D64.9 ANEMIA, UNSPECIFIED 10/12/2017 NIKOLAI MOORE MD Ot I10 ESSENTIAL (PRIMARY) HYPERTENSION 10/12/2017 NIKOLAI MOORE MD Ot J43.9 EMPHYSEMA, UNSPECIFIED 10/12/2017 NIKOLAI MOORE MD Ot J45.909 UNSPECIFIED ASTHMA, UNCOMPLICATED 10/12/2017 NIKOLAI MOORE MD Ot J84.9 INTERSTITIAL PULMONARY DISEASE, UNSPECIF 10/12/2017 NIKOLAI MOORE MD Ot K21.9 GASTRO-ESOPHAGEAL REFLUX DISEASE WITHOUT 10/12/2017 NIKOLAI MOORE MD Ot 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 10/14/2017 BENSONRAEGAN STONEINE Quique ADDING MACHINE OPERATOR Ot J44.9 CHRONIC OBSTRUCTIVE PULMONARY DISEASE, U 10/14/2017 BENSON BERTA E ADDING MACHINE OPERATOR Ot J45.998 OTHER ASTHMA 10/14/2017 BENSON, BERTA E ADDING MACHINE OPERATOR Ot J84.9 INTERSTITIAL PULMONARY DISEASE, UNSPECIF 10/14/2017 BENSON, BERTA E ADDING MACHINE OPERATOR Ot R09.02 HYPOXEMIA 10/19/2017 BENSONRAEGAN STONEINE E ADDING MACHINE OPERATOR Ot J44.9 CHRONIC OBSTRUCTIVE PULMONARY DISEASE, U 10/19/2017 BENSON BERTA E ADDING MACHINE OPERATOR Ot J45.998 OTHER ASTHMA 10/19/2017 BENSON, BERTA E ADDING MACHINE OPERATOR Ot J84.9 INTERSTITIAL PULMONARY DISEASE, UNSPECIF 10/19/2017 BENSON, BERTA E ADDING MACHINE OPERATOR Ot R09.02 HYPOXEMIA 10/19/2017 BENSON, BERTA E ADDING MACHINE OPERATOR Ot J44.9 CHRONIC OBSTRUCTIVE PULMONARY DISEASE, U 10/19/2017 BENSON, BERTA E ADDING MACHINE OPERATOR Ot J45.998 OTHER ASTHMA 10/19/2017 BENSONRAEGAN STONEINE E ADDING MACHINE OPERATOR Ot J84.9 INTERSTITIAL PULMONARY DISEASE, UNSPECIF 10/19/2017 BENSONRAEGAN STONEINE E ADDING MACHINE OPERATOR Ot R09.02 HYPOXEMIA 10/21/2017 BENSONRAEGAN STONEINE E ADDING MACHINE OPERATOR Ot J44.9 CHRONIC OBSTRUCTIVE PULMONARY DISEASE, U 10/21/2017 BENSON BERTA E ADDING MACHINE OPERATOR Ot J45.998 OTHER ASTHMA 10/21/2017 BENSON BERTA E ADDING MACHINE OPERATOR Ot J84.9 INTERSTITIAL PULMONARY DISEASE, UNSPECIF 10/21/2017 RAEGAN KNOWLESINE E ADDING MACHINE OPERATOR Ot R09.02 HYPOXEMIA 10/24/2017 RAEGAN KNOWLESINE E ADDING MACHINE OPERATOR Ot J44.9 CHRONIC OBSTRUCTIVE PULMONARY DISEASE, U 10/24/2017 BENSON BERTA E ADDING MACHINE OPERATOR Ot J45.998 OTHER ASTHMA 10/24/2017 BENSON BERTA E ADDING MACHINE OPERATOR Ot J84.9 INTERSTITIAL PULMONARY DISEASE, UNSPECIF 10/24/2017 BENSON, BERTA E ADDING MACHINE OPERATOR Ot R09.02 HYPOXEMIA 10/28/2017 BENSON BERTA E ADDING MACHINE OPERATOR Ot J44.9 CHRONIC OBSTRUCTIVE PULMONARY DISEASE, U 10/28/2017 BENSON, BERTA E ADDING MACHINE OPERATOR Ot J45.998 OTHER ASTHMA 10/28/2017 BENSON, BERTA E ADDING MACHINE OPERATOR Ot J84.9 INTERSTITIAL PULMONARY DISEASE, UNSPECIF 10/28/2017 BENSON, BERTA E ADDING MACHINE OPERATOR Ot R09.02 HYPOXEMIA 10/28/2017 BERTA KNOWLES ADDING MACHINE OPERATOR Ot J44.9 CHRONIC OBSTRUCTIVE PULMONARY DISEASE, U 10/28/2017 BERTA KNOWLES ADDING MACHINE OPERATOR Ot J45.998 OTHER ASTHMA 10/28/2017 BERTA KNOWLES ADDING MACHINE OPERATOR Ot J84.9 INTERSTITIAL PULMONARY DISEASE, UNSPECIF 10/28/2017 BERTA KNOWLES ADDING MACHINE OPERATOR Ot R09.02 HYPOXEMIA 11/24/2017 BERTA KNOWLES ADDING MACHINE OPERATOR Ot J44.9 CHRONIC OBSTRUCTIVE PULMONARY DISEASE, U 11/24/2017 BERTA KNOWLES ADDING MACHINE OPERATOR Ot J45.998 OTHER ASTHMA 11/24/2017 BERTA KNOWLES ADDING MACHINE OPERATOR Ot J84.9 INTERSTITIAL PULMONARY DISEASE, UNSPECIF 11/24/2017 BERTA KNOWLES ADDING MACHINE OPERATOR Ot R09.02 HYPOXEMIA 12/01/2017 NIKOLAI MOORE MD Ot D64.9 ANEMIA, UNSPECIFIED 12/01/2017 NIKOLAI MOORE MD Ot I10 ESSENTIAL (PRIMARY) HYPERTENSION 12/01/2017 NIKOLAI MOORE MD Ot J43.9 EMPHYSEMA, UNSPECIFIED 12/01/2017 NIKOLAI MOORE MD Ot J45.909 UNSPECIFIED ASTHMA, UNCOMPLICATED 12/01/2017 NIKOLAI MOORE MD Ot J84.9 INTERSTITIAL PULMONARY DISEASE, UNSPECIF 12/01/2017 NIKOLAI MOORE MD Ot K21.9 GASTRO-ESOPHAGEAL REFLUX DISEASE WITHOUT 12/01/2017 NIKOLAI MOORE MD Ot Z79.899 OTHER [facility] (CURRENT) DRUG THERAPY 12/06/2017 BERTA KNOWLES ADDING MACHINE OPERATOR Ot J44.9 CHRONIC OBSTRUCTIVE PULMONARY DISEASE, U 12/06/2017 BERTA KNOWLES ADDING MACHINE OPERATOR Ot J45.998 OTHER ASTHMA 12/06/2017 BERTA KNOWLES ADDING MACHINE OPERATOR Ot J84.9 INTERSTITIAL PULMONARY DISEASE, UNSPECIF 12/06/2017 BERTA KNOWLES ADDING MACHINE OPERATOR Ot R09.02 HYPOXEMIA 01/23/2018 BERTA KNOWLES ADDING MACHINE OPERATOR Ot J44.9 CHRONIC OBSTRUCTIVE PULMONARY DISEASE, U 01/23/2018 BERTA KNOWLES ADDING MACHINE OPERATOR Ot J45.998 OTHER ASTHMA 01/23/2018 BERTA KNOWLES ADDING MACHINE OPERATOR Ot J84.9 INTERSTITIAL PULMONARY DISEASE, UNSPECIF 01/23/2018 BENSON, BERTA E ADDING MACHINE OPERATOR Ot R09.02 HYPOXEMIA 03/01/2018 NIKOLAI MOORE MD Ot D64.9 ANEMIA, UNSPECIFIED 03/01/2018 NIKOLAI MOORE MD Ot I10 ESSENTIAL (PRIMARY) HYPERTENSION 03/01/2018 NIKOLAI MOORE MD Ot J43.9 EMPHYSEMA, UNSPECIFIED 03/01/2018 NIKOLAI MOORE MD Ot J45.909 UNSPECIFIED ASTHMA, UNCOMPLICATED 03/01/2018 NIKOLAI MOORE MD Ot J84.9 INTERSTITIAL PULMONARY DISEASE, UNSPECIF 03/01/2018 NIKOLAI MOORE MD Ot K21.9 GASTRO-ESOPHAGEAL REFLUX DISEASE WITHOUT 03/01/2018 NIKOLAI MOORE MD Ot Z79.899 OTHER [facility] (CURRENT) DRUG THERAPY 03/04/2018 NIKOLAI MOORE MD Ot D64.9 ANEMIA, UNSPECIFIED 03/04/2018 NIKOLAI MOORE MD Ot I10 ESSENTIAL (PRIMARY) HYPERTENSION 03/04/2018 NIKOLAI MOORE MD Ot J43.9 EMPHYSEMA, UNSPECIFIED 03/04/2018 NIKOLAI MOORE MD Ot J45.909 UNSPECIFIED ASTHMA, UNCOMPLICATED 03/04/2018 NIKOLAI MOORE MD Ot J84.9 INTERSTITIAL PULMONARY DISEASE, UNSPECIF 03/04/2018 NIKOLAI MOORE MD Ot K21.9 GASTRO-ESOPHAGEAL REFLUX DISEASE WITHOUT 03/04/2018 NIKOLAI MOORE MD Ot 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 03/04/2018 HEIDI WOOD ADDING MACHINE OPERATOR Ot V65.49 OTHER SPECIFIED COUNSELING 03/04/2018 HEIDI WOOD ADDING MACHINE OPERATOR Ot V72.31 ROUTINE GYNECOLOGICAL EXAMINATION 03/04/2018 HEIDI WOOD ADDING MACHINE OPERATOR Ot V72.62 LAB EXAM ORDERED PART OF A ROUTINE GE 03/04/2018 HEIDI WOOD ADDING MACHINE OPERATOR Ot V73.81 SPECIAL SCREENING EXAMINATION, HUMAN PAP 03/04/2018 HEIDI WOOD ADDING MACHINE OPERATOR Ot V76.12 OTH SCREEN MAMMO-MALIGN NEOPLASM OF ULYSSES 03/04/2018 HEIDI WOOD ADDING MACHINE OPERATOR Ot V76.2 SCREEN MAL NEOP-CERVIX 03/04/2018 HEIDI WOOD ADDING MACHINE OPERATOR Ot V76.51 SCREEN MAL NEOP-COLON 03/04/2018 HEIDI WOOD ADDING MACHINE OPERATOR Ot V82.81 SCREENING FOR OSTEOPOROSIS 03/04/2018 THERON CALLOWAY DO Ot 493.20 CHRONIC OBSTRUCTIVE ASTHMA, NOS 03/04/2018 THERON CALLOWAY DO Ot 515 POSTINFLAM PULM FIBROSIS 03/04/2018 THERON CALLOWAY DO Ot 786.09 RESPIRATORY ABNORM NEC 03/04/2018 BERTA KNOWLES ADDING MACHINE OPERATOR Ot 477.9 ALLERGIC RHINITIS NOS 03/04/2018 BERTA KNOWLES ADDING MACHINE OPERATOR Ot 492.8 EMPHYSEMA NEC 03/04/2018 BERTA KNOWLES ADDING MACHINE OPERATOR Ot 515 POSTINFLAM PULM FIBROSIS 03/04/2018 BERTA KNOWLES ADDING MACHINE OPERATOR Ot 465.9 ACUTE URI NOS 03/04/2018 BERTA KNOWLES ADDING MACHINE OPERATOR Ot 477.9 ALLERGIC RHINITIS NOS 03/04/2018 BERTA KNOWLES ADDING MACHINE OPERATOR Ot 492.8 EMPHYSEMA NEC 03/04/2018 BERTA KNOWLES ADDING MACHINE OPERATOR Ot 515 POSTINFLAM PULM FIBROSIS 03/04/2018 HERNANDO QUINONES, KARL Garcia Ot 784.2 SWELLING IN HEAD NECK 03/04/2018 BERTA KNOWLES ADDING MACHINE OPERATOR Ot 496 CHR AIRWAY OBSTRUCT NEC 03/04/2018 BERTA KNOWLES ADDING MACHINE OPERATOR Ot 515 POSTINFLAM PULM FIBROSIS 03/04/2018 BERTA KNOWLES ADDING MACHINE OPERATOR Ot 574.20 CHOLELITHIASIS NOS 03/04/2018 BERTA KNOWLES ADDING MACHINE OPERATOR Ot 799.02 HYPOXEMIA 03/04/2018 ANA TILLMAN ADDING MACHINE OPERATOR Ot Z12.31 ENCNTR SCREEN MAMMOGRAM FOR MALIGNANT NE 03/04/2018 THERON CALLOWAY DO Ot J30.9 ALLERGIC RHINITIS, UNSPECIFIED 03/04/2018 THERON CALLOWAY DO Ot J44.9 CHRONIC OBSTRUCTIVE PULMONARY DISEASE, U 03/04/2018 TEHRON CALLOWAY DO Ot R09.02 HYPOXEMIA 03/04/2018 THERON CALLOWAY DO Ot J44.9 CHRONIC OBSTRUCTIVE PULMONARY DISEASE, U 03/04/2018 THERON CALLOWAY DO Ot J45.909 UNSPECIFIED ASTHMA, UNCOMPLICATED 03/04/2018 THERON CALLOWAY DO Ot R09.02 HYPOXEMIA 03/04/2018 BERTA KNOWLES ADDING MACHINE OPERATOR Ot J06.9 ACUTE UPPER RESPIRATORY INFECTION, UNSPE 03/04/2018 BERTA KNOWLES ADDING MACHINE OPERATOR Ot J43.9 EMPHYSEMA, UNSPECIFIED 03/04/2018 BERTA KNOWLES ADDING MACHINE OPERATOR Ot R06.00 DYSPNEA, UNSPECIFIED 03/04/2018 BERTA KNOWLES ADDING MACHINE OPERATOR Ot R09.02 HYPOXEMIA 03/04/2018 BERTA KNOWLES ADDING MACHINE OPERATOR Ot R50.9 FEVER, UNSPECIFIED 03/04/2018 BERTA KNOWLES ADDING MACHINE OPERATOR Ot J18.9 PNEUMONIA, UNSPECIFIED ORGANISM 03/04/2018 BERTA KNOWLES ADDING MACHINE OPERATOR Ot J44.9 CHRONIC OBSTRUCTIVE PULMONARY DISEASE, U 03/04/2018 BERTA KNOWLES ADDING MACHINE OPERATOR Ot J45.998 OTHER ASTHMA 03/04/2018 BERTA KNOWLES ADDING MACHINE OPERATOR Ot R09.02 HYPOXEMIA 03/04/2018 BERTA KNOWLES ADDING MACHINE OPERATOR Ot J18.9 PNEUMONIA, UNSPECIFIED ORGANISM 03/04/2018 BERTA KNOWLES ADDING MACHINE OPERATOR Ot J43.9 EMPHYSEMA, UNSPECIFIED 03/04/2018 BERTA KNOWLES ADDING MACHINE OPERATOR Ot J44.9 CHRONIC OBSTRUCTIVE PULMONARY DISEASE, U 03/04/2018 BERTA KNOWLES ADDING MACHINE OPERATOR Ot J45.998 OTHER ASTHMA 03/04/2018 BERTA KNOWLES ADDING MACHINE OPERATOR Ot J84.9 INTERSTITIAL PULMONARY DISEASE, UNSPECIF 03/04/2018 BERTA KNOWLES ADDING MACHINE OPERATOR Ot K22.9 DISEASE OF ESOPHAGUS, UNSPECIFIED 03/04/2018 BERTA KNOWLES ADDING MACHINE OPERATOR Ot K80.20 CALCULUS OF GALLBLADDER W/O CHOLECYSTITI 03/04/2018 BERTA KNOWLES ADDING MACHINE OPERATOR Ot R09.02 HYPOXEMIA 03/04/2018 BERTA KNOWLES ADDING MACHINE OPERATOR Ot J18.9 PNEUMONIA, UNSPECIFIED ORGANISM 03/04/2018 BERTA KNOWLES ADDING MACHINE OPERATOR Ot J30.9 ALLERGIC RHINITIS, UNSPECIFIED 03/04/2018 BERTA KNOWLES ADDING MACHINE OPERATOR Ot J43.9 EMPHYSEMA, UNSPECIFIED 03/04/2018 BERTA KNOWLES ADDING MACHINE OPERATOR Ot J45.998 OTHER ASTHMA 03/04/2018 BERTA KNOWLES ADDING MACHINE OPERATOR Ot R06.02 SHORTNESS OF BREATH 03/04/2018 BERTA KNOWLES ADDING MACHINE OPERATOR Ot J30.9 ALLERGIC RHINITIS, UNSPECIFIED 03/04/2018 BERTA KNOWLES ADDING MACHINE OPERATOR Ot J43.9 EMPHYSEMA, UNSPECIFIED 03/04/2018 BERTA KNOWLES ADDING MACHINE OPERATOR Ot J45.998 OTHER ASTHMA 03/04/2018 BENSONBERTA STONE ADDING MACHINE OPERATOR Ot J84.9 INTERSTITIAL PULMONARY DISEASE, UNSPECIF 03/04/2018 BERTA KNOWLES ADDING MACHINE OPERATOR Ot K21.9 GASTRO-ESOPHAGEAL REFLUX DISEASE WITHOUT 03/04/2018 BENSONRAEGAN STONEINE Quique ADDING MACHINE OPERATOR Ot J43.9 EMPHYSEMA, UNSPECIFIED 03/04/2018 BENSONBERTA STONE ADDING MACHINE OPERATOR Ot J47.9 BRONCHIECTASIS, UNCOMPLICATED 03/04/2018 BENSONBERTA STONE ADDING MACHINE OPERATOR Ot J84.9 INTERSTITIAL PULMONARY DISEASE, UNSPECIF 03/04/2018 BENSONBERTA STONE ADDING MACHINE OPERATOR Ot K22.8 OTHER SPECIFIED DISEASES OF ESOPHAGUS 03/04/2018 Ot J44.9 CHRONIC OBSTRUCTIVE PULMONARY DISEASE, U 03/04/2018 Ot J45.998 OTHER ASTHMA 03/04/2018 Ot J84.9 INTERSTITIAL PULMONARY DISEASE, UNSPECIF 03/04/2018 Ot R09.02 HYPOXEMIA 03/04/2018 NIKOLAI MOORE MD Ot D64.9 ANEMIA, UNSPECIFIED 03/04/2018 NIKOLAI MOORE MD Ot I10 ESSENTIAL (PRIMARY) HYPERTENSION 03/04/2018 NIKOLAI MOORE MD Ot J43.9 EMPHYSEMA, UNSPECIFIED 03/04/2018 NIKOLAI MOORE MD Ot J45.909 UNSPECIFIED ASTHMA, UNCOMPLICATED 03/04/2018 NIKOLAI MOORE MD Ot J84.9 INTERSTITIAL PULMONARY DISEASE, UNSPECIF 03/04/2018 NIKOLAI MOORE MD Ot K21.9 GASTRO-ESOPHAGEAL REFLUX DISEASE WITHOUT 03/04/2018 NIKOLAI MOORE MD Ot 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 03/08/2018 NIKOLAI MOORE MD Ot D64.9 ANEMIA, UNSPECIFIED 03/08/2018 NIKOLAI MOORE MD Ot I10 ESSENTIAL (PRIMARY) HYPERTENSION 03/08/2018 NIKOLAI MOORE MD Ot J43.9 EMPHYSEMA, UNSPECIFIED 03/08/2018 NIKOLAI MOORE MD Ot J45.909 UNSPECIFIED ASTHMA, UNCOMPLICATED 03/08/2018 NIKOLAI MOORE MD Ot J84.9 INTERSTITIAL PULMONARY DISEASE, UNSPECIF 03/08/2018 NIKOLAI MOORE MD Ot K21.9 GASTRO-ESOPHAGEAL REFLUX DISEASE WITHOUT 03/08/2018 NIKOLAI MOORE MD Ot 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 03/13/2018 NIKOLAI MOORE MD Ot D64.9 ANEMIA, UNSPECIFIED 03/13/2018 TERESA QUINONES MENCHACA Ot I10 ESSENTIAL (PRIMARY) HYPERTENSION 03/13/2018 NIKOLAI MOORE MD Ot J43.9 EMPHYSEMA, UNSPECIFIED 03/13/2018 CALLIE MOROE MDNER Ot J45.909 UNSPECIFIED ASTHMA, UNCOMPLICATED 03/13/2018 TERESA QUINONES MENCHACA Ot J84.9 INTERSTITIAL PULMONARY DISEASE, UNSPECIF 03/13/2018 CALLIE MOORE MDNER Ot K21.9 GASTRO-ESOPHAGEAL REFLUX DISEASE WITHOUT 03/13/2018 CALLIE MOORE MDNER Ot R06.02 SHORTNESS OF BREATH 03/13/2018 TERESA QUINONES MENCHACA Ot R91.8 OTHER NONSPECIFIC ABNORMAL FINDING OF JI 03/13/2018 CALLIE MOORE MDNER Ot 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 03/15/2018 NIKOLAI MOORE MD Ot D64.9 ANEMIA, UNSPECIFIED 03/15/2018 CALLIE OMORE MDNER Ot I10 ESSENTIAL (PRIMARY) HYPERTENSION 03/15/2018 NIKOLAI MOORE MD Ot J43.9 EMPHYSEMA, UNSPECIFIED 03/15/2018 CALLIE MOORE MDNER Ot J45.909 UNSPECIFIED ASTHMA, UNCOMPLICATED 03/15/2018 CALLIE MOORE MDNER Ot J84.9 INTERSTITIAL PULMONARY DISEASE, UNSPECIF 03/15/2018 CALLIE MOORE MDNER Ot K21.9 GASTRO-ESOPHAGEAL REFLUX DISEASE WITHOUT 03/15/2018 CALLIE MOORE MDNER Ot 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 03/29/2018 CALLIE MOORE MDNER Ot R06.02 SHORTNESS OF BREATH 03/29/2018 CALLIE MOORE MDNER Ot R91.8 OTHER NONSPECIFIC ABNORMAL FINDING OF JI 03/30/2018 NIKOLAI MOORE MD Ot D64.9 ANEMIA, UNSPECIFIED 03/30/2018 NIKOLAI MOORE MD Ot I10 ESSENTIAL (PRIMARY) HYPERTENSION 03/30/2018 NIKOLAI MOORE MD Ot J43.9 EMPHYSEMA, UNSPECIFIED 03/30/2018 CALLIE MOORE MDNER Ot J45.909 UNSPECIFIED ASTHMA, UNCOMPLICATED 03/30/2018 TERESA QUINONES MENCHACA Ot J84.9 INTERSTITIAL PULMONARY DISEASE, UNSPECIF 03/30/2018 TERESA QUINONES MENCHACA Ot K21.9 GASTRO-ESOPHAGEAL REFLUX DISEASE WITHOUT 03/30/2018 TERESA QUINONES MENCHACA Ot R06.02 SHORTNESS OF BREATH 03/30/2018 NIKOLAI MOORE MD Ot R91.8 OTHER NONSPECIFIC ABNORMAL FINDING OF JI 03/30/2018 NIKOLAI MOORE MD Ot Z79.899 OTHER [facility] (CURRENT) DRUG THERAPY 03/30/2018 NIKOLAI MOORE MD Ot D64.9 ANEMIA, UNSPECIFIED 03/30/2018 NIKOLAI MOORE MD Ot I10 ESSENTIAL (PRIMARY) HYPERTENSION 03/30/2018 NIKOLAI MOORE MD Ot J43.9 EMPHYSEMA, UNSPECIFIED 03/30/2018 NIKOLAI MOORE MD Ot J45.909 UNSPECIFIED ASTHMA, UNCOMPLICATED 03/30/2018 NIKOLAI MOORE MD Ot J84.9 INTERSTITIAL PULMONARY DISEASE, UNSPECIF 03/30/2018 NIKOLAI MOORE MD Ot K21.9 GASTRO-ESOPHAGEAL REFLUX DISEASE WITHOUT 03/30/2018 NIKOLAI MOORE MD Ot R06.02 SHORTNESS OF BREATH 03/30/2018 NIKOLAI MOORE MD Ot R91.8 OTHER NONSPECIFIC ABNORMAL FINDING OF JI 03/30/2018 NIKOLAI MOORE MD Ot 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 05/03/2018 BERTA KNOWLES ADDING MACHINE OPERATOR Ot J06.9 ACUTE UPPER RESPIRATORY INFECTION, UNSPE 05/03/2018 BERTA KNOWLES ADDING MACHINE OPERATOR Ot J43.9 EMPHYSEMA, UNSPECIFIED 05/03/2018 BERTA KNOWLES ADDING MACHINE OPERATOR Ot R06.00 DYSPNEA, UNSPECIFIED 05/03/2018 BERTA KNOWLES ADDING MACHINE OPERATOR Ot R09.02 HYPOXEMIA 05/03/2018 BERTA KNOWLES ADDING MACHINE OPERATOR Ot R50.9 FEVER, UNSPECIFIED 05/03/2018 BERTA KNOWLES ADDING MACHINE OPERATOR Ot J18.9 PNEUMONIA, UNSPECIFIED ORGANISM 05/03/2018 BERTA KNOWLES ADDING MACHINE OPERATOR Ot J44.9 CHRONIC OBSTRUCTIVE PULMONARY DISEASE, U 05/03/2018 BERTA KNOWLES ADDING MACHINE OPERATOR Ot J45.998 OTHER ASTHMA 05/03/2018 BERTA KNOWLES ADDING MACHINE OPERATOR Ot R09.02 HYPOXEMIA 05/03/2018 BERTA KNOWLES ADDING MACHINE OPERATOR Ot J18.9 PNEUMONIA, UNSPECIFIED ORGANISM 05/03/2018 BERTA KNOWLES ADDING MACHINE OPERATOR Ot J43.9 EMPHYSEMA, UNSPECIFIED 05/03/2018 BERTA KNOWLES ADDING MACHINE OPERATOR Ot J44.9 CHRONIC OBSTRUCTIVE PULMONARY DISEASE, U 05/03/2018 BERTA KNOWLES ADDING MACHINE OPERATOR Ot J45.998 OTHER ASTHMA 05/03/2018 BERTA KNOWLES ADDING MACHINE OPERATOR Ot J84.9 INTERSTITIAL PULMONARY DISEASE, UNSPECIF 05/03/2018 BERTA KNOWLES ADDING MACHINE OPERATOR Ot K22.9 DISEASE OF ESOPHAGUS, UNSPECIFIED 05/03/2018 BERTA KNOWLES ADDING MACHINE OPERATOR Ot K80.20 CALCULUS OF GALLBLADDER W/O CHOLECYSTITI 05/03/2018 BERTA KNOWLES ADDING MACHINE OPERATOR Ot R09.02 HYPOXEMIA 05/03/2018 BERTA KNOWLES ADDING MACHINE OPERATOR Ot J18.9 PNEUMONIA, UNSPECIFIED ORGANISM 05/03/2018 BERTA KNOWLES ADDING MACHINE OPERATOR Ot J30.9 ALLERGIC RHINITIS, UNSPECIFIED 05/03/2018 BERTA KNOWLES ADDING MACHINE OPERATOR Ot J43.9 EMPHYSEMA, UNSPECIFIED 05/03/2018 BERTA KNOWLES ADDING MACHINE OPERATOR Ot J45.998 OTHER ASTHMA 05/03/2018 BERTA KNOWLES ADDING MACHINE OPERATOR Ot R06.02 SHORTNESS OF BREATH 05/03/2018 BERTA KNOWLES ADDING MACHINE OPERATOR Ot J30.9 ALLERGIC RHINITIS, UNSPECIFIED 05/03/2018 BERTA KNOWLES ADDING MACHINE OPERATOR Ot J43.9 EMPHYSEMA, UNSPECIFIED 05/03/2018 BERTA KNOWLES ADDING MACHINE OPERATOR Ot J45.998 OTHER ASTHMA 05/03/2018 BERTA KNOWLES ADDING MACHINE OPERATOR Ot J84.9 INTERSTITIAL PULMONARY DISEASE, UNSPECIF 05/03/2018 BERTA KNOWLES ADDING MACHINE OPERATOR Ot K21.9 GASTRO-ESOPHAGEAL REFLUX DISEASE WITHOUT 05/03/2018 BERTA KNOWLES ADDING MACHINE OPERATOR Ot J43.9 EMPHYSEMA, UNSPECIFIED 05/03/2018 BERTA KNOWLES ADDING MACHINE OPERATOR Ot J47.9 BRONCHIECTASIS, UNCOMPLICATED 05/03/2018 BERTA KNOWLES ADDING MACHINE OPERATOR Ot J84.9 INTERSTITIAL PULMONARY DISEASE, UNSPECIF 05/03/2018 BERTA KNOWLES ADDING MACHINE OPERATOR Ot K22.8 OTHER SPECIFIED DISEASES OF ESOPHAGUS 05/03/2018 Ot J44.9 CHRONIC OBSTRUCTIVE PULMONARY DISEASE, U 05/03/2018 Ot J45.998 OTHER ASTHMA 05/03/2018 Ot J84.9 INTERSTITIAL PULMONARY DISEASE, UNSPECIF 05/03/2018 Ot R09.02 HYPOXEMIA 05/03/2018 NIKOLAI MOORE MD Ot R06.02 SHORTNESS OF BREATH 05/03/2018 NIKOLAI MOORE MD, Ot R91.8 OTHER NONSPECIFIC ABNORMAL FINDING OF JI 05/03/2018 NIKOLAI MOORE MD, Ot D64.9 ANEMIA, UNSPECIFIED 05/03/2018 NIKOLAI MOORE MD, Ot I10 ESSENTIAL (PRIMARY) HYPERTENSION 05/03/2018 NIKOLAI MOORE MD, Ot J43.9 EMPHYSEMA, UNSPECIFIED 05/03/2018 NIKOLAI MOORE MD, Ot J45.909 UNSPECIFIED ASTHMA, UNCOMPLICATED 05/03/2018 NIKOLAI MOORE MD, Ot J84.9 INTERSTITIAL PULMONARY DISEASE, UNSPECIF 05/03/2018 NIKOLAI MOORE MD, Ot K21.9 GASTRO-ESOPHAGEAL REFLUX DISEASE WITHOUT 05/03/2018 NIKOLAI MOORE MD, Ot Z79.899 OTHER [facility] (CURRENT) DRUG THERAPY Procedures Code Description Performed By Performed On Q0091 PAP SMEAR OBTAIN SMEAR 09/05/2013 15450 MAMMOGRAM, SCREENING 09/08/2013 04421 PAP SMEAR 09/11/2013 51854 ROUTINE VENIPUNCTURE 09/21/2013 92032 HEMOCCULT 09/21/2013 39880 CBC 09/21/2013 [id number] GFR CALC (RESULT ONLY) 09/21/2013 04423 CMP 09/21/2013 66406 LIPID PANEL 09/21/2013 03157 TSH 09/21/2013 15542 BONE MINERAL DENSITY, HEEL US (IN HOUSE) 11/01/2013 Results Test Result Range Complete blood count (CBC) with automated white blood cell (WBC) differential - 08/23/16 13:30 Blood leukocytes automated count (number/volume) 9.8 10*3/uL 4.3-11.0 Blood erythrocytes automated count (number/volume) 4.14 10*6/uL 4.35-5.85 Venous blood hemoglobin measurement (mass/volume) 10.4 g/dL 11.5-16.0 Blood hematocrit (volume fraction) 33 % 35-52 Automated erythrocyte mean corpuscular volume 81 [foz_us] 80-99 Automated erythrocyte mean corpuscular hemoglobin (mass per erythrocyte) 25 pg 25-34 Automated erythrocyte mean corpuscular hemoglobin concentration measurement ( mass/volume) 31 g/dL 32-36 Automated erythrocyte distribution width ratio 15.5 % 10.0-14.5 Automated blood platelet count (count/volume) 249 10*3/uL 130-400 Automated blood platelet mean volume measurement 11.3 [foz_us] 7.4-10.4 Automated blood neutrophils/100 leukocytes 81 % 42-75 Automated blood lymphocytes/100 leukocytes 11 % 12-44 Blood monocytes/100 leukocytes 6 % 0-12 Automated blood eosinophils/100 leukocytes 2 % 0-10 Automated blood basophils/100 leukocytes 1 % 0-10 Blood neutrophils automated count (number/volume) 7.9 10*3 1.8-7.8 Blood lymphocytes automated count (number/volume) 1.1 10*3 1.0-4.0 Blood monocytes automated count (number/volume) 0.6 10*3 0.0-1.0 Automated eosinophil count 0.2 10*3/uL 0.0-0.3 Automated blood basophil count (count/volume) 0.1 10*3/uL 0.0-0.1 Comprehensive metabolic panel - 08/23/16 13:30 Serum or plasma sodium measurement (moles/volume) 142 mmol/L 135-145 Serum or plasma potassium measurement (moles/volume) 3.8 mmol/L 3.6-5.0 Serum or plasma chloride measurement (moles/volume) 105 mmol/L 98-107 Carbon dioxide 28 mmol/L 21-32 Serum or plasma anion gap determination (moles/volume) 9 mmol/L 5-14 Serum or plasma urea nitrogen measurement (mass/volume) 11 mg/dL 7-18 Serum or plasma creatinine measurement (mass/volume) 0.72 mg/dL 0.60-1.30 Serum or plasma urea nitrogen/creatinine mass ratio 15 NRG Serum or plasma creatinine measurement with calculation of estimated glomerular filtration rate > NRG Serum or plasma glucose measurement (mass/volume) 103 mg/dL 70-105 Serum or plasma calcium measurement (mass/volume) 8.9 mg/dL 8.5-10.1 Serum or plasma total bilirubin measurement (mass/volume) 0.2 mg/dL 0.1-1.0 Serum or plasma alkaline phosphatase measurement (enzymatic activity/volume) 68 U/L 40-136 Serum or plasma aspartate aminotransferase measurement (enzymatic activity/ volume) 17 U/L 5-34 Serum or plasma alanine aminotransferase measurement (enzymatic activity/volume ) 10 U/L 0-55 Serum or plasma protein measurement (mass/volume) 7.1 g/dL 6.4-8.2 Serum or plasma albumin measurement (mass/volume) 3.5 g/dL 3.2-4.5 Serum or plasma troponin i.cardiac measurement (mass/volume) - 08/23/16 13:30 Serum or plasma troponin i.cardiac measurement (mass/volume) < ng/ mL <0.30 Influenza virus A and B antigen detection - 08/23/16 13:30 FLU RESULT NEGATIVE FOR INFLUENZA A AND B ANTIGENS BY IA NRG Serum or plasma lithium measurement (moles/volume) - 08/23/16 13:30 BNP level 38.9 pg/mL <100.0 Blood CBC with ordered manual differential panel - 09/15/16 16:20 Blood leukocytes automated count (number/volume) 8.7 10*3/uL 4.3-11.0 Blood erythrocytes automated count (number/volume) 4.51 10*6/uL 4.35-5.85 Venous blood hemoglobin measurement (mass/volume) 11.1 g/dL 11.5-16.0 Blood hematocrit (volume fraction) 36 % 35-52 Automated erythrocyte mean corpuscular volume 80 [foz_us] 80-99 Automated erythrocyte mean corpuscular hemoglobin (mass per erythrocyte) 25 pg 25-34 Automated erythrocyte mean corpuscular hemoglobin concentration measurement ( mass/volume) 31 g/dL 32-36 Automated erythrocyte distribution width ratio 15.5 % 10.0-14.5 Automated blood platelet count (count/volume) 254 10*3/uL 130-400 Automated blood platelet mean volume measurement 10.4 [foz_us] 7.4-10.4 Automated blood neutrophils/100 leukocytes 63 % 42-75 Automated blood lymphocytes/100 leukocytes 23 % 12-44 Blood monocytes/100 leukocytes 6 % NRG Automated blood eosinophils/100 leukocytes 6 % 0-10 Automated blood basophils/100 leukocytes 1 % 0-10 Blood neutrophils automated count (number/volume) 5.5 10*3 1.8-7.8 Blood lymphocytes automated count (number/volume) 2.0 10*3 1.0-4.0 Blood monocytes automated count (number/volume) 0.7 10*3 0.0-1.0 Automated eosinophil count 0.5 10*3/uL 0.0-0.3 Automated blood basophil count (count/volume) 0.1 10*3/uL 0.0-0.1 Manual blood segmented neutrophils/100 leukocytes 56 % NRG Blood band neutrophils/100 leukocytes 2 % NRG Manual blood lymphocytes/100 leukocytes 24 % NRG Manual eosinophils/100 leukocytes in nose 11 % NRG Manual blood basophils/100 leukocytes 1 % NRG Blood erythrocyte morphology finding identification NORMAL NRG Sputum Gram stain - 09/15/16 16:25 GRAM STAIN SPUTUM AND MIXED BACTERIAL TIGRE NRG Bacterial sputum culture - 09/15/16 16:25 FREE TEXT EXTERNAL SENSITIVITY REPORTED 09/17/16 7:30 NRG QUANTITY OF GROWTH Scant Growth NRG FREE TEXT ENTRY 2 PLUS NORMAL TIGRE NRG Bacterial sputum culture [id number] NR Bacterial susceptibility panel - 09/15/16 16:25 Gentamicin susceptibility test by minimum inhibitory concentration < = NRG Trimethoprim/sulfamethoxazole susceptibility test by minimum inhibitoryconcentration >= NRG Tobramycin susceptibility test by minimum inhibitory concentration < = NRG Cefazolin susceptibility test by minimum inhibitory concentration > = NRG Piperacillin/tazobactam susceptibility test by minimum inhibitory concentration <= NRG Ciprofloxacin susceptibility test by minimum inhibitory concentration <= NRG Meropenem susceptibility test by minimum inhibitory concentration < = NRG Aztreonam susceptibility test by minimum inhibitory concentration < = NRG Cefepime susceptibility test by minimum inhibitory concentration <= NRG Fe+TIBC+Jordi - 11/25/16 08:42 Iron Bind.Cap.(TIBC) 320 ug/dL 250-450 UIBC 293 ug/dL 131-425 Iron, Serum 27 ug/dL 27-159 Iron Saturation 8 % 15-55 Ferritin, Serum 7 ng/mL 15-150 CBC With Differential/Platelet - 11/25/16 08:42 WBC 6.7 x10E3/uL 3.4-10.8 RBC 4.60 x10E6/uL 3.77-5.28 Hemoglobin 10.6 g/dL 11.1-15.9 Hematocrit 35.5 % 34.0-46.6 MCV 77 fL 79-97 MCH 23.0 pg 26.6-33.0 MCHC 29.9 g/dL 31.5-35.7 RDW 16.0 % 12.3-15.4 Platelets 350 x10E3/uL 150-379 Neutrophils 56 % Lymphs 27 % Monocytes 9 % Eos 7 % Basos 1 % Neutrophils (Absolute) 3.8 x10E3/uL 1.4-7.0 Lymphs (Absolute) 1.8 x10E3/uL 0.7-3.1 Monocytes(Absolute) 0.6 x10E3/uL 0.1-0.9 Eos (Absolute) 0.5 x10E3/uL 0.0-0.4 Baso (Absolute) 0.1 x10E3/uL 0.0-0.2 Immature Granulocytes 0 % Immature Grans (Abs) 0.0 x10E3/uL 0.0-0.1 Comp. Metabolic Panel (14) - 11/25/16 08:42 Glucose, Serum 97 mg/dL 65-99 BUN 6 mg/dL 6-24 Creatinine, Serum 0.77 mg/dL 0.57-1.00 eGFR If NonAfricn Am 85 mL/min/1.73 >59 eGFR If Africn Am 98 mL/min/1.73 >59 BUN/Creatinine Ratio 8 9-23 Sodium, Serum 143 mmol/L 134-144 Potassium, Serum 4.2 mmol/L 3.5-5.2 Chloride, Serum 102 mmol/L 96-106 Carbon Dioxide, Total 24 mmol/L 18-29 Calcium, Serum 8.9 mg/dL 8.7-10.2 Protein, Total, Serum 7.0 g/dL 6.0-8.5 Albumin, Serum 3.7 g/dL 3.5-5.5 Globulin, Total 3.3 g/dL 1.5-4.5 A/G Ratio 1.1 1.2-2.2 Bilirubin, Total 0.3 mg/dL 0.0-1.2 Alkaline Phosphatase, S 84 IU/L 39-117 AST (SGOT) 19 IU/L 0-40 ALT (SGPT) 5 IU/L 0-32 Lipid Panel - 11/25/16 08:42 Cholesterol, Total 242 mg/dL 100-199 Triglycerides 104 mg/dL 0-149 HDL Cholesterol 51 mg/dL >39 VLDL Cholesterol Dread 21 mg/dL 5-40 LDL Cholesterol Calc 170 mg/dL 0-99 [id number] - 07/01/17 12:19 Serum or plasma urea nitrogen measurement (mass/volume) 8 mg/dL 7-18 Serum or plasma creatinine measurement (mass/volume) 0.72 mg/dL 0.60-1.30 Serum or plasma urea nitrogen/creatinine mass ratio 11 NRG Serum or plasma creatinine measurement with calculation of estimated glomerular filtration rate > NRG CBC - 11/17/17 09:23 WHITE BLOOD CELL COUNT 4.8 Thousand/uL 3.8-10.8 RED BLOOD CELL COUNT 4.03 Million/uL 3.80-5.10 HEMOGLOBIN 11.1 g/dL 11.7-15.5 HEMATOCRIT 35.3 % 35.0-45.0 MCV 87.6 fL 80.0-100.0 MCH 27.5 pg 27.0-33.0 MCHC 31.4 g/dL 32.0-36.0 RDW 15.2 % 11.0-15.0 PLATELET COUNT 220 Thousand/uL 140-400 MPV 10.6 fL 7.5-12.5 ABSOLUTE NEUTROPHILS 2616 cells/uL 2160-7895 ABSOLUTE LYMPHOCYTES 1114 cells/uL 850-3900 ABSOLUTE MONOCYTES 389 cells/uL 200-950 ABSOLUTE EOSINOPHILS 610 cells/uL 15-500 ABSOLUTE BASOPHILS 72 cells/uL 0-200 NEUTROPHILS 54.5 % NRG LYMPHOCYTES 23.2 % NRG MONOCYTES 8.1 % NRG EOSINOPHILS 12.7 % NRG BASOPHILS 1.5 % NRG Encounters ACCT No. Visit Date/Time Discharge Status Pt. Type Provider Facility Loc./Unit Complaint [id number] 10/08/2014 00:00:00 10/08/2014 23:59:59 CLS Outpatient CHON MINAYA DDS [id number] 07/13/2014 09:59:00 07/13/2014 23:59:59 CLS Outpatient MARITZA AUGUSTIN APRN [id number] 12/06/2013 11:08:00 12/06/2013 23:59:59 CLS Outpatient MARITZA AUGUSTIN APRN [id number] 11/01/2013 10:02:00 11/01/2013 23:59:59 CLS Outpatient GABRIEL LEMON APRN [id number] 09/21/2013 09:24:00 09/21/2013 23:59:59 CLS Outpatient HEIDI WOOD APRN [id number] 09/05/2013 14:29:00 09/05/2013 23:59:59 CLS Outpatient HEIDI WOOD APRN [id number] 11/26/2016 10:09:00 Document Registration [id number] 11/17/2017 09:35:00 11/17/2017 23:59:59 CLS Outpatient [facility] [id number] 11/17/2017 09:20:00 Document Registration [id number] 03/14/2018 01:39:00 03/14/2018 23:59:59 CLS Preadmit NIKOLAI MOORE MD [facility] ONC [id number] 03/04/2018 10:31:00 03/13/2018 00:01:00 DIS Outpatient NIKOLAI MOORE MD [facility] ONC [id number] 03/04/2018 11:12:00 03/04/2018 23:59:59 CLS Outpatient NIKOLAI MOORE MD [facility] RAD [id number] 02/28/2018 12:33:00 03/04/2018 10:29:00 DIS Outpatient NIKOLAI MOORE MD [facility] ONC [id number] 09/09/2017 11:26:00 12/01/2017 00:01:00 DIS Outpatient NIKOLAI MOORE MD [facility] ONC [id number] 10/25/2017 08:00:00 10/25/2017 23:59:59 CLS Outpatient BENSON, BERTA E ADDING MACHINE OPERATOR [facility] PULM J44.9 COPD [id number] 09/09/2017 14:00:00 10/24/2017 00:01:00 DIS Outpatient BENSON, BERTA E ADDING MACHINE OPERATOR [facility] PULM J44.9 COPD [id number] 07/07/2017 09:37:00 07/07/2017 23:59:59 CLS Outpatient BENSON, BERTA E ADDING MACHINE OPERATOR [facility] RT J84.9 ILD [id number] 07/01/2017 12:04:00 07/01/2017 23:59:59 CLS Outpatient BENSON, BERTA E ADDING MACHINE OPERATOR [facility] RAD J44.9 COPD [id number] 03/05/2017 11:06:00 03/13/2017 00:01:00 DIS Outpatient KRISTI VANESSA [facility] ONC [id number] 01/29/2017 11:17:00 01/29/2017 15:05:00 DIS Outpatient RADHA TRAN MD [facility] ENDO HX ANEMIA [id number] 01/27/2017 05:35:00 01/27/2017 11:22:00 DIS Outpatient RADHA TRAN MD [facility] PREOP HX ANEMIA [id number] 12/15/2016 00:14:00 12/15/2016 23:59:59 CLS Preadmit BERTA KNOWLES APRN [facility] RAD PNEUMONIA,ASTHMA, COPD [id number] 09/15/2016 15:17:00 12/14/2016 00:01:00 DIS Outpatient BERTA KNOWLES ADDING MACHINE OPERATOR [facility] RAD PNEUMONIA,ASTHMA, COPD [id number] 12/02/2016 12:36:00 12/02/2016 23:59:59 CLS Outpatient BERTA KNOWLES ADDING MACHINE OPERATOR [facility] RAD PNEUMONIA [id number] 10/22/2016 15:00:00 10/22/2016 23:59:59 CLS Preadmit THERON CALLOWAY DO [facility] PULM COPD,ILD,HYPOXIA,GERD [id number] 07/23/2016 13:35:00 10/21/2016 00:01:00 DIS Outpatient THERON CALLOWAY DO [facility] PULM COPD,ILD,HYPOXIA,GERD [id number] 09/18/2016 15:33:00 09/18/2016 23:59:59 CLS Outpatient BERTA KNOWLES ADDING MACHINE OPERATOR [facility] RAD PNEUMONIA [id number] 08/23/2016 13:13:00 08/23/2016 15:21:00 DIS Emergency ESTRELLA CHOI ADDING MACHINE OPERATOR [facility] ER SOB [id number] 07/14/2016 13:00:00 07/15/2016 00:01:00 DIS Outpatient THERON CALLOWAY DO [facility] PULM COPD,ILD,HYPOXIA,GERD [id number] 06/09/2016 14:59:00 06/09/2016 23:59:59 CLS Outpatient BERTA KNOWLES ADDING MACHINE OPERATOR [facility] RAD PNEUMONIA,ASTHMA, COPD,ILD,HYPOXIA [id number] 04/07/2016 13:00:00 04/12/2016 00:01:00 DIS Outpatient THERON CALLOWAY DO [facility] PULM COPD,ILD,HYPOXIA,GERD [id number] 04/09/2016 15:51:00 04/09/2016 23:59:59 CLS Outpatient BERTA KNOWLES ADDING MACHINE OPERATOR [facility] RAD FEVER [id number] 11/15/2015 14:05:00 11/15/2015 23:59:59 CLS Outpatient THERON CALLOWAY DO [facility] LAB COPD,HYPOXIA,ASTHMA, ALLERGIC RHINITIS [id number] 11/15/2015 13:21:00 11/15/2015 23:59:59 CLS Outpatient THERON CALLOWAY DO [facility] COPD,HYPOXIA,ASTHMA, ALLERGIN RHINITIS [id number] 04/02/2015 14:16:00 04/02/2015 23:59:59 CLS Outpatient ANA TILLMAN ADDING MACHINE OPERATOR [facility] RAD SCEENING [id number] 01/23/2015 11:39:00 01/23/2015 23:59:59 CLS Outpatient BERTA KNOWLES ADDING MACHINE OPERATOR [facility] RAD LUNG DISEASE,COPD [id number] 01/02/2015 14:15:00 01/02/2015 23:59:59 CLS Outpatient BERTA KNOWLES ADDING MACHINE OPERATOR [facility] RAD ILD,COPD,ALLERGIC RHINITIS [id number] 12/18/2014 11:51:00 12/18/2014 23:59:59 CLS Outpatient KARL VILLAGOMEZ MD [facility] RAD RT MAXILLARY DENSITY [id number] 11/15/2014 09:53:00 11/15/2014 23:59:59 CLS Outpatient BERTA KNOWLES ADDING MACHINE OPERATOR [facility] RAD ALLERGIC RHINITIS, UPPER RESPIRATORY,COPD,ILD [id number] 09/19/2014 12:19:00 09/19/2014 23:59:59 CLS Outpatient THERON CALLOWAY DO [facility] RAD COPD,ASTHMA,ILD,DYSPNEA [id number] 09/21/2013 08:39:00 09/21/2013 23:59:59 CLS Outpatient HEIDI WOOD ADDING MACHINE OPERATOR [facility] RAD ROUTINE [id number] 05/03/2018 10:46:00 ACT Emergency SANDEEP GARCIA MD [facility] ER FALL,L ARM PAIN [id number] 01/24/2018 14:15:00 Document Registration [id number] 09/19/2014 12:19:00 Document Registration [id number] 05/04/2012 10:48:00 Document Registration [id number] 03/21/2012 10:05:00 Document Registration [id number] 03/09/2012 09:40:00 Document Registration [id number] 02/24/2012 08:27:00 Document Registration [id number] 02/18/2012 08:33:00 Document Registration [id number] 05/07/2010 09:33:00 Document Registration [id number] 05/05/2010 08:30:00 Document Registration [id number] 04/01/2010 10:09:00 Document Registration [id number] 01/16/2010 08:47:00 Document Registration [id number] 01/13/2010 13:54:00 Document Registration [id number] 09/19/2009 08:57:00 Document Registration
--- NOTE | 2018-05-03 11:19 | ED Upper Extremity ---
General Chief Complaint: Trauma-Non Activation Stated Complaint: FALL,L ARM PAIN Nursing Triage Note: PT AMBULATED TO ROOM 6 PT STATES FELL [employer] AND INJURED L SHOULDER. DENIES LOC, STATES DID HIT HEAD, PT STATES MISSED STEP IN GARAGE. Nursing Sepsis Screen: No Definite Risk Source: patient Exam Limitations: no limitations History of Present Illness Date Seen by Provider: May 03, 2018 Time Seen by Provider: 11:14 Initial Comments Patient is a 62-year-old female who presents to emergency room with complaints of left shoulder and left upper arm pain after a fall. She reports that she missed a step in her garage causing her to fall onto her left side. She reports that she did hit her head on another step but did not lose consciousness, denies head/neck pain and is not on any blood thinners. Onset: just prior to arrival Pain/Injury Location: left shoulder, left elbow Method of Injury: fell Allergies and Home Medications Allergies Coded Allergies: No Known Drug Allergies (Verified , 07/15/09) Home Medications Albuterol Sulfate 1 Puff Puff, 2 PUFF IH Q4H PRN for WHEEZING, (Reported) 1 PUFF = 90 MCG Budesonide/Formoterol Fumarate 10.2 Gm Hfa.aer.ad, 2 PUFF IH BID, (Reported) Bupropion Hcl 300 Mg Tab.sr.24h, 300 MG PO DAILY, (Reported) Clonazepam 0.5 Mg Tablet, 0.5 MG PO BID, (Reported) Hydrocodone Bit/Acetaminophen 1 Tab Tab, 1-2 EACH PO Q6H PRN for PAIN-MODERATE Prescribed by: HARVEY HAWKINS on 05/03/18 1330 Omeprazole 40 Mg Capsule., 40 MG PO DAILY, (Reported) Pantoprazole Sodium 40 Mg Tablet.dr, 40 MG PO DAILY Prescribed by: RADHA TRAN on 01/29/17 1413 Sucralfate 1 Gm Tablet, 1 GM PO QID Prescribed by: RADHA TRAN on 01/29/17 1414 Patient Home Medication List Home Medication List Reviewed: Yes Review of Systems Constitutional: no symptoms reported, see HPI Musculoskeletal: see HPI, joint pain (left shoulder ), joint swelling (left shoulder) All Other Systems Reviewed Negative Unless Noted: Yes Past Ketlktg-Yjmjah-Kitkft Hx Past Med/Social Hx: Reviewed Nursing Past Med/Soc Hx Patient Social History Alcohol Use: Denies Use Recreational Drug Use: Yes (YEARS AGO) Smoking Status: Never a Smoker Recent Foreign Travel: No Contact w/Someone Who Travel: No Recent Infectious Disease Expo: No Recent Hopitalizations: No Physical Abuse: No Sexual Abuse: No Immunizations Up To Date Date of Pneumonia Vaccine: Mar 17, 2016 Date of Influenza Vaccine: Mar 16, 2012 Seasonal Allergies Seasonal Allergies: Yes Past Medical History Surgeries: Yes (lap band, breast reduction) Section, Tubal Ligation Respiratory: Yes (oxygen at 4L/nc ) Asthma, COPD, Emphysema Cardiac: No Neurological: No Reproductive Disorders: No Sexually Transmitted Disease: No Gastrointestinal: No Musculoskeletal: Yes Arthritis Endocrine: No Cancer: No Psychosocial: Yes Anxiety, Depression Integumentary: No Blood Disorders: Yes (anemia) Family Medical History Reviewed Nursing Family Hx Physical Exam Vital Signs Vital Signs - First Documented 05/03/18 11:00 Temp 98.4 Pulse 72 Resp 18 B/P (MAP) 152/90 (110) Pulse Ox 99 O2 Delivery Nasal Cannula O2 Flow Rate 4.00 Capillary Refill : Less Than 3 Seconds Height, Weight, BMI Height: 5'4.00" Weight: 150lbs. 0.2oz. 68.841263kz; 30.6 BMI Method:Stated General Appearance: WD/WN, no apparent distress Neck: non-tender, full range of motion, supple, normal inspection Cardiovascular: normal peripheral pulses, regular rate, rhythm, no edema, no gallop, no JVD, no murmur Respiratory: chest non-tender, lungs clear, normal breath sounds, no respiratory distress, no accessory muscle use Shoulder: bone tenderness (left shoulder ), limited ROM, pain, soft tissue tenderness, swelling Elbow/Forearm: normal inspection, Left, pain, soft tissue tenderness Wrist: Yes normal inspection Hand: normal inspection, Bilateral Neurologic/Tendon: normal sensation, normal motor functions, normal tendon functions Neurologic/Psychiatric: alert, normal mood/affect, oriented x 3 Skin: normal color, warm/dry normal distal pulses and capillary refill on left upper extremity Progress/Results/Core Measures Results/Orders My Orders Orders - HARVEY HAWKINS Shoulder, Left, 3 Views (05/03/18 11:12) Hydrocodone/Apap 5/325 Tablet (Lortab 5 (05/03/18 11:15) Humerus, Left, 2 Views (05/03/18 11:19) Medications Given in ED Vital Signs/I&O 05/03/18 13:42 Temp 98.4 Pulse 72 Resp 18 B/P (MAP) 152/90 (110) Pulse Ox 99 O2 Flow Rate 4.00 Blood Pressure Mean: 110 Progress Progress Note : Time: 13:20 Progress Note I have seen and evaluated the patient. I have discussed the case with Dr. Gifford and he recommends shoulder immoblizer and following up in his office. Patient agrees with plan of care, she was placed in a shoulder immobilizer. Distal pulses and capillary refill remain intact. Diagnostic Imaging Diagonstic Imaging: Xray Plain Films/CT/US/NM/MRI: elbow, other (shoulder) Comments NAME: HANKSYARITZA [facility] REC#: [id number] PHYSICIAN: HARVEY HAWKINS CC: HARVEY HAWKINS; DEANDRE BLANCO MD Page 1 of 1 RADIOLOGY REPORT VIA [facility]. [place], [place] CC: HARVEY HAWKINS; DEANDRE BLANCO MD Page 1 of 1 RADIOLOGY REPORT NAME: YARITZA HANKS [facility] REC#: [id number] PT STATUS: REG ER : 1955 PHYSICIAN: HARVEY HAWKINS ADMIT DATE: 05/03/18/ER Signed Date of Exam: 05/03/18 HUMERUS, LEFT, 2 VIEWS Indication: Pain after fall. 2 views were obtained. Findings: There is an impacted fracture of the left humeral head and neck. Humeral head maintains normal relationship to the glenoid. No other fracture or dislocation. Soft tissues are unremarkable. Left lung apex is clear. Impression: Impacted fracture of the left humeral head and neck. Dictated by: Dictated on workstation # [id number] Dict: 05/03/18 1249 Trans: 05/03/18 1300 Interpreted by: DEANDRE BLANCO MD Electronically signed by: DEANDRE BLANCO MD 05/03/18 1300 NAME: YARITZA HANKS [facility] REC#: [id number] PT STATUS: DEP ER : 1955 PHYSICIAN: HARVEY HAWKINS ADMIT DATE: 05/03/18/ER Signed Date of Exam: 05/03/18 SHOULDER, LEFT, 3 VIEWS Left shoulder at 12:15. Indication: Injury. 3 views were obtained. There is a transverse fracture of the surgical neck of the humerus. The humeral head fracture fragment is rotated caudally and overlies the distal fracture fragment by nearly 3 cm. No other fracture or acute bony abnormality is identified. There is no sign of a dislocation of the humeral head. The acromioclavicular joint is fairly well maintained. The soft tissues are unremarkable. Impression: 1. There is a transverse displaced fracture of the surgical neck of the humerus. If further evaluation of the extent of the injury to the humerus is desired, then CT would be recommended. 2. There is no acute bony abnormality noted otherwise. Dictated by: Dictated on workstation # [id number] Dict: 05/03/18 1434 Trans: 05/03/181950 Interpreted by: KENIA MANNING MD Electronically signed by: KENIA MANNING MD 05/03/181950 Reviewed: Reviewed by Me Departure Impression Primary Impression: Proximal humerus fracture Disposition: HOME, SELF-CARE Condition: Stable Departure-Patient Inst. Decision time for Depature: 13:27 Referrals: DELISA PEREZ MD (PCP/Family) Primary Care Physician KARL GIFFORD MD Patient Instructions: Upper Arm Fracture Add. Discharge Instructions: Take medication as directed. Use ice to the sore areas at 20 minute intervals. Follow-up with Dr. Gifford within 1 week for a recheck. Call today for an appointment time. Use the immobilizer at all times. Return back to the emergency room for any worsening symptoms or concerns as needed. All discharge instructions reviewed with patient and/or family. Voiced understanding. Scripts Hydrocodone Bit/Acetaminophen (Hydrocodone/Acetaminophen 5/325mg Tablet) 1 Tab Tab 1-2 EACH PO Q6H PRN for PAIN-MODERATE MDD 10, #30 TAB Prov: HARVEY HAWKINS 05/03/18 Copy Copies To 1: KARL GIFFORD MD, TRAVIS May 03, 2018 11:19
[2018-05-03] MEDS: HYDROcodone/APAP 5 MG/325 MG (LORTAB) TAB PO ONE (11:30)
--- NOTE | 2018-05-03 12:52 | Diagnostic Imaging Report ---
Indication: Pain after fall. 2 views were obtained. Findings: There is an impacted fracture of the left humeral head and neck. Humeral head maintains normal relationship to the glenoid. No other fracture or dislocation. Soft tissues are unremarkable. Left lung apex is clear. Impression: Impacted fracture of the left humeral head and neck. Dictated by: Dictated on workstation # [id number]
[2018-05-03] MEDS ORDERED: ACHD5005 PO (13:30)
[2018-05-03 13:42] VITALS: BP 152/90
--- NOTE | 2018-05-03 14:42 | Diagnostic Imaging Report ---
Left shoulder at 12:15. Indication: Injury. 3 views were obtained. There is a transverse fracture of the surgical neck of the humerus. The humeral head fracture fragment is rotated caudally and overlies the distal fracture fragment by nearly 3 cm. No other fracture or acute bony abnormality is identified. There is no sign of a dislocation of the humeral head. The acromioclavicular joint is fairly well maintained. The soft tissues are unremarkable. Impression: 1. There is a transverse displaced fracture of the surgical neck of the humerus. If further evaluation of the extent of the injury to the humerus is desired, then CT would be recommended. 2. There is no acute bony abnormality noted otherwise. Dictated by: Dictated on workstation # [id number]
== END 2018-05-03 13:41 | disposition home or self-care (01) ==
LOC: EDUNIT# 10:44 → ER 10:46
DX: S42.212A Unspecified displaced fracture of surgical neck of left humerus, initial encounter for closed fracture (principal); J43.9 Emphysema, unspecified; F41.9 Anxiety disorder, unspecified; F32.9 Major depressive disorder, single episode, unspecified; D64.9 Anemia, unspecified; Z79.51 Long term (current) use of inhaled steroids; Z79.52 Long term (current) use of systemic steroids; Z98.890 Other specified postprocedural states; Z98.84 Bariatric surgery status; Z98.51 Tubal ligation status; W10.8XXA Fall (on) (from) other stairs and steps, initial encounter; W22.09XA Striking against other stationary object, initial encounter; Y92.008 Other place in unspecified non-institutional (private) residence as the place of occurrence of the external cause
CPT/HCPCS: 73030; 73060

== ENCOUNTER → 2018-07-19 | Outpatient (CLI) | payer MEDICARE, OTHER ==
[~2018-07-19] MED LIST changes: +ACHD5005 PO
--- NOTE | 2018-07-19 13:18 | Diagnostic Imaging Report ---
INDICATION: Routine screening. COMPARISON: Comparison is made with prior mammograms from 04/02/2015 and 09/21/2013. TECHNIQUE: 2D and 3D bilateral screening mammography was performed with computer-aided detection (CAD) system. FINDINGS: Scattered fibroglandular densities are identified bilaterally. Biopsy changes in the posterior left breast are again noted and appear stable. No mass or malignant-appearing microcalcifications are seen. There are benign calcifications present. The axillae are unremarkable. IMPRESSION: No mammographic features suspicious for malignancy are identified. ACR BI-RADS Category 2: Benign findings. Result letter will be mailed to the patient. Note: At least 10% of breast cancer is not imaged by mammography. Dictated by: Dictated on workstation # [id number]
--- NOTE | 2018-07-19 16:13 | Diagnostic Imaging Report ---
INDICATION: 62-year-old female, postmenopausal. Screening for osteoporosis. COMPARISON: None. FINDINGS: AP Spine L1-L4: [BMD (g/cm2): 0.973] [T-Score: -1.9] [Z-Score: -0.9] [BMD Previous: N/A] [BMD % Change: N/A] LT Hip Neck: [BMD (g/cm2): 0.655] [T-Score: -2.8] [Z-Score: -1.7] LT Hip Total: [BMD (g/cm2):07.24] [T-Score:-2.3] [Z-Score: -1.5] [BMD Previous: N/A] [BMD % Change: N/A] RT Hip Neck: [BMD (g/cm2):0.642] [T-Score:-2.8] [Z-Score:-1.8] RT Hip Total: [BMD (g/cm2):0.692] [T-score:-2.5] [Z-Score:-1.7] [BMD Previous:N/A] [BMD % Change:N/A] *Indicates significant change from prior examination based on 95% confidence level. World Health Organization criteria for BMD interpretation classify patients as Normal (T-score at or above -1.0), Osteopenic (T-score between -1.0 and -2.5) or Osteoporotic (T-score at or below -2.5). LIMITATIONS AND MODIFICATION: None. IMPRESSION: 1. Osteoporosis. 2. Baseline examination. 3. See below National Osteoporosis Foundation guidelines on when to potentially initiate pharmacologic therapy. Based on the National Osteoporosis Foundation Guidelines, pharmacologic treatment should be initiated in any of the following, unless clinical conditions suggest otherwise: * Any patient with prior fragility fracture of the hip or vertebrae. A spine fracture indicates 5X risk for subsequent spine fracture and 2X risk for subsequent hip fracture. * Osteoporosis (T-score <-2.5). * Postmenopausal women and men age 50 and older with low bone mass/osteopenia (T-score between -1.0 and -2.5) by DXA and 10-year major osteoporotic fracture greater than 20% or a 10-year probability of hip fracture greater than 3%. These fracture risks are supplied above in the FRAX score, if applicable. * Clinician judgement and/or patient preferences may indicate treatment for people with 10-year fracture probabilities above or below these levels. Dictated by: Dictated on workstation # [id number]
== END ==
LOC: RAD 10:46
PROVIDERS: ATTEND Internal Medicine
DX: Z12.31 Encounter for screening mammogram for malignant neoplasm of breast (principal); Z13.820 Encounter for screening for osteoporosis; M81.0 Age-related osteoporosis without current pathological fracture; Z78.0 Asymptomatic menopausal state
CPT/HCPCS: 77067; 77080

== ENCOUNTER 2020-03-15 10:56 | Emergency (ER) | payer MEDICARE ==
[~2020-03-15] VITALS: Ht 162 cm; Wt 80.0 kg
[~2020-03-15 10:56] MED LIST changes: +OMEP40CA27 PO; -OMEP40CA36 PO
[2020-03-15] MEDS ORDERED: LORazepam INJ 2 MG/ML (ATIVAN) VIAL ONE (10:59)
--- NOTE | 2020-03-15 11:08 | ED General ---
General Stated Complaint: WEAKNESS;MEMORY LOSS Source of Information: Patient, Family Exam Limitations: No Limitations History of Present Illness Date Seen by Provider: Mar 15, 2020 Time Seen by Provider: 11:04 Initial Comments To ER by Family with reports of weakness and memory loss that recurred just prior to arrival. Patient was here yesterday for the same, she initially presented with trouble speaking, memory issues, trouble walking tremor of left hand that began on Wednesday. She keeps eyes squinted closed and was hypertensive and tachycardic on arrival. Over the course of her ER stay which included a CT scan, CT angiogram, labs, these symptoms resolved and she was up walking and talking without assistance. Symptoms were attributed to her empty oxygen tank and initial oxygen saturation of 80%. Today on arrival she is again tachycardic and hypertensive, keeps eyes squinted shut, anxious appearing but she has a full oxygen tank and oxygen saturation is 100% on her baseline 4 L. Yesterday her daughter questioned if anxiety could be the cause of this. Timing/Duration: Intermittent Severity: Moderate Associated Systoms: Denies Symptoms Allergies and Home Medications Allergies Coded Allergies: No Known Drug Allergies (Verified , 07/15/09) Home Medications Albuterol Sulfate 1 Puff Puff, 2 PUFF IH Q4H PRN for WHEEZING, (Reported) 1 PUFF = 90 MCG Budesonide/Formoterol Fumarate 10.2 Gm Hfa.aer.ad, 2 PUFF IH BID, (Reported) Bupropion Hcl 300 Mg Tab.sr.24h, 300 MG PO DAILY, (Reported) Clonazepam 0.5 Mg Tablet, 0.5 MG PO BID, (Reported) Enoxaparin Sodium 30 Mg/0.3 Ml Syringe, 30 MG SQ BID Prescribed by: ESTRELLA CHOI on 03/15/20 1514 Hydrocodone Bit/Acetaminophen 1 Tab Tab, 1-2 EACH PO Q6H PRN for PAIN-MODERATE Prescribed by: HARVEY HAWKINS on 05/03/18 1330 Omeprazole 40 Mg Capsule., 40 MG PO DAILY, (Reported) Pantoprazole Sodium 40 Mg Tablet., 40 MG PO DAILY Prescribed by: RADHA TRAN on 01/29/17 1413 Sucralfate 1 Gm Tablet, 1 GM PO QID Prescribed by: RADHA TRAN on 01/29/17 1414 Patient Home Medication List Home Medication List Reviewed: Yes Review of Systems Review of Systems Constitutional: see HPI EENTM: see HPI Respiratory: no symptoms reported Cardiovascular: no symptoms reported Genitourinary: no symptoms reported Musculoskeletal: no symptoms reported Skin: no symptoms reported Psychiatric/Neurological: No Symptoms Reported Hematologic/Lymphatic: No Symptoms Reported Immunological/Allergic: no symptoms reported Past Zvmqsmh-Qstals-Qqxomy Hx Patient Social History Recent Foreign Travel: No Contact w/Someone Who Travel: No Recent Hopitalizations: No Immunizations Up To Date Date of Pneumonia Vaccine: Mar 17, 2016 Date of Influenza Vaccine: Mar 16, 2012 Seasonal Allergies Seasonal Allergies: Yes Past Medical History Surgeries: Yes (lap band, breast reduction) Abdominal, Section, Tubal Ligation Respiratory: Yes (oxygen at 4L/nc ) Asthma, COPD, Emphysema Cardiac: No Neurological: No Reproductive Disorders: No Sexually Transmitted Disease: No Genitourinary: No Gastrointestinal: No Musculoskeletal: Yes Arthritis Endocrine: No Cancer: No Psychosocial: Yes Anxiety, Depression Integumentary: No Blood Disorders: Yes (anemia) Physical Exam Vital Signs Vital Signs - First Documented 03/15/20 10:56 Temp 36.5 Pulse 109 Resp 28 B/P (MAP) 190/91 (124) Pulse Ox 97 O2 Flow Rate 4.00 Capillary Refill : Height, Weight, BMI Height: 5'4.00" Weight: 150lbs. 0.2oz. [id number]; 30.00 BMI Method:Stated General Appearance: No Apparent Distress, WD/WN, Other (he denies squinted shut, heart rate 100 blood pressure 190/91. Respiratory rate is 40. Oxygen saturation 100% on baseline 4 L. Talk at a high rate of speed) Eyes: Bilateral Eye Normal Inspection, Bilateral Eye PERRL, Bilateral Eye EOMI Neck: Full Range of Motion, Normal Inspection Respiratory: No Accessory Muscle Use, No Respiratory Distress Cardiovascular: Regular Rate, Rhythm, Normal Peripheral Pulses Gastrointestinal: Non Tender, Soft Extremity: Normal Capillary Refill, Normal Inspection Neurologic/Psychiatric: Alert, Oriented x3 Skin: Normal Color, Warm/Dry Progress/Results/Core Measures Suspected Sepsis SIRS Temperature: Pulse: Respiratory Rate: Laboratory Tests 03/15/20 11:11: White Blood Count 8.0 Blood Pressure / Mean: Laboratory Tests 03/15/20 11:11: Creatinine 0.83, INR Comment 1.0, Platelet Count 381, Total Bilirubin 0.2 Results/Orders Lab Results Laboratory Tests Test 03/15/20 11:11 03/15/20 13:03 Range/Units White Blood Count 8.0 4.3-11.0 10^3/uL Red Blood Count 4.34 3.80-5.11 10^6/uL Hemoglobin 11.7 11.5-16.0 g/dL Hematocrit 38 35-52 % Mean Corpuscular Volume 86 80-99 fL Mean Corpuscular Hemoglobin 27 25-34 pg Mean Corpuscular Hemoglobin Concent 31 L 32-36 g/dL Red Cell Distribution Width 14.0 10.0-14.5 % Platelet Count 381 130-400 10^3/uL Mean Platelet Volume 10.2 9.0-12.2 fL Immature Granulocyte % (Auto) 1 % Neutrophils (%) (Auto) 62 42-75 % Lymphocytes (%) (Auto) 20 12-44 % Monocytes (%) (Auto) 10 0-12 % Eosinophils (%) (Auto) 7 0-10 % Basophils (%) (Auto) 1 0-10 % Neutrophils # (Auto) 5.0 1.8-7.8 10^3/uL Lymphocytes # (Auto) 1.6 1.0-4.0 10^3/uL Monocytes # (Auto) 0.8 0.0-1.0 10^3/uL Eosinophils # (Auto) 0.5 H 0.0-0.3 10^3/uL Basophils # (Auto) 0.1 0.0-0.1 10^3/uL Immature Granulocyte # (Auto) 0.1 0.0-0.1 10^3/uL Prothrombin Time 13.8 12.2-14.7 SEC INR Comment 1.0 0.8-1.4 Sodium Level 139 135-145 MMOL/L Potassium Level 3.9 3.6-5.0 MMOL/L Chloride Level 102 98-107 MMOL/L Carbon Dioxide Level 26 21-32 MMOL/L Anion Gap 11 5-14 MMOL/L Blood Urea Nitrogen 8 7-18 MG/DL Creatinine 0.83 0.60-1.30 MG/DL Estimat Glomerular Filtration Rate > 60 BUN/Creatinine Ratio 10 Glucose Level 107 H 70-105 MG/DL Calcium Level 9.0 8.5-10.1 MG/DL Corrected Calcium 9.1 8.5-10.1 MG/DL Total Bilirubin 0.2 0.1-1.0 MG/DL Aspartate Amino Transf (AST/SGOT) 23 5-34 U/L Alanine Aminotransferase (ALT/SGPT) 13 0-55 U/L Alkaline Phosphatase 65 40-136 U/L C-Reactive Protein High Sensitivity 2.48 H 0.00-0.50 MG/DL Total Protein 7.5 6.4-8.2 GM/DL Albumin 3.9 3.2-4.5 GM/DL Coronavirus 2019 ([place]) Positive H Negative My Orders Orders - ESTRELLA CHOI APRN Ekg Tracing (03/15/20 10:58) Cbc With Automated Diff (03/15/20 10:58) Protime With Inr (03/15/20 10:58) Ed Iv/Invasive Line Start (03/15/20 10:58) Mri Brain W/O Contrast (03/15/20 11:03) Lorazepam Injection (Ativan Injection) (03/15/20 11:15) Comprehensive Metabolic Panel (03/15/20 11:31) Lorazepam Injection (Ativan Injection) (03/15/20 11:45) Hs C Reactive Protein (03/15/20 12:58) Covid 19 Inhouse Test (03/15/20 12:58) Dexamethasone Tablet (Decadron Tablet) (03/15/20 14:00) Enoxaparin Injection (Lovenox Injection) (03/15/20 16:30) Medications Given in ED Vital Signs/I&O Capillary Refill : Diagnostic Imaging Diagonstic Imaging: Xray Comments NAME: YARITZA HANKS [facility] REC#: [id number] PT STATUS: REG ER : 1955 PHYSICIAN: ESTRELLA CHOI APRN ADMIT DATE: 03/15/20/ER Signed Date of Exam:03/15/20 MRI BRAIN W/O CONTRAST PROCEDURE: MR imaging of the brain without contrast. TECHNIQUE: Multiplanar, multisequence MR imaging of the brain was performed without contrast. INDICATION: Short-term memory loss. Confusion. Difficulty speaking. COMPARISON: 03/14/2020. FINDINGS: A small focus of restricted diffusion is seen in the splenium of the corpus callosum. No associated mass effect or hemorrhage is seen. The ventricles, cortical sulci, and basilar cisterns are symmetric and unremarkable. The sellar and suprasellar regions have a normal appearance. The brainstem and posterior fossa are unremarkable. Retained secretions are seen in the bilateral maxillary sinuses. The mastoid air cells demonstrate normal signal characteristics. The globes and orbits are symmetric and unremarkable. The scalp and calvarium have a normal appearance. IMPRESSION: 1. Small focus of restricted diffusion in the splenium of the corpus callosum. 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 Numerous etiologies may cause this appearance, including seizure, metabolic disturbance, infection, and drug toxicity. Recommend correlation with patient history and symptoms and follow-up with brain MRI in one to two weeks. Dictated by: Dictated on workstation # [id number] Dict: 03/15/20 1224 Trans: 03/15/20 1234 [facility] [id number] Interpreted by: BEN VALDEZ DO Electronically signed by: BEN VALDEZ DO 03/15/20 1234 Departure Communication (Admissions) 1254-She states "for some reason i keep closing my eyes". She is anxious, irritable which improved with administration of 1mg IV lorazepam. Complains of tremors of both hands left>right wich is improved at the moment. Almost a mild encephalitis presentation 1250-Images clouded to [facility], spoke with transfer center. Awaiting call back. 1350-I went ahead and swabbed her for COVID19 giving infectious causes as a possible etiology for cytotoxic lesion of corpus callosum. She was positive. Will give her some Decadron here. 1510-spoke with Dr. Pink from neurology at the [facility]. He has reviewed the images and had his radiology department review the images. He would recommend checking an echocardiogram, typical stroke workup but he states that could be done within one week and does not have to be done today and she does not have to be admitted. He would recommend aspirin and Lovenox 30 mg subcutaneous twice a day for 2 weeks. From a respiratory standpoint she can go home. No value to continued Decadron at home. 1532-spoke with the patient who reports that she is feeling better at this time. I offered her admission but she would prefer to go home. I called Dr. Gupta who agrees that there would be not much to gain from hospital admission but we could certainly do that if she would like. Patient lives with her daughter who she states will be able to give her shots as she has given her shots before. Patient's daughter Isabella, agrees with this plan and states that she is comfortable giving injections. Impression Primary Impression: Cytotoxic Lesion of Corpus Callosum Additional Impression: COVID-19 Disposition: 01 HOME, SELF-CARE Condition: Stable Departure-Patient Inst. Decision time for Depature: 15:11 Referrals: ROSA NAIDU MD (PCP/Family) Primary Care Physician Patient Instructions: Coronavirus Disease 2019 (COVID-19) (DC) Add. Discharge Instructions: 1. Take the blood thinner injection twice a day for 2 weeks. Take an aspirin, (baby aspirin) daily if you don't already. Follow-up with your doctor next week to obtain an echocardiogram of the heart and a repeat MRI of the brain in about 2 weeks. Cqhd-wj-huot quarantined until 10 days have passed since the onset of symptoms. If your symptoms began Wednesday then this would be roughly next Wednesday. Additionally, the last 3 days of that 10 days stretch need to be asymptomatic before you can go back out quarantined. I would not be surprised if these neurologic symptoms wax and wane, come and go over the next 1-2 weeks. Return to ER for any concerns. [facility] will make a follow-up phone call appointment with you on Wednesday at 3:40 PM. Scripts Enoxaparin Sodium (Lovenox) 30 Mg/0.3 Ml Syringe 30 MG SQ BID, #28 SYRINGE Prov: ESTRELLA CHOI APRN 03/15/20 Copy Copies To 1: GLENNY VILLATORO PETER J APRN Mar 15, 2020 11:07
[2020-03-15] MEDS: LORazepam INJ 2 MG/ML (ATIVAN) VIAL IVP PRN ×2 (11:12→12:31)
[2020-03-15 11:29] LABS: BASOPHILS # (AUTO) 0.1 10^3/uL (0.0-0.1); BASOPHILS % (AUTO) 1 % (0-10); EOSINOPHILS # (AUTO) 0.5 10^3/uL (0.0-0.3); EOSINOPHILS % (AUTO) 7 % (0-10); HEMATOCRIT 38 % (35-52); HEMOGLOBIN 11.7 g/dL (11.5-16.0); LYMPHOCYTES # (AUTO) 1.6 10^3/uL (1.0-4.0); LYMPHOCYTES % (AUTO) 20 % (12-44); MEAN CORPUSCULAR HEMOGLOBIN 27 pg (25-34); MEAN CORPUSCULAR HGB CONC 31 g/dL (32-36); MEAN CORPUSCULAR VOLUME 86 fL (80-99); MEAN PLATELET VOLUME 10.2 fL (9.0-12.2); MONOCYTES # (AUTO) 0.8 10^3/uL (0.0-1.0); MONOCYTES % (AUTO) 10 % (0-12); NEUTROPHILS % (AUTO) 62 % (42-75); PLATELET COUNT 381 10^3/uL (130-400); PROTHROMBIN TIME PATIENT 13.8 SEC (12.2-14.7)
[2020-03-15 11:43] LABS: ALBUMIN 3.9 GM/DL (3.2-4.5); CHLORIDE 102 MMOL/L (98-107); POTASSIUM 3.9 MMOL/L (3.6-5.0); SODIUM 139 MMOL/L (135-145)
[2020-03-15 11:45] LABS: GLUCOSE 107 MG/DL (70-105); TOTAL PROTEIN 7.5 GM/DL (6.4-8.2)
[2020-03-15] MEDS ORDERED: LORazepam INJ 2 MG/ML (ATIVAN) VIAL IVP PRN (11:45)
[2020-03-15 11:46] LABS: CARBON DIOXIDE 26 MMOL/L (21-32)
[2020-03-15 11:47] LABS: BILIRUBIN,TOTAL 0.2 MG/DL (0.1-1.0)
[2020-03-15 11:49] LABS: ALKALINE PHOSPHATASE 65 U/L (40-136); CREATININE SERUM 0.83 MG/DL (0.60-1.30); GFR ESTIMATED > 60
[2020-03-15 11:50] LABS: BUN/CREATININE RATIO 10
[2020-03-15 11:52] LABS: ALANINE AMINOTRANSFERASE 13 U/L (0-55)
--- NOTE | 2020-03-15 12:33 | Diagnostic Imaging Report ---
PROCEDURE: MR imaging of the brain without contrast. TECHNIQUE: Multiplanar, multisequence MR imaging of the brain was performed without contrast. INDICATION: Short-term memory loss. Confusion. Difficulty speaking. COMPARISON: 03/14/2020. FINDINGS: A small focus of restricted diffusion is seen in the splenium of the corpus callosum. No associated mass effect or hemorrhage is seen. The ventricles, cortical sulci, and basilar cisterns are symmetric and unremarkable. The sellar and suprasellar regions have a normal appearance. The brainstem and posterior fossa are unremarkable. Retained secretions are seen in the bilateral maxillary sinuses. The mastoid air cells demonstrate normal signal characteristics. The globes and orbits are symmetric and unremarkable. The scalp and calvarium have a normal appearance. IMPRESSION: 1. Small focus of restricted diffusion in the splenium of the corpus callosum. 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 Numerous etiologies may cause this appearance, including seizure, metabolic disturbance, infection, and drug toxicity. Recommend correlation with patient history and symptoms and follow-up with brain MRI in one to two weeks. Dictated by: Dictated on workstation # [id number]
[2020-03-15] MEDS ORDERED: dexAMETHasone 6 MG TAB (DECADRON) PO SCH (14:00)
[2020-03-15] MEDS ORDERED: ENOX30DI9 SQ (15:14)
[2020-03-15 16:25] VITALS: BP 172/88
[2020-03-15] MEDS ORDERED: ENOXAPARIN 30 MG/0.3 ML (LOVENOX) SYR SQ ONE (16:30)
== END 2020-03-15 16:25 | disposition home or self-care (01) ==
LOC: EDUNIT# 10:56 → ER 10:57
DX: U07.1 COVID-19 (principal); F32.9 Major depressive disorder, single episode, unspecified; Z79.01 Long term (current) use of anticoagulants
CPT/HCPCS: 70551; 80053; 85025; 85610; 86141; 93005; 99284; U0002; 36415; 87635